=== PATIENT | female | born 1935 | race Caucasian/White ===

== ENCOUNTER 2016-09-17 18:21 | Emergency (ER) | payer BC ==
[~2016-09-17] VITALS: Ht 152.4 cm; Wt 64.2 kg
[~2016-09-17 18:21] MED LIST: ASPI81TA28 PO; MRLP17 PO; ZLF50 PO
[2016-09-17 18:32] VITALS: Ht 152.4 cm; Wt 64.2 kg
[2016-09-17] MEDS ORDERED: SODIUM CHLORIDE 0.9% 1000ML 250 ML IV STA (18:32)
[2016-09-17] MEDS ORDERED: SODIUM CHLORIDE 0.9% 1000ML 1,000 ML IV STA (18:32)
[2016-09-17] MEDS ORDERED: ALBUT/IPRATROP 3MG/0.5MG NEB 3 ML VIAL INH STA (18:32)
--- NOTE | 2016-09-17 18:39 | EMERGENCY ROOM VISIT NOTE ---
History Report prepared by Ulises: Sandrita Gannon Under the Supervision of: Dr. Del Anthony M.D. First contact with patient: 18:26 Chief Complaint: SHORTNESS OF BREATH Stated Complaint: SOB, COUGH History of Present Illness The patient is a 80 year old female who presents to the Emergency Room with complaints of persistent nonproductive, coughing starting this morning. She also reports shortness of breath. She denies any fevers, headache, sore throat, chest pain, pain/swelling in lower extremity, body aches, or any other complaints. The patient lives at [facility] and other residents have had similar symptoms. She has a history of A-Fib, asthma, and dementia. Source of History: patient, family, half-way notes Onset: this morning Position: other (global) Quality: other (nonproductive cough) Timing: other (persistent) Associated Symptoms: + SOB, No chest pain, No fevers, No headache, No sorethroat Review of Systems See HPI for pertinent positives & negatives. A total of 10 systems reviewed and were otherwise negative. Past Medical & Surgical Medical Problems: (1) Acute kidney injury (2) Afib (3) Alzheimer's Disease, Unspecified (4) Asthma, Unspecified (5) Ataxia (6) Benign essential hypertension (7) Contusion of multiple sites (8) Dizziness (9) Fall (10) Forehead laceration (11) Hypokalemia (12) Hypothyroidism Nos (13) Polymyalgia rheumatica (14) SAH (subarachnoid hemorrhage) (15) Syncope (16) Syncope and collapse Old medical records were reviewed. Nurse's notes were reviewed and I agree with. Family History Patient reports no known family medical history. Social History Smoking Status: Never Smoker Marital Status: Housing Status: lives alone Occupation Status: retired Current/Historical Medications Scheduled Aspirin (Aspirin Ec), 81 MG PO DAILY Methylprednisolone (Medrol Dosepak), 0 PO DAILY Oseltamivir (Tamiflu), 75 MG PO BID Polyethylene Glycol 3350 (Miralax), 17 GM PO DAILY Sertraline (Zoloft), 50 MG PO DAILY Allergies Coded Allergies: Adhesives (Verified Allergy, Severe, RED/SWOLLEN, 07/02/16) Codeine (Verified Allergy, Unknown, TOLERATED MORPHINE, 07/02/16) Erythromycin (Verified Allergy, Unknown, `, 07/02/16) Penicillins (Verified Allergy, Unknown, 07/02/16) Sulfamethoxazole (Verified Allergy, Unknown, 07/02/16) Physical Exam Vital Signs Date Time Temp Pulse Resp B/P Pulse Ox O2 Delivery O2 Flow Rate FiO2 09/17/16 21:43 36.5 99 24 155/74 95 09/17/16 21:41 99 24 155/74 95 Room Air 09/17/16 21:09 103 24 95 09/17/16 21:04 111 24 95 09/17/16 20:59 96 27 161/74 82 09/17/16 20:54 99 22 95 09/17/16 20:49 102 30 96 09/17/16 20:44 101 23 97 09/17/16 20:39 97 27 94 09/17/16 20:34 97 27 98 09/17/16 20:29 102 35 179/70 75 09/17/16 20:24 106 28 97 09/17/16 20:19 100 20 98 09/17/16 20:14 101 23 93 09/17/16 20:09 103 26 98 09/17/16 20:04 104 28 97 09/17/16 19:59 180/86 09/17/16 19:57 165/71 09/17/16 19:56 107 24 09/17/16 19:51 116 24 09/17/16 19:46 99 26 92 09/17/16 19:41 98 15 100 09/17/16 19:36 97 20 96 09/17/16 19:31 96 25 98 09/17/16 19:26 94 25 98 09/17/16 19:21 88 24 96 09/17/16 19:16 101 29 98 09/17/16 19:11 93 21 98 09/17/16 19:07 93 09/17/16 19:06 87 24 95 09/17/16 18:48 96 Room Air 09/17/16 18:32 36.5 91 22 177/103 96 Room Air 09/17/16 18:24 177/103 Physical Exam General: Older female who is coughing, in no significant respiratory distress. HEENT: Normal cephalic atraumatic. Pupils are equal round and reactive to light. Sclerae are anicteric. Extraocular movements are intact. Oropharynx is pink with moist mucous membranes. No swelling of the mouth lips or tongue. Neck: Supple with a midline trachea. No meningeal signs or stiffness, no JVD or bruits. No Stridor. Chest: Good lung movement with mild rhonchi. Heart: regular rate and rhythm. Abdomen: Soft nontender, nondistended without rebound guarding or rigidity. Extremities: No cyanosis clubbing or edema. No calf tenderness or assymetry Spine/Back. Non tender to palpation. No CVA tenderness Skin: Good turgor without rashes. Neurologic exam: Cranial nerves two through 12 are intact. Motor and sensation are intact and symmetrical throughout. Medical Decision & Procedures ER Provider Diagnostic Interpretation: X-ray results as stated below per interpretation by me and the radiologist: CHEST ONE VIEW PORTABLE CLINICAL HISTORY: CHEST PAIN dyspnea COMPARISON STUDY: 07/02/2016 FINDINGS: The bones soft tissues and hemidiaphragms are normal. The cardiomediastinal silhouette is normal. The lungs are clear. The pulmonary vasculature is normal. Right suprahilar nodular density is again noted. Are no focal infiltrative changes. Patient status post left shoulder hemiarthroplasty. IMPRESSION: Chronic and postoperative change. No acute process. Electronically signed by: Didier Eldridge M.D. 09/17/2016 7:10 PM Laboratory Results 09/17/16 18:35 Red Blood Count 3.77, Mean Corpuscular Volume 96.0, Mean Corpuscular Hemoglobin 31.8, Mean Corpuscular Hemoglobin Concent 33.1, Mean Platelet Volume 8.9, Neutrophils (%) (Auto) 70.4, Lymphocytes (%) (Auto) 18.5, Monocytes (%) (Auto) 7.3, Eosinophils (%) (Auto) 2.8, Basophils (%) (Auto) 0.6, Neutrophils # (Auto) 4.71, Lymphocytes # (Auto) 1.24, Monocytes # (Auto) 0.49, Eosinophils # (Auto) 0.19, Basophils # (Auto) 0.04 09/17/16 18:35 Test 09/17/16 18:35 09/17/16 18:45 White Blood Count 6.70 K/uL (4.8-10.8) Red Blood Count 3.77 M/uL (4.2-5.4) Hemoglobin 12.0 g/dL (12.0-16.0) Hematocrit 36.2 % (37-47) Mean Corpuscular Volume 96.0 fL (80-100) Mean Corpuscular Hemoglobin 31.8 pg (25-34) Mean Corpuscular Hemoglobin Concent 33.1 g/dl (32-36) Platelet Count 192 K/uL (130-400) Mean Platelet Volume 8.9 fL (7.4-10.4) Neutrophils (%) (Auto) 70.4 % Lymphocytes (%) (Auto) 18.5 % Monocytes (%) (Auto) 7.3 % Eosinophils (%) (Auto) 2.8 % Basophils (%) (Auto) 0.6 % Neutrophils # (Auto) 4.71 K/uL (1.4-6.5) Lymphocytes # (Auto) 1.24 K/uL (1.2-3.4) Monocytes # (Auto) 0.49 K/uL (0.11-0.59) Eosinophils # (Auto) 0.19 K/uL (0-0.5) Basophils # (Auto) 0.04 K/uL (0-0.2) RDW Standard Deviation 44.4 fL (36.4-46.3) RDW Coefficient of Variation 12.6 % (11.5-14.5) Immature Granulocyte % (Auto) 0.4 % Immature Granulocyte # (Auto) 0.03 K/uL (0.00-0.02) Prothrombin Time 10.4 SECONDS (9.0-12.0) Prothromb Time International Ratio 1.0 (0.9-1.1) Activated Partial Thromboplast Time 25.9 SECONDS (21.0-31.0) Partial Thromboplastin Ratio 1.0 Anion Gap 10.0 mmol/L (3-11) Est Creatinine Clear Calc Drug Dose 37.3 ml/min Estimated GFR () 61.9 Estimated GFR (Non- 53.4 BUN/Creatinine Ratio 26.5 (10-20) Calcium Level 8.7 mg/dl (8.5-10.1) Total Bilirubin 0.4 mg/dl (0.2-1) Direct Bilirubin mg/dl (0-0.2) Aspartate Amino Transf (AST/SGOT) 25 U/L (15-37) Alanine Aminotransferase (ALT/SGPT) 22 U/L (12-78) Alkaline Phosphatase 79 U/L (45-117) Total Creatine Kinase 107 U/L (26-192) Creatine Kinase MB 1.6 ng/ml (0.5-3.6) Creatine Kinase MB Ratio 1.5 (0-3.0) Troponin I < 0.015 ng/ml (0-0.045) Pro-B-Type Natriuretic Peptide 1885 pg/ml (0-1800) Total Protein 7.6 gm/dl (6.4-8.2) Albumin 3.6 gm/dl (3.4-5.0) Lipase 247 U/L (73-393) Chemistry Specimen Hemolysis Influenza Type A Antigen Neg for Influ A (NEG) Influenza Type B Antigen Neg for Influ B (NEG) Laboratory studies as stated above per my review. Medications Administered Medications (Trade) Dose Ordered Sig/Ally Route Start Time Stop Time Status Last Admin Dose Admin Sodium Chloride 250 ml @ 999 mls/hr Q16M STAT IV 09/17/16 18:32 09/17/16 18:47 DC 09/17/16 19:59 999 MLS/HR Sodium Chloride (Nss 1000ml) 1,000 ml @ 100 mls/hr Q10H STAT IV 09/17/16 18:32 09/17/16 22:14 DC 09/17/16 19:59 100 MLS/HR Albuterol/ Ipratropium (Duoneb) 3 ml NOW STAT INH 09/17/16 18:32 09/17/16 18:34 DC 09/17/16 19:38 3 ML Oseltamivir Phosphate (Tamiflu Cap) 75 mg ONE STAT PO 09/17/16 20:25 09/17/16 20:27 DC 09/17/16 21:09 75 MG Prednisone (PredniSONE TAB) 40 mg NOW STAT PO 09/17/16 20:25 09/17/16 20:27 DC 09/17/16 21:10 40 MG Albuterol (Ventolin Hfa Inhaler) 2 puffs NOW ONCE INH 09/17/16 20:30 09/17/16 20:31 DC 09/17/16 21:10 2 PUFFS ECG Indication: SOB/dyspnea Rate (beats per minute): 103 Rhythm: atrial fibrillation Findings: no acute ischemic change, no ectopy, other (Nonspecific T wave abnormality) Comparison ECG Date: July 02, 2016 Change: no significant change ED Course 1826: Past medical records reviewed. The patient was evaluated in room B12B, and a complete history and physical examination were performed. 1831: DuoNeb 3 ml INH, Sodium Chloride 1000 ml @ 999 mls/hr IV 2024: Prednisone 40 mg PO, Tamiflu Cap 75 mg PO 2028: Upon reevaluation, the patient is resting comfortably. I discussed the results and treatment plan with her. She verbalized agreement of the treatment plan. The patient was discharged home. 2029: Albuterol 2 puffs INH Medical Decision Differential diagnosis includes but is not limited to reactive airway disease, pneumonia, influenza, CHF, arrhythmia. This patient comes in as described above. She was placed on a registry nurse in room B12 well. She is here after having coughing that started this morning. She is a half-way where several people with influenza. She has a history of asthma. She was given albuterol Atrovent neb and by mouth steroids. She is feeling much better. She looks well she has occasional coughing spells but besides that when is not coughing. She's not hypoxemic and looks well her lungs are now clear. She has no chest pain. EKG does not show any acute nothing to suggest acute coronary syndrome or arrhythmia. She's no has acute electrolyte or metabolic abnormality. Chest x-ray does not show congestive heart failure, pneumonia or pneumothorax. Influenza was negative. I talked to the family at length as well as the patient he strongly desires to go back to the half-way, I think this is reasonable. even though she is negative on her flu ,I will go ahead and treat her with Tamiflu clinically as she probably has influenza and this is causing her have an asthma exacerbation. I'm also going to have her use an albuterol rescue inhaler and a Medrol Dosepak as well. Impression Primary Impression: Asthma exacerbation Additional Impressions: Bronchitis, Influenza-like illness Scribe Attestation The scribe's documentation has been prepared under my direction and personally reviewed by me in its entirety. I confirm that the note above accurately reflects all work, treatment, procedures, and medical decision making performed by me. Departure Information Dispostion Home / Self-Care Prescriptions Methylprednisolone (MEDROL DOSEPAK) 4 Mg Reid 0 PO DAILY, #1 PKT Prov: Del Anthony M.D. 09/17/16 Oseltamivir (Tamiflu) 75 Mg Cap 75 MG PO BID, #10 CAP Prov: Del Anthony M.D. 09/17/16 Referrals [facility] (PCP) Forms HOME CARE DOCUMENTATION FORM, IMPORTANT VISIT INFORMATION Patient Instructions A Signature Page, My [facility] Additional Instructions Rest. Drink plenty of fluids. Use Tamiflu twice a day for 5 days Use Medrol Dosepak as directedsteroid taper Use albuterol inhaler 2 puffs every 4 hours as needed Return if: Worsening of symptoms, chest pain, worsening of breathing, any new problems or concerns. Follow-up with your doctor tomorrow for recheck
[2016-09-17 19:03] LABS: BASO % 0.6 %; BASO ABS # 0.04 K/uL (0-0.2); COMPLETE YES; EOS % 2.8 %; HEMATOCRIT 36.2 % (37-47); IG% 0.4 %; LYMPH % 18.5 %; LYMPH ABS # 1.24 K/uL (1.2-3.4); MEAN CORPUSCULAR HEMOGLOBIN 31.8 pg (25-34); MEAN CORPUSCULAR HGB CONC 33.1 g/dl (32-36); MEAN PLATELET VOLUME 8.9 fL (7.4-10.4); MONO % 7.3 %; NEUT % 70.4 %; PLATELET COUNT 192 K/uL (130-400); RED BLOOD COUNT 3.77 M/uL (4.2-5.4)
--- NOTE | 2016-09-17 19:12 | DIAGNOSTIC IMAGING REPORT ---
CHEST ONE VIEW PORTABLE CLINICAL HISTORY: CHEST PAIN dyspnea COMPARISON STUDY: 07/02/2016 FINDINGS: The bones soft tissues and hemidiaphragms are normal. The cardiomediastinal silhouette is normal. The lungs are clear. The pulmonary vasculature is normal. Right suprahilar nodular density is again noted. Are no focal infiltrative changes. Patient status post left shoulder hemiarthroplasty. IMPRESSION: Chronic and postoperative change. No acute process. Electronically signed by: Didier Eldridge M.D. 09/17/2016 7:10 PM
[2016-09-17 19:20] LABS: PROTHROMBIN TIME (PATIENT) 10.4 SECONDS (9.0-12.0)
[2016-09-17 19:26] LABS: ALT/SGPT 22 U/L (12-78); AST/SGOT 25 U/L (15-37); BLOOD UREA NITROGEN 26 mg/dl (7-18); BUN/CREATININE RATIO 26.5 (10-20); CALCIUM 8.7 mg/dl (8.5-10.1); CARBON DIOXIDE 27 mmol/L (21-32); CHLORIDE 106 mmol/L (98-107); CREATININE 0.99 mg/dl (0.60-1.20); GLUCOSE 104 mg/dl (70-99); POTASSIUM 4.3 mmol/L (3.5-5.1); SODIUM 143 mmol/L (136-145)
[2016-09-17 19:34] LABS: ALKALINE PHOSPHATASE 79 U/L (45-117); CKMB/CK RATIO 1.5 (0-3.0)
[2016-09-17] MEDS ORDERED: OSELTAMIVIR PHOSPHATE 75 MG CAP PO STA (20:25)
[2016-09-17] MEDS ORDERED: OSEL75CA12 PO (20:29)
[2016-09-17] MEDS ORDERED: METH4PAK PO (20:29)
[2016-09-17] MEDS ORDERED: ALBUTEROL HFA 8 GM INHALER INH ONE (20:30)
[2016-09-17 21:43] VITALS: BP 155/74; PULSE 99; TEMP 36.5; O2SAT 95
[2016-09-24] MEDS ORDERED: LEVO1TAB33 PO (07:25)
[2016-09-24] MEDS ORDERED: IPRASOL4 INH (07:28)
[2016-09-24] MEDS ORDERED: DEXT30TA7 PO (07:29)
[2016-10-20] MEDS ORDERED: ASPI-435 PO (07:25)
[2016-10-20] MEDS ORDERED: LOPE2TAB84 PO (07:25)
[2016-10-20] MEDS ORDERED: VNTHFA/IN INH (07:26)
[2016-10-27] MEDS ORDERED: XPNINS INH (10:29)
[2016-10-27] MEDS ORDERED: ATRINS INH (10:29)
[2016-10-27] MEDS ORDERED: SERT50TA PO (10:29)
[2016-10-27] MEDS ORDERED: PRED10TA PO (10:29)
[2016-10-27] MEDS ORDERED: GFNSR600 PO (10:29)
[2016-10-27] MEDS ORDERED: BENZ100C7 PO (10:29)
[2016-11-07] MEDS ORDERED: PRD10 PO (09:19)
[2016-11-07] MEDS ORDERED: POLY335019 PO (09:19)
[2016-11-07] MEDS ORDERED: BENZ100C7 PO (09:19)
[2016-11-07] MEDS ORDERED: BCTRO (09:19)
[2016-11-07] MEDS ORDERED: PLMINS INH (09:19)
[2017-01-01] MEDS ORDERED: CRDCD180 PO (10:05)
[2017-01-01] MEDS ORDERED: ATV5 PO (10:05)
[2017-04-24] MEDS ORDERED: PRED10TA PO (12:12)
[2017-04-24] MEDS ORDERED: NYSS5 PO (12:12)
[2017-04-24] MEDS ORDERED: GFNSR600 PO (12:12)
[2017-04-24] MEDS ORDERED: IPRASOL4 INH (12:12)
[2017-04-24] MEDS ORDERED: PRFINS INH (12:12)
== END 2016-09-17 21:45 | disposition home or self-care (01) ==
LOC: EDBD 18:21 → C.EDB 18:23
DX: J45.901 Unspecified asthma with (acute) exacerbation (principal); J11.1 Influenza due to unidentified influenza virus with other respiratory manifestations; I48.91 Unspecified atrial fibrillation; I10 Essential (primary) hypertension; G30.9 Alzheimer's disease, unspecified; F02.80 Dementia in other diseases classified elsewhere, unspecified severity, without behavioral disturbance, psychotic disturbance, mood disturbance, and anxiety; Z79.899 Other long term (current) drug therapy; Z79.82 Long term (current) use of aspirin

== ENCOUNTER 2016-09-27 05:25 | Inpatient (IN) | payer BC, OTHER ==
[2016-09-27] VITALS (13 sets, daily range): BP systolic 120–151; BP diastolic 59–95; PULSE 86–123; TEMP 36.6–36.9; O2SAT 92–100; Ht 152.4 cm; Wt 58.8 kg
[~2016-09-27] VITALS: Ht 152.4 cm; Wt 58.8 kg
[~2016-09-27 05:25] MED LIST changes: +DEXT30TA7 PO; +IPRASOL4 INH; +LEVO1TAB33 PO; +METH4PAK PO; -MRLP17 PO; +OSEL75CA12 PO; -ZLF50 PO
[2016-09-27 06:09] LABS: BASO % 0.3 %; BASO ABS # 0.02 K/uL (0-0.2); COMPLETE YES; EOS % 4.4 %; HEMATOCRIT 34.4 % (37-47); IG% 0.6 %; LYMPH % 16.7 %; LYMPH ABS # 1.11 K/uL (1.2-3.4); MEAN CELL VOLUME 94.5 fL (80-100); MEAN CORPUSCULAR HEMOGLOBIN 32.4 pg (25-34); MEAN CORPUSCULAR HGB CONC 34.3 g/dl (32-36); MEAN PLATELET VOLUME 9.2 fL (7.4-10.4); MONO % 8.7 %; NEUT % 69.3 %; PLATELET COUNT 188 K/uL (130-400); RED BLOOD COUNT 3.64 M/uL (4.2-5.4); WHITE BLOOD COUNT 6.65 K/uL (4.8-10.8)
[2016-09-27 06:18] LABS: BUN/CREATININE RATIO 20.7 (10-20); CALCIUM 9.1 mg/dl (8.5-10.1); CREATININE 1.2 mg/dl (0.60-1.20); MAGNESIUM 1.8 mg/dl (1.8-2.4); POTASSIUM 4.3 mmol/L (3.5-5.1)
[2016-09-27 06:20] LABS: INR 1.1 (0.9-1.1); PARTIAL THROMBOPLASTIN RATIO 1.1; PROTHROMBIN TIME (PATIENT) 11.4 SECONDS (9.0-12.0)
[2016-09-27 06:27] LABS: ALB/GLOB RATIO 0.9 (0.9-2); C-REACTIVE PROTEIN 1.57 mg/dl (0-0.29); CKMB/CK RATIO 3.4 (0-3.0); THYROID STIMULATING HORMONE 1.91 uIu/ml (0.300-4.500)
[2016-09-27 06:37] LABS: VEN BLD GAS O2 SATURATION 90.1 %; VEN BLOOD GAS BASE EXCESS -2.5 mmol/L
--- NOTE | 2016-09-27 08:01 | EMERGENCY ROOM VISIT NOTE ---
ED Visit Note First contact with patient: 05:39 I saw this patient in conjunction with Dani Pritchett PA-C. I agree with his decision-making and treatment plan. The patient was in moderate respiratory distress here in the emergency department. She seemed to be doing better on BiPAP. [facility]
--- NOTE | 2016-09-27 08:09 | EMERGENCY ROOM VISIT NOTE ---
History First contact with patient: 05:39 Chief Complaint: RESPIRATORY PROBLEMS Stated Complaint: BREATHING DIFFICULTY/NECK PAIN Nursing Triage Summary: patient at [facility] personal care for bronchitis. 7 day Levaquin started 09/24/16. took 2 puffs of ventolin inhaler with no relief. staff stated to EMS that +temp, neck pain, diaphoretic. 2Duoneb, 125 solumedrol, 950NS given prehospital History of Present Illness The patient is a 80 year old female who presents to the Emergency Department via EMS for evaluation of difficulty with breathing. The patient is currently on Levaquin for bronchitis. In addition, she is using Ventolin inhalers. She was recently seen here and placed on Tamiflu as well as prednisone for an asthma exacerbation. She reports that over the past 3 days she has had worsening shortness of breath and cough. She is having shortness of breath to the point she is having trouble eating. She denies any fevers or chills. She reports occasional pain in her neck. She rates her current discomfort as a 4/ 10. The patient describes being very "jittery" after taking medications. The patient had 2 DuoNeb's in route as well as intravenous Solu-Medrol. She reports feeling somewhat better at this time, but reports persistent wheezing and cough. She denies any headaches, dizziness, chest pain, palpitations, hemoptysis, or abdominal pain. Review of Systems A complete 10-point Review of Systems was discussed with the patient, with pertinent positives and negatives listed in the History of Present Illness. All remaining Review of Systems questions can be considered negative unless otherwise specified. Past Medical/Surgical History Medical Problems: (1) Acute kidney injury (2) Afib (3) Alzheimer's Disease, Unspecified (4) Asthma, Unspecified (5) Ataxia (6) Benign essential hypertension (7) Contusion of multiple sites (8) Dizziness (9) Fall (10) Forehead laceration (11) Hypokalemia (12) Hypothyroidism Nos (13) Polymyalgia rheumatica (14) SAH (subarachnoid hemorrhage) (15) Syncope (16) Syncope and collapse Family History Patient reports no known family medical history. Social History Smoking Status: Never Smoker Smokeless Tobacco Use: No Alcohol Use: none Drug Use: none Marital Status: Housing Status: lives alone Occupation Status: retired Current/Historical Medications Scheduled Aspirin (Aspirin 81), 81 MG PO DAILY Dextromethorphan-Guaifenesin (Mucinex Dm), 1 TAB PO Q12 Ipratropium-Albuterol (Duoneb), 1 TREATMENT INH QID Levofloxacin (Levaquin), 500 MG PO DAILY Polyethylene Glycol 3350 (Miralax), 17 GM PO DAILY Sertraline (Zoloft), 75 MG PO DAILY Scheduled PRN Albuterol Hfa (Ventolin Hfa), 2 PUFFS INH every 3-4 hrs PRN for infection Loperamide Hcl (Anti-Diarrheal), 2 MG PO Q4 PRN for Diarrhea Allergies Coded Allergies: Adhesives (Verified Allergy, Severe, RED/SWOLLEN, 09/27/16) Codeine (Verified Allergy, Unknown, TOLERATED MORPHINE, 09/27/16) Erythromycin (Verified Allergy, Unknown, `, 09/27/16) Penicillins (Verified Allergy, Unknown, 09/27/16) Sulfamethoxazole (Verified Allergy, Unknown, 09/27/16) Physical Exam Vital Signs Date Time Temp Pulse Resp B/P Pulse Ox O2 Delivery O2 Flow Rate FiO2 09/27/16 07:42 101 20 134/78 100 BiPAP 09/27/16 06:58 127 20 109/69 98 BiPAP 09/27/16 06:08 123 100 40 09/27/16 06:04 97 Room Air 09/27/16 05:36 126 09/27/16 05:32 37.4 138 16 149/103 98 Room Air 09/27/16 05:32 Room Air Pain Rating (0-10): 4 Physical Exam VITAL SIGNS - Vital signs and nursing notes were reviewed. GENERAL - 80-year-old female appearing her stated age who is in mild distress, tachypneic, and shaky. Unable to complete full sentences secondary to breathing. Anxious appearing. HEAD - NC/AT. EYES - PERRL with EOMI bilaterally. Sclera anicteric. Palpebral conjunctiva pink and moist with no injection noted. EARS - No deformities of external structures noted on gross examination bilaterally. No pain elicited with palpation of the tragus bilaterally. External auditory canals without discharge or otorrhea. Tympanic membranes pearly montes without retraction or bulging. NOSE - Midline and without cyanosis. No epistaxis or purulent drainage noted. Septum midline without deviation or septal hematoma noted. MOUTH/OROPHARYNX - Without perioral cyanosis. Buccal mucosa pink and moist and without leukoplakia. Tongue midline with equal elevation of palate bilaterally. No tonsillar hypertrophy, erythema, or exudates noted. NECK - Neck with FROM. Supple to palpation. LUNGS - Chest wall symmetric with moderate accessory muscle use. Normal vesicular breath sounds CTA B/L. Diffuse inspiratory and expiratory wheezes appreciated throughout all lung hudson. No rales or rhonchi appreciated. CARDIAC - tachycardic with S1/S2. No murmur, rubs, or gallops appreciated. No reproducible tenderness to palpation appreciated over the anterior chest wall. ABDOMEN - Abdominal contour obese without pulsations or visible masses. BS normoactive all four quadrants. No tenderness, palpable masses, hepatosplenomegaly, or ascites noted. EXTREMITIES - No clubbing or peripheral cyanosis. No pretibial edema present. NEUROLOGIC - Cranial nerves II through XII grossly intact. Sensory intact to light touch throughout. PSYCH - pleasantly demented. Emotionally labile and occasionally tearful. Medical Decision & Procedures ER Provider Diagnostic Interpretation: X-ray of the chest was obtained and reviewed by myself. No acute cardiopulmonary processes or areas of consolidation appreciated per my interpretation. Radiologist's impression unavailable at the time of dictation. Laboratory Results 09/27/16 05:10 Red Blood Count 3.64, Mean Corpuscular Volume 94.5, Mean Corpuscular Hemoglobin 32.4, Mean Corpuscular Hemoglobin Concent 34.3, Mean Platelet Volume 9.2, Neutrophils (%) (Auto) 69.3, Lymphocytes (%) (Auto) 16.7, Monocytes (%) (Auto) 8.7, Eosinophils (%) (Auto) 4.4, Basophils (%) (Auto) 0.3, Neutrophils # (Auto) 4.61, Lymphocytes # (Auto) 1.11, Monocytes # (Auto) 0.58, Eosinophils # (Auto) 0.29, Basophils # (Auto) 0.02 09/27/16 05:10 Test 09/27/16 05:10 09/27/16 06:01 09/27/16 06:21 White Blood Count 6.65 K/uL (4.8-10.8) Red Blood Count 3.64 M/uL (4.2-5.4) Hemoglobin 11.8 g/dL (12.0-16.0) Hematocrit 34.4 % (37-47) Mean Corpuscular Volume 94.5 fL (80-100) Mean Corpuscular Hemoglobin 32.4 pg (25-34) Mean Corpuscular Hemoglobin Concent 34.3 g/dl (32-36) Platelet Count 188 K/uL (130-400) Mean Platelet Volume 9.2 fL (7.4-10.4) Neutrophils (%) (Auto) 69.3 % Lymphocytes (%) (Auto) 16.7 % Monocytes (%) (Auto) 8.7 % Eosinophils (%) (Auto) 4.4 % Basophils (%) (Auto) 0.3 % Neutrophils # (Auto) 4.61 K/uL (1.4-6.5) Lymphocytes # (Auto) 1.11 K/uL (1.2-3.4) Monocytes # (Auto) 0.58 K/uL (0.11-0.59) Eosinophils # (Auto) 0.29 K/uL (0-0.5) Basophils # (Auto) 0.02 K/uL (0-0.2) RDW Standard Deviation 44.2 fL (36.4-46.3) RDW Coefficient of Variation 12.9 % (11.5-14.5) Immature Granulocyte % (Auto) 0.6 % Immature Granulocyte # (Auto) 0.04 K/uL (0.00-0.02) Erythrocyte Sedimentation Rate 43 mm/hr (0-21) Prothrombin Time 11.4 SECONDS (9.0-12.0) Prothromb Time International Ratio 1.1 (0.9-1.1) Activated Partial Thromboplast Time 27.9 SECONDS (21.0-31.0) Partial Thromboplastin Ratio 1.1 Anion Gap 12.0 mmol/L (3-11) Est Creatinine Clear Calc Drug Dose 29.9 ml/min Estimated GFR () 49.1 Estimated GFR (Non- 42.4 BUN/Creatinine Ratio 20.7 (10-20) Calcium Level 9.1 mg/dl (8.5-10.1) Magnesium Level 1.8 mg/dl (1.8-2.4) Total Bilirubin 0.6 mg/dl (0.2-1) Aspartate Amino Transf (AST/SGOT) 18 U/L (15-37) Alanine Aminotransferase (ALT/SGPT) 21 U/L (12-78) Alkaline Phosphatase 73 U/L (45-117) Total Creatine Kinase 137 U/L (26-192) Creatine Kinase MB 4.7 ng/ml (0.5-3.6) Creatine Kinase MB Ratio 3.4 (0-3.0) C-Reactive Protein 1.57 mg/dl (0-0.29) Total Protein 7.4 gm/dl (6.4-8.2) Albumin 3.6 gm/dl (3.4-5.0) Globulin 3.8 gm/dl (2.5-4.0) Albumin/Globulin Ratio 0.9 (0.9-2) Lipase 202 U/L (73-393) Thyroid Stimulating Hormone (TSH) 1.910 uIu/ml (0.300-4.500) Influenza Type A Antigen Neg for Influ A (NEG) Influenza Type B Antigen Neg for Influ B (NEG) Venous Blood pH 7.50 (7.36-7.41) Venous Blood Partial Pressure CO2 26 mmHg (38.0-50.0) Venous Blood Partial Pressure O2 58 mmHg Venous Blood HCO3 20 mmol/L Venous Blood Oxygen Saturation 90.1 % Venous Blood Base Excess -2.5 mmol/L Procedure Patient was placed on the supervisor game farm and monitored throughout the entire extent of their stay. In addition, the patient's pulse oximetry was monitored throughout the entire stay. Any abnormalities or aberrancies were addressed appropriately. ECG Indication: SOB/dyspnea Rate (beats per minute): 133 Rhythm: atrial fibrillation Findings: nonspecific-ST abn, no acute ischemic change Change: no significant change (from 09/17/2016.) ED Course Patient was seen and evaluated by myself. Previous emergency department visit notes were reviewed. Patient was placed on BiPAP. Labs were drawn, saline lock in place. Blood cultures were obtained. Influenza swab was obtained. Laboratory results demonstrate no acute leukocytosis, significant anemia, or bandemia. The patient has no significant electrolyte abnormalities. Chest x- ray and EKG as above. Patient was reevaluated on multiple occasions and was resting comfortably and her breathing had improved. Cardiac enzymes are negative. Troponin is negative. BNP is not significantly elevated. Patient will be admitted for acute respiratory distress and asthma exacerbation. Patient admitted in fair condition to the [facility] service. Medical Decision Given the patient's presentation and exam findings, I did elect to perform the above-mentioned workup. The patient presents today in moderate respiratory distress. She is not hypoxic. She has diffuse wheezing throughout. The patient had only received 2 DuoNeb treatments and IV Solu-Medrol prior to arrival in the emergency department. Essentially, she had next on initial therapy at this point. She was placed on BiPAP which did provide a moderate amount of respiratory support. In addition, the patient does have a component of anxiety which I believe is coupled with some baseline dementia. Her chest x- ray demonstrates no acute consolidations or concerning findings at this point. She has no fever or leukocytosis. She is in A. fib. She is apparently untreated at least at this point. The remainder of her labs are otherwise unremarkable. The patient will be admitted to the [facility] service for continued pulmonary toilet and management of her ongoing bronchitis , status asthmaticus, and respiratory distress. Patient admitted in fair condition. In the evaluation and treatment of this patient, the following differential diagnoses were considered: TX, ASC, Dysrhythmia, Angina, Mediastinitis, GERD, Esophagitis, PE, Pneumonia, Bronchitis, Costochondritis, Rib Fracture, Zoster. Impression Primary Impression: Respiratory distress Additional Impressions: Status asthmaticus Bronchitis Critical Care I have personally spent greater than 45 minutes of critical care time in the direct management of this patient. This includes bedside care, interpretation of diagnostic studies, and testing, discussion with consultants, patient, and family members, and other required patient management activities. This 45 minutes is in excess of all separately billable procedures. Departure Information Dispostion Admitted as an inpatient Condition FAIR [facility] ([facility] Patient Instructions My [facility] Problem Qualifiers Additional Impressions: Status asthmaticus Asthma severity: unspecified severity Qualified Codes: J45.902 - Unspecified asthma with status asthmaticus
[2016-09-27] MEDS ORDERED: ONDANSETRON INJ 2 MG/ML 2 ML VIAL IV PRN (08:15)
[2016-09-27] MEDS ORDERED: POLYETHYLENE (MIRALAX) 17 GM PACK PO PRN (08:15)
--- NOTE | 2016-09-27 08:27 | DIAGNOSTIC IMAGING REPORT ---
CHEST ONE VIEW PORTABLE CLINICAL HISTORY: Shortness of breath COMPARISON STUDY: 09/17/2016 FINDINGS: The heart is mildly enlarged. There is no failure. There is no lobar consolidation. There is an old left-sided rib fracture. There is a persistent right upper lobe pulmonary nodule measuring 16 mm.[ IMPRESSION: 1. Stable mild cardiomegaly 2. Persistent 16 mm right suprahilar pulmonary nodule 3. No evidence of lobar consolidation Electronically signed by: Angel Luis Johnson M.D. 09/27/2016 8:25 AM Dictated Date/Time: 09/27/2016 8:24 AM
--- NOTE | 2016-09-27 08:47 | History and Physical ---
History & Physical Date & Time of Service: Sep 27, 2016 at 08:26 Chief Complaint: Breathing Difficulty/Neck Pain Primary Care Physician: Vineet HartPersonal Care,Balwinder History of Present Illness Source: patient, hospital records, other Patient is an 80 y/o female with a h/o A fib, depression, asthma who presents with worsening SOB. Patient was seen in the ED on 09/17 for SOB and cough and was empirically treated with Tamiflu and a Medrol dose pack. Flu testing at that time was negative. Patient again noted worsening SOB and cough over the past 3 days. Reportedly she had a negative CXR done and was started on a course of Levofloxacin on 09/24. This morning, nursing staff found her crying and very upset. She was c/o right sided neck pain. Her vitals were notable for a temp of 99.6 and a HR of 105-140. EMS was called and patient was given 2 duonebs and a dose of methylprednisolone 125mg en route. Patient was started on BiPAP here in the ED. Past Medical/Surgical History Medical Problems: (1) Acute kidney injury Status: Resolved (2) Afib Status: Chronic (3) Alzheimer's Disease, Unspecified Status: Chronic (4) Asthma, Unspecified Status: Chronic (5) Ataxia Status: Chronic (6) Benign essential hypertension Status: Chronic (7) Contusion of multiple sites Status: Resolved (8) Dizziness Status: Chronic (9) Fall Status: Resolved (10) Forehead laceration Status: Resolved (11) Hypokalemia Status: Resolved (12) Hypothyroidism Nos Status: Chronic (13) Polymyalgia rheumatica Status: Chronic (14) SAH (subarachnoid hemorrhage) Status: Resolved (15) Syncope Status: Chronic (16) Syncope and collapse Status: Resolved Family History Patient reports no known family medical history. Social History Smoking Status: Never Smoker Smokeless Tobacco Use: No Drug Use: none Marital Status: Housing status: lives alone Occupational Status: retired Immunizations History of Influenza Vaccine: No History of Tetanus Vaccine?: Yes Tetanus Immunization Date: Dec 13, 1988 History of Pneumococcal: Unknown Pneumococcal Date: Dec 14, 1991 History of Hepatitis B Vaccine: Unknown Multi-Drug Resistant Organisms History of MDRO: No Allergies Coded Allergies: Adhesives (Verified Allergy, Severe, RED/SWOLLEN, 09/27/16) Codeine (Verified Allergy, Unknown, TOLERATED MORPHINE, 09/27/16) Erythromycin (Verified Allergy, Unknown, `, 09/27/16) Penicillins (Verified Allergy, Unknown, 09/27/16) Sulfamethoxazole (Verified Allergy, Unknown, 09/27/16) Home Medications Scheduled Aspirin (Aspirin 81), 81 MG PO DAILY Dextromethorphan-Guaifenesin (Mucinex Dm), 1 TAB PO Q12 Ipratropium-Albuterol (Duoneb), 1 TREATMENT INH QID Levofloxacin (Levaquin), 500 MG PO DAILY Polyethylene Glycol 3350 (Miralax), 17 GM PO DAILY Sertraline (Zoloft), 75 MG PO DAILY Scheduled PRN Albuterol Hfa (Ventolin Hfa), 2 PUFFS INH every 3-4 hrs PRN for infection Loperamide Hcl (Anti-Diarrheal), 2 MG PO Q4 PRN for Diarrhea Review of Systems Constitutional- +fevers and sweats Eyes- denies blurry vision, double vision or loss of vision ENT- denies sore throat, congestion Pulmonary- +SOB and non-productive cough Cardiac- denies chest pain; +intermittent palpitations GI- denies abdominal pain, nausea, vomiting; +loose stools yesterday - denies dysuria or hematuria Musculoskeletal- +right sided neck pain; denies joint swelling Dermatologic- denies rashes or bruises Neuro- denies focal weakness, numbness or tingling Psych- +depression and anxiety . Physical Exam Vital Signs Date Time Temp Pulse Resp B/P Pulse Ox O2 Delivery O2 Flow Rate FiO2 09/27/16 08:24 109 20 141/89 96 Nasal Cannula 2.0 09/27/16 08:17 120 09/27/16 07:42 101 20 134/78 100 BiPAP 09/27/16 06:58 127 20 109/69 98 BiPAP 09/27/16 06:08 123 100 40 09/27/16 06:04 97 Room Air 09/27/16 05:36 126 09/27/16 05:32 37.4 138 16 149/103 98 Room Air 09/27/16 05:32 Room Air General- awake; alert; occasionally tearful at times Eyes- EOMI; no scleral icterus; pupils equally round ENT- unable to examine as patient wearing BiPAP mask Neck- right side of neck tender to touch; no palpable LAD Lungs- coarse breath sounds throughout with scattered rubs Heart- irregularly irregular; tachycardic Abdomen- soft; NTND; nBS Back- no gross abnormalities Extremities- no deformity; no edema Neuro- no gross focal deficits Skin- +varicose veins; no appreciable rash or bruise . Diagnostics Laboratory Results Results Past 24 Hours Test 09/27/16 05:10 09/27/16 06:01 09/27/16 06:21 Range/Units White Blood Count 6.65 4.8-10.8 K/uL Red Blood Count 3.64 4.2-5.4 M/uL Hemoglobin 11.8 12.0-16.0 g/dL Hematocrit 34.4 37-47 % Mean Corpuscular Volume 94.5 80-100 fL Mean Corpuscular Hemoglobin 32.4 25-34 pg Mean Corpuscular Hemoglobin Concent 34.3 32-36 g/dl Platelet Count 188 130-400 K/uL Mean Platelet Volume 9.2 7.4-10.4 fL Neutrophils (%) (Auto) 69.3 % Lymphocytes (%) (Auto) 16.7 % Monocytes (%) (Auto) 8.7 % Eosinophils (%) (Auto) 4.4 % Basophils (%) (Auto) 0.3 % Neutrophils # (Auto) 4.61 1.4-6.5 K/uL Lymphocytes # (Auto) 1.11 1.2-3.4 K/uL Monocytes # (Auto) 0.58 0.11-0.59 K/uL Eosinophils # (Auto) 0.29 0-0.5 K/uL Basophils # (Auto) 0.02 0-0.2 K/uL RDW Standard Deviation 44.2 36.4-46.3 fL RDW Coefficient of Variation 12.9 11.5-14.5 % Immature Granulocyte % (Auto) 0.6 % Immature Granulocyte # (Auto) 0.04 0.00-0.02 K/uL Erythrocyte Sedimentation Rate 43 0-21 mm/hr Prothrombin Time 11.4 9.0-12.0 SECONDS Prothromb Time International Ratio 1.1 0.9-1.1 Activated Partial Thromboplast Time 27.9 21.0-31.0 SECONDS Partial Thromboplastin Ratio 1.1 Sodium Level 142 136-145 mmol/L Potassium Level 4.3 3.5-5.1 mmol/L Chloride Level 107 98-107 mmol/L Carbon Dioxide Level 23 21-32 mmol/L Anion Gap 12.0 3-11 mmol/L Blood Urea Nitrogen 25 7-18 mg/dl Creatinine 1.20 0.60-1.20 mg/dl Est Creatinine Clear Calc Drug Dose 29.9 ml/min Estimated GFR () 49.1 Estimated GFR (Non- 42.4 BUN/Creatinine Ratio 20.7 10-20 Random Glucose 121 70-99 mg/dl Calcium Level 9.1 8.5-10.1 mg/dl Magnesium Level 1.8 1.8-2.4 mg/dl Total Bilirubin 0.6 0.2-1 mg/dl Aspartate Amino Transf (AST/SGOT) 18 15-37 U/L Alanine Aminotransferase (ALT/SGPT) 21 12-78 U/L Alkaline Phosphatase 73 45-117 U/L Total Creatine Kinase 137 26-192 U/L Creatine Kinase MB 4.7 0.5-3.6 ng/ml Creatine Kinase MB Ratio 3.4 0-3.0 C-Reactive Protein 1.57 0-0.29 mg/dl Total Protein 7.4 6.4-8.2 gm/dl Albumin 3.6 3.4-5.0 gm/dl Globulin 3.8 2.5-4.0 gm/dl Albumin/Globulin Ratio 0.9 0.9-2 Lipase 202 73-393 U/L Thyroid Stimulating Hormone (TSH) 1.910 0.300-4.500 uIu/ml Influenza Type A Antigen Neg for Influ A NEG Influenza Type B Antigen Neg for Influ B NEG Venous Blood pH 7.50 7.36-7.41 Venous Blood Partial Pressure CO2 26 38.0-50.0 mmHg Venous Blood Partial Pressure O2 58 mmHg Venous Blood HCO3 20 mmol/L Venous Blood Oxygen Saturation 90.1 % Venous Blood Base Excess -2.5 mmol/L Microbiology Results 09/27/16 Blood Culture, Received Pending 09/27/16 Blood Culture, Received Pending Diagnostic Radiology CXR 1. Stable mild cardiomegaly 2. Persistent 16 mm right suprahilar pulmonary nodule 3. No evidence of lobar consolidation EKG A fib with RVR Impression Assessment and Plan Patient is an 80 y/o female who presents with worsening SOB and cough, possible asthma exacerbation. Asthma exacerbation - patient received duo-neb, methylprednisolone and was placed on BiPAP with improvement in symptoms - CXR negative - continue levofloxacin (started on 09/24) - start duo-nebs - continue methylprednisolone - influenza negative - wean BiPAP as able A fib - patient is not on any rate controlling agents or anticoagulation - HR improved with improvement in respiratory status - continue aspirin Depression/Anxiety - continue sertraline DVT prophylaxis - Lovenox sq Anticipate discharge to [facility] when medically stable. Level of Care Telemetry Resuscitation Status DO NOT RESUSCITATE VTE Prophylaxis VTE Risk Assessment Done? Y/N: Yes Risk Level: Moderate Given or contraindicated: Enoxaparin (Lovenox)SQ Social Service Consult Lives in Personal Care
[2016-09-27] MEDS ORDERED: ASPIRIN 81 MG ECTAB PO SCH (09:00)
[2016-09-27] MEDS: LIDODERM (LIDOCAINE) PATCH 5% TD SCH (09:00)
[2016-09-27] MEDS ORDERED: LEVALBUTEROL/IPRATROPIUM NEB INH SCH (09:00)
[2016-09-27] MEDS ORDERED: LEVOFLOXACIN CONSULT ACTIVE SCH (10:53)
[2016-09-27] MEDS: LEVOFLOXACIN 250 MG TAB PO SCH (11:21)
[2016-09-27] MEDS: SERTRALINE HCL 50 MG TAB PO SCH (11:22)
[2016-09-27] MEDS: ASPIRIN 81 MG ECTAB PO SCH (11:22)
[2016-09-27 12:20] LABS: MANUAL MICROSCOPIC REQUIRED? NO; REVIEW REQ? NO; URINE APPEARANCE CLEAR (CLEAR); URINE BILIRUBIN NEG (NEG); URINE COLOR YELLOW; URINE NITRITE NEG (NEG); URINE SPECIFIC GRAVITY 1.017 (1.000-1.030); UROBILINOGEN NEG (NEG); ZZURINE CULT IF INDIC CATH NO
[2016-09-27] MEDS: LEVALBUTEROL 1.25MG/0.5ML NEB INH SCH ×3 (14:22→20:15)
[2016-09-27] MEDS: IPRATROPIUM BROMIDE NEB SOLN 0.02% 2.5 ML VIAL INH SCH ×3 (14:22→20:15)
[2016-09-27] MEDS ORDERED: METOPROLOL TARTRATE 1 MG/ML VIAL IV STA (14:42)
[2016-09-27] MEDS: ENOXAPARIN 30 MG/0.3 ML SYR SC SCH (14:53)
[2016-09-27] MEDS: METHYLPREDNISOLONE IV 60 MG in SYRINGE 0 ML IV SCH ×2 (17:14→23:24)
[2016-09-28] VITALS (10 sets, daily range): BP systolic 112–176; BP diastolic 64–86; PULSE 83–112; TEMP 36.4–37.1; O2SAT 95–100
[2016-09-28] MEDS: IPRATROPIUM BROMIDE NEB SOLN 0.02% 2.5 ML VIAL INH SCH ×3 (02:25→19:23)
[2016-09-28] MEDS: LEVALBUTEROL 1.25MG/0.5ML NEB INH SCH ×3 (02:25→19:23)
[2016-09-28 07:46] LABS: HEMATOCRIT 33.3 % (37-47); MEAN CORPUSCULAR HEMOGLOBIN 32.9 pg (25-34); MEAN CORPUSCULAR HGB CONC 34.2 g/dl (32-36); MEAN PLATELET VOLUME 9.3 fL (7.4-10.4); PLATELET COUNT 171 K/uL (130-400); RED BLOOD COUNT 3.47 M/uL (4.2-5.4); WHITE BLOOD COUNT 9.66 K/uL (4.8-10.8)
[2016-09-28] MEDS: METHYLPREDNISOLONE IV 60 MG in SYRINGE 0 ML IV SCH ×3 (08:25→23:37)
[2016-09-28] MEDS: ASPIRIN 81 MG ECTAB PO SCH (08:26)
[2016-09-28] MEDS: SERTRALINE HCL 50 MG TAB PO SCH (08:26)
[2016-09-28 08:27] LABS: BUN/CREATININE RATIO 23.8 (10-20); CALCIUM 8.6 mg/dl (8.5-10.1); POTASSIUM 4.1 mmol/L (3.5-5.1)
[2016-09-28] MEDS: LIDODERM (LIDOCAINE) PATCH 5% TD SCH (09:00)
[2016-09-28] MEDS: LEVOFLOXACIN 250 MG TAB PO SCH (11:33)
[2016-09-28] MEDS ORDERED: LEVALBUTEROL 1.25MG/3ML NEB INH PRN (12:00)
[2016-09-28] MEDS: ENOXAPARIN 30 MG/0.3 ML SYR SC SCH (14:57)
[2016-09-28] MEDS: BENZONATATE 100MG CAP PO SCH ×2 (14:58→19:05)
--- NOTE | 2016-09-28 16:10 | Progress Note ---
Medicine Progress Note Date & Time of Visit: Sep 28, 2016 at 16:06. Subjective Patient seen and examined. Feels that her breathing is somewhat better today. Neck pain has completely resolved. Objective Last 8 Hrs Date Time Temp Pulse Resp B/P Pulse Ox O2 Delivery O2 Flow Rate FiO2 09/28/16 15:32 36.5 112 18 112/64 97 Room Air 09/28/16 12:00 Nasal Cannula 4.0 09/28/16 11:45 36.7 95 20 150/77 98 Nasal Cannula 4.0 09/28/16 08:30 88 98 Nasal Cannula 4.0 Physical Exam: General-awake; alert; NAD Eyes-EOMI; no scleral icterus Neck-full ROM; no stridor; trachea midline Lungs-diffuse expiratory wheezes Heart-irregularly irregular Abdomen-soft; NTND; nBS Extremities-no c/c/e; no deformity Neuro-no gross focal deficits Laboratory Results: Last 24 Hours Test 09/28/16 07:15 White Blood Count 9.66 K/uL Red Blood Count 3.47 M/uL Hemoglobin 11.4 g/dL Hematocrit 33.3 % Mean Corpuscular Volume 96.0 fL Mean Corpuscular Hemoglobin 32.9 pg Mean Corpuscular Hemoglobin Concent 34.2 g/dl RDW Standard Deviation 45.4 fL RDW Coefficient of Variation 13.1 % Platelet Count 171 K/uL Mean Platelet Volume 9.3 fL Sodium Level 144 mmol/L Potassium Level 4.1 mmol/L Chloride Level 111 mmol/L Carbon Dioxide Level 24 mmol/L Anion Gap 9.0 mmol/L Blood Urea Nitrogen 24 mg/dl Creatinine 1.00 mg/dl Est Creatinine Clear Calc Drug Dose 35.8 ml/min Estimated GFR () 61.2 Estimated GFR (Non- 52.8 BUN/Creatinine Ratio 23.8 Random Glucose 155 mg/dl Calcium Level 8.6 mg/dl Chemistry Specimen Hemolysis Assessment & Plan Patient is an 80 y/o female who presents with worsening SOB and cough, possible asthma exacerbation. Asthma exacerbation - patient received duo-neb, methylprednisolone and was placed on BiPAP in ED with improvement in symptoms - CXR negative - continue levofloxacin (started on 09/24) - continue duo-nebs - continue methylprednisolone - influenza negative - wean BiPAP to supplemental oxygen - cough suppressants as needed A fib - patient is not on any rate controlling agents or anticoagulation - HR improved with improvement in respiratory status - continue aspirin Depression/Anxiety - continue sertraline DVT prophylaxis - Lovenox sq Anticipate discharge to [facility] when medically stable. Current Inpatient Medications: Current Inpatient Medications Medications (Trade) Dose Ordered Sig/Ally Route Start Time Stop Time Status Last Admin Dose Admin Enoxaparin Sodium (Lovenox Inj) 30 mg Q24H SC 09/27/16 14:00 10/27/16 13:59 09/28/16 14:57 30 MG Acetaminophen (Tylenol Tab) 650 mg Q4H PRN PO 09/27/16 08:15 10/27/16 08:14 Ondansetron HCl (Zofran Inj) 4 mg Q6H PRN IV 09/27/16 08:15 10/27/16 08:14 Polyethylene (Miralax Powder Packet) 17 gm DAILY PRN PO 09/27/16 08:15 10/27/16 08:14 Levofloxacin (Consult) 1 ea UD N/A 09/27/16 10:53 10/27/16 10:52 Aspirin (Ecotrin Tab) 81 mg DAILY PO 09/27/16 09:00 10/27/16 08:59 09/28/16 08:26 81 MG Sertraline HCl (Zoloft Tab) 75 mg DAILY PO 09/27/16 09:00 10/27/16 08:59 09/28/16 08:26 75 MG Lidocaine (Lidoderm Patch 5%) 1 patch QAM TD 09/27/16 09:00 10/27/16 08:59 Miscellaneous (Remove Lidoderm Patch) 1 ea DAILY@21 N/A 09/27/16 21:00 10/27/16 20:59 Ipratropium [place] (Atrovent 0.02% 0.5MG/2.5ML Neb) 0.5 mg Q6R INH 09/27/16 15:00 10/27/16 14:59 09/28/16 07:16 0.5 MG Levalbuterol (Xopenex 1.25MG/ 0.5ML Neb) 1.25 mg Q6R INH 09/27/16 15:00 10/27/16 14:59 09/28/16 07:16 1.25 MG Levofloxacin 250 mg 250 mg DAILY@11 PO 09/27/16 11:00 09/30/16 11:01 09/28/16 11:33 250 MG Methylprednisolone Sodium Succinate/ Syringe (Solu-Medrol IV/ Syringe) 0.96 ml @ 1.5 mls/min Q8H IV 09/27/16 16:00 10/27/16 15:59 09/28/16 08:25 1.5 MLS/MIN Benzonatate (Tessalon Perles Cap) 100 mg TID PO 09/28/16 14:00 10/28/16 13:59 09/28/16 14:58 100 MG Guaifenesin (Mucinex Contr Rel Tab) 600 mg Q12 PO 09/28/16 21:00 10/28/16 20:59 Dextromethorphan Polymer Complex (Delsym Susp) 30 mg Q8H PRN PO 09/28/16 12:00 10/28/16 11:59 Levalbuterol (Xopenex 1.25MG/ 3ML Neb) 1.25 mg Q3HWA PRN INH 09/28/16 12:00 10/28/16 11:59
[2016-09-28] MEDS: GUAIFENESIN 600 MG TABCR PO SCH (19:05)
[2016-09-28] MEDS: DEXTROMETHORPHAN POLYMR COMPLX 30 MG/5 ML UDP PO PRN (19:05)
[2016-09-29] VITALS (13 sets, daily range): BP systolic 145–168; BP diastolic 61–90; PULSE 91–117; TEMP 36.5–37; O2SAT 95–100
[2016-09-29] MEDS: LEVALBUTEROL 1.25MG/0.5ML NEB INH SCH ×4 (02:30→19:13)
[2016-09-29] MEDS: IPRATROPIUM BROMIDE NEB SOLN 0.02% 2.5 ML VIAL INH SCH ×4 (02:30→19:13)
[2016-09-29] MEDS: ASPIRIN 81 MG ECTAB PO SCH (08:38)
[2016-09-29] MEDS: METHYLPREDNISOLONE IV 60 MG in SYRINGE 0 ML IV SCH ×3 (08:38→23:57)
[2016-09-29] MEDS: GUAIFENESIN 600 MG TABCR PO SCH ×2 (08:38→19:43)
[2016-09-29] MEDS: BENZONATATE 100MG CAP PO SCH ×3 (08:38→19:44)
[2016-09-29] MEDS: SERTRALINE HCL 50 MG TAB PO SCH (08:39)
[2016-09-29] MEDS: DEXTROMETHORPHAN POLYMR COMPLX 30 MG/5 ML UDP PO PRN ×2 (08:40→16:27)
[2016-09-29] MEDS: DILTIAZEM HCL 120 MG ER CAP PO SCH (09:37)
--- NOTE | 2016-09-29 13:49 | Progress Note ---
Medicine Progress Note Date & Time of Visit: Sep 29, 2016 at 13:45. Subjective Patient seen and examined. Soundly sleeping. Nursing staff notes that she is able to ambulate to the bathroom without assistance. Still with cough. Objective Last 8 Hrs Date Time Temp Pulse Resp B/P Pulse Ox O2 Delivery O2 Flow Rate FiO2 09/29/16 12:00 100 Nasal Cannula 2.0 09/29/16 11:35 36.6 91 32 145/75 100 09/29/16 08:00 95 Nasal Cannula 2.0 09/29/16 07:39 92 20 95 Nasal Cannula 2.0 09/29/16 07:38 36.6 117 20 168/90 97 Physical Exam: General-sleeping but arousable Eyes-EOMI; no scleral icterus Neck-no stridor; trachea midline Lungs-diffuse expiratory wheezes Heart-irregularly irregular Abdomen-soft; NTND; nBS Extremities-no c/c/e; no deformity Neuro-no gross focal deficits Assessment & Plan Patient is an 80 y/o female who presented with worsening SOB and cough, possible asthma exacerbation. Asthma exacerbation - patient received duo-neb, methylprednisolone and was placed on BiPAP in ED with improvement in symptoms - CXR negative - continue levofloxacin (started on 09/24) - continue duo-nebs - continue methylprednisolone (started on 09/24) and transition to prednisone when respiratory status improves - influenza negative - wean BiPAP to supplemental oxygen - cough suppressants and expectorants as needed A fib - patient was not on any rate controlling agents or anticoagulation - start diltiazem - continue aspirin Depression/Anxiety - continue sertraline DVT prophylaxis - Lovenox sq Anticipate discharge to [facility] when medically stable. Current Inpatient Medications: Current Inpatient Medications Medications (Trade) Dose Ordered Sig/Ally Route Start Time Stop Time Status Last Admin Dose Admin Enoxaparin Sodium (Lovenox Inj) 30 mg Q24H SC 09/27/16 14:00 10/27/16 13:59 09/28/16 14:57 30 MG Acetaminophen (Tylenol Tab) 650 mg Q4H PRN PO 09/27/16 08:15 10/27/16 08:14 Ondansetron HCl (Zofran Inj) 4 mg Q6H PRN IV 09/27/16 08:15 10/27/16 08:14 Polyethylene (Miralax Powder Packet) 17 gm DAILY PRN PO 09/27/16 08:15 10/27/16 08:14 Levofloxacin (Consult) 1 ea UD N/A 09/27/16 10:53 10/27/16 10:52 Aspirin (Ecotrin Tab) 81 mg DAILY PO 09/27/16 09:00 10/27/16 08:59 09/29/16 08:38 81 MG Sertraline HCl (Zoloft Tab) 75 mg DAILY PO 09/27/16 09:00 10/27/16 08:59 09/29/16 08:39 75 MG Ipratropium [place] (Atrovent 0.02% 0.5MG/2.5ML Neb) 0.5 mg Q6R INH 09/27/16 15:00 10/27/16 14:59 09/29/16 07:36 0.5 MG Levalbuterol (Xopenex 1.25MG/ 0.5ML Neb) 1.25 mg Q6R INH 09/27/16 15:00 10/27/16 14:59 09/29/16 07:37 1.25 MG Levofloxacin 250 mg 250 mg DAILY@11 PO 09/27/16 11:00 09/30/16 11:01 09/28/16 11:33 250 MG Methylprednisolone Sodium Succinate/ Syringe (Solu-Medrol IV/ Syringe) 0.96 ml @ 1.5 mls/min Q8H IV 09/27/16 16:00 10/27/16 15:59 09/29/16 08:38 1.5 MLS/MIN Benzonatate (Tessalon Perles Cap) 100 mg TID PO 09/28/16 14:00 10/28/16 13:59 09/29/16 08:38 100 MG Guaifenesin (Mucinex Contr Rel Tab) 600 mg Q12 PO 09/28/16 21:00 10/28/16 20:59 09/29/16 08:38 600 MG Dextromethorphan Polymer Complex (Delsym Susp) 30 mg Q8H PRN PO 09/28/16 12:00 10/28/16 11:59 09/29/16 08:40 30 MG Levalbuterol (Xopenex 1.25MG/ 3ML Neb) 1.25 mg Q3HWA PRN INH 09/28/16 12:00 10/28/16 11:59 Diltiazem HCl (Dilacor Xr Cap) 120 mg QAM PO 09/29/16 09:00 10/29/16 08:59 09/29/16 09:37 120 MG
[2016-09-29] MEDS: ENOXAPARIN 30 MG/0.3 ML SYR SC SCH (14:26)
[2016-09-29] MEDS: LEVOFLOXACIN 250 MG TAB PO SCH (14:26)
[2016-09-30] VITALS (16 sets, daily range): BP systolic 135–175; BP diastolic 69–81; PULSE 90–116; TEMP 36.3–36.8; O2SAT 91–99
[2016-09-30] MEDS: LEVALBUTEROL 1.25MG/0.5ML NEB INH SCH ×4 (02:01→19:54)
[2016-09-30] MEDS: IPRATROPIUM BROMIDE NEB SOLN 0.02% 2.5 ML VIAL INH SCH ×4 (02:01→19:54)
[2016-09-30 06:32] LABS: HEMATOCRIT 32.4 % (37-47); MEAN CELL VOLUME 94.5 fL (80-100); MEAN CORPUSCULAR HEMOGLOBIN 31.5 pg (25-34); MEAN CORPUSCULAR HGB CONC 33.3 g/dl (32-36); MEAN PLATELET VOLUME 9.4 fL (7.4-10.4); PLATELET COUNT 158 K/uL (130-400); RED BLOOD COUNT 3.43 M/uL (4.2-5.4)
[2016-09-30 07:10] LABS: BUN/CREATININE RATIO 35.8 (10-20); POTASSIUM 4.3 mmol/L (3.5-5.1)
[2016-09-30] MEDS: SERTRALINE HCL 50 MG TAB PO SCH (07:15)
[2016-09-30] MEDS: DILTIAZEM HCL 120 MG ER CAP PO SCH (07:15)
[2016-09-30] MEDS: BENZONATATE 100MG CAP PO SCH ×3 (07:15→20:38)
[2016-09-30] MEDS: ASPIRIN 81 MG ECTAB PO SCH (07:15)
[2016-09-30] MEDS: GUAIFENESIN 600 MG TABCR PO SCH ×2 (07:15→20:38)
[2016-09-30] MEDS: METHYLPREDNISOLONE IV 60 MG in SYRINGE 0 ML IV SCH ×3 (07:15→23:47)
--- NOTE | 2016-09-30 10:34 | Clinical Documentation Query ---
CLINICAL DOCUMENTATION QUERY Dr. MARTINES, In your clinical opinion is this patient being managed for: (x ) Acute respiratory failure with hypoxia at time of ER presentation, treated with BIPAP and improving ( ) Other explanation of clinical findings (Please Explain) ( ) Unable to determine (Please Define) ( ) Need to Discuss ( ) Not Agree The medical record reflects the following clinical findings, treatment, and risk factors. Clinical Indicators: 80 yo female presenting with difficulty breathing. ER provider describes pt as being tachypenic and unable to complete full sentences due to breathing, anxious appearing with moderate accessory muscle use. Treatment: O2 support increased to BIPAP, duonebs and IV solumedrol prior to ER arrival, levaquin, IV solumedrol, xopenex and atrovent nebs Risk Factors: age, asthma exacerbation Please clarify and document your clinical opinion in the progress notes and discharge summary. Terms such as "probable", "suspected", "likely", "questionable", "possible", or "still to be ruled out" are acceptable. IF IN AGREEMENT, YOU MUST DOCUMENT ABOVE DIAGNOSTIC STATEMENT IN DAILY PROGRESS NOTES AND DISCHARGE SUMMARY. This document is not part of the patient's record. Thank You, Nati Hopper, RN [phone]
[2016-09-30] MEDS: LEVOFLOXACIN 250 MG TAB PO SCH (10:43)
[2016-09-30] MEDS: ENOXAPARIN 30 MG/0.3 ML SYR SC SCH (14:01)
--- NOTE | 2016-09-30 16:56 | Progress Note ---
Medicine Progress Note Date & Time of Visit: Sep 30, 2016 at 16:49. Subjective Pt was seen and examined sitting in chair with no acute distress Pt continue to cough a lot Pt said that she is still having SOB on exertion She denies any fever, palpitation, chest pain and dizziness Objective Last 8 Hrs Date Time Temp Pulse Resp B/P Pulse Ox O2 Delivery O2 Flow Rate FiO2 09/30/16 15:39 36.7 18 135/81 91 2.0 09/30/16 14:49 98 20 94 Room Air 09/30/16 12:15 99 Nasal Cannula 2.0 09/30/16 11:44 36.7 103 18 163/80 98 Nasal Cannula 2.0 09/30/16 10:38 98 Physical Exam: General- very pleasant, no acute distress Head- atraumatic Eyes- PERRL, EOMI ENT- oropharynx clear Neck- supple, no JVD Lungs-Wheezing Heart- regular rhythm Abdomen- normal bowel sounds, soft Extremities- no calf tenderness Neuro- alert, oriented, PERRL, EOMI; no facial palsy Skin- warm & dry Laboratory Results: Last 24 Hours Test 09/30/16 06:15 09/30/16 06:16 Sodium Level 141 mmol/L Potassium Level 4.3 mmol/L Chloride Level 106 mmol/L Carbon Dioxide Level 26 mmol/L Anion Gap 9.0 mmol/L Blood Urea Nitrogen 36 mg/dl Creatinine 1.00 mg/dl Est Creatinine Clear Calc Drug Dose 35.2 ml/min Estimated GFR () 61.2 Estimated GFR (Non- 52.8 BUN/Creatinine Ratio 35.8 Random Glucose 153 mg/dl Calcium Level 9.0 mg/dl White Blood Count 9.20 K/uL Red Blood Count 3.43 M/uL Hemoglobin 10.8 g/dL Hematocrit 32.4 % Mean Corpuscular Volume 94.5 fL Mean Corpuscular Hemoglobin 31.5 pg Mean Corpuscular Hemoglobin Concent 33.3 g/dl RDW Standard Deviation 44.9 fL RDW Coefficient of Variation 13.1 % Platelet Count 158 K/uL Mean Platelet Volume 9.4 fL Assessment & Plan Asthma exacerbation - ON IV steroid 60mg TID, still has severe wheezing - CXR negative - continue levofloxacin (started on 09/24) -Continue respiratory breathing - influenza negative - wean BiPAP to supplemental oxygen - cough suppressants and expectorants as needed - If Symptoms do not improve, will consult pulmonology A fib - Not on anticoagulant - Continue diltiazem and aspirin Depression/Anxiety - continue sertraline DVT prophylaxis - Lovenox sq Anticipate discharge to [facility] when medically stable. Current Inpatient Medications: Current Inpatient Medications Medications (Trade) Dose Ordered Sig/Ally Route Start Time Stop Time Status Last Admin Dose Admin Enoxaparin Sodium (Lovenox Inj) 30 mg Q24H SC 09/27/16 14:00 10/27/16 13:59 09/30/16 14:01 30 MG Acetaminophen (Tylenol Tab) 650 mg Q4H PRN PO 09/27/16 08:15 10/27/16 08:14 Ondansetron HCl (Zofran Inj) 4 mg Q6H PRN IV 09/27/16 08:15 10/27/16 08:14 Polyethylene (Miralax Powder Packet) 17 gm DAILY PRN PO 09/27/16 08:15 10/27/16 08:14 Levofloxacin (Consult) 1 ea UD N/A 09/27/16 10:53 10/27/16 10:52 Aspirin (Ecotrin Tab) 81 mg DAILY PO 09/27/16 09:00 10/27/16 08:59 09/30/16 07:15 81 MG Sertraline HCl (Zoloft Tab) 75 mg DAILY PO 09/27/16 09:00 10/27/16 08:59 09/30/16 07:15 75 MG Ipratropium [place] (Atrovent 0.02% 0.5MG/2.5ML Neb) 0.5 mg Q6R INH 09/27/16 15:00 10/27/16 14:59 09/30/16 14:45 0.5 MG Levalbuterol 1.25 mg 1.25 mg Q6R INH 09/27/16 15:00 10/27/16 14:59 09/30/16 14:45 1.25 MG Methylprednisolone Sodium Succinate/ Syringe (Solu-Medrol IV/ Syringe) 0.96 ml @ 1.5 mls/min Q8H IV 09/27/16 16:00 10/27/16 15:59 09/30/16 07:15 1.5 MLS/MIN Benzonatate (Tessalon Perles Cap) 100 mg TID PO 09/28/16 14:00 10/28/16 13:59 09/30/16 14:01 100 MG Guaifenesin (Mucinex Contr Rel Tab) 600 mg Q12 PO 09/28/16 21:00 10/28/16 20:59 09/30/16 07:15 600 MG Dextromethorphan Polymer Complex (Delsym Susp) 30 mg Q8H PRN PO 09/28/16 12:00 10/28/16 11:59 09/29/16 16:27 30 MG Levalbuterol (Xopenex 1.25MG/ 3ML Neb) 1.25 mg Q3HWA PRN INH 09/28/16 12:00 10/28/16 11:59 Diltiazem HCl (Dilacor Xr Cap) 120 mg QAM PO 09/29/16 09:00 10/29/16 08:59 09/30/16 07:15 120 MG
[2016-09-30] MEDS: DEXTROMETHORPHAN POLYMR COMPLX 30 MG/5 ML UDP PO PRN (19:43)
[2016-10-01] VITALS (15 sets, daily range): BP systolic 120–168; BP diastolic 60–86; PULSE 80–131; TEMP 36.6–37.1; O2SAT 96–100
[2016-10-01] MEDS: LEVALBUTEROL 1.25MG/0.5ML NEB INH SCH ×4 (02:54→19:16)
[2016-10-01] MEDS: IPRATROPIUM BROMIDE NEB SOLN 0.02% 2.5 ML VIAL INH SCH ×4 (02:54→19:16)
[2016-10-01] MEDS: DEXTROMETHORPHAN POLYMR COMPLX 30 MG/5 ML UDP PO PRN ×3 (03:15→23:32)
[2016-10-01] MEDS: ACETAMINOPHEN 325 MG TAB PO PRN (03:15)
[2016-10-01] MEDS: METHYLPREDNISOLONE IV 60 MG in SYRINGE 0 ML IV SCH ×3 (07:52→23:31)
[2016-10-01] MEDS: GUAIFENESIN 600 MG TABCR PO SCH ×2 (08:06→19:52)
[2016-10-01] MEDS: ASPIRIN 81 MG ECTAB PO SCH (08:06)
[2016-10-01] MEDS: BENZONATATE 100MG CAP PO SCH ×3 (08:07→19:52)
[2016-10-01] MEDS: SERTRALINE HCL 50 MG TAB PO SCH (08:07)
[2016-10-01] MEDS: DILTIAZEM HCL 120 MG ER CAP PO SCH (08:07)
[2016-10-01] MEDS: ENOXAPARIN 30 MG/0.3 ML SYR SC SCH (14:36)
--- NOTE | 2016-10-01 15:09 | Progress Note ---
Medicine Progress Note Date & Time of Visit: Oct 01, 2016 at 15:03. Subjective Pt was seen and examined Sitting in chair with mild respiratory distress Pt continue to cough and she is wheezing a lot She said that her breathing is not getting better she denies any chest pain, palpitation, fever Objective Last 8 Hrs Date Time Temp Pulse Resp B/P Pulse Ox O2 Delivery O2 Flow Rate FiO2 10/01/16 14:13 88 22 98 Nasal Cannula 2.0 10/01/16 12:05 37.1 97 22 146/86 99 Nasal Cannula 2.0 10/01/16 12:00 Nasal Cannula 2.0 10/01/16 08:10 105 120/60 10/01/16 08:00 Nasal Cannula 2.0 10/01/16 07:37 36.6 98 22 152/85 99 Nasal Cannula 2.0 10/01/16 07:32 88 22 98 Nasal Cannula 2.0 Physical Exam: General- very pleasant, no acute distress Head- atraumatic Eyes- PERRL, EOMI ENT- oropharynx clear Neck- supple, no JVD Lungs-+Wheezing Heart- Tachycardia Abdomen- normal bowel sounds, soft Extremities- no calf tenderness Neuro- alert, oriented, PERRL, EOMI; no facial palsy Skin- warm & dry Laboratory Results: Date/Time Source Procedure Growth Status 10/01/16 08:15 Sputum Expectorated Sputum Gram Stain - Final Resulted 10/01/16 08:15 Sputum Expectorated Sputum Sputum Culture Pending Resulted Assessment & Plan Asthma exacerbation Present with acute respiratory failure on admission, was placed on bipap - ON IV steroid 60mg TID, still has severe wheezing - CXR negative - continue levofloxacin (started on 09/24) -Continue respiratory breathing - influenza negative - wean BiPAP to supplemental oxygen - cough suppressants and expectorants as needed - Pulmonology consulted A fib - Not on anticoagulant - Continue diltiazem and aspirin Depression/Anxiety - continue sertraline DVT prophylaxis - Lovenox sq Anticipate discharge to [facility] when medically stable. Consultants: pulmonary Current Inpatient Medications: Current Inpatient Medications Medications (Trade) Dose Ordered Sig/Ally Route Start Time Stop Time Status Last Admin Dose Admin Enoxaparin Sodium (Lovenox Inj) 30 mg Q24H SC 09/27/16 14:00 10/27/16 13:59 10/01/16 14:36 30 MG Acetaminophen (Tylenol Tab) 650 mg Q4H PRN PO 09/27/16 08:15 10/27/16 08:14 10/01/16 03:15 650 MG Ondansetron HCl (Zofran Inj) 4 mg Q6H PRN IV 09/27/16 08:15 10/27/16 08:14 Polyethylene (Miralax Powder Packet) 17 gm DAILY PRN PO 09/27/16 08:15 10/27/16 08:14 Levofloxacin (Consult) 1 ea UD N/A 09/27/16 10:53 10/27/16 10:52 Aspirin (Ecotrin Tab) 81 mg DAILY PO 09/27/16 09:00 10/27/16 08:59 10/01/16 08:06 81 MG Sertraline HCl (Zoloft Tab) 75 mg DAILY PO 09/27/16 09:00 10/27/16 08:59 10/01/16 08:07 75 MG Ipratropium [place] (Atrovent 0.02% 0.5MG/2.5ML Neb) 0.5 mg Q6R INH 09/27/16 15:00 10/27/16 14:59 10/01/16 14:13 0.5 MG Levalbuterol 1.25 mg 1.25 mg Q6R INH 09/27/16 15:00 10/27/16 14:59 10/01/16 14:13 1.25 MG Methylprednisolone Sodium Succinate/ Syringe (Solu-Medrol IV/ Syringe) 0.96 ml @ 1.5 mls/min Q8H IV 09/27/16 16:00 10/27/16 15:59 10/01/16 07:52 1.5 MLS/MIN Benzonatate (Tessalon Perles Cap) 100 mg TID PO 09/28/16 14:00 10/28/16 13:59 10/01/16 14:36 100 MG Guaifenesin (Mucinex Contr Rel Tab) 600 mg Q12 PO 09/28/16 21:00 10/28/16 20:59 10/01/16 08:06 600 MG Dextromethorphan Polymer Complex (Delsym Susp) 30 mg Q8H PRN PO 09/28/16 12:00 10/28/16 11:59 10/01/16 12:19 30 MG Levalbuterol (Xopenex 1.25MG/ 3ML Neb) 1.25 mg Q3HWA PRN INH 09/28/16 12:00 10/28/16 11:59 Diltiazem HCl (Dilacor Xr Cap) 120 mg QAM PO 09/29/16 09:00 10/29/16 08:59 10/01/16 08:07 120 MG
[2016-10-01] MEDS ORDERED: NURSING VERBAL MED ORDER ONE (19:00)
[2016-10-01] MEDS ORDERED: COUGH DROP (SUGAR FREE) LOZ 24 LOZ/1 BOX PO PRN (19:00)
[2016-10-01] MEDS: BUDESONIDE/FORMOTEROL FUMARATE 160/4.5 60 PUFFS/INHALER INH SCH (19:52)
[2016-10-01] MEDS: MONTELUKAST SOD 10 MG TAB PO SCH (19:52)
[2016-10-02] VITALS (12 sets, daily range): BP systolic 116–142; BP diastolic 67–90; PULSE 75–120; TEMP 36.4–36.8; O2SAT 97–100
[2016-10-02] MEDS: IPRATROPIUM BROMIDE NEB SOLN 0.02% 2.5 ML VIAL INH SCH ×4 (01:34→19:50)
[2016-10-02] MEDS: LEVALBUTEROL 1.25MG/0.5ML NEB INH SCH ×4 (01:34→19:50)
[2016-10-02] MEDS: ACETAMINOPHEN 325 MG TAB PO PRN (04:01)
[2016-10-02 07:04] LABS: MEAN CELL VOLUME 94.1 fL (80-100); MEAN CORPUSCULAR HEMOGLOBIN 32.1 pg (25-34); MEAN CORPUSCULAR HGB CONC 34.1 g/dl (32-36); MEAN PLATELET VOLUME 9.3 fL (7.4-10.4); PLATELET COUNT 159 K/uL (130-400); WHITE BLOOD COUNT 6.94 K/uL (4.8-10.8)
[2016-10-02 07:19] LABS: BUN/CREATININE RATIO 35.1 (10-20); CALCIUM 8.8 mg/dl (8.5-10.1); CREATININE 0.92 mg/dl (0.60-1.20); POTASSIUM 3.8 mmol/L (3.5-5.1)
--- NOTE | 2016-10-02 07:32 | PULMONARY CONSULTATION ---
DATE OF CONSULTATION: 10/02/2016 HISTORY OF PRESENT ILLNESS: The patient is an 80-year-old female who has a history of bronchial asthma she states since childhood. She was admitted to the hospital on the through the Emergency Room by Dr. Licnoa with exacerbation of bronchial asthma with respiratory insufficiency. She was placed on BiPAP. Dr. Cantu has asked me to evaluate the patient from a pulmonary standpoint. She is lying at about 20 degrees this morning, continues to have some cough and wheezing. She has dementia, so it is difficult to get a history from her. I do not see any records from [facility] of how she was cared for there. Apparently, she had a cough, was placed on Tamiflu and Medrol Dosepak after being evaluated in the Emergency Room on September 17. According to that record, she was seen by Dr. Anthony, had a persistent cough that started in the morning several residents at [facility] had the same symptoms. She had been on a Medrol Dosepak, aspirin, Tamiflu, MiraLax, and Zoloft at that time. Her blood pressure good 155/74, oxygen saturation 95% on room air. According to that note, she had some mild rhonchi bilaterally and chest film looked fairly good with the nodular density in the right upper lobe. Laboratory work looked good a white count of 6.7, platelet count 192,000. CO2 was 26 with 0.19% eosinophils. She was placed on prednisone 40 mg daily, Tamiflu, given a DuoNeb treatment and was discharged with a diagnoses of asthma with exacerbation and bronchitis with likely flu-like illness. According to the records, she worsened and was admitted to the hospital through the Emergency Room once again with worsening shortness of breath. She was complaining of some right-sided neck pain as well. For some reason, she was placed on a course Levaquin on the 24 of September. At the time of admission, her temperature was 99.6 with a heart rate of 105-140. EMS was called. She was given several DuoNeb treatments. According to that record, she was complaining of neck pain and difficulty breathing. Her temp was 37.1. She had audible rhonchi. Blood pressure is 122/71, oxygen saturation 99% at that time. She denies any aspiration, but again with the dementia it is difficult to get a history that is adequate. PAST MEDICAL HISTORY: Positive for acute kidney injury, chronic atrial fibrillation, dementia, ataxia, hypotension, cerebellar infarction, hypokalemia, hypothyroidism, PMR, subarachnoid hemorrhage, syncope which she had been evaluated by Dr. Hopper in the past as well. SOCIAL HISTORY: Unremarkable. She has not had any industrial exposures. She is a . She appears to be up to date with tetanus. Pneumococcal vaccine status is unknown. ALLERGIES: TO CODEINE, ERYTHROMYCIN, PENICILLIN AND SULFA. THE REACTIONS ARE UNKNOWN. SHE DEVELOPED SOME ERYTHEMA FROM ADHESIVE TAPE. MEDICATIONS: Included aspirin, Mucinex, DuoNeb, Levaquin, MiraLax, and Zoloft. I do not see that she had been on a long acting bronchodilator or an inhaled steroids for the asthma prior to this admission. FAMILY HISTORY: Unknown. PHYSICAL EXAMINATION: GENERAL: She is pleasant and cooperative, coughing and wheezing. VITAL SIGNS: Stable. Blood pressure 142/82, oxygen saturation 98% on 2 liters and she is afebrile. Weight 60.4 kilograms. A built-in scale [employer] 126 kilograms today and that is obviously an error. When she was here in May 2016, she was 53.6 kilograms so she has gained about 6 kilograms over the last year. According to the nurses' note, she continues to have wheezing and productive cough, although I do not see any sputum obtained. According to the report, she may have some thick white sputum and has been in atrial fibrillation with audible expiratory wheezing. HEENT: TMs are unremarkable. Nose exam is unremarkable with no rhinorrhea noted. No tenderness over the sinuses. Posterior pharynx shows no thrush or lesions. Trachea is midline with no evidence of upper airway obstruction. No adenopathy is noted. Expansion of the thorax actually is fairly good with deep inspiration. It was difficult to get her to coordinate expiratory maneuvers to examine her. HEART: Has an irregular rhythm. I do not detect any murmurs. There is so much wheezing the heart sounds are very difficult to hear. I could not palpate the PMI. SKIN: Unremarkable with a few ecchymotic areas over the forearms distally. EXTREMITIES: Her lungs reveal inspiratory and expiratory wheezing, no fremitus is noted. There is no dullness to percussion. ABDOMEN: Soft, nontender. No organomegaly noted. She has no cyanosis, clubbing or edema. LABORATORY AND IMAGING DATA: Chest x-ray revealed some mild cardiomegaly with pulmonary nodule which is now 16 mm. It has been anywhere from 15-24 mm depending on the x-rays and the scans in that position. She has an old rib fracture on the left side which is healed as well. White count is a bit normal it is 9.2, hemoglobin 10.8, platelet count 158,000. Venous blood gas done on the revealed pH 7.5, pCO2 of 26, pO2 of 58, again it was a venous blood gas. PRP is unremarkable with BUN of 36, calcium is normal. BNP was normal. TSH is 1.9. Liver function studies were normal. C-reactive protein was slightly elevated at 1.57. Sugars 121. Urinalysis was unremarkable with specific gravity 1.017 and influenza A and B antigens were negative. Coagulation profile was normal. Blood cultures done on the have been negative. Sputum Gram stain on the revealed some epithelial cells, moderate number of inflammatory cells of mixed organisms. It was a contaminated specimen because of the epithelial cells. IMPRESSION: 1. Bronchial asthma with exacerbation. I do not find any evidence of aspiration on the patient. It is probably related to an infectious process perhaps influenza or viral infection from the nursing facility since several of the members that were ill according to the records. 2. Chronic atrial fibrillation. 3. Dementia. RECOMMENDATIONS: 1. At this point, I started the patient last night on Symbicort 160/4.5 and Singulair 10 mg daily. She should be continued on these lifelong. 2. At this point, I think I would discontinue the Delsym and the Tessalon Perles. I do not see much of a help with those. 3. Continue on the methylprednisolone 60 mg IV q. 8 hours. If she would continue to have coughing, this should be increased to 60 mg IV q. 6 hours. 4. Continue on the Xopenex with Atrovent every 4 hours while awake and then q. 4 hours p.r.n. Thanks for asking me to evaluate Ms. Strong. I will be glad to follow along with you during her hospital stay. MTDD
[2016-10-02] MEDS: DEXTROMETHORPHAN POLYMR COMPLX 30 MG/5 ML UDP PO PRN (08:21)
[2016-10-02] MEDS: BENZONATATE 100MG CAP PO SCH (08:22)
[2016-10-02] MEDS: GUAIFENESIN 600 MG TABCR PO SCH ×2 (08:22→19:51)
[2016-10-02] MEDS: METHYLPREDNISOLONE IV 60 MG in SYRINGE 0 ML IV SCH ×3 (08:22→23:43)
[2016-10-02] MEDS: DILTIAZEM HCL 120 MG ER CAP PO SCH (08:23)
[2016-10-02] MEDS: ASPIRIN 81 MG ECTAB PO SCH (08:23)
[2016-10-02] MEDS: SERTRALINE HCL 50 MG TAB PO SCH (08:23)
[2016-10-02] MEDS: BUDESONIDE/FORMOTEROL FUMARATE 160/4.5 60 PUFFS/INHALER INH SCH ×2 (08:24→19:51)
[2016-10-02] MEDS: ENOXAPARIN 30 MG/0.3 ML SYR SC SCH (14:42)
--- NOTE | 2016-10-02 16:38 | Progress Note ---
Medicine Progress Note Date & Time of Visit: Oct 02, 2016 at 16:28. Subjective Pt was seen and examined Pt sitting in bed with mild to moderate respiratory distress Pt continue to cough She said that the cough is started to get loose She said that she is still having a hard time to breath denies any chest pain, palpitation, fever and dizziness Objective Last 8 Hrs Date Time Temp Pulse Resp B/P Pulse Ox O2 Delivery O2 Flow Rate FiO2 10/02/16 16:02 36.8 114 18 130/68 100 Nasal Cannula 2.0 10/02/16 14:43 111 24 98 Nasal Cannula 2.0 10/02/16 12:00 Nasal Cannula 2.0 10/02/16 11:47 36.8 94 20 127/76 100 2.0 Physical Exam: General- very pleasant, no acute distress Head- atraumatic Eyes- PERRL, EOMI ENT- oropharynx clear Neck- supple, no JVD Lungs-+Wheezing Heart- Tachycardia Abdomen- normal bowel sounds, soft Extremities- no calf tenderness Neuro- alert, oriented, PERRL, EOMI; no facial palsy Skin- warm & dry Laboratory Results: Last 24 Hours Test 10/02/16 06:10 White Blood Count 6.94 K/uL Red Blood Count 3.40 M/uL Hemoglobin 10.9 g/dL Hematocrit 32.0 % Mean Corpuscular Volume 94.1 fL Mean Corpuscular Hemoglobin 32.1 pg Mean Corpuscular Hemoglobin Concent 34.1 g/dl RDW Standard Deviation 44.6 fL RDW Coefficient of Variation 13.0 % Platelet Count 159 K/uL Mean Platelet Volume 9.3 fL Sodium Level 141 mmol/L Potassium Level 3.8 mmol/L Chloride Level 105 mmol/L Carbon Dioxide Level 27 mmol/L Anion Gap 9.0 mmol/L Blood Urea Nitrogen 32 mg/dl Creatinine 0.92 mg/dl Est Creatinine Clear Calc Drug Dose 58.9 ml/min Estimated GFR () 67.7 Estimated GFR (Non- 58.4 BUN/Creatinine Ratio 35.1 Random Glucose 180 mg/dl Calcium Level 8.8 mg/dl Assessment & Plan Asthma exacerbation Present with acute respiratory failure on admission, was placed on bipap - ON IV steroid 60mg TID, still has severe wheezing - CXR negative - continue levofloxacin (started on 09/24) -Continue respiratory breathing - influenza negative - wean BiPAP to supplemental oxygen - Pulmonology consulted -Started on singular and Symbicort -If she does not improve, consider to increase IV steroid to q6hr -Continue monitor closely A fib - Not on anticoagulant - Continue diltiazem and aspirin Depression/Anxiety - continue sertraline DVT prophylaxis - Lovenox sq Anticipate discharge to [facility] when medically stable. Consultants: pulmonary Current Inpatient Medications: Current Inpatient Medications Medications (Trade) Dose Ordered Sig/Ally Route Start Time Stop Time Status Last Admin Dose Admin Enoxaparin Sodium (Lovenox Inj) 30 mg Q24H SC 09/27/16 14:00 10/27/16 13:59 10/02/16 14:42 30 MG Acetaminophen (Tylenol Tab) 650 mg Q4H PRN PO 09/27/16 08:15 10/27/16 08:14 10/02/16 04:01 650 MG Ondansetron HCl (Zofran Inj) 4 mg Q6H PRN IV 09/27/16 08:15 10/27/16 08:14 Polyethylene (Miralax Powder Packet) 17 gm DAILY PRN PO 09/27/16 08:15 10/27/16 08:14 Levofloxacin (Consult) 1 ea UD N/A 09/27/16 10:53 10/27/16 10:52 Aspirin (Ecotrin Tab) 81 mg DAILY PO 09/27/16 09:00 10/27/16 08:59 10/02/16 08:23 81 MG Sertraline HCl (Zoloft Tab) 75 mg DAILY PO 09/27/16 09:00 10/27/16 08:59 10/02/16 08:23 75 MG Ipratropium [place] (Atrovent 0.02% 0.5MG/2.5ML Neb) 0.5 mg Q6R INH 09/27/16 15:00 10/27/16 14:59 10/02/16 14:43 0.5 MG Levalbuterol 1.25 mg 1.25 mg Q6R INH 09/27/16 15:00 10/27/16 14:59 10/02/16 14:43 1.25 MG Methylprednisolone Sodium Succinate/ Syringe (Solu-Medrol IV/ Syringe) 0.96 ml @ 1.5 mls/min Q8H IV 09/27/16 16:00 10/27/16 15:59 10/02/16 16:04 1.5 MLS/MIN Guaifenesin (Mucinex Contr Rel Tab) 600 mg Q12 PO 09/28/16 21:00 10/28/16 20:59 10/02/16 08:22 600 MG Levalbuterol (Xopenex 1.25MG/ 3ML Neb) 1.25 mg Q3HWA PRN INH 09/28/16 12:00 10/28/16 11:59 Diltiazem HCl (Dilacor Xr Cap) 120 mg QAM PO 09/29/16 09:00 10/29/16 08:59 10/02/16 08:23 120 MG Budesonide/ Formoterol Fumarate (Symbicort 160/ 4.5 Inh) 2 puffs BID INH 10/01/16 21:00 10/31/16 20:59 10/02/16 08:24 2 PUFFS Montelukast Sodium (Singulair Tab) 10 mg HS PO 10/01/16 21:00 10/31/16 20:59 10/01/16 19:52 10 MG Menthol (Nice Sahil) 1 sahil PRN PRN PO 10/01/16 19:00 10/31/16 18:59
[2016-10-02] MEDS: MONTELUKAST SOD 10 MG TAB PO SCH (19:51)
[2016-10-03] VITALS (11 sets, daily range): BP systolic 103–156; BP diastolic 55–89; PULSE 94–124; TEMP 36.6–36.8; O2SAT 97–99
[2016-10-03] MEDS: IPRATROPIUM BROMIDE NEB SOLN 0.02% 2.5 ML VIAL INH SCH ×4 (01:55→19:56)
[2016-10-03] MEDS: LEVALBUTEROL 1.25MG/0.5ML NEB INH SCH ×4 (01:55→19:56)
[2016-10-03] MEDS: ACETAMINOPHEN 325 MG TAB PO PRN ×2 (04:22→08:31)
[2016-10-03] MEDS: METHYLPREDNISOLONE IV 60 MG in SYRINGE 0 ML IV SCH ×2 (07:43→15:25)
--- NOTE | 2016-10-03 07:43 | PULMONARY PROGRESS NOTE ---
DATE: 10/03/2016 The patient is comfortable this morning. I watched her sleeping for about 3 minutes and she did not have any wheezing with a respiratory rate of 16. Upon awakening, she seemed to have some forced wheezing mostly in the upper airway. She had no coughing. States she feels much better than she did at the time of admission. She is not sure whether she was out of bed. According to the nurses' notes she had a fairly good night last night. Did have some abdominal discomfort which resolved with Tylenol. She remains in atrial fibrillation. At 1600 yesterday, she had some audible wheezing and coughing. PHYSICAL EXAMINATION: VITAL SIGNS: Stable and she is afebrile. Blood pressure 122/66, respiratory rate 20, oxygen saturation 98% on 2 L and she is afebrile. I \T\ O 550 in and 50 out. Weight 57.5 kg, it is about stable. MEDICATIONS: Reviewed. HEENT: Reveals no thrush. No tenderness noted in the sinuses. No adenopathy is noted. Expansion of the thorax is normal with deep inspiration. HEART: Irregular rhythm. No gallops or murmurs are auscultated. LUNGS: Reveal mild wheezing with forced expiration, otherwise they are better. She has some forced wheezing, seems to be in the upper airway. ABDOMEN: Soft, nontender. EXTREMITIES: She has no cyanosis, clubbing or edema. There is no clinical evidence of DVT. Hemoglobin was 10.9 yesterday. PRP yesterday looked good with a BUN elevated at 32, CO2 was 27, potassium of 3.8. Sugars have been in the 153-180 range. BNP was unremarkable. Blood cultures are negative. Sputum revealed moderate number of inflammatory cells with some epithelial cells and has grown out normal chun. IMPRESSION: 1. Bronchial asthma exacerbation. 2. Dementia. 3. Chronic atrial fibrillation. RECOMMENDATIONS: 1. Continue with her present medications. 2. Change the methylprednisolone to prednisone 30 mg daily, with taper over about 1 week. 3. Continue on her Symbicort and Singulair and use the nebulizer with Atrovent and Xopenex q. 4 hours while awake and q. 4 hours p.r.n. I would continue on the Lovenox for now as well. I do not find any evidence of actual infection so I do not think she needs any antimicrobial agents at this point. Overall, she is slowly improving.
[2016-10-03] MEDS: BUDESONIDE/FORMOTEROL FUMARATE 160/4.5 60 PUFFS/INHALER INH SCH ×2 (08:17→20:32)
[2016-10-03] MEDS: GUAIFENESIN 600 MG TABCR PO SCH ×2 (08:17→20:32)
[2016-10-03] MEDS: SERTRALINE HCL 50 MG TAB PO SCH (08:18)
[2016-10-03] MEDS: ASPIRIN 81 MG ECTAB PO SCH (08:19)
[2016-10-03] MEDS: DILTIAZEM HCL 120 MG ER CAP PO SCH (08:19)
[2016-10-03] MEDS: ENOXAPARIN 30 MG/0.3 ML SYR SC SCH (15:25)
[2016-10-03] MEDS: MONTELUKAST SOD 10 MG TAB PO SCH (20:33)
--- NOTE | 2016-10-03 21:10 | Progress Note ---
Medicine Progress Note Date & Time of Visit: Oct 03, 2016 at 21:03. Subjective Pt was seen and examined Sitting in chair with no distress Pt said that her breathing is slightly improved She said that she is still coughing and it is clear she still having sob but feels a little bit better denies any chest pain, palpitation, dizziness Objective Last 8 Hrs Date Time Temp Pulse Resp B/P Pulse Ox O2 Delivery O2 Flow Rate FiO2 10/03/16 19:56 100 24 98 Nasal Cannula 2.0 10/03/16 19:43 36.6 113 18 136/73 98 Nasal Cannula 2.0 10/03/16 19:15 Nasal Cannula 2.0 10/03/16 16:00 Nasal Cannula 2.0 10/03/16 15:36 36.7 121 18 136/74 99 Room Air 10/03/16 14:33 103 18 99 Nasal Cannula 2.0 Physical Exam: General- very pleasant, no acute distress Head- atraumatic Eyes- PERRL, EOMI ENT- oropharynx clear Neck- supple, no JVD Lungs-+Wheezing Heart- Tachycardia Abdomen- normal bowel sounds, soft Extremities- no calf tenderness Neuro- alert, oriented, PERRL, EOMI; no facial palsy Skin- warm & dry Assessment & Plan Asthma exacerbation Present with acute respiratory failure on admission, was placed on bipap - ON IV steroid 60mg TID, still has severe wheezing - CXR negative - levofloxacin d/c -Continue respiratory breathing - influenza negative - wean BiPAP to supplemental oxygen - Pulmonology consulted -Started on singular and Symbicort -Will change IV solumedrol to po taper prednisone A fib - Not on anticoagulant - Continue diltiazem and aspirin Depression/Anxiety - continue sertraline DVT prophylaxis - Lovenox sq Anticipate discharge to [facility] when medically stable. Consultants: pulmonary Current Inpatient Medications: Current Inpatient Medications Medications (Trade) Dose Ordered Sig/Ally Route Start Time Stop Time Status Last Admin Dose Admin Enoxaparin Sodium (Lovenox Inj) 30 mg Q24H SC 09/27/16 14:00 10/27/16 13:59 10/03/16 15:25 30 MG Acetaminophen (Tylenol Tab) 650 mg Q4H PRN PO 09/27/16 08:15 10/27/16 08:14 10/03/16 08:31 650 MG Ondansetron HCl (Zofran Inj) 4 mg Q6H PRN IV 09/27/16 08:15 10/27/16 08:14 Polyethylene (Miralax Powder Packet) 17 gm DAILY PRN PO 09/27/16 08:15 10/27/16 08:14 10/03/16 08:30 17 GM Levofloxacin (Consult) 1 ea UD N/A 09/27/16 10:53 10/27/16 10:52 Aspirin (Ecotrin Tab) 81 mg DAILY PO 09/27/16 09:00 10/27/16 08:59 10/03/16 08:19 81 MG Sertraline HCl (Zoloft Tab) 75 mg DAILY PO 09/27/16 09:00 10/27/16 08:59 10/03/16 08:18 75 MG Ipratropium [place] (Atrovent 0.02% 0.5MG/2.5ML Neb) 0.5 mg Q6R INH 09/27/16 15:00 10/27/16 14:59 10/03/16 19:56 0.5 MG Levalbuterol 1.25 mg 1.25 mg Q6R INH 09/27/16 15:00 10/27/16 14:59 10/03/16 19:56 1.25 MG Methylprednisolone Sodium Succinate/ Syringe (Solu-Medrol IV/ Syringe) 0.96 ml @ 1.5 mls/min Q8H IV 09/27/16 16:00 10/27/16 15:59 10/03/16 15:25 1.5 MLS/MIN Guaifenesin (Mucinex Contr Rel Tab) 600 mg Q12 PO 09/28/16 21:00 10/28/16 20:59 10/03/16 20:32 600 MG Levalbuterol (Xopenex 1.25MG/ 3ML Neb) 1.25 mg Q3HWA PRN INH 09/28/16 12:00 10/28/16 11:59 Diltiazem HCl (Dilacor Xr Cap) 120 mg QAM PO 09/29/16 09:00 10/29/16 08:59 10/03/16 08:19 120 MG Budesonide/ Formoterol Fumarate (Symbicort 160/ 4.5 Inh) 2 puffs BID INH 10/01/16 21:00 10/31/16 20:59 10/03/16 20:32 2 PUFFS Montelukast Sodium (Singulair Tab) 10 mg HS PO 10/01/16 21:00 10/31/16 20:59 10/03/16 20:33 10 MG Menthol (Nice Sahil) 1 sahil PRN PRN PO 10/01/16 19:00 10/31/16 18:59
--- NOTE | 2016-10-03 21:12 | Progress Note ---
Medicine Progress Note Date & Time of Visit: Oct 03, 2016 at 21:02. Objective Last 8 Hrs Date Time Temp Pulse Resp B/P Pulse Ox O2 Delivery O2 Flow Rate FiO2 10/03/16 19:56 100 24 98 Nasal Cannula 2.0 10/03/16 19:43 36.6 113 18 136/73 98 Nasal Cannula 2.0 10/03/16 19:15 Nasal Cannula 2.0 10/03/16 16:00 Nasal Cannula 2.0 10/03/16 15:36 36.7 121 18 136/74 99 Room Air 10/03/16 14:33 103 18 99 Nasal Cannula 2.0 Physical Exam: General- very pleasant, no acute distress Head- atraumatic Eyes- PERRL, EOMI ENT- oropharynx clear Neck- supple, no JVD Lungs-+Wheezing Heart- Tachycardia Abdomen- normal bowel sounds, soft Extremities- no calf tenderness Neuro- alert, oriented, PERRL, EOMI; no facial palsy Skin- warm & dry Assessment & Plan Asthma exacerbation Present with acute respiratory failure on admission, was placed on bipap - ON IV steroid 60mg TID, still has severe wheezing - CXR negative - continue levofloxacin (started on 09/24) -Continue respiratory breathing - influenza negative - wean BiPAP to supplemental oxygen - Pulmonology consulted -Started on singular and Symbicort -If she does not improve, consider to increase IV steroid to q6hr -Continue monitor closely A fib - Not on anticoagulant - Continue diltiazem and aspirin Depression/Anxiety - continue sertraline DVT prophylaxis - Lovenox sq Anticipate discharge to [facility] when medically stable. Consultants: pulmonary Current Inpatient Medications: Current Inpatient Medications Medications (Trade) Dose Ordered Sig/Ally Route Start Time Stop Time Status Last Admin Dose Admin Enoxaparin Sodium (Lovenox Inj) 30 mg Q24H SC 09/27/16 14:00 10/27/16 13:59 10/03/16 15:25 30 MG Acetaminophen (Tylenol Tab) 650 mg Q4H PRN PO 09/27/16 08:15 10/27/16 08:14 10/03/16 08:31 650 MG Ondansetron HCl (Zofran Inj) 4 mg Q6H PRN IV 09/27/16 08:15 10/27/16 08:14 Polyethylene (Miralax Powder Packet) 17 gm DAILY PRN PO 09/27/16 08:15 10/27/16 08:14 10/03/16 08:30 17 GM Levofloxacin (Consult) 1 ea UD N/A 09/27/16 10:53 10/27/16 10:52 Aspirin (Ecotrin Tab) 81 mg DAILY PO 09/27/16 09:00 10/27/16 08:59 10/03/16 08:19 81 MG Sertraline HCl (Zoloft Tab) 75 mg DAILY PO 09/27/16 09:00 10/27/16 08:59 10/03/16 08:18 75 MG Ipratropium [place] (Atrovent 0.02% 0.5MG/2.5ML Neb) 0.5 mg Q6R INH 09/27/16 15:00 10/27/16 14:59 10/03/16 19:56 0.5 MG Levalbuterol 1.25 mg 1.25 mg Q6R INH 09/27/16 15:00 10/27/16 14:59 10/03/16 19:56 1.25 MG Methylprednisolone Sodium Succinate/ Syringe (Solu-Medrol IV/ Syringe) 0.96 ml @ 1.5 mls/min Q8H IV 09/27/16 16:00 10/27/16 15:59 10/03/16 15:25 1.5 MLS/MIN Guaifenesin (Mucinex Contr Rel Tab) 600 mg Q12 PO 09/28/16 21:00 10/28/16 20:59 10/03/16 20:32 600 MG Levalbuterol (Xopenex 1.25MG/ 3ML Neb) 1.25 mg Q3HWA PRN INH 09/28/16 12:00 10/28/16 11:59 Diltiazem HCl (Dilacor Xr Cap) 120 mg QAM PO 09/29/16 09:00 10/29/16 08:59 10/03/16 08:19 120 MG Budesonide/ Formoterol Fumarate (Symbicort 160/ 4.5 Inh) 2 puffs BID INH 10/01/16 21:00 10/31/16 20:59 10/03/16 20:32 2 PUFFS Montelukast Sodium (Singulair Tab) 10 mg HS PO 10/01/16 21:00 10/31/16 20:59 10/03/16 20:33 10 MG Menthol (Nice Sahil) 1 sahil PRN PRN PO 10/01/16 19:00 10/31/16 18:59
[2016-10-04] VITALS (12 sets, daily range): BP systolic 114–171; BP diastolic 53–81; PULSE 94–114; TEMP 36.4–36.9; O2SAT 95–99
[2016-10-04] MEDS: LEVALBUTEROL 1.25MG/0.5ML NEB INH SCH ×4 (03:07→19:29)
[2016-10-04] MEDS: IPRATROPIUM BROMIDE NEB SOLN 0.02% 2.5 ML VIAL INH SCH ×4 (03:07→19:29)
[2016-10-04] MEDS: DILTIAZEM HCL 120 MG ER CAP PO SCH (07:40)
[2016-10-04] MEDS: SERTRALINE HCL 50 MG TAB PO SCH (08:44)
[2016-10-04] MEDS: ASPIRIN 81 MG ECTAB PO SCH (08:45)
[2016-10-04] MEDS: GUAIFENESIN 600 MG TABCR PO SCH ×2 (08:45→20:35)
[2016-10-04] MEDS: BUDESONIDE/FORMOTEROL FUMARATE 160/4.5 60 PUFFS/INHALER INH SCH ×2 (08:46→20:35)
[2016-10-04] MEDS: PANTOprazole SOD 40 MG TAB PO SCH (09:03)
--- NOTE | 2016-10-04 09:40 | PROGRESS NOTE ---
DATE: 10/04/2016 DATE: 10/04/2016. SUBJECTIVE: Sitting in a chair this morning and continues to have coughing and wheezing. The cough is nonproductive. She had an elevated blood pressure of 170 systolic morning. She states she is about the same she has been since admission. She denies aspiration, postnasal drip, fullness in the sinuses. She actually denies any shortness of breath. According to nurses' note she has had wheezing throughout the night as well. She is tolerant of her medications, she just got a breathing treatment this morning about 7:00. PHYSICAL EXAMINATION: VITAL SIGNS: Stable. Blood pressure 138/75 last night, 170 systolic this morning. Pulse is 100 and regular, respiratory rate 20, oxygen saturation 98% on 2 liters. I\T\O 1050 in, unknown amount out. Weight 58.7 kilograms. Stable since the . MEDICATIONS: Reviewed. HEAD, EYES, EARS, NOSE, AND THROAT: Unremarkable. No thrush noted. NECK: There is no neck vein distention or HJR. HEART: Regular rate and rhythm. Heart sounds are distant. LUNGS: Continue to reveal inspiratory and expiratory wheezing bilaterally. ABDOMEN: Soft and nontender. EXTREMITIES: She has no cyanosis, clubbing or edema. Venous blood gas is noted. Chemistry profile from the looked good. Influenza swabs negative. Blood cultures are negative. Chest x-ray on the revealed cardiomegaly with chronic pulmonary nodule in the right upper lobe. IMPRESSION: 1. Bronchial asthma with exacerbation. This is persistent. 2. Chronic atrial fibrillation. 3. Dementia. RECOMMENDATIONS: 1. At this point, I would increase the prednisone to 40 mg b.i.d. 2. Continue on Symbicort 160/4.5 two puffs b.i.d., Singulair 10 mg at night, use the Xopenex with Atrovent 4 times a day in the morning, noon, 4:00 p.m., 8:00 p.m. and then q. 4 hours p.r.n. At this point I would consider stopping the aspirin to ensure that is not aggravating the bronchial asthma. 3. Recheck a chest x-ray. 4. Good DVT prophylaxis and add on Protonix 40 mg daily.
--- NOTE | 2016-10-04 10:39 | DIAGNOSTIC IMAGING REPORT ---
SINGLE VIEW CHEST CLINICAL HISTORY: Asthma. Dyspnea. FINDINGS: An AP, portable, upright chest radiograph is compared to study dated 09/27/2016. Correlation is made with chest CT dated 07/06/2015. The examination is degraded by portable technique and apical lordotic positioning. The heart is enlarged and there is atherosclerotic calcification of the thoracic aorta. The pulmonary vasculature is noncongested. Chronic interstitial thickening is unchanged. There is no airspace consolidation typical for pneumonia or pleural effusion. A right upper lobe ulnar nodule is again noted. No pneumothorax is seen. The skeletal structures are osteopenic. The bony thorax is grossly intact. A left shoulder arthroplasty is again noted. IMPRESSION: 1. Cardiomegaly with no acute cardiopulmonary abnormality. 2. A right upper lobe nodular opacity is similar in appearance and 2015 CT scan and remains highly concerning for neoplasm. Electronically signed by: Noe Marshall M.D. 10/04/2016 10:36 AM Dictated Date/Time: 10/04/2016 10:34 AM
[2016-10-04] MEDS: ENOXAPARIN 30 MG/0.3 ML SYR SC SCH (14:37)
--- NOTE | 2016-10-04 18:30 | Progress Note ---
Medicine Progress Note Date & Time of Visit: Oct 04, 2016 at 18:18. Subjective Pt was seen and examined Sitting in chair with no acute distress watching TV Pt said that her breathing is slightly improved she still wheezing a lot She denies any chest pain, palpitation, dizziness Objective Last 8 Hrs Date Time Temp Pulse Resp B/P Pulse Ox O2 Delivery O2 Flow Rate FiO2 10/04/16 15:14 36.7 105 16 118/53 95 Nasal Cannula 2.0 10/04/16 14:15 94 20 98 Nasal Cannula 2.0 10/04/16 12:00 Nasal Cannula 2.0 10/04/16 11:50 36.5 99 20 139/71 99 Physical Exam: General- very pleasant, no acute distress Head- atraumatic Eyes- PERRL, EOMI ENT- oropharynx clear Neck- supple, no JVD Lungs-+Wheezing Heart- Tachycardia Abdomen- normal bowel sounds, soft Extremities- no calf tenderness Neuro- alert, oriented, PERRL, EOMI; no facial palsy Skin- warm & dry Assessment & Plan Asthma exacerbation Present with acute respiratory failure on admission, was placed on bipap - CXR negative - levofloxacin d/c -Continue respiratory breathing - influenza negative - wean BiPAP to supplemental oxygen - Pulmonology consulted -Started on singular and Symbicort -On prednisone 40mg BID -CXR repeat today showed no pneumonia, but A right upper lobe nodular opacity is similar in appearance and 2015 CT scan and remains highly concerning for neoplasm. Pulmonary recommends to hold the asa for now to check if that will help her wheezing since asa can aggravate the bronchial asthma. A fib - Not on anticoagulant - Continue diltiazem and aspirin Depression/Anxiety - continue sertraline DVT prophylaxis - Lovenox sq Anticipate discharge to [facility] when medically stable. Consultants: pulmonary Current Inpatient Medications: Current Inpatient Medications Medications (Trade) Dose Ordered Sig/Ally Route Start Time Stop Time Status Last Admin Dose Admin Enoxaparin Sodium (Lovenox Inj) 30 mg Q24H SC 09/27/16 14:00 10/27/16 13:59 10/04/16 14:37 30 MG Acetaminophen (Tylenol Tab) 650 mg Q4H PRN PO 09/27/16 08:15 10/27/16 08:14 10/03/16 08:31 650 MG Ondansetron HCl (Zofran Inj) 4 mg Q6H PRN IV 09/27/16 08:15 10/27/16 08:14 Polyethylene (Miralax Powder Packet) 17 gm DAILY PRN PO 09/27/16 08:15 10/27/16 08:14 10/03/16 08:30 17 GM Aspirin (Ecotrin Tab) 81 mg DAILY PO 09/27/16 09:00 10/27/16 08:59 10/04/16 08:45 81 MG Sertraline HCl (Zoloft Tab) 75 mg DAILY PO 09/27/16 09:00 10/27/16 08:59 10/04/16 08:44 75 MG Ipratropium [place] (Atrovent 0.02% 0.5MG/2.5ML Neb) 0.5 mg Q6R INH 09/27/16 15:00 10/27/16 14:59 10/04/16 14:37 0.5 MG Levalbuterol (Xopenex 1.25MG/ 0.5ML Neb) 1.25 mg Q6R INH 09/27/16 15:00 10/27/16 14:59 10/04/16 14:37 1.25 MG Guaifenesin (Mucinex Contr Rel Tab) 600 mg Q12 PO 09/28/16 21:00 10/28/16 20:59 10/04/16 08:45 600 MG Levalbuterol (Xopenex 1.25MG/ 3ML Neb) 1.25 mg Q3HWA PRN INH 09/28/16 12:00 10/28/16 11:59 Diltiazem HCl (Dilacor Xr Cap) 120 mg QAM PO 09/29/16 09:00 10/29/16 08:59 10/04/16 07:40 120 MG Budesonide/ Formoterol Fumarate (Symbicort 160/ 4.5 Inh) 2 puffs BID INH 10/01/16 21:00 10/31/16 20:59 10/04/16 08:46 2 PUFFS Montelukast Sodium (Singulair Tab) 10 mg HS PO 10/01/16 21:00 10/31/16 20:59 10/03/16 20:33 10 MG Menthol (Nice Julio) 1 julio PRN PRN PO 10/01/16 19:00 10/31/16 18:59 10/04/16 08:46 1 JULIO Pantoprazole Sodium (Protonix Tab) 40 mg QAM PO 10/04/16 09:00 11/03/16 08:59 10/04/16 09:03 40 MG Prednisone (PredniSONE TAB) 20 mg Q6 PO 10/04/16 12:00 11/03/16 11:59 10/04/16 14:36 20 MG
[2016-10-04] MEDS: MONTELUKAST SOD 10 MG TAB PO SCH (20:35)
[2016-10-05] VITALS (10 sets, daily range): BP systolic 113–162; BP diastolic 61–85; PULSE 86–129; TEMP 36.5–36.8; O2SAT 91–100
[2016-10-05] MEDS: LEVALBUTEROL 1.25MG/0.5ML NEB INH SCH ×4 (02:19→19:16)
[2016-10-05] MEDS: IPRATROPIUM BROMIDE NEB SOLN 0.02% 2.5 ML VIAL INH SCH ×4 (02:19→19:16)
--- NOTE | 2016-10-05 07:33 | PULMONARY PROGRESS NOTE ---
DATE: 10/05/2016 The patient is improved today. I watched her sleeping for about 4 minutes and she had no wheezing or cough. Upon awakening her wheezing is considerably improved. She states she is fatigued. She denies sputum production, hemoptysis and states she is improved. She denies any aspiration. PHYSICAL EXAMINATION: VITAL SIGNS: Stable. Blood pressure 162/77, oxygen saturation 98% on 2 liters and she is afebrile. I \T\O is unknown. Weight 58.7 kilograms yesterday, that is stable. According to nurses' note she had a fairly good night last night with some confusion, which is baseline. She was out of bed in the bedside chair last night without difficulty. HEENT: Unremarkable. No neck vein distention or HJR. NECK: Carotid upstroke decreased. Thyroid nonpalpable. No nodes are palpable. CHEST: Expansion of the thorax is actually fairly good with deep inspiration. HEART: Regular rate and rhythm. No murmurs are heard. LUNGS: Reveal improved wheezing. She still has wheezing right at the end of inspiration and during expiration, but it markedly improved with the increase in prednisone dose. ABDOMEN: Soft, nontender. She has no cyanosis, clubbing or edema. The chest x-ray shows cardiomegaly with increase in interstitial thickening at the lung bases in particular with a nodular density in the right upper lobe that has not changed for several years. She has not had a blood count or chemistry profile recently. Her sugars were elevated in the 153-180 range. Her blood cultures are negative. Sputum grew out heavy chun. IMPRESSION: 1. Bronchial asthma with exacerbation. 2. Chronic atrial fibrillation. 3. Dementia. RECOMMENDATIONS: 1. Continue on prednisone 80 mg daily for an additional day and then cut it down to 40 mg daily starting tomorrow. 2. Continue on her bronchodilators of Singulair and Xopenex with Atrovent. 3. Good DVT prophylaxis with Lovenox and SCDs. 4. Follow the sugars 4 times a day and adjust the insulin accordingly on high doses of prednisone. Recheck a PRP. The patient will be followed by Dr. Gill starting tomorrow.
[2016-10-05] MEDS: BUDESONIDE/FORMOTEROL FUMARATE 160/4.5 60 PUFFS/INHALER INH SCH ×2 (08:12→21:28)
[2016-10-05] MEDS: ASPIRIN 81 MG ECTAB PO SCH (08:12)
[2016-10-05] MEDS: GUAIFENESIN 600 MG TABCR PO SCH ×2 (08:13→21:29)
[2016-10-05] MEDS: DILTIAZEM HCL 120 MG ER CAP PO SCH (08:13)
[2016-10-05] MEDS: SERTRALINE HCL 50 MG TAB PO SCH (08:13)
[2016-10-05] MEDS: PANTOprazole SOD 40 MG TAB PO SCH (08:14)
[2016-10-05] MEDS: ENOXAPARIN 30 MG/0.3 ML SYR SC SCH (08:14)
[2016-10-05] MEDS: LORAZEPAM 0.5 MG TAB PO PRN (12:12)
--- NOTE | 2016-10-05 16:37 | Progress Note ---
Medicine Progress Note Date & Time of Visit: Oct 05, 2016 at 16:30. Subjective Pt was seen and examined sitting comfortable in bed with no distress Pt feels much better today she said the breathing is much better and the wheezing is less denies any chest pain, palpitation, dizziness Objective Last 8 Hrs Date Time Temp Pulse Resp B/P Pulse Ox O2 Delivery O2 Flow Rate FiO2 10/05/16 15:09 36.8 110 20 113/61 93 10/05/16 13:57 95 20 98 Nasal Cannula 2.0 10/05/16 12:00 Nasal Cannula 10/05/16 11:36 36.7 108 20 133/70 96 Physical Exam: General- very pleasant, no acute distress Head- atraumatic Eyes- PERRL, EOMI ENT- oropharynx clear Neck- supple, no JVD Lungs-+mild Wheezing Heart- Tachycardia, irregular Abdomen- normal bowel sounds, soft Extremities- no calf tenderness Neuro- alert, oriented, PERRL, EOMI; no facial palsy Skin- warm & dry Assessment & Plan Asthma exacerbation Present with acute respiratory failure on admission, was placed on bipap - CXR negative - levofloxacin d/c -Continue respiratory breathing - influenza negative - wean BiPAP to supplemental oxygen - Pulmonology consulted -Started on singular and Symbicort -On prednisone 40mg BID -CXR repeat today showed no pneumonia, but A right upper lobe nodular opacity is similar in appearance and 2015 CT scan and remains highly concerning for neoplasm. 10/05 Wheezing improved will taper prednisone to 40mg daily Continue breathing treatment continue monitor A fib - Not on anticoagulant - Continue diltiazem and aspirin Depression/Anxiety - continue sertraline - Low dose Ativan prn while inpatient DVT prophylaxis - Lovenox sq Anticipate discharge to [facility] when medically stable. Consultants: pulmonary Current Inpatient Medications: Current Inpatient Medications Medications (Trade) Dose Ordered Sig/Ally Route Start Time Stop Time Status Last Admin Dose Admin Enoxaparin Sodium (Lovenox Inj) 30 mg Q24H SC 09/27/16 14:00 10/27/16 13:59 10/05/16 08:14 30 MG Acetaminophen (Tylenol Tab) 650 mg Q4H PRN PO 09/27/16 08:15 10/27/16 08:14 10/03/16 08:31 650 MG Ondansetron HCl (Zofran Inj) 4 mg Q6H PRN IV 09/27/16 08:15 10/27/16 08:14 Polyethylene (Miralax Powder Packet) 17 gm DAILY PRN PO 09/27/16 08:15 10/27/16 08:14 10/03/16 08:30 17 GM Aspirin (Ecotrin Tab) 81 mg DAILY PO 09/27/16 09:00 10/27/16 08:59 10/05/16 08:12 81 MG Sertraline HCl (Zoloft Tab) 75 mg DAILY PO 09/27/16 09:00 10/27/16 08:59 10/05/16 08:13 75 MG Ipratropium [place] (Atrovent 0.02% 0.5MG/2.5ML Neb) 0.5 mg Q6R INH 09/27/16 15:00 10/27/16 14:59 10/05/16 14:03 0.5 MG Levalbuterol (Xopenex 1.25MG/ 0.5ML Neb) 1.25 mg Q6R INH 09/27/16 15:00 10/27/16 14:59 10/05/16 14:03 1.25 MG Guaifenesin (Mucinex Contr Rel Tab) 600 mg Q12 PO 09/28/16 21:00 10/28/16 20:59 10/05/16 08:13 600 MG Levalbuterol (Xopenex 1.25MG/ 3ML Neb) 1.25 mg Q3HWA PRN INH 09/28/16 12:00 10/28/16 11:59 Diltiazem HCl (Dilacor Xr Cap) 120 mg QAM PO 09/29/16 09:00 10/29/16 08:59 10/05/16 08:13 120 MG Budesonide/ Formoterol Fumarate (Symbicort 160/ 4.5 Inh) 2 puffs BID INH 10/01/16 21:00 10/31/16 20:59 10/05/16 08:12 2 PUFFS Montelukast Sodium (Singulair Tab) 10 mg HS PO 10/01/16 21:00 10/31/16 20:59 10/04/16 20:35 10 MG Menthol (Nice Julio) 1 julio PRN PRN PO 10/01/16 19:00 10/31/16 18:59 10/04/16 08:46 1 JULIO Pantoprazole Sodium (Protonix Tab) 40 mg QAM PO 10/04/16 09:00 11/03/16 08:59 10/05/16 08:14 40 MG Prednisone (PredniSONE TAB) 40 mg BID PO 10/04/16 21:00 11/03/16 20:59 10/05/16 08:13 40 MG Lorazepam (Ativan Tab) 0.5 mg BID PRN PO 10/05/16 12:00 11/04/16 11:59 10/05/16 12:12 0.5 MG
[2016-10-05] MEDS: MONTELUKAST SOD 10 MG TAB PO SCH (21:29)
[2016-10-06] VITALS (12 sets, daily range): BP systolic 110–168; BP diastolic 56–80; PULSE 80–116; TEMP 36.6–36.9; O2SAT 94–98
[2016-10-06] MEDS: IPRATROPIUM BROMIDE NEB SOLN 0.02% 2.5 ML VIAL INH SCH ×4 (02:41→20:18)
[2016-10-06] MEDS: LEVALBUTEROL 1.25MG/0.5ML NEB INH SCH ×4 (02:42→20:18)
[2016-10-06 05:56] LABS: HEMATOCRIT 31.7 % (37-47); MEAN CELL VOLUME 94.1 fL (80-100); MEAN CORPUSCULAR HEMOGLOBIN 31.8 pg (25-34); MEAN CORPUSCULAR HGB CONC 33.8 g/dl (32-36); MEAN PLATELET VOLUME 9.3 fL (7.4-10.4); PLATELET COUNT 188 K/uL (130-400); RED BLOOD COUNT 3.37 M/uL (4.2-5.4); WHITE BLOOD COUNT 9.87 K/uL (4.8-10.8)
[2016-10-06 06:36] LABS: BUN/CREATININE RATIO 28.1 (10-20); CALCIUM 8.2 mg/dl (8.5-10.1); CREATININE 0.99 mg/dl (0.60-1.20); POTASSIUM 4.7 mmol/L (3.5-5.1)
[2016-10-06] MEDS: PANTOprazole SOD 40 MG TAB PO SCH (07:51)
[2016-10-06] MEDS: LORAZEPAM 0.5 MG TAB PO PRN (07:51)
[2016-10-06] MEDS: ASPIRIN 81 MG ECTAB PO SCH (07:52)
[2016-10-06] MEDS: GUAIFENESIN 600 MG TABCR PO SCH ×2 (07:52→20:24)
[2016-10-06] MEDS: SERTRALINE HCL 50 MG TAB PO SCH (07:52)
[2016-10-06] MEDS: DILTIAZEM HCL 120 MG ER CAP PO SCH (07:52)
[2016-10-06] MEDS: BUDESONIDE/FORMOTEROL FUMARATE 160/4.5 60 PUFFS/INHALER INH SCH ×2 (07:53→20:24)
[2016-10-06] MEDS ORDERED: NURSING DECISION MEDICATION ORDER SCH (08:45)
[2016-10-06] MEDS ORDERED: SODIUM CHLORIDE 0.65% NA SOLN 45 ML (OCEAN) ONE (09:02)
[2016-10-06] MEDS ORDERED: SODIUM CHLORIDE 0.65% NA SOLN 45 ML (OCEAN) PRN (09:15)
--- NOTE | 2016-10-06 12:17 | Pulmonology Progress Note ---
Pulmonary Progress Note Date of Service Oct 06, 2016. Attending Dr. Gill Subjective Reports feeling improved overall. Ambulating to the restroom with assistance and some dyspnea, recovers with rest. Woke overnight with non-productive dyspnea and cough. Objective 80-yo female hospital day #10 with exacerbation of Asthma. Prior records were reviewed. PMHx includes asthma dx in childhood, atrial fibrillation, hypertension, BCC - skin, hyperlipidemia, esophageal reflux, hyperlipidemia, hypothyroid, osteoarthritis, subarachnoid hemorrhage, h/o syncope, right pulmonary nodule - stable, dementia. She is a resident of [facility]. Patient admitted through [facility] 09/27/16 with symptoms of dyspnea, cough, wheeze despite outpatient course of Levaquin, Tamiflu and steroid. HR: atrial fibrillation with rate 120-130s initially. She was treated initially with BiPAP , IV steroid, and Levaquin continued from outpatient dosing. Influenza: negative. Sputum: normal chun. VB.5/CO: 26. CXR: unremarkable with the exception of stable 16mm right sided nodule. Today: - 40mg Prednisone - WBC: 9.87, Hgb/Hct: 10.7/31.7, Plts: 188 - BCs: No growth - 97-98%: RA Physical Exam: Constitutional: Well developed elderly female sitting in chair at bedside. No acute distress Head: + symmetry Eyes: EOMi, PERRAL, no injection, + corrective lenses Mouth: moist mucous membranes. White patches on tonsils and posterior pharynx. No erythema or purulence. Respiratory: BS equal and full bilaterally. Harsh Right apical air movement without wheeze, rales or rhonchi CV: Regular rate. No murmur appreciated. Warm and perfused peripherally MSK/Extremities: Moving symmetrically. No peripheral edema or calf tenderness. Neurologic: A&O. Answering questions and following commands appropriately. Assessment & Plan 80-yo female admitted with exacerbation of asthma. Clinically improved - completed course of levofloxacin and currently weaned to PO steroid: 1. Wean prednisone on discharge decrease by 5mg Q 3 days until off 2. Nocturnal pulse oximetry study tonight 3. 2-step prior to discharge 4. Will need f/u with pulmonary and potentially updated PFTs and discussion with family and patient regarding lung nodule Data Medications: Current Inpatient Medications Medications (Trade) Dose Ordered Sig/Ally Route Start Time Stop Time Status Last Admin Dose Admin Enoxaparin Sodium (Lovenox Inj) 30 mg Q24H SC 09/27/16 14:00 10/27/16 13:59 10/05/16 08:14 30 MG Acetaminophen (Tylenol Tab) 650 mg Q4H PRN PO 09/27/16 08:15 10/27/16 08:14 10/03/16 08:31 650 MG Ondansetron HCl (Zofran Inj) 4 mg Q6H PRN IV 09/27/16 08:15 10/27/16 08:14 Polyethylene (Miralax Powder Packet) 17 gm DAILY PRN PO 09/27/16 08:15 10/27/16 08:14 10/03/16 08:30 17 GM Aspirin (Ecotrin Tab) 81 mg DAILY PO 09/27/16 09:00 10/27/16 08:59 10/06/16 07:52 81 MG Sertraline HCl (Zoloft Tab) 75 mg DAILY PO 09/27/16 09:00 10/27/16 08:59 10/06/16 07:52 75 MG Ipratropium [place] (Atrovent 0.02% 0.5MG/2.5ML Neb) 0.5 mg Q6R INH 09/27/16 15:00 10/27/16 14:59 10/06/16 07:40 0.5 MG Levalbuterol (Xopenex 1.25MG/ 0.5ML Neb) 1.25 mg Q6R INH 09/27/16 15:00 10/27/16 14:59 10/06/16 07:40 1.25 MG Guaifenesin (Mucinex Contr Rel Tab) 600 mg Q12 PO 09/28/16 21:00 10/28/16 20:59 10/06/16 07:52 600 MG Levalbuterol (Xopenex 1.25MG/ 3ML Neb) 1.25 mg Q3HWA PRN INH 09/28/16 12:00 10/28/16 11:59 Diltiazem HCl (Dilacor Xr Cap) 120 mg QAM PO 09/29/16 09:00 10/29/16 08:59 10/06/16 07:52 120 MG Budesonide/ Formoterol Fumarate (Symbicort 160/ 4.5 Inh) 2 puffs BID INH 10/01/16 21:00 10/31/16 20:59 10/06/16 07:53 2 PUFFS Montelukast Sodium (Singulair Tab) 10 mg HS PO 10/01/16 21:00 10/31/16 20:59 10/05/16 21:29 10 MG Menthol (Nice Sahil) 1 sahil PRN PRN PO 10/01/16 19:00 10/31/16 18:59 10/04/16 08:46 1 SAHIL Pantoprazole Sodium (Protonix Tab) 40 mg QAM PO 10/04/16 09:00 11/03/16 08:59 10/06/16 07:51 40 MG Lorazepam (Ativan Tab) 0.5 mg BID PRN PO 10/05/16 12:00 11/04/16 11:59 10/06/16 07:51 0.5 MG Prednisone (PredniSONE TAB) 40 mg DAILY PO 10/06/16 09:00 11/05/16 08:59 10/06/16 07:52 40 MG Sodium Chloride ([place] Nasal [place]) 1 sprays PRN PRN NA 10/06/16 09:15 11/05/16 09:14 I & O: 24-Hour Column 10/06/16 08:00 Intake Total 990 ml Balance 990 ml Vital Signs: Date Time Temp Pulse Resp B/P Pulse Ox O2 Delivery O2 Flow Rate FiO2 10/06/16 11:58 36.9 89 16 132/63 96 Room Air 10/06/16 08:00 Room Air 10/06/16 07:57 36.8 101 18 160/80 97 Room Air 10/06/16 07:40 116 20 98 Room Air 10/06/16 04:00 Nasal Cannula 2.0 10/06/16 03:04 36.7 99 20 151/73 98 Room Air 10/06/16 02:42 100 20 94 Room Air 10/06/16 00:09 36.6 105 18 115/64 96 Room Air 10/06/16 00:00 Nasal Cannula 2.0 10/05/16 20:00 Room Air 10/05/16 20:00 36.7 92 18 133/71 91 Room Air 10/05/16 19:16 102 20 97 Room Air 10/05/16 16:00 97 Room Air 10/05/16 15:09 36.8 110 20 113/61 93 10/05/16 13:57 95 20 98 Nasal Cannula 2.0 Laboratory Results: Last 24 Hours Test 10/06/16 05:19 White Blood Count 9.87 K/uL Red Blood Count 3.37 M/uL Hemoglobin 10.7 g/dL Hematocrit 31.7 % Mean Corpuscular Volume 94.1 fL Mean Corpuscular Hemoglobin 31.8 pg Mean Corpuscular Hemoglobin Concent 33.8 g/dl RDW Standard Deviation 44.7 fL RDW Coefficient of Variation 13.1 % Platelet Count 188 K/uL Mean Platelet Volume 9.3 fL Sodium Level 140 mmol/L Potassium Level 4.7 mmol/L Chloride Level 102 mmol/L Carbon Dioxide Level 31 mmol/L Anion Gap 7.0 mmol/L Blood Urea Nitrogen 28 mg/dl Creatinine 0.99 mg/dl Est Creatinine Clear Calc Drug Dose 35.8 ml/min Estimated GFR () 61.9 Estimated GFR (Non- 53.4 BUN/Creatinine Ratio 28.1 Random Glucose 175 mg/dl Calcium Level 8.2 mg/dl
[2016-10-06] MEDS: ENOXAPARIN 30 MG/0.3 ML SYR SC SCH ×2 (14:00→14:37)
[2016-10-06] MEDS: NYSTATIN SUSP 500,000 U/5 ML UDC PO SCH ×3 (14:11→20:25)
--- NOTE | 2016-10-06 14:47 | Progress Note ---
Medicine Progress Note Date & Time of Visit: Oct 06, 2016 at 14:38. Subjective Pt was seen and examined Sitting in bed comfortable with no distress Pt said that she feels better today she said her breathing improves she denies any chest pain, dizziness and palpitation Objective Last 8 Hrs Date Time Temp Pulse Resp B/P Pulse Ox O2 Delivery O2 Flow Rate FiO2 10/06/16 14:15 36.9 89 16 96 Room Air 10/06/16 14:10 105 18 96 Room Air 10/06/16 12:36 Room Air 10/06/16 11:58 36.9 89 16 132/63 96 Room Air 10/06/16 08:00 Room Air 10/06/16 07:57 36.8 101 18 160/80 97 Room Air 10/06/16 07:40 116 20 98 Room Air Physical Exam: General- very pleasant, no acute distress Head- atraumatic Eyes- PERRL, EOMI ENT- oropharynx clear Neck- supple, no JVD Lungs- No Wheezing, no crackles Heart- Tachycardia, irregular Abdomen- normal bowel sounds, soft Extremities- no calf tenderness Neuro- alert, oriented, PERRL, EOMI; no facial palsy Skin- warm & dry Laboratory Results: Last 24 Hours Test 10/06/16 05:19 White Blood Count 9.87 K/uL Red Blood Count 3.37 M/uL Hemoglobin 10.7 g/dL Hematocrit 31.7 % Mean Corpuscular Volume 94.1 fL Mean Corpuscular Hemoglobin 31.8 pg Mean Corpuscular Hemoglobin Concent 33.8 g/dl RDW Standard Deviation 44.7 fL RDW Coefficient of Variation 13.1 % Platelet Count 188 K/uL Mean Platelet Volume 9.3 fL Sodium Level 140 mmol/L Potassium Level 4.7 mmol/L Chloride Level 102 mmol/L Carbon Dioxide Level 31 mmol/L Anion Gap 7.0 mmol/L Blood Urea Nitrogen 28 mg/dl Creatinine 0.99 mg/dl Est Creatinine Clear Calc Drug Dose 35.8 ml/min Estimated GFR () 61.9 Estimated GFR (Non- 53.4 BUN/Creatinine Ratio 28.1 Random Glucose 175 mg/dl Calcium Level 8.2 mg/dl Assessment & Plan Asthma exacerbation Present with acute respiratory failure on admission, was placed on bipap - CXR negative - levofloxacin d/c -Continue respiratory breathing - influenza negative - wean BiPAP to supplemental oxygen - Pulmonology consulted -Started on singular and Symbicort -On prednisone 40mg daily -CXR repeat today showed no pneumonia, but A right upper lobe nodular opacity is similar in appearance and 2015 CT scan and remains highly concerning for neoplasm. 10/06 No Wheezing on physical Continue taper prednisone Continue breathing treatment Schedule for overnight pulse oximetry 2 step exercise continue monitor A fib - Not on anticoagulant - Continue diltiazem and aspirin Depression/Anxiety - continue sertraline - Low dose Ativan prn while inpatient DVT prophylaxis - Lovenox sq Anticipate discharge to [facility] possible tomorrow. Consultants: pulmonary Current Inpatient Medications: Current Inpatient Medications Medications (Trade) Dose Ordered Sig/Ally Route Start Time Stop Time Status Last Admin Dose Admin Enoxaparin Sodium (Lovenox Inj) 30 mg Q24H SC 09/27/16 14:00 10/27/16 13:59 10/06/16 14:37 30 MG Acetaminophen (Tylenol Tab) 650 mg Q4H PRN PO 09/27/16 08:15 10/27/16 08:14 10/03/16 08:31 650 MG Ondansetron HCl (Zofran Inj) 4 mg Q6H PRN IV 09/27/16 08:15 10/27/16 08:14 Polyethylene (Miralax Powder Packet) 17 gm DAILY PRN PO 09/27/16 08:15 10/27/16 08:14 10/03/16 08:30 17 GM Aspirin (Ecotrin Tab) 81 mg DAILY PO 09/27/16 09:00 10/27/16 08:59 10/06/16 07:52 81 MG Sertraline HCl (Zoloft Tab) 75 mg DAILY PO 09/27/16 09:00 10/27/16 08:59 10/06/16 07:52 75 MG Ipratropium [place] (Atrovent 0.02% 0.5MG/2.5ML Neb) 0.5 mg Q6R INH 09/27/16 15:00 10/27/16 14:59 10/06/16 14:10 0.5 MG Levalbuterol (Xopenex 1.25MG/ 0.5ML Neb) 1.25 mg Q6R INH 09/27/16 15:00 10/27/16 14:59 10/06/16 14:10 1.25 MG Guaifenesin (Mucinex Contr Rel Tab) 600 mg Q12 PO 09/28/16 21:00 10/28/16 20:59 10/06/16 07:52 600 MG Levalbuterol (Xopenex 1.25MG/ 3ML Neb) 1.25 mg Q3HWA PRN INH 09/28/16 12:00 10/28/16 11:59 Diltiazem HCl (Dilacor Xr Cap) 120 mg QAM PO 09/29/16 09:00 10/29/16 08:59 10/06/16 07:52 120 MG Budesonide/ Formoterol Fumarate (Symbicort 160/ 4.5 Inh) 2 puffs BID INH 10/01/16 21:00 10/31/16 20:59 10/06/16 07:53 2 PUFFS Montelukast Sodium (Singulair Tab) 10 mg HS PO 10/01/16 21:00 10/31/16 20:59 10/05/16 21:29 10 MG Menthol (Nice Julio) 1 julio PRN PRN PO 10/01/16 19:00 10/31/16 18:59 10/04/16 08:46 1 JULIO Pantoprazole Sodium (Protonix Tab) 40 mg QAM PO 10/04/16 09:00 11/03/16 08:59 10/06/16 07:51 40 MG Lorazepam (Ativan Tab) 0.5 mg BID PRN PO 10/05/16 12:00 11/04/16 11:59 10/06/16 07:51 0.5 MG Prednisone (PredniSONE TAB) 40 mg DAILY PO 10/06/16 09:00 11/05/16 08:59 10/06/16 07:52 40 MG Sodium Chloride ([place] Nasal [place]) 1 sprays PRN PRN NA 10/06/16 09:15 11/05/16 09:14 Nystatin (Mycostatin Susp) 5 ml QID PO 10/06/16 13:00 10/16/16 12:59 10/06/16 14:11 5 ML
[2016-10-06] MEDS: MONTELUKAST SOD 10 MG TAB PO SCH (20:25)
[2016-10-07] MEDS: IPRATROPIUM BROMIDE NEB SOLN 0.02% 2.5 ML VIAL INH SCH ×2 (01:40→07:27)
[2016-10-07] MEDS: LEVALBUTEROL 1.25MG/0.5ML NEB INH SCH ×2 (01:40→07:27)
[2016-10-07 04:28] VITALS: BP 161/75; PULSE 99; TEMP 36.9; O2SAT 97
[2016-10-07 07:27] VITALS: PULSE 81; O2SAT 98
[2016-10-07 07:41] VITALS: BP 167/83; PULSE 98; TEMP 36.7; O2SAT 97
[2016-10-07] MEDS: GUAIFENESIN 600 MG TABCR PO SCH (08:11)
[2016-10-07] MEDS: LORAZEPAM 0.5 MG TAB PO PRN (08:11)
[2016-10-07] MEDS: PANTOprazole SOD 40 MG TAB PO SCH (08:11)
[2016-10-07] MEDS: SERTRALINE HCL 50 MG TAB PO SCH (08:12)
[2016-10-07] MEDS: DILTIAZEM HCL 120 MG ER CAP PO SCH (08:12)
[2016-10-07] MEDS: NYSTATIN SUSP 500,000 U/5 ML UDC PO SCH (08:12)
[2016-10-07] MEDS: ASPIRIN 81 MG ECTAB PO SCH (08:12)
[2016-10-07] MEDS: BUDESONIDE/FORMOTEROL FUMARATE 160/4.5 60 PUFFS/INHALER INH SCH (08:13)
--- NOTE | 2016-10-07 11:16 | Progress Note ---
Medicine Progress Note Date & Time of Visit: Oct 07, 2016 at 11:00. Subjective Pt was seen and examined sitting in chair very comfortable with no distress Pt said that her breathing feels much better today she did not have any oxygen on today she said that last night she slept very well she had the 2 step exercise and her oxygen saturation was in the 96% Denies any chest pain, palpitation, dizziness and sob Objective Last 8 Hrs Date Time Temp Pulse Resp B/P Pulse Ox O2 Delivery O2 Flow Rate FiO2 10/07/16 08:15 Room Air 10/07/16 07:41 36.7 98 16 167/83 97 Room Air 10/07/16 07:27 81 18 98 Room Air 10/07/16 04:28 36.9 99 20 161/75 97 Room Air 10/07/16 04:05 Room Air Physical Exam: General- very pleasant, no acute distress Head- atraumatic Eyes- PERRL, EOMI ENT- oropharynx clear Neck- supple, no JVD Lungs- No Wheezing, no crackles Heart- Tachycardia, irregular Abdomen- normal bowel sounds, soft Extremities- no calf tenderness Neuro- alert, oriented, PERRL, EOMI; no facial palsy Skin- warm & dry Assessment & Plan Asthma exacerbation Present with acute respiratory failure on admission, was placed on bipap - CXR negative - levofloxacin d/c -Continue respiratory breathing - influenza negative - wean BiPAP to supplemental oxygen - Pulmonology consulted -Started on singular and Symbicort -On prednisone 40mg daily -CXR repeat today showed no pneumonia, but A right upper lobe nodular opacity is similar in appearance and 2014 CT scan and remains highly concerning for neoplasm. 10/06 No Wheezing on physical Continue taper prednisone Continue breathing treatment Schedule for overnight pulse oximetry 2 step exercise continue monitor 10/07 No wheezing Breathing good today Saturated at 97% on RA Continue oxygen supplement at bedtime 2 step exercise did not show any oxygen desaturation During the 2 step her oxygen level was 96% Will discharge on taper prednisone decrease by 5mg every 3 days until off Will need to follow with Pulmonary and need updated PFT once fully stable. A fib - Not on anticoagulant - Continue diltiazem and aspirin Lung Nodule CXR showed no pneumonia, but A right upper lobe nodular opacity is similar in appearance and 2014 CT scan and remains highly concerning for neoplasm. Need outpatient follow up. Depression/Anxiety - continue sertraline - Low dose Ativan prn while inpatient DVT prophylaxis - Lovenox sq Anticipate discharge to [facility] possible today. Consultants: pulmonary Current Inpatient Medications: Current Inpatient Medications Medications (Trade) Dose Ordered Sig/Ally Route Start Time Stop Time Status Last Admin Dose Admin Enoxaparin Sodium (Lovenox Inj) 30 mg Q24H SC 09/27/16 14:00 10/27/16 13:59 10/06/16 14:37 30 MG Acetaminophen (Tylenol Tab) 650 mg Q4H PRN PO 09/27/16 08:15 10/27/16 08:14 10/03/16 08:31 650 MG Ondansetron HCl (Zofran Inj) 4 mg Q6H PRN IV 09/27/16 08:15 10/27/16 08:14 Polyethylene (Miralax Powder Packet) 17 gm DAILY PRN PO 09/27/16 08:15 10/27/16 08:14 10/03/16 08:30 17 GM Aspirin (Ecotrin Tab) 81 mg DAILY PO 09/27/16 09:00 10/27/16 08:59 10/07/16 08:12 81 MG Sertraline HCl (Zoloft Tab) 75 mg DAILY PO 09/27/16 09:00 10/27/16 08:59 10/07/16 08:12 75 MG Ipratropium Foster (Atrovent 0.02% 0.5MG/2.5ML Neb) 0.5 mg Q6R INH 09/27/16 15:00 10/27/16 14:59 10/07/16 07:27 0.5 MG Levalbuterol (Xopenex 1.25MG/ 0.5ML Neb) 1.25 mg Q6R INH 09/27/16 15:00 10/27/16 14:59 10/07/16 07:27 1.25 MG Guaifenesin (Mucinex Contr Rel Tab) 600 mg Q12 PO 09/28/16 21:00 10/28/16 20:59 10/07/16 08:11 600 MG Levalbuterol (Xopenex 1.25MG/ 3ML Neb) 1.25 mg Q3HWA PRN INH 09/28/16 12:00 10/28/16 11:59 Diltiazem HCl (Dilacor Xr Cap) 120 mg QAM PO 09/29/16 09:00 10/29/16 08:59 10/07/16 08:12 120 MG Budesonide/ Formoterol Fumarate (Symbicort 160/ 4.5 Inh) 2 puffs BID INH 10/01/16 21:00 10/31/16 20:59 10/07/16 08:13 2 PUFFS Montelukast Sodium (Singulair Tab) 10 mg HS PO 10/01/16 21:00 10/31/16 20:59 10/06/16 20:25 10 MG Menthol (Nice Julio) 1 julio PRN PRN PO 10/01/16 19:00 10/31/16 18:59 10/04/16 08:46 1 JULIO Pantoprazole Sodium (Protonix Tab) 40 mg QAM PO 10/04/16 09:00 11/03/16 08:59 10/07/16 08:11 40 MG Lorazepam (Ativan Tab) 0.5 mg BID PRN PO 10/05/16 12:00 11/04/16 11:59 10/07/16 08:11 0.5 MG Prednisone (PredniSONE TAB) 40 mg DAILY PO 10/06/16 09:00 11/05/16 08:59 10/07/16 08:12 40 MG Sodium Chloride ([place] Nasal Curtis) 1 sprays PRN PRN NA 10/06/16 09:15 11/05/16 09:14 Nystatin (Mycostatin Susp) 5 ml QID PO 10/06/16 13:00 10/16/16 12:59 10/07/16 08:12 5 ML
[2016-10-07 11:23] VITALS: BP 167/83; PULSE 98; TEMP 36.7; O2SAT 97
[2016-10-07] MEDS ORDERED: SNG10 PO (11:30)
[2016-10-07] MEDS ORDERED: NYSS5 PO (11:30)
[2016-10-07] MEDS ORDERED: SYMIN INH (11:30)
[2016-10-07] MEDS ORDERED: PRED10TA PO (11:30)
[2016-10-07] MEDS ORDERED: DLCSR120 PO (11:30)
--- NOTE | 2016-10-07 11:39 | Discharge Instructions ---
Discharge Instructions Admission Reason for Admission: Respiratory Distress Discharge Discharge Diagnosis / Problem: Asthma exacerbation, Lung nodule, anxiety, Afib Discharge Goals Goal(s): Decrease discomfort, Improve function, Improve disease control Activity Recommendations Activity Limitations: resume your previous activity (as tolerated) Instructions / Follow-Up Instructions / Follow-Up Please schedule a follow up appointment with pulmonary Please make an appointment with your primary care provider for follow up. Need follow up on the lung nodule Continue prednisone taper as directed Rinse your mouth after each used of the Advair to prevent thrush Continue overnight oxygen supplement Please monitor her blood sugar while on steroid Current Hospital Diet Patient's current hospital diet: Regular Diet Discharge Diet Recommended Diet: Regular Diet Pending Studies Studies pending at discharge: no Medical Emergencies . Who to Call and When: Medical Emergencies: If at any time you feel your situation is an emergency, please call 911 immediately. . Non-Emergent Contact Non-Emergency issues call your: Primary Care Provider Call Non-Emergent contact if: you have any medication questions . . "Provider Documentation" section prepared by Kingston Cantu. VTE Core Measure Inpt VTE Proph given/why not?: Enoxaparin (Lovenox)SQ
--- NOTE | 2016-10-10 13:25 | Discharge Summary ---
Discharge Summary Admission Date: Sep 27, 2016 at 08:15 Discharge Date: Oct 07, 2016 Discharge Disposition: Personal care Principal Diagnosis: Respiratory distress Secondary Diagnoses/Problems: Asthma exacerbation, Lung nodule, anxiety, Afib Procedures: CHEST ONE VIEW PORTABLE CLINICAL HISTORY: Shortness of breath COMPARISON STUDY: 09/17/2016 FINDINGS: The heart is mildly enlarged. There is no failure. There is no lobar consolidation. There is an old left-sided rib fracture. There is a persistent right upper lobe pulmonary nodule measuring 16 mm.[ IMPRESSION: 1. Stable mild cardiomegaly 2. Persistent 16 mm right suprahilar pulmonary nodule 3. No evidence of lobar consolidation Electronically signed by: Angel Luis Johnson M.D. Consultations: pulmonary Medication Reconciliation New Medications: Budesonide/Formoterol Fumarate (Symbicort 160-4.5 Mcg/Act) 60 Puffs/Inhaler Aero 2 PUFFS INH BID for 30 Days Diltiazem HCl (Diltiazem HCl ER) 120 Mg Caper 120 MG PO QAM for 30 Days Montelukast Sod (Montelukast Sodium) 10 Mg Tab 10 MG PO HS for 30 Days, TAB Nystatin (Nystatin) 5 Ml Susp 5 ML PO QID for 7 Days Prednisone Tab (Prednisone) 10 Mg Tab 10 MG PO UD for 30 Days, TAB Take 40mg for 1 day, then 35mg for 3days, then 30mg for 3days, then 25mg for 3 days, then 20mg for 3 days, then 15mg for 3 days, 10mg for 3 days, 5 mg for 3days, then stop. Continued Medications: Albuterol Hfa (Ventolin Hfa) 200 Puffs/60205 Mcg Aers 2 PUFFS INH every 3-4 hrs PRN for infection Aspirin (Aspirin 81) 81 Mg Tab 81 MG PO DAILY Ipratropium-Albuterol (Duoneb) 3 Ml Nebu 1 TREATMENT INH QID for 6 Days Loperamide Hcl (Anti-Diarrheal) 2 Mg Tab 2 MG PO Q4 PRN for Diarrhea Polyethylene Glycol 3350 (Miralax) 1 Pow Pow 17 GM PO DAILY Sertraline (Zoloft) 50 Mg Tab 75 MG PO DAILY Discontinued Medications: Dextromethorphan-Guaifenesin (Mucinex Dm) 1 Tab Tab 1 TAB PO Q12 for 5 Days Levofloxacin (Levaquin) 500 Mg Tab 500 MG PO DAILY for 7 Days, TAB Admission Information HPI (per Admitting provider): Patient is an 80 y/o female with a h/o A fib, depression, asthma who presents with worsening SOB. Patient was seen in the ED on 09/17 for SOB and cough and was empirically treated with Tamiflu and a Medrol dose pack. Flu testing at that time was negative. Patient again noted worsening SOB and cough over the past 3 days. Reportedly she had a negative CXR done and was started on a course of Levofloxacin on 09/24. This morning, nursing staff found her crying and very upset. She was c/o right sided neck pain. Her vitals were notable for a temp of 99.6 and a HR of 105-140. EMS was called and patient was given 2 duonebs and a dose of methylprednisolone 125mg en route. Patient was started on BiPAP here in the ED. Physical Exam (per Admitting): General- awake; alert; occasionally tearful at times Eyes- EOMI; no scleral icterus; pupils equally round ENT- unable to examine as patient wearing BiPAP mask Neck- right side of neck tender to touch; no palpable LAD Lungs- coarse breath sounds throughout with scattered rubs Heart- irregularly irregular; tachycardic Abdomen- soft; NTND; nBS Back- no gross abnormalities Extremities- no deformity; no edema Neuro- no gross focal deficits Skin- +varicose veins; no appreciable rash or bruise . Hospital Course Asthma exacerbation Present with acute respiratory failure on admission, was placed on bipap - CXR negative - levofloxacin d/c -Continue respiratory breathing - influenza negative - wean BiPAP to supplemental oxygen - Pulmonology consulted -Started on singular and Symbicort -On prednisone 40mg daily -CXR repeat today showed no pneumonia, but A right upper lobe nodular opacity is similar in appearance and 2015 CT scan and remains highly concerning for neoplasm. 10/06 No Wheezing on physical Continue taper prednisone Continue breathing treatment Schedule for overnight pulse oximetry 2 step exercise continue monitor 10/07 No wheezing Breathing good today Saturated at 97% on RA Continue oxygen supplement at bedtime 2 step exercise did not show any oxygen desaturation During the 2 step her oxygen level was 96% Will discharge on taper prednisone decrease by 5mg every 3 days until off Will need to follow with Pulmonary and need updated PFT once fully stable. A fib - Not on anticoagulant - Continue diltiazem and aspirin Lung Nodule CXR showed no pneumonia, but A right upper lobe nodular opacity is similar in appearance and 2015 CT scan and remains highly concerning for neoplasm. Need outpatient follow up. Depression/Anxiety - continue sertraline - Low dose Ativan prn while inpatient DVT prophylaxis - Lovenox sq Anticipate discharge to [facility] today. Total time spent on discharge = 35 minutes This includes examination of the patient, discharge planning, medication reconciliation, and communication with other providers. Discharge Instructions Discharge Instructions Admission Reason for Admission: Respiratory Distress Discharge Discharge Diagnosis / Problem: Asthma exacerbation, Lung nodule, anxiety, Afib Discharge Goals Goal(s): Decrease discomfort, Improve function, Improve disease control Activity Recommendations Activity Limitations: resume your previous activity (as tolerated) Instructions / Follow-Up Instructions / Follow-Up Please schedule a follow up appointment with pulmonary Please make an appointment with your primary care provider for follow up. Need follow up on the lung nodule Continue prednisone taper as directed Rinse your mouth after each used of the Advair to prevent thrush Continue overnight oxygen supplement Please monitor her blood sugar while on steroid Current Hospital Diet Patient's current hospital diet: Regular Diet Discharge Diet Recommended Diet: Regular Diet Pending Studies Studies pending at discharge: no Medical Emergencies . Who to Call and When: Medical Emergencies: If at any time you feel your situation is an emergency, please call 911 immediately. . Non-Emergent Contact Non-Emergency issues call your: Primary Care Provider Call Non-Emergent contact if: you have any medication questions . . "Provider Documentation" section prepared by Kingston Cantu. VTE Core Measure Inpt VTE Proph given/why not?: Enoxaparin (Lovenox)SQ Additional Copies To Adeel Little
[2016-10-20] MEDS ORDERED: ASPI-435 PO (07:25)
[2016-10-20] MEDS ORDERED: LOPE2TAB84 PO (07:25)
[2016-10-20] MEDS ORDERED: VNTHFA/IN INH (07:26)
[2017-04-24] MEDS ORDERED: GFNSR600 PO (12:12)
[2017-04-24] MEDS ORDERED: IPRASOL4 INH (12:12)
[2017-04-24] MEDS ORDERED: PRFINS INH (12:12)
[2017-04-24] MEDS ORDERED: PRED10TA PO (12:12)
[2017-04-24] MEDS ORDERED: NYSS5 PO (12:12)
== END 2016-10-07 12:00 | disposition home or self-care (01) | DRG 189 ==
LOC: ENRESERVDT → ENRESERVTM → EDBD 05:25 → C.EDA 05:27 → C.MED 08:15
PROVIDERS: ADMIT Internal Medicine; ATTEND Internal Medicine
DX: J96.01 Acute respiratory failure with hypoxia (principal); J45.901 Unspecified asthma with (acute) exacerbation; I48.2 Chronic atrial fibrillation; G30.9 Alzheimer's disease, unspecified; I10 Essential (primary) hypertension; E03.9 Hypothyroidism, unspecified; Z79.82 Long term (current) use of aspirin; Z79.899 Other long term (current) drug therapy; F32.9 Major depressive disorder, single episode, unspecified; F41.9 Anxiety disorder, unspecified; Z66 Do not resuscitate; R91.1 Solitary pulmonary nodule; Z86.73 Personal history of transient ischemic attack (TIA), and cerebral infarction without residual deficits; K21.9 Gastro-esophageal reflux disease without esophagitis; E78.5 Hyperlipidemia, unspecified; F02.80 Dementia in other diseases classified elsewhere, unspecified severity, without behavioral disturbance, psychotic disturbance, mood disturbance, and anxiety; M35.3 Polymyalgia rheumatica; I83.90 Asymptomatic varicose veins of unspecified lower extremity; Z91.048 Other nonmedicinal substance allergy status; Z88.5 Allergy status to narcotic agent; Z88.3 Allergy status to other anti-infective agents; Z88.0 Allergy status to penicillin; Z88.2 Allergy status to sulfonamides

== ENCOUNTER 2016-10-20 09:08 | Inpatient (IN) | payer BC, OTHER ==
[~2016-10-20] VITALS: Ht 152.4 cm; Wt 59.0 kg
[~2016-10-20 09:08] MED LIST changes: +ASPI-435 PO; -ASPI81TA28 PO; -DEXT30TA7 PO; +DLCSR120 PO; -LEVO1TAB33 PO; +LOPE2TAB84 PO; -METH4PAK PO; +NYSS5 PO; -OSEL75CA12 PO; +PRED10TA PO; +SNG10 PO; +SYMIN INH; +VNTHFA/IN INH
[2016-10-20] MEDS ORDERED: ALBUT/IPRATROP 3MG/0.5MG NEB 3 ML VIAL INH ONE (09:45)
--- NOTE | 2016-10-20 09:48 | EMERGENCY ROOM VISIT NOTE ---
History Report prepared by Ulises: Vandana Barahona Under the Supervision of: Dr. Javier Moffett D.O. First contact with patient: 09:26 Chief Complaint: RESPIRATORY PROBLEMS Stated Complaint: SHORTNESS OF BREATH Nursing Triage Summary: pt presents from [facility] for increased sob and cough started yesterday. is currently taking prednisone. pt was given duoneb and 125 mg solumedrol pre hospital History of Present Illness The patient is an 80 year old female who presents to the Emergency Room with complaints of persistent respiratory problems that began four days ago. The patient states that she started with a nonproductive cough on . She additionally notes that she has been short of breath and swelling to her bilateral legs. The patient denies any fever, nausea, or vomiting. The patient notes that she has a history of asthma and has had these issues in the past. Per nursing staff, EMS gave the patient a DuoNeb treatment and 125 mg of Solu-Medrol prior to arrival. The patient states that her symptoms have been alleviated with the breathing treatments. Nursing staff additionally notes that the patient was recently on a prednisone taper, noting that her last dose was yesterday. They additionally note that the patient is from [facility] and notes that the flu is going around the facility. Nursing staff notes that the patient's oxygen saturation was 94% on room air. Source of History: patient, nursing staff Onset: four days ago Position: other (global) Quality: other (respiratory problems) Timing: other (persistent) Modifying Factors (Relieving): other (breathing treatment) Associated Symptoms: + SOB, + cough, No fevers, No nausea, No vomiting Review of Systems See HPI for pertinent positives & negatives. A total of 10 systems reviewed and were otherwise negative. Past Medical & Surgical Medical Problems: (1) Afib (2) Alzheimer's disease, unspecified (3) Asthma exacerbation (4) Ataxia (5) Benign essential hypertension (6) Dizziness (7) History of subarachnoid hemorrhage (8) Hypothyroidism, unspecified (9) Polymyalgia rheumatica (10) SAH (subarachnoid hemorrhage) (11) Syncope (12) Unspecified asthma Surgical Problems: (1) H/O tubal ligation (2) S/P appendectomy (3) S/P hysterectomy Family History Patient reports no known family medical history. Social History Smoking Status: Never Smoker Alcohol Use: none Drug Use: none Marital Status: Housing Status: lives alone Occupation Status: retired Current/Historical Medications Scheduled Aspirin (Aspirin 81), 81 MG PO DAILY Budesonide/Formoterol Fumarate (Symbicort 160-4.5 Mcg/Act), 2 PUFFS INH BID Diltiazem HCl (Diltiazem HCl ER), 120 MG PO QAM Montelukast Sod (Montelukast Sodium), 10 MG PO HS Polyethylene Glycol 3350 (Miralax), 17 GM PO DAILY Prednisone (Prednisone), 20 MG PO DAILY Sertraline (Zoloft), 75 MG PO DAILY Witch Dariana (Hamamelis Virgini (Tucks Medicated Cooling), 1 APPLN EXT UD Scheduled PRN Acetaminophen (Tylenol), 650 MG PO Q8 PRN for Pain or Fever Albuterol Hfa (Ventolin Hfa), 2 PUFFS INH every 3-4 hrs PRN for SOB/Wheezing Loperamide Hcl (Anti-Diarrheal), 2 MG PO Q4 PRN for Diarrhea Lorazepam (Ativan), 0.5 MG PO Q8 PRN for Anxiety/Agitation Allergies Coded Allergies: Adhesives (Verified Allergy, Severe, RED/SWOLLEN, 09/27/16) Codeine (Verified Allergy, Unknown, TOLERATED MORPHINE, 09/27/16) Erythromycin (Verified Allergy, Unknown, `, 09/27/16) Penicillins (Verified Allergy, Unknown, 09/27/16) Sulfamethoxazole (Verified Allergy, Unknown, 09/27/16) Physical Exam Vital Signs Date Time Temp Pulse Resp B/P Pulse Ox O2 Delivery O2 Flow Rate FiO2 10/20/16 10:40 102 20 145/54 100 Room Air 10/20/16 10:02 86 18 98 Nasal Cannula 2.0 10/20/16 09:20 95 10/20/16 09:15 96 Room Air 10/20/16 09:15 36.7 96 22 140/72 96 Room Air 10/20/16 09:15 96 Room Air Physical Exam GENERAL: Patient is awake, alert, mildly anxious appearing, but comfortable. Does not appear to be in pain. EYES: The conjunctivae are clear. The pupils are round and reactive. EARS, NOSE, MOUTH AND THROAT: The nose is without any evidence of any deformity. Mucous membranes are moist tongue is midline NECK: The neck is nontender and supple. RESPIRATORY: Diminished breath sounds noted throughout. Significant tachypnea noted. Mild conversational dyspnea noted. Expiratory wheezes in all [place]. CARDIOVASCULAR: Tachycardic and irregular. No definite murmur noted to auscultation. GASTROINTESTINAL: The abdomen is soft. Bowel sounds are present in all quadrants. Abdomen is nontender MUSCULOSKELETAL/EXTREMITIES: There is no evidence of gross deformity full range of motion is noted in the hips and shoulders SKIN: Pedal edema noted bilaterally. There is no obvious evidence of any rash. There are no petechiae, pallor or cyanosis noted. NEUROLOGIC: Patient is awake alert and oriented x3 . Medical Decision & Procedures ER Provider Diagnostic Interpretation: X-ray results as stated below per interpretation by me and the radiologist. CHEST ONE VIEW PORTABLE CLINICAL HISTORY: Sepsis dyspnea COMPARISON STUDY: 10/04/2016 FINDINGS: Prior left shoulder arthroplasty. Lungs are clear. Diaphragms smooth. IMPRESSION: No acute process. Electronically signed by: Didier Eldridge M.D. 10/20/2016 9:49 AM Dictated Date/Time: 10/20/2016 9:47 AM Laboratory Results 10/20/16 09:30 Red Blood Count 3.49, Mean Corpuscular Volume 98.0, Mean Corpuscular Hemoglobin 32.7, Mean Corpuscular Hemoglobin Concent 33.3, Mean Platelet Volume 9.0, Neutrophils (%) (Auto) 83.1, Lymphocytes (%) (Auto) 9.4, Monocytes (%) (Auto) 5.7, Eosinophils (%) (Auto) 0.7, Basophils (%) (Auto) 0.2, Neutrophils # (Auto) 4.80, Lymphocytes # (Auto) 0.54, Monocytes # (Auto) 0.33, Eosinophils # (Auto) 0.04, Basophils # (Auto) 0.01 10/20/16 09:30 Test 10/20/16 09:30 10/20/16 09:38 10/20/16 09:55 10/20/16 09:58 White Blood Count 5.77 K/uL (4.8-10.8) Red Blood Count 3.49 M/uL (4.2-5.4) Hemoglobin 11.4 g/dL (12.0-16.0) Hematocrit 34.2 % (37-47) Mean Corpuscular Volume 98.0 fL (80-100) Mean Corpuscular Hemoglobin 32.7 pg (25-34) Mean Corpuscular Hemoglobin Concent 33.3 g/dl (32-36) Platelet Count 151 K/uL (130-400) Mean Platelet Volume 9.0 fL (7.4-10.4) Neutrophils (%) (Auto) 83.1 % Lymphocytes (%) (Auto) 9.4 % Monocytes (%) (Auto) 5.7 % Eosinophils (%) (Auto) 0.7 % Basophils (%) (Auto) 0.2 % Neutrophils # (Auto) 4.80 K/uL (1.4-6.5) Lymphocytes # (Auto) 0.54 K/uL (1.2-3.4) Monocytes # (Auto) 0.33 K/uL (0.11-0.59) Eosinophils # (Auto) 0.04 K/uL (0-0.5) Basophils # (Auto) 0.01 K/uL (0-0.2) RDW Standard Deviation 52.1 fL (36.4-46.3) RDW Coefficient of Variation 14.7 % (11.5-14.5) Immature Granulocyte % (Auto) 0.9 % Immature Granulocyte # (Auto) 0.05 K/uL (0.00-0.02) Anion Gap 9.0 mmol/L (3-11) Est Creatinine Clear Calc Drug Dose 34.8 ml/min Estimated GFR () 61.2 Estimated GFR (Non- 52.8 BUN/Creatinine Ratio 27.5 (10-20) Calcium Level 8.5 mg/dl (8.5-10.1) Phosphorus Level 3.1 mg/dl (2.5-4.9) Magnesium Level 1.9 mg/dl (1.8-2.4) Total Bilirubin 0.5 mg/dl (0.2-1) Aspartate Amino Transf (AST/SGOT) 17 U/L (15-37) Alanine Aminotransferase (ALT/SGPT) 24 U/L (12-78) Alkaline Phosphatase 53 U/L (45-117) Total Creatine Kinase 34 U/L (26-192) Creatine Kinase MB 2.6 ng/ml (0.5-3.6) Creatine Kinase MB Ratio 7.6 (0-3.0) Troponin I 0.017 ng/ml (0-0.045) C-Reactive Protein < 0.29 mg/dl (0-0.29) Pro-B-Type Natriuretic Peptide 1252 pg/ml (0-1800) Total Protein 6.0 gm/dl (6.4-8.2) Albumin 3.0 gm/dl (3.4-5.0) Globulin 3.0 gm/dl (2.5-4.0) Albumin/Globulin Ratio 1.0 (0.9-2) Lipase 287 U/L (73-393) Influenza Type A (RT-PCR) Neg for Influ A (NEG) Influenza Type A Antigen Neg for Influ A (NEG) Influenza Type B Antigen Neg for Influ B (NEG) Influenza Type B (RT-PCR) Neg for Influ B (NEG) Bedside Lactic Acid Venous 2.43 mmol/L (0.90-1.70) Venous Blood pH 7.40 (7.36-7.41) Venous Blood Partial Pressure CO2 50 mmHg (38.0-50.0) Venous Blood Partial Pressure O2 35 mmHg Venous Blood HCO3 30 mmol/L Venous Blood Oxygen Saturation 63.9 % Venous Blood Base Excess 4.8 mmol/L Prothrombin Time 10.7 SECONDS (9.0-12.0) Prothromb Time International Ratio 1.0 (0.9-1.1) Activated Partial Thromboplast Time 22.4 SECONDS (21.0-31.0) Partial Thromboplastin Ratio 0.9 Laboratory results per my review. Medications Administered Medications (Trade) Dose Ordered Sig/Ally Route Start Time Stop Time Status Last Admin Dose Admin Albuterol/ Ipratropium 12 ml 12 ml ONE ONCE INH 10/20/16 09:45 10/20/16 09:46 DC 10/20/16 10:01 12 ML Sodium Chloride (Nss 1000ml) 1,000 ml @ 999 mls/hr Q1H1M STAT IV 10/20/16 10:55 10/20/16 11:55 DC 10/20/16 11:16 999 MLS/HR ECG Indication: SOB/dyspnea Rate (beats per minute): 99 Rhythm: atrial fibrillation Findings: other (No PVCs, no acute ST segment abnormalities) Comparison ECG Date: 09/27/16 Change: no significant change ED Course 0931: The patient was evaluated in room A12B. A complete history and physical examination were performed. 0945: Ordered DuoNeb 12 ml INH. 1045: I reevaluated the patient and she is resting comfortably. I discussed the exam findings with her and I discussed the treatment plan. She verbalized complete understanding and agreement. She will be evaluated for further treatment. 1054: I discussed the patients case with Guerita Wilks. He is going to evaluate the patient for further treatment. 1055: Ordered Sodium Chloride 1000 ml @ 999 mls/hr IV. Medical Decision Differential diagnosis: Etiologies such as infections, reactive airway disease, pneumonia, pneumothorax , COPD, CHF, cardiac ischemia, pulmonary embolism, musculoskeletal, gastrointestinal, as well as others were entertained. Nursing notes reviewed. Additional history is obtained from the prehospital personnel. The patient is an 80-year-old female who presented to emergency department for an evaluation of shortness of breath. The patient's had worsening shortness of breath over the last few days. She was started on a steroid but this is been tapering over the last few days. She had worsening symptoms today and was sent to the emergency department via ambulance. The patient was given IV steroids as well as bronchodilator therapy. She was somewhat improved. She was further treated with bronchodilator therapy in emergency department. She continue to have significant dyspnea on exertion and became very tachypnea was just walking the bathroom. I discussed the patient's laboratory and radiographic studies with her. Because of her ongoing symptoms I also discussed his case with the on- call [facility] hospitalist group. They have agreed to evaluate the patient in the emergency apartment for further management and disposition. Consults Time Called: 1045 Consulting Physician: Guerita Wilks Returned Call: [phone] I discussed the patients case with Guerita Wilks. He is going to evaluate the patient for further treatment. Impression Primary Impression: Asthma exacerbation Additional Impressions: Dyspnea Bronchospasm Respiratory distress Scribe Attestation The scribe's documentation has been prepared under my direction and personally reviewed by me in its entirety. I confirm that the note above accurately reflects all work, treatment, procedures, and medical decision making performed by me. Departure Information Dispostion Being Evaluated By Hospitalist Referrals [facility] (PCP) Problem Qualifiers
[2016-10-20] MEDS ORDERED: PRED-301 PO (09:52)
[2016-10-20] MEDS ORDERED: WITCPAD EXT (09:52)
[2016-10-20] MEDS ORDERED: ACET-1311 PO (09:52)
[2016-10-20] MEDS ORDERED: LORA-741 PO (09:52)
[2016-10-20 09:53] LABS: BASO % 0.2 %; BASO ABS # 0.01 K/uL (0-0.2); COMPLETE YES; EOS % 0.7 %; HEMATOCRIT 34.2 % (37-47); IG% 0.9 %; LYMPH % 9.4 %; LYMPH ABS # 0.54 K/uL (1.2-3.4); MEAN CORPUSCULAR HEMOGLOBIN 32.7 pg (25-34); MEAN CORPUSCULAR HGB CONC 33.3 g/dl (32-36); MONO % 5.7 %; NEUT % 83.1 %; PLATELET COUNT 151 K/uL (130-400); RED BLOOD COUNT 3.49 M/uL (4.2-5.4); WHITE BLOOD COUNT 5.77 K/uL (4.8-10.8)
[2016-10-20 10:02] VITALS: PULSE 86; O2SAT 98
[2016-10-20 10:06] LABS: VEN BLD GAS O2 SATURATION 63.9 %; VEN BLOOD GAS BASE EXCESS 4.8 mmol/L
[2016-10-20 10:11] LABS: ALT/SGPT 24 U/L (12-78); BLOOD UREA NITROGEN 28 mg/dl (7-18); BUN/CREATININE RATIO 27.5 (10-20); C-REACTIVE PROTEIN < 0.29 mg/dl (0-0.29); CALCIUM 8.5 mg/dl (8.5-10.1); CARBON DIOXIDE 25 mmol/L (21-32); CHLORIDE 104 mmol/L (98-107); GLUCOSE 145 mg/dl (70-99); MAGNESIUM 1.9 mg/dl (1.8-2.4); POTASSIUM 4.5 mmol/L (3.5-5.1); SODIUM 138 mmol/L (136-145)
[2016-10-20 10:14] LABS: ALKALINE PHOSPHATASE 53 U/L (45-117); AST/SGOT 17 U/L (15-37); CKMB/CK RATIO 7.6 (0-3.0); PHOSPHORUS 3.1 mg/dl (2.5-4.9)
[2016-10-20 10:25] LABS: PARTIAL THROMBOPLASTIN RATIO 0.9; PROTHROMBIN TIME (PATIENT) 10.7 SECONDS (9.0-12.0)
[2016-10-20] MEDS ORDERED: SODIUM CHLORIDE 0.9% 1000ML 1,000 ML IV STA (10:55)
[2016-10-20] MEDS ORDERED: ONDANSETRON INJ 2 MG/ML 2 ML VIAL IV PRN (12:00)
[2016-10-20] MEDS ORDERED: ACETAMINOPHEN 325 MG TAB PO PRN (12:00)
[2016-10-20] MEDS ORDERED: LEVALBUTEROL/IPRATROPIUM NEB INH PRN (12:00)
[2016-10-20] MEDS ORDERED: WITCH HAZEL/GLYCERIN 40 PADS/JAR (TUCKS) EXT PRN (12:15)
[2016-10-20 12:23] LABS: INFLUENZA A PCR Neg for Influ A (NEG); INFLUENZA B PCR Neg for Influ B (NEG)
--- NOTE | 2016-10-20 13:04 | History and Physical ---
History & Physical Date & Time of Service: Oct 20, 2016 at 12:13 Chief Complaint: Shortness Of Breath Primary Care Physician: Kee Riley D.O. History of Present Illness Source: patient, hospital records, other ([facility]) This is an 80 year old female with PMH of atrial fibrillation, asthma, lung nodule, hypertension, depression, mild dementia, hypothyroidism, who was sent to the ED from [facility] for SOB. She is followed by Dr. Riley for primary care. History from patient is mildly limited by dementia. Patient was recently admitted at [facility] from Sep 27- for respiratory distress due to asthma exacerbation. CXR was negative for infiltrate. She initially required BiPAP. She was continued on Levaquin which was started as an outpatient. She was seen by pulmonology started on Symbicort and Singulair. She was discharged on prednisone taper which is now at 20 mg/daily. Patient states after discharge she was feeling back to baseline. Then 4 days ago she developed nonproductive cough and subjective warmth/ chills. Then overnight she developed SOB and wheezing. En route patient was treated with IV Solu-Medrol 125 mg and Duoneb. She is now receiving another Duoneb treatment. Pt states SOB is improved. She notes associated fatigue and dizziness upon standing. She had notes diarrhea x 1 week which stopped yesterday and now having formed stool. She noted having dysuria last week which resolved. She notes RLE >LLE edema with unclear onset. She states it is an intermittent problem for her. She denies myalgias, rhinorrhea, ear ache, JAMES, sore throat, chest pain, N/V, abdominal pain, appetite loss, rash, calf pain, falls. Pt unsure about details of atrial fibrillation. As per prior cardiology note (Dr. Rogers) it is likely chronic. Pt denies hx of CAD or CHF. Per [facility] staff, patient has been afebrile with unremarkable VS. [facility] staff states at baseline she is oriented x 3. She is not on oxygen at [facility]. Past Medical/Surgical History Medical Problems: (1) Afib Status: Chronic (2) Alzheimer's disease, unspecified Status: Chronic (3) Ataxia Status: Chronic (4) Benign essential hypertension Status: Chronic (5) Dizziness Status: Chronic (6) History of subarachnoid hemorrhage Permanent Comment: August 2014 per records Status: Chronic (7) Hypothyroidism, unspecified Status: Chronic (8) Polymyalgia rheumatica Status: Chronic (9) SAH (subarachnoid hemorrhage) Status: Resolved (10) Syncope Status: Chronic (11) Unspecified asthma Status: Chronic Surgical Problems: (1) H/O tubal ligation Status: Chronic (2) S/P appendectomy Status: Chronic (3) S/P hysterectomy Status: Chronic Family History Possible lung disease in patient's mother. Social History Smoking Status: Former Smoker (quit "a long time ago" unclear how heavy her smoking was) Marital Status: Housing status: other ([facility]) Occupational Status: retired Immunizations History of Influenza Vaccine: No History of Tetanus Vaccine?: Yes Tetanus Immunization Date: Dec 13, 1988 History of Pneumococcal: Unknown Pneumococcal Date: Dec 14, 1991 History of Hepatitis B Vaccine: Unknown Multi-Drug Resistant Organisms History of MDRO: No Allergies Coded Allergies: Adhesives (Verified Allergy, Severe, RED/SWOLLEN, 09/27/16) Codeine (Verified Allergy, Unknown, TOLERATED MORPHINE, 09/27/16) Erythromycin (Verified Allergy, Unknown, `, 09/27/16) Penicillins (Verified Allergy, Unknown, 09/27/16) Sulfamethoxazole (Verified Allergy, Unknown, 09/27/16) Home Medications Scheduled Aspirin (Aspirin 81), 81 MG PO DAILY Budesonide/Formoterol Fumarate (Symbicort 160-4.5 Mcg/Act), 2 PUFFS INH BID Diltiazem HCl (Diltiazem HCl ER), 120 MG PO QAM Montelukast Sod (Montelukast Sodium), 10 MG PO HS Polyethylene Glycol 3350 (Miralax), 17 GM PO DAILY Prednisone (Prednisone), 20 MG PO DAILY Sertraline (Zoloft), 75 MG PO DAILY Witch Dariana (Hamamelis Virgini (Tucks Medicated Cooling), 1 APPLN EXT UD Scheduled PRN Acetaminophen (Tylenol), 650 MG PO Q8 PRN for Pain or Fever Albuterol Hfa (Ventolin Hfa), 2 PUFFS INH every 3-4 hrs PRN for SOB/Wheezing Loperamide Hcl (Anti-Diarrheal), 2 MG PO Q4 PRN for Diarrhea Lorazepam (Ativan), 0.5 MG PO Q8 PRN for Anxiety/Agitation Review of Systems Constitutional: + chills, + fatigue, + fever (subjective) Eyes: No worsening of vision ENT: No nasal symptoms, No problem reported, No sore throat Respiratory: + cough, + shortness of breath, + wheezing, No sputum Cardiovascular: + edema, No chest pain Abdomen: + diarrhea (x 1 week, resolved yesterday), No GI bleeding, No nausea, No pain, No vomiting Musculoskeletal: No calf pain, No muscle pain Genitourinary - Female: + dysuria (last week- resolved) Neurologic: + problem reported (+ dizziness with standing. no JAMES. ) Integumentary: No rash Physical Exam Vital Signs Date Time Temp Pulse Resp B/P Pulse Ox O2 Delivery O2 Flow Rate FiO2 10/20/16 11:16 124 20 138/71 100 Nebulizer 7.0 10/20/16 10:40 102 20 145/54 100 Room Air 10/20/16 10:02 86 18 98 Nasal Cannula 2.0 10/20/16 09:20 95 10/20/16 09:15 96 Room Air 10/20/16 09:15 36.7 96 22 140/72 96 Room Air 10/20/16 09:15 96 Room Air General Appearance: + pertinent finding (alert acutely ill elderly female, pleasant, cooperativ) Head: normocephalic, atraumatic Eyes: normal inspection, PERRL, EOMI ENT: hearing grossly normal, TMs normal, + pertinent finding (on neb treatment) Neck: supple, no JVD, trachea midline Respiratory/Chest: no respiratory distress, no accessory muscle use, + wheezing , + pertinent finding (breath sounds equal bilaterally ) Cardiovascular: no murmur, normal peripheral pulses, + tachycardia, + irregularly irregular Abdomen/GI: normal bowel sounds, non tender, soft Extremities/Musculoskelatal: no calf tenderness, normal capillary refill, + pertinent finding (trace ankle edema R >L) Neurologic/Psych: alert, normal mood/affect, + pertinent finding (oriented to person, disoriented to location and date (thinks Thursday in July 2017). grossly nonfocal exam. ) Skin: normal color, warm/dry Diagnostics Laboratory Results Results Past 24 Hours Test 10/20/16 09:30 10/20/16 09:38 10/20/16 09:55 10/20/16 09:58 Range/Units White Blood Count 5.77 4.8-10.8 K/uL Red Blood Count 3.49 4.2-5.4 M/uL Hemoglobin 11.4 12.0-16.0 g/dL Hematocrit 34.2 37-47 % Mean Corpuscular Volume 98.0 80-100 fL Mean Corpuscular Hemoglobin 32.7 25-34 pg Mean Corpuscular Hemoglobin Concent 33.3 32-36 g/dl Platelet Count 151 130-400 K/uL Mean Platelet Volume 9.0 7.4-10.4 fL Neutrophils (%) (Auto) 83.1 % Lymphocytes (%) (Auto) 9.4 % Monocytes (%) (Auto) 5.7 % Eosinophils (%) (Auto) 0.7 % Basophils (%) (Auto) 0.2 % Neutrophils # (Auto) 4.80 1.4-6.5 K/uL Lymphocytes # (Auto) 0.54 1.2-3.4 K/uL Monocytes # (Auto) 0.33 0.11-0.59 K/uL Eosinophils # (Auto) 0.04 0-0.5 K/uL Basophils # (Auto) 0.01 0-0.2 K/uL RDW Standard Deviation 52.1 36.4-46.3 fL RDW Coefficient of Variation 14.7 11.5-14.5 % Immature Granulocyte % (Auto) 0.9 % Immature Granulocyte # (Auto) 0.05 0.00-0.02 K/uL Sodium Level 138 136-145 mmol/L Potassium Level 4.5 3.5-5.1 mmol/L Chloride Level 104 98-107 mmol/L Carbon Dioxide Level 25 21-32 mmol/L Anion Gap 9.0 3-11 mmol/L Blood Urea Nitrogen 28 7-18 mg/dl Creatinine 1.00 0.60-1.20 mg/dl Est Creatinine Clear Calc Drug Dose 34.8 ml/min Estimated GFR () 61.2 Estimated GFR (Non- 52.8 BUN/Creatinine Ratio 27.5 10-20 Random Glucose 145 70-99 mg/dl Calcium Level 8.5 8.5-10.1 mg/dl Phosphorus Level 3.1 2.5-4.9 mg/dl Magnesium Level 1.9 1.8-2.4 mg/dl Total Bilirubin 0.5 0.2-1 mg/dl Aspartate Amino Transf (AST/SGOT) 17 15-37 U/L Alanine Aminotransferase (ALT/SGPT) 24 12-78 U/L Alkaline Phosphatase 53 45-117 U/L Total Creatine Kinase 34 26-192 U/L Creatine Kinase MB 2.6 0.5-3.6 ng/ml Creatine Kinase MB Ratio 7.6 0-3.0 Troponin I 0.017 0-0.045 ng/ml C-Reactive Protein < 0.29 0-0.29 mg/dl Pro-B-Type Natriuretic Peptide 1252 0-1800 pg/ml Total Protein 6.0 6.4-8.2 gm/dl Albumin 3.0 3.4-5.0 gm/dl Globulin 3.0 2.5-4.0 gm/dl Albumin/Globulin Ratio 1.0 0.9-2 Lipase 287 73-393 U/L Influenza Type A Antigen Neg for Influ A NEG Influenza Type B Antigen Neg for Influ B NEG Bedside Lactic Acid Venous 2.43 0.90-1.70 mmol/L Venous Blood pH 7.40 7.36-7.41 Venous Blood Partial Pressure CO2 50 38.0-50.0 mmHg Venous Blood Partial Pressure O2 35 mmHg Venous Blood HCO3 30 mmol/L Venous Blood Oxygen Saturation 63.9 % Venous Blood Base Excess 4.8 mmol/L Prothrombin Time 10.7 9.0-12.0 SECONDS Prothromb Time International Ratio 1.0 0.9-1.1 Activated Partial Thromboplast Time 22.4 21.0-31.0 SECONDS Partial Thromboplastin Ratio 0.9 Microbiology Results 10/20/16 Blood Culture, Received Pending 10/20/16 Blood Culture, Received Pending Diagnostic Radiology CHEST ONE VIEW PORTABLE CLINICAL HISTORY: Sepsis dyspnea COMPARISON STUDY: 10/04/2016 FINDINGS: Prior left shoulder arthroplasty. Lungs are clear. Diaphragms smooth. IMPRESSION: No acute process. Electronically signed by: Didier Eldridge M.D. EKG difficult to interpret due to artifact, likely atrial fibrillation, rate 99 bpm , qtc = 428 Impression Assessment and Plan ASTHMA EXACERBATION Admit to telemetry Afebrile, + tachycardia, no leukocytosis, no hypotension; lactic acid 2.4 CXR- no infiltrate; influenza Ag- neg; influenza PCR- neg Treated with IV Solu-medrol 125 mg and Duoneb en route; additional Duoneb in ER No indication for antibiotics at this time IV Solu-medrol at 20 mg q8h Xopenex/ Atrovent nebs QIDR and q2h PRN Continue Symbicort, Singulair Supplemental O2 per protocol Monitor peak flow rate ATRIAL FIBRILLATION Likely chronic as per previous cardiology note; was also in AF on September 27 2016 EKG HR was stable [employer] according to [facility] staff; Rate increasing in the ER from 90s up to 120s-140s; Duoneb treatments may be contributing Continue diltiazem Not on anticoagulation due to falls/ history SAH per cardiology note Monitor in telemetry DIZZINESS UPON STANDING May be due to AF with uncontrolled rate vs. possible orthostasis secondary to volume depletion from recent diarrhea 1 liter NSS initiated in ER Check orthostatic VS Monitor in telemetry RECENT DIARRHEA Resolved and now having formed BM If develops recurrent diarrhea would test for C. diff H/O HYPERTENSION BP is stable Continue diltiazem H/O HYPOTHYROIDISM Not on medication TSH WNL in Sep 2016 DEPRESSION / ANXIETY Continue sertraline and PRN lorazepam DEMENTIA Monitor for signs of delirium LUNG NODULE F/u as outpatient DVT PROPHYLAXIS Lovenox SQ CODE STATUS DNR per my discussion with the patient DISPOSITION Resides at [facility] personal long-term Followed by Dr. Riley for primary care Social service, PT, OT shayy requested Patient seen in collaboration with Dr. Bass. Please see his addnedum. VTE Prophylaxis VTE Risk Assessment Done? Y/N: Yes Risk Level: Moderate Note ATTENDING ADDENDUM Record reviewed. Patient interviewed and examined. Care coordinated with Vani Lara PA-C. Please refer to her documentation for patient's history. Briefly, 80 YO female with history of asthma. Presented to ED with worsening cough and wheezing. Cough nonproductive; no fever or chest pain. EXAM: General- no acute distress VS- as noted Neck- no JVD Lungs- diffuse wheezing Heart- irregular, tachy Abdomen- + BS, soft, nontender Extremities- no pretibial edema or calf tenderness Neuro- alert, mild confusion DATA: WBC 5770. Other lab studies as noted. CXR- no infiltrates, effusions, CHF. EKG- baseline artifact, AF vs NSR with PAC's. ASSESSMENT AND PLAN: Exacerbation of asthma. GENERATOR MAN swab for influenza A/B negative by both antigen and PCR assays. No infiltrates on chest x-ray. No apparent indication for antibiotic therapy. Management will consist of IV methylprednisolone and nebs. History of AF; ventricular rate high in ED. Monitor on Telemetry Unit. Serum lactate 2.43. Does not appear to be septic. Hemodynamically stable. No GI symptoms to suggest ischemic bowel. Please refer to VAIBHAV Lara's documentation for discussion of other issues. Stephen Bass MD .
[2016-10-20 13:50] VITALS: BP 116/51; PULSE 125; TEMP 36.8; O2SAT 98; Ht 152.4 cm; Wt 59.0 kg
[2016-10-20] MEDS ORDERED: LEVALBUTEROL/IPRATROPIUM NEB INH SCH (15:00)
[2016-10-20] MEDS: IPRATROPIUM BROMIDE NEB SOLN 0.02% 2.5 ML VIAL INH SCH ×2 (16:00→19:26)
[2016-10-20] MEDS: LEVALBUTEROL 1.25MG/0.5ML NEB INH SCH ×2 (16:00→19:26)
[2016-10-20 16:04] VITALS: PULSE 102; O2SAT 98
[2016-10-20] MEDS: METHYLPREDNISOLONE IV 20 MG in SYRINGE 0 ML IV SCH ×2 (16:37→21:13)
[2016-10-20 19:26] VITALS: PULSE 88; O2SAT 98
[2016-10-20 19:27] VITALS: BP 102/61; PULSE 98; TEMP 36.7; O2SAT 99
[2016-10-20 20:20] LABS: URINE APPEARANCE CLEAR (CLEAR); URINE BILIRUBIN NEG (NEG); URINE COLOR YELLOW; URINE NITRITE NEG (NEG); URINE SPECIFIC GRAVITY 1.015 (1.000-1.030); UROBILINOGEN NEG (NEG); ZZUR CULT IF INDIC CLEAN CATCH NO
[2016-10-20 20:22] LABS: MANUAL MICROSCOPIC REQUIRED? NO; REVIEW REQ? NO
[2016-10-20] MEDS ORDERED: SERT50TA PO (20:23)
[2016-10-20] MEDS ORDERED: POLY335019 PO (20:23)
[2016-10-20] MEDS ORDERED: ENOXAPARIN 40 MG/0.4 ML SYR SC SCH (21:00)
[2016-10-20] MEDS: MONTELUKAST SOD 10 MG TAB PO SCH (21:11)
[2016-10-20] MEDS: BUDESONIDE/FORMOTEROL FUMARATE 160/4.5 60 PUFFS/INHALER INH SCH (21:11)
[2016-10-21] VITALS (16 sets, daily range): BP systolic 114–161; BP diastolic 60–85; PULSE 83–135; TEMP 36.5–36.8; O2SAT 95–99
[2016-10-21] MEDS: LEVALBUTEROL 1.25MG/0.5ML NEB INH SCH ×4 (01:41→19:20)
[2016-10-21] MEDS: IPRATROPIUM BROMIDE NEB SOLN 0.02% 2.5 ML VIAL INH SCH ×4 (01:41→19:20)
[2016-10-21] MEDS: METHYLPREDNISOLONE IV 20 MG in SYRINGE 0 ML IV SCH ×3 (06:39→23:22)
[2016-10-21 07:10] LABS: HEMATOCRIT 31.6 % (37-47); MEAN CELL VOLUME 97.5 fL (80-100); MEAN CORPUSCULAR HEMOGLOBIN 32.4 pg (25-34); MEAN CORPUSCULAR HGB CONC 33.2 g/dl (32-36); MEAN PLATELET VOLUME 8.6 fL (7.4-10.4); PLATELET COUNT 134 K/uL (130-400); RED BLOOD COUNT 3.24 M/uL (4.2-5.4)
[2016-10-21] MEDS: BUDESONIDE/FORMOTEROL FUMARATE 160/4.5 60 PUFFS/INHALER INH SCH ×2 (07:22→20:29)
[2016-10-21] MEDS: ASPIRIN 81 MG ECTAB PO SCH (07:22)
[2016-10-21] MEDS: SERTRALINE HCL 50 MG TAB PO SCH (07:22)
[2016-10-21] MEDS: DILTIAZEM HCL 120 MG ER CAP PO SCH (07:22)
[2016-10-21 07:45] LABS: BUN/CREATININE RATIO 27.9 (10-20); CALCIUM 8.5 mg/dl (8.5-10.1); CREATININE 0.99 mg/dl (0.60-1.20); POTASSIUM 4.6 mmol/L (3.5-5.1)
--- NOTE | 2016-10-21 18:42 | Progress Note ---
Medicine Progress Note Date & Time of Visit: Oct 21, 2016 at 18:38. Subjective Patient seen and examined. Would like to take a shower. Objective Last 8 Hrs Date Time Temp Pulse Resp B/P Pulse Ox O2 Delivery O2 Flow Rate FiO2 10/21/16 16:00 98 Nasal Cannula 2.0 10/21/16 15:20 36.8 91 22 114/62 98 Nasal Cannula 2.0 10/21/16 14:38 83 20 98 Nasal Cannula 2.0 10/21/16 12:00 98 Nasal Cannula 2.0 10/21/16 11:13 36.8 84 20 118/72 99 Nasal Cannula 2.0 Physical Exam: General-awake; alert; NAD Eyes-EOMI; no scleral icterus Neck-no stridor; trachea midline Lungs-lungs sound relatively clear; upper airway expiratory wheezes that seem to improve when patient relaxes Heart-tachycardic; irregularly irregular Abdomen-soft; NTND; nBS Extremities-no c/c/e; no deformity Neuro-no gross focal deficits Laboratory Results: Last 24 Hours Test 10/20/16 20:00 10/21/16 06:47 Urine Color YELLOW Urine Appearance CLEAR Urine pH 5.0 Urine Specific [place] 1.015 Urine Protein NEG Urine Glucose (UA) 2+ Urine Ketones NEG Urine Occult Blood NEG Urine Nitrite NEG Urine Bilirubin NEG Urine Urobilinogen NEG Urine Leukocyte Esterase NEG Urine WBC (Auto) 1-5 /hpf Urine RBC (Auto) 0-4 /hpf Urine Hyaline Casts (Auto) 0 /lpf Urine Epithelial Cells (Auto) 10-20 /lpf Urine Bacteria (Auto) NEG White Blood Count 5.70 K/uL Red Blood Count 3.24 M/uL Hemoglobin 10.5 g/dL Hematocrit 31.6 % Mean Corpuscular Volume 97.5 fL Mean Corpuscular Hemoglobin 32.4 pg Mean Corpuscular Hemoglobin Concent 33.2 g/dl RDW Standard Deviation 52.5 fL RDW Coefficient of Variation 14.7 % Platelet Count 134 K/uL Mean Platelet Volume 8.6 fL Sodium Level 141 mmol/L Potassium Level 4.6 mmol/L Chloride Level 105 mmol/L Carbon Dioxide Level 28 mmol/L Anion Gap 8.0 mmol/L Blood Urea Nitrogen 28 mg/dl Creatinine 0.99 mg/dl Est Creatinine Clear Calc Drug Dose 35.8 ml/min Estimated GFR () 61.9 Estimated GFR (Non- 53.4 BUN/Creatinine Ratio 27.9 Random Glucose 166 mg/dl Calcium Level 8.5 mg/dl Magnesium Level 2.0 mg/dl Assessment & Plan ASTHMA EXACERBATION CXR- no infiltrate; influenza Ag- neg; influenza PCR- neg Treated with IV Solu-medrol 125 mg and Duoneb en route; additional Duoneb in ER No indication for antibiotics at this time IV Solu-medrol at 20 mg q8h Xopenex/ Atrovent nebs QIDR and q2h PRN Continue Symbicort, Singulair Supplemental O2 per protocol Monitor peak flow rate ATRIAL FIBRILLATION Likely chronic as per previous cardiology note; was also in AF during previous admission Continue diltiazem Not on anticoagulation due to falls/ history SAH per cardiology note H/O HYPERTENSION BP is stable Continue diltiazem H/O HYPOTHYROIDISM Not on medication TSH WNL in Sep 2016 DEPRESSION / ANXIETY Continue sertraline and PRN lorazepam DEMENTIA Monitor for signs of delirium LUNG NODULE F/u as outpatient DVT PROPHYLAXIS Lovenox SQ CODE STATUS DNR DISPOSITION Resides at [facility] Followed by Dr. Riley for primary care Social service, PT, OT [facility] upon discharge Current Inpatient Medications: Current Inpatient Medications Medications (Trade) Dose Ordered Sig/Ally Route Start Time Stop Time Status Last Admin Dose Admin Acetaminophen (Tylenol Tab) 650 mg Q4H PRN PO 10/20/16 12:00 11/19/16 11:59 Ondansetron HCl 4 mg 4 mg Q6H PRN IV 10/20/16 12:00 11/19/16 11:59 Methylprednisolone Sodium Succinate/ Syringe (Solu-Medrol IV/ Syringe) 0.32 ml @ 1.5 mls/min Q8H IV 10/20/16 15:00 11/19/16 13:59 10/21/16 14:20 1.5 MLS/MIN Aspirin (Ecotrin Tab) 81 mg DAILY PO 10/21/16 09:00 11/20/16 08:59 10/21/16 07:22 81 MG Budesonide/ Formoterol Fumarate (Symbicort 160/ 4.5 Inh) 2 puffs BID INH 10/20/16 21:00 11/19/16 20:59 10/21/16 07:22 2 PUFFS Diltiazem HCl (Dilacor Xr Cap) 120 mg QAM PO 10/21/16 09:00 11/20/16 08:59 10/21/16 07:22 120 MG Lorazepam (Ativan Tab) 0.5 mg Q8 PRN PO 10/20/16 12:15 11/19/16 12:14 Montelukast Sodium (Singulair Tab) 10 mg HS PO 10/20/16 21:00 11/19/16 20:59 10/20/16 21:11 10 MG Sertraline HCl (Zoloft Tab) 75 mg DAILY PO 10/21/16 09:00 11/20/16 08:59 10/21/16 07:22 75 MG Witch Dariana/ Glycerin (Tucks) 1 ea Q4H PRN EXT 10/20/16 12:15 11/19/16 12:14 Ipratropium [place] (Atrovent 0.02% 0.5MG/2.5ML Neb) 0.5 mg Q6R INH 10/20/16 15:00 11/19/16 14:59 10/21/16 14:38 0.5 MG Levalbuterol (Xopenex 1.25MG/ 0.5ML Neb) 1.25 mg Q6R INH 10/20/16 15:00 11/19/16 14:59 10/21/16 14:38 1.25 MG Ipratropium [place] (Atrovent 0.02% 0.5MG/2.5ML Neb) 0.5 mg Q2R PRN INH 10/20/16 13:15 11/19/16 13:14 Levalbuterol (Xopenex 0.63 Mg/ 3 Ml Neb) 0.63 mg Q2R PRN INH 10/20/16 13:15 11/19/16 13:14
[2016-10-21] MEDS: MONTELUKAST SOD 10 MG TAB PO SCH (20:29)
[2016-10-22] VITALS (12 sets, daily range): BP systolic 128–161; BP diastolic 63–81; PULSE 90–119; TEMP 36.5–36.8; O2SAT 90–99
[2016-10-22] MEDS: IPRATROPIUM BROMIDE NEB SOLN 0.02% 2.5 ML VIAL INH SCH ×4 (02:06→19:11)
[2016-10-22] MEDS: LEVALBUTEROL 1.25MG/0.5ML NEB INH SCH ×4 (02:07→19:11)
[2016-10-22 06:47] LABS: MEAN CELL VOLUME 97.9 fL (80-100); MEAN CORPUSCULAR HEMOGLOBIN 32.1 pg (25-34); MEAN CORPUSCULAR HGB CONC 32.8 g/dl (32-36); MEAN PLATELET VOLUME 8.8 fL (7.4-10.4); PLATELET COUNT 132 K/uL (130-400); RED BLOOD COUNT 3.27 M/uL (4.2-5.4)
[2016-10-22] MEDS: METHYLPREDNISOLONE IV 20 MG in SYRINGE 0 ML IV SCH ×2 (06:57→14:48)
[2016-10-22 07:15] LABS: BUN/CREATININE RATIO 31.2 (10-20); CALCIUM 8.6 mg/dl (8.5-10.1); CREATININE 0.93 mg/dl (0.60-1.20); POTASSIUM 4.8 mmol/L (3.5-5.1)
[2016-10-22] MEDS: BUDESONIDE/FORMOTEROL FUMARATE 160/4.5 60 PUFFS/INHALER INH SCH ×2 (08:56→19:42)
[2016-10-22] MEDS: DILTIAZEM HCL 120 MG ER CAP PO SCH (08:57)
[2016-10-22] MEDS: ASPIRIN 81 MG ECTAB PO SCH (08:58)
[2016-10-22] MEDS: SERTRALINE HCL 50 MG TAB PO SCH (08:59)
--- NOTE | 2016-10-22 17:50 | Progress Note ---
Medicine Progress Note Date & Time of Visit: Oct 22, 2016 at 17:47. Subjective Patient seen and examined. States that she feels better today. Looking forward to going home. Objective Last 8 Hrs Date Time Temp Pulse Resp B/P Pulse Ox O2 Delivery O2 Flow Rate FiO2 10/22/16 16:00 99 Room Air 10/22/16 15:40 36.8 99 18 129/77 96 10/22/16 14:43 94 20 98 Nasal Cannula 2.0 10/22/16 12:00 99 Room Air 10/22/16 11:00 36.8 99 20 134/74 97 Nasal Cannula 2.0 Physical Exam: General-awake; alert; NAD Eyes-EOMI; no scleral icterus Neck-no stridor; trachea midline Lungs-lungs sound relatively clear; no appreciable wheezing Heart-irregularly irregular Abdomen-soft; NTND; nBS Extremities-no c/c/e; no deformity Neuro-no gross focal deficits Laboratory Results: Last 24 Hours Test 10/22/16 06:29 White Blood Count 5.00 K/uL Red Blood Count 3.27 M/uL Hemoglobin 10.5 g/dL Hematocrit 32.0 % Mean Corpuscular Volume 97.9 fL Mean Corpuscular Hemoglobin 32.1 pg Mean Corpuscular Hemoglobin Concent 32.8 g/dl RDW Standard Deviation 52.5 fL RDW Coefficient of Variation 14.8 % Platelet Count 132 K/uL Mean Platelet Volume 8.8 fL Sodium Level 140 mmol/L Potassium Level 4.8 mmol/L Chloride Level 104 mmol/L Carbon Dioxide Level 29 mmol/L Anion Gap 7.0 mmol/L Blood Urea Nitrogen 29 mg/dl Creatinine 0.93 mg/dl Est Creatinine Clear Calc Drug Dose 38.1 ml/min Estimated GFR () 66.8 Estimated GFR (Non- 57.6 BUN/Creatinine Ratio 31.2 Random Glucose 184 mg/dl Calcium Level 8.6 mg/dl Assessment & Plan ASTHMA EXACERBATION CXR- no infiltrate; influenza Ag- neg; influenza PCR- neg Treated with IV Solu-medrol 125 mg and Duoneb en route; additional Duoneb in ER No indication for antibiotics at this time IV Solu-medrol transitioned to prednisone Xopenex/ Atrovent nebs QIDR and q2h PRN Continue Symbicort, Singulair Supplemental O2 per protocol Monitor peak flow rate ATRIAL FIBRILLATION Likely chronic as per previous cardiology note; was also in AF during previous admission Continue diltiazem Not on anticoagulation due to falls/ history SAH per cardiology note H/O HYPERTENSION BP is stable Continue diltiazem H/O HYPOTHYROIDISM Not on medication TSH WNL in Sep 2016 DEPRESSION / ANXIETY Continue sertraline and PRN lorazepam DEMENTIA Monitor for signs of delirium LUNG NODULE F/u as outpatient DVT PROPHYLAXIS Lovenox SQ CODE STATUS DNR DISPOSITION Resides at [facility] Followed by Dr. Riley for primary care Social service, PT, OT [facility] upon discharge Current Inpatient Medications: Current Inpatient Medications Medications (Trade) Dose Ordered Sig/Ally Route Start Time Stop Time Status Last Admin Dose Admin Acetaminophen (Tylenol Tab) 650 mg Q4H PRN PO 10/20/16 12:00 11/19/16 11:59 Ondansetron HCl (Zofran Inj) 4 mg Q6H PRN IV 10/20/16 12:00 11/19/16 11:59 Aspirin (Ecotrin Tab) 81 mg DAILY PO 10/21/16 09:00 11/20/16 08:59 10/22/16 08:58 81 MG Budesonide/ Formoterol Fumarate (Symbicort 160/ 4.5 Inh) 2 puffs BID INH 10/20/16 21:00 11/19/16 20:59 10/22/16 08:56 2 PUFFS Diltiazem HCl (Dilacor Xr Cap) 120 mg QAM PO 10/21/16 09:00 11/20/16 08:59 10/22/16 08:57 120 MG Lorazepam (Ativan Tab) 0.5 mg Q8 PRN PO 10/20/16 12:15 11/19/16 12:14 Montelukast Sodium (Singulair Tab) 10 mg HS PO 10/20/16 21:00 11/19/16 20:59 10/21/16 20:29 10 MG Sertraline HCl (Zoloft Tab) 75 mg DAILY PO 10/21/16 09:00 11/20/16 08:59 10/22/16 08:59 75 MG Witch Dariana/ Glycerin (Tucks) 1 ea Q4H PRN EXT 10/20/16 12:15 11/19/16 12:14 Ipratropium [place] (Atrovent 0.02% 0.5MG/2.5ML Neb) 0.5 mg Q6R INH 10/20/16 15:00 11/19/16 14:59 10/22/16 14:43 0.5 MG Levalbuterol (Xopenex 1.25MG/ 0.5ML Neb) 1.25 mg Q6R INH 10/20/16 15:00 11/19/16 14:59 10/22/16 14:43 1.25 MG Ipratropium [place] (Atrovent 0.02% 0.5MG/2.5ML Neb) 0.5 mg Q2R PRN INH 10/20/16 13:15 11/19/16 13:14 Levalbuterol (Xopenex 0.63 Mg/ 3 Ml Neb) 0.63 mg Q2R PRN INH 10/20/16 13:15 11/19/16 13:14 Prednisone (PredniSONE TAB) 40 mg DAILY PO 10/23/16 09:00 11/22/16 08:59
[2016-10-22] MEDS: MONTELUKAST SOD 10 MG TAB PO SCH (19:38)
[2016-10-22] MEDS: LORAZEPAM 0.5 MG TAB PO PRN (19:42)
[2016-10-23] VITALS (7 sets, daily range): BP systolic 139–151; BP diastolic 76–80; PULSE 88–107; TEMP 36.7–37.1; O2SAT 92–94
[2016-10-23] MEDS: IPRATROPIUM BROMIDE NEB SOLN 0.02% 2.5 ML VIAL INH SCH ×6 (01:47→19:19)
[2016-10-23] MEDS: LEVALBUTEROL 1.25MG/0.5ML NEB INH SCH ×6 (01:47→19:19)
[2016-10-23] MEDS: BUDESONIDE/FORMOTEROL FUMARATE 160/4.5 60 PUFFS/INHALER INH SCH ×2 (08:26→20:36)
[2016-10-23] MEDS: DILTIAZEM HCL 120 MG ER CAP PO SCH (08:27)
[2016-10-23] MEDS: SERTRALINE HCL 50 MG TAB PO SCH (08:27)
[2016-10-23] MEDS: ASPIRIN 81 MG ECTAB PO SCH (08:28)
[2016-10-23] MEDS: GUAIFENESIN SUGAR FREE 200 MG/10 ML UDC PO PRN ×2 (11:13→20:36)
--- NOTE | 2016-10-23 16:59 | Progress Note ---
Medicine Progress Note Date & Time of Visit: Oct 23, 2016 at 16:57. Subjective Patient seen and examined. Walked the hallway with PT. [place] that her breathing was stable. Objective Last 8 Hrs Date Time Temp Pulse Resp B/P Pulse Ox O2 Delivery O2 Flow Rate FiO2 10/23/16 16:39 36.7 107 22 139/76 93 Room Air 10/23/16 15:51 92 16 94 Room Air 10/23/16 11:49 96 16 93 Room Air Physical Exam: General-awake; alert; NAD Eyes-EOMI; no scleral icterus Neck-no stridor; trachea midline Lungs-scattered end expiratory wheezing; upper airway wheezing when agitated Heart-irregularly irregular Abdomen-soft; NTND; nBS Extremities-no c/c/e; no deformity Neuro-no gross focal deficits Assessment & Plan ASTHMA EXACERBATION CXR- no infiltrate; influenza Ag- neg; influenza PCR- neg Treated with IV Solu-medrol 125 mg and Duoneb en route; additional Duoneb in ER No indication for antibiotics at this time IV Solu-medrol transitioned to prednisone and plan for taper Xopenex/ Atrovent nebs QIDR and q2h PRN Continue Symbicort, Singulair Weaned off supplemental O2 Monitor peak flow rate ATRIAL FIBRILLATION Likely chronic as per previous cardiology note; was also in AF during previous admission Continue diltiazem Not on anticoagulation due to falls/ history SAH per cardiology note H/O HYPERTENSION BP is stable Continue diltiazem H/O HYPOTHYROIDISM Not on medication TSH WNL in Sep 2016 DEPRESSION / ANXIETY Continue sertraline and PRN lorazepam DEMENTIA Monitor for signs of delirium LUNG NODULE F/u as outpatient DVT PROPHYLAXIS Lovenox SQ CODE STATUS DNR DISPOSITION Resides at [facility] Followed by Dr. Riley for primary care Social service, PT, OT [facility] upon discharge Current Inpatient Medications: Current Inpatient Medications Medications (Trade) Dose Ordered Sig/Ally Route Start Time Stop Time Status Last Admin Dose Admin Acetaminophen (Tylenol Tab) 650 mg Q4H PRN PO 10/20/16 12:00 11/19/16 11:59 Ondansetron HCl (Zofran Inj) 4 mg Q6H PRN IV 10/20/16 12:00 11/19/16 11:59 Aspirin (Ecotrin Tab) 81 mg DAILY PO 10/21/16 09:00 11/20/16 08:59 10/23/16 08:28 81 MG Budesonide/ Formoterol Fumarate (Symbicort 160/ 4.5 Inh) 2 puffs BID INH 10/20/16 21:00 11/19/16 20:59 10/23/16 08:26 2 PUFFS Diltiazem HCl (Dilacor Xr Cap) 120 mg QAM PO 10/21/16 09:00 11/20/16 08:59 10/23/16 08:27 120 MG Lorazepam (Ativan Tab) 0.5 mg Q8 PRN PO 10/20/16 12:15 11/19/16 12:14 10/22/16 19:42 0.5 MG Montelukast Sodium (Singulair Tab) 10 mg HS PO 10/20/16 21:00 11/19/16 20:59 10/22/16 19:38 10 MG Sertraline HCl (Zoloft Tab) 75 mg DAILY PO 10/21/16 09:00 11/20/16 08:59 10/23/16 08:27 75 MG Witch Dariana/ Glycerin (Tucks) 1 ea Q4H PRN EXT 10/20/16 12:15 11/19/16 12:14 Ipratropium [place] (Atrovent 0.02% 0.5MG/2.5ML Neb) 0.5 mg Q6R INH 10/20/16 15:00 11/19/16 14:59 10/23/16 15:52 0.5 MG Levalbuterol (Xopenex 1.25MG/ 0.5ML Neb) 1.25 mg Q6R INH 10/20/16 15:00 11/19/16 14:59 10/23/16 15:52 1.25 MG Ipratropium [place] (Atrovent 0.02% 0.5MG/2.5ML Neb) 0.5 mg Q2R PRN INH 10/20/16 13:15 11/19/16 13:14 Levalbuterol (Xopenex 0.63 Mg/ 3 Ml Neb) 0.63 mg Q2R PRN INH 10/20/16 13:15 11/19/16 13:14 Prednisone (PredniSONE TAB) 40 mg DAILY PO 10/23/16 08:00 11/22/16 08:59 10/23/16 08:28 40 MG Guaifenesin (Robitussin Sugar Free Syrup) 200 mg Q6H PRN PO 10/23/16 10:15 11/22/16 10:14 10/23/16 11:13 200 MG
[2016-10-23] MEDS: MONTELUKAST SOD 10 MG TAB PO SCH (20:36)
[2016-10-24] VITALS (9 sets, daily range): BP systolic 116–139; BP diastolic 72–88; PULSE 82–114; TEMP 36.7–36.9; O2SAT 94–97
[2016-10-24] MEDS: IPRATROPIUM BROMIDE NEB SOLN 0.02% 2.5 ML VIAL INH PRN (00:14)
[2016-10-24] MEDS: LEVALBUTEROL 0.63MG/3 ML NEB INH PRN (00:14)
[2016-10-24] MEDS ORDERED: NURSING VERBAL MED ORDER ONE (00:30)
[2016-10-24] MEDS: BENZONATATE 100MG CAP PO PRN ×2 (00:41→20:32)
[2016-10-24] MEDS: GUAIFENESIN SUGAR FREE 200 MG/10 ML UDC PO PRN (02:48)
[2016-10-24] MEDS: LEVALBUTEROL 1.25MG/0.5ML NEB INH SCH ×4 (03:05→19:23)
[2016-10-24] MEDS: IPRATROPIUM BROMIDE NEB SOLN 0.02% 2.5 ML VIAL INH SCH ×4 (03:05→19:23)
[2016-10-24] MEDS: ASPIRIN 81 MG ECTAB PO SCH (07:31)
[2016-10-24] MEDS: BUDESONIDE/FORMOTEROL FUMARATE 160/4.5 60 PUFFS/INHALER INH SCH ×2 (07:31→20:31)
[2016-10-24] MEDS: DILTIAZEM HCL 120 MG ER CAP PO SCH (07:31)
[2016-10-24] MEDS: SERTRALINE HCL 50 MG TAB PO SCH (07:31)
[2016-10-24] MEDS: GUAIFENESIN 600 MG TABCR PO SCH ×2 (10:50→20:32)
--- NOTE | 2016-10-24 18:24 | Progress Note ---
Medicine Progress Note Date & Time of Visit: Oct 24, 2016 at 18:22. Subjective Patient seen and examined. Feels that her breathing is better today, but has more pronounced audible wheezing. Objective Last 8 Hrs Date Time Temp Pulse Resp B/P Pulse Ox O2 Delivery O2 Flow Rate FiO2 10/24/16 16:10 94 Room Air 10/24/16 16:02 36.8 114 20 116/72 94 Room Air 10/24/16 14:15 90 20 97 Room Air Physical Exam: General-awake; alert; NAD Eyes-EOMI; no scleral icterus Neck-no stridor; trachea midline Lungs-diffuse expiratory wheezing Heart-irregularly irregular Abdomen-soft; NTND; nBS Extremities-no c/c/e; no deformity Neuro-no gross focal deficits Assessment & Plan ASTHMA EXACERBATION CXR- no infiltrate; influenza Ag- neg; influenza PCR- neg Treated with IV Solu-medrol 125 mg and Duoneb en route; additional Duoneb in ER No indication for antibiotics at this time IV Solu-medrol transitioned to prednisone and plan for taper Xopenex/ Atrovent nebs QIDR and q2h PRN Continue Symbicort, Singulair Weaned off supplemental O2 Monitor peak flow rate ATRIAL FIBRILLATION Likely chronic as per previous cardiology note; was also in AF during previous admission Continue diltiazem Not on anticoagulation due to falls/ history SAH per cardiology note H/O HYPERTENSION BP is stable Continue diltiazem H/O HYPOTHYROIDISM Not on medication TSH WNL in Sep 2016 DEPRESSION / ANXIETY Continue sertraline and PRN lorazepam DEMENTIA Monitor for signs of delirium LUNG NODULE F/u as outpatient DVT PROPHYLAXIS Lovenox SQ CODE STATUS DNR DISPOSITION Resides at [facility] Followed by Dr. Riley for primary care Social service, PT, OT [facility] upon discharge Current Inpatient Medications: Current Inpatient Medications Medications (Trade) Dose Ordered Sig/Ally Route Start Time Stop Time Status Last Admin Dose Admin Acetaminophen (Tylenol Tab) 650 mg Q4H PRN PO 10/20/16 12:00 11/19/16 11:59 Ondansetron HCl (Zofran Inj) 4 mg Q6H PRN IV 10/20/16 12:00 11/19/16 11:59 Aspirin (Ecotrin Tab) 81 mg DAILY PO 10/21/16 09:00 11/20/16 08:59 10/24/16 07:31 81 MG Budesonide/ Formoterol Fumarate (Symbicort 160/ 4.5 Inh) 2 puffs BID INH 10/20/16 21:00 11/19/16 20:59 10/24/16 07:31 2 PUFFS Diltiazem HCl (Dilacor Xr Cap) 120 mg QAM PO 10/21/16 09:00 11/20/16 08:59 10/24/16 07:31 120 MG Lorazepam (Ativan Tab) 0.5 mg Q8 PRN PO 10/20/16 12:15 11/19/16 12:14 10/22/16 19:42 0.5 MG Montelukast Sodium (Singulair Tab) 10 mg HS PO 10/20/16 21:00 11/19/16 20:59 10/23/16 20:36 10 MG Sertraline HCl (Zoloft Tab) 75 mg DAILY PO 10/21/16 09:00 11/20/16 08:59 10/24/16 07:31 75 MG Witch Dariana/ Glycerin (Tucks) 1 ea Q4H PRN EXT 10/20/16 12:15 11/19/16 12:14 Ipratropium [place] (Atrovent 0.02% 0.5MG/2.5ML Neb) 0.5 mg Q6R INH 10/20/16 15:00 11/19/16 14:59 10/24/16 14:15 0.5 MG Levalbuterol (Xopenex 1.25MG/ 0.5ML Neb) 1.25 mg Q6R INH 10/20/16 15:00 11/19/16 14:59 10/24/16 14:15 1.25 MG Ipratropium [place] (Atrovent 0.02% 0.5MG/2.5ML Neb) 0.5 mg Q2R PRN INH 10/20/16 13:15 11/19/16 13:14 10/24/16 00:14 0.5 MG Levalbuterol (Xopenex 0.63 Mg/ 3 Ml Neb) 0.63 mg Q2R PRN INH 10/20/16 13:15 11/19/16 13:14 10/24/16 00:14 0.63 MG Prednisone (PredniSONE TAB) 40 mg DAILY PO 10/23/16 08:00 11/22/16 08:59 10/24/16 07:31 40 MG Benzonatate (Tessalon Perles Cap) 1-2 CAPS Q8H PRN PO 10/24/16 00:30 11/23/16 00:29 10/24/16 00:41 100 MG Guaifenesin (Mucinex Contr Rel Tab) 600 mg Q12 PO 10/24/16 10:15 11/23/16 10:14 10/24/16 10:50 600 MG
[2016-10-24] MEDS: MONTELUKAST SOD 10 MG TAB PO SCH (20:33)
[2016-10-25] VITALS (7 sets, daily range): BP systolic 107–130; BP diastolic 63–82; PULSE 93–106; TEMP 36.5–36.9; O2SAT 90–98
[2016-10-25] MEDS: IPRATROPIUM BROMIDE NEB SOLN 0.02% 2.5 ML VIAL INH SCH ×2 (01:30→07:26)
[2016-10-25] MEDS: LEVALBUTEROL 1.25MG/0.5ML NEB INH SCH ×2 (01:31→07:26)
[2016-10-25] MEDS: BENZONATATE 100MG CAP PO PRN ×2 (08:21→21:17)
[2016-10-25] MEDS: GUAIFENESIN 600 MG TABCR PO SCH ×2 (08:22→21:03)
[2016-10-25] MEDS: ASPIRIN 81 MG ECTAB PO SCH (08:22)
[2016-10-25] MEDS: BUDESONIDE/FORMOTEROL FUMARATE 160/4.5 60 PUFFS/INHALER INH SCH ×2 (08:22→21:03)
[2016-10-25] MEDS: SERTRALINE HCL 50 MG TAB PO SCH (08:23)
[2016-10-25] MEDS: DILTIAZEM HCL 120 MG ER CAP PO SCH (08:24)
[2016-10-25] MEDS: LORAZEPAM 0.5 MG TAB PO PRN (08:25)
--- NOTE | 2016-10-25 17:35 | Progress Note ---
Medicine Progress Note Date & Time of Visit: Oct 25, 2016 at 17:33. Subjective Patient sleeping peacefully in chair. Upon arousal, audible wheezing noted. Denies any SOB. Still with cough; nursing staff notes productive of phlegm this morning. Objective Last 8 Hrs Date Time Temp Pulse Resp B/P Pulse Ox O2 Delivery O2 Flow Rate FiO2 10/25/16 16:00 Room Air 10/25/16 14:41 36.5 97 18 107/72 98 Room Air Physical Exam: General-awake; alert; NAD Eyes-EOMI; no scleral icterus Neck-no stridor; trachea midline Lungs-diffuse expiratory wheezing Heart-irregularly irregular Abdomen-soft; NTND; nBS Extremities-no c/c/e; no deformity Neuro-no gross focal deficits Assessment & Plan ASTHMA EXACERBATION CXR- no infiltrate; influenza Ag- neg; influenza PCR- neg Treated with IV Solu-medrol 125 mg and Duoneb en route; additional Duoneb in ER No indication for antibiotics at this time IV Solu-medrol transitioned to prednisone and plan for taper Xopenex/ Atrovent nebs q2h PRN Continue Symbicort, Singulair Weaned off supplemental O2 Monitor peak flow rate ATRIAL FIBRILLATION Likely chronic as per previous cardiology note; was also in AF during previous admission Continue diltiazem Not on anticoagulation due to falls/ history SAH per cardiology note H/O HYPERTENSION BP is stable Continue diltiazem H/O HYPOTHYROIDISM Not on medication TSH WNL in Sep 2016 DEPRESSION / ANXIETY Continue sertraline and PRN lorazepam DEMENTIA Monitor for signs of delirium LUNG NODULE F/u as outpatient DVT PROPHYLAXIS Lovenox SQ CODE STATUS DNR DISPOSITION Resides at [facility] Followed by Dr. Riley for primary care Social service, PT, OT [facility] upon discharge Current Inpatient Medications: Current Inpatient Medications Medications (Trade) Dose Ordered Sig/Ally Route Start Time Stop Time Status Last Admin Dose Admin Acetaminophen (Tylenol Tab) 650 mg Q4H PRN PO 10/20/16 12:00 11/19/16 11:59 Ondansetron HCl (Zofran Inj) 4 mg Q6H PRN IV 10/20/16 12:00 11/19/16 11:59 Aspirin (Ecotrin Tab) 81 mg DAILY PO 10/21/16 09:00 11/20/16 08:59 10/25/16 08:22 81 MG Budesonide/ Formoterol Fumarate (Symbicort 160/ 4.5 Inh) 2 puffs BID INH 10/20/16 21:00 11/19/16 20:59 10/25/16 08:22 2 PUFFS Diltiazem HCl (Dilacor Xr Cap) 120 mg QAM PO 10/21/16 09:00 11/20/16 08:59 10/25/16 08:24 120 MG Lorazepam (Ativan Tab) 0.5 mg Q8 PRN PO 10/20/16 12:15 11/19/16 12:14 10/25/16 08:25 0.5 MG Montelukast Sodium (Singulair Tab) 10 mg HS PO 10/20/16 21:00 11/19/16 20:59 10/24/16 20:33 10 MG Sertraline HCl (Zoloft Tab) 75 mg DAILY PO 10/21/16 09:00 11/20/16 08:59 10/25/16 08:23 75 MG Witch Dariana/ Glycerin (Tucks) 1 ea Q4H PRN EXT 10/20/16 12:15 11/19/16 12:14 Ipratropium [place] (Atrovent 0.02% 0.5MG/2.5ML Neb) 0.5 mg Q2R PRN INH 10/20/16 13:15 11/19/16 13:14 10/25/16 00:00 0.5 MG Levalbuterol (Xopenex 0.63 Mg/ 3 Ml Neb) 0.63 mg Q2R PRN INH 10/20/16 13:15 11/19/16 13:14 10/25/16 00:00 0.63 MG Prednisone (PredniSONE TAB) 40 mg DAILY PO 10/23/16 08:00 11/22/16 08:59 10/25/16 08:23 40 MG Benzonatate (Tessalon Perles Cap) 1-2 CAPS Q8H PRN PO 10/24/16 00:30 11/23/16 00:29 10/25/16 08:21 200 MG Guaifenesin (Mucinex Contr Rel Tab) 600 mg Q12 PO 10/24/16 10:15 11/23/16 10:14 10/25/16 08:22 600 MG
[2016-10-25] MEDS: MONTELUKAST SOD 10 MG TAB PO SCH (21:03)
[2016-10-25] MEDS: IPRATROPIUM BROMIDE NEB SOLN 0.02% 2.5 ML VIAL INH PRN ×2 (21:28)
[2016-10-25] MEDS: LEVALBUTEROL 0.63MG/3 ML NEB INH PRN ×2 (21:28)
[2016-10-26] MEDS: BUDESONIDE/FORMOTEROL FUMARATE 160/4.5 60 PUFFS/INHALER INH SCH ×2 (07:56→20:06)
[2016-10-26] MEDS: BENZONATATE 100MG CAP PO PRN (08:00)
[2016-10-26] MEDS: GUAIFENESIN 600 MG TABCR PO SCH ×2 (08:00→20:08)
[2016-10-26] MEDS: ASPIRIN 81 MG ECTAB PO SCH (08:00)
[2016-10-26] MEDS: SERTRALINE HCL 50 MG TAB PO SCH (08:01)
[2016-10-26 08:09] VITALS: BP_SYST 155; BP_SYST 163; BP_DIAS 79; PULSE 95; TEMP 36.7; O2SAT 97
[2016-10-26] MEDS: DILTIAZEM HCL 120 MG ER CAP PO SCH (08:11)
[2016-10-26 09:37] VITALS: PULSE 112; O2SAT 94
[2016-10-26] MEDS: LEVALBUTEROL 0.63MG/3 ML NEB INH PRN (09:37)
[2016-10-26] MEDS: IPRATROPIUM BROMIDE NEB SOLN 0.02% 2.5 ML VIAL INH PRN (09:37)
[2016-10-26 15:58] VITALS: BP 114/66; PULSE 84; TEMP 36.7; O2SAT 96
--- NOTE | 2016-10-26 16:22 | Progress Note ---
Medicine Progress Note Date & Time of Visit: Oct 26, 2016 at 16:20. Subjective Patient seen and examined. No audible wheezing when having a conversation with patient. Still with harsh cough. Objective Last 8 Hrs Date Time Temp Pulse Resp B/P Pulse Ox O2 Delivery O2 Flow Rate FiO2 10/26/16 09:37 112 18 94 Room Air Physical Exam: General-awake; alert; NAD Eyes-EOMI; no scleral icterus Neck-no stridor; trachea midline Lungs-diffuse expiratory wheezing Heart-irregularly irregular Abdomen-soft; NTND; nBS Extremities-no c/c/e; no deformity Neuro-no gross focal deficits Assessment & Plan ASTHMA EXACERBATION CXR- no infiltrate; influenza Ag- neg; influenza PCR- neg Treated with IV Solu-medrol 125 mg and Duoneb en route; additional Duoneb in ER No indication for antibiotics at this time IV Solu-medrol transitioned to prednisone and slow taper off Xopenex/ Atrovent nebs q2h PRN Continue Symbicort, Singulair Weaned off supplemental O2 Monitor peak flow rate ATRIAL FIBRILLATION Likely chronic as per previous cardiology note; was also in AF during previous admission Continue diltiazem Not on anticoagulation due to falls/ history SAH per cardiology note H/O HYPERTENSION BP is stable Continue diltiazem H/O HYPOTHYROIDISM Not on medication TSH WNL in Sep 2016 DEPRESSION / ANXIETY Continue PRN lorazepam Increase sertraline DEMENTIA Monitor for signs of delirium LUNG NODULE F/u as outpatient DVT PROPHYLAXIS Lovenox SQ CODE STATUS DNR DISPOSITION Resides at [facility] Followed by Dr. Riley for primary care Social service, PT, OT [facility] upon discharge Current Inpatient Medications: Current Inpatient Medications Medications (Trade) Dose Ordered Sig/Ally Route Start Time Stop Time Status Last Admin Dose Admin Acetaminophen (Tylenol Tab) 650 mg Q4H PRN PO 10/20/16 12:00 11/19/16 11:59 Ondansetron HCl (Zofran Inj) 4 mg Q6H PRN IV 10/20/16 12:00 11/19/16 11:59 Aspirin (Ecotrin Tab) 81 mg DAILY PO 10/21/16 09:00 11/20/16 08:59 10/26/16 08:00 81 MG Budesonide/ Formoterol Fumarate (Symbicort 160/ 4.5 Inh) 2 puffs BID INH 10/20/16 21:00 11/19/16 20:59 10/26/16 07:56 2 PUFFS Diltiazem HCl (Dilacor Xr Cap) 120 mg QAM PO 10/21/16 09:00 11/20/16 08:59 10/26/16 08:11 120 MG Lorazepam (Ativan Tab) 0.5 mg Q8 PRN PO 10/20/16 12:15 11/19/16 12:14 10/25/16 08:25 0.5 MG Montelukast Sodium (Singulair Tab) 10 mg HS PO 10/20/16 21:00 11/19/16 20:59 10/25/16 21:03 10 MG Sertraline HCl (Zoloft Tab) 75 mg DAILY PO 10/21/16 09:00 11/20/16 08:59 10/26/16 08:01 75 MG Witch Dariana/ Glycerin (Tucks) 1 ea Q4H PRN EXT 10/20/16 12:15 11/19/16 12:14 Ipratropium [place] (Atrovent 0.02% 0.5MG/2.5ML Neb) 0.5 mg Q2R PRN INH 10/20/16 13:15 11/19/16 13:14 10/26/16 09:37 0.5 MG Levalbuterol (Xopenex 0.63 Mg/ 3 Ml Neb) 0.63 mg Q2R PRN INH 10/20/16 13:15 11/19/16 13:14 10/26/16 09:37 0.63 MG Benzonatate (Tessalon Perles Cap) 1-2 CAPS Q8H PRN PO 10/24/16 00:30 11/23/16 00:29 10/26/16 08:00 200 MG Guaifenesin (Mucinex Contr Rel Tab) 600 mg Q12 PO 10/24/16 10:15 11/23/16 10:14 10/26/16 08:00 600 MG Prednisone (PredniSONE TAB) 30 mg DAILY PO 10/26/16 08:00 11/25/16 07:59 10/26/16 07:59 30 MG
[2016-10-26] MEDS: MONTELUKAST SOD 10 MG TAB PO SCH (20:08)
[2016-10-26 23:56] VITALS: BP 156/84; PULSE 93; TEMP 36.7; O2SAT 94
[2016-10-27] MEDS: LORAZEPAM 0.5 MG TAB PO PRN ×2 (00:02→11:01)
[2016-10-27] MEDS: BENZONATATE 100MG CAP PO PRN ×2 (00:02→11:01)
[2016-10-27 07:33] VITALS: BP 110/84; PULSE 105; TEMP 37; O2SAT 93
[2016-10-27] MEDS ORDERED: SERTRALINE HCL 100 MG TAB PO SCH (08:00)
[2016-10-27 08:03] VITALS: PULSE 99; O2SAT 94
[2016-10-27] MEDS: LEVALBUTEROL 0.63MG/3 ML NEB INH PRN (08:03)
[2016-10-27] MEDS: IPRATROPIUM BROMIDE NEB SOLN 0.02% 2.5 ML VIAL INH PRN (08:03)
[2016-10-27] MEDS ORDERED: SERT50TA PO (10:29)
[2016-10-27] MEDS ORDERED: BENZ100C7 PO (10:29)
[2016-10-27] MEDS ORDERED: GFNSR600 PO (10:29)
[2016-10-27] MEDS ORDERED: PRED10TA PO (10:29)
[2016-10-27] MEDS ORDERED: ATRINS INH (10:29)
[2016-10-27] MEDS ORDERED: XPNINS INH (10:29)
--- NOTE | 2016-10-27 10:32 | Discharge Instructions ---
Discharge Instructions Admission Reason for Admission: Asthma Exacerbation Discharge Discharge Diagnosis / Problem: Asthma exacerbation Discharge Goals Goal(s): Improve disease control Activity Recommendations Activity Limitations: resume your previous activity . Instructions / Follow-Up Instructions / Follow-Up Please follow up with Dr. Riley within one week of discharge. Please follow the prednisone taper as prescribed: start 10/28/16 and take 30mg daily x2 days; then 20mg daily x3 days; then 10mg daily x3 days. Current Hospital Diet Patient's current hospital diet: AHA Diet (Heart Healthy) Discharge Diet Recommended Diet: AHA Diet (Heart Healthy) Pending Studies Studies pending at discharge: no Medical Emergencies . Who to Call and When: Medical Emergencies: If at any time you feel your situation is an emergency, please call 911 immediately. . Non-Emergent Contact Non-Emergency issues call your: Primary Care Provider . . "Provider Documentation" section prepared by Luz Harrison. VTE Core Measure Inpt VTE Proph given/why not?: SCD's
[2016-10-27 10:43] VITALS: BP 110/84; PULSE 99; TEMP 37; O2SAT 94
[2016-10-27] MEDS: DILTIAZEM HCL 120 MG ER CAP PO SCH (11:00)
[2016-10-27] MEDS: BUDESONIDE/FORMOTEROL FUMARATE 160/4.5 60 PUFFS/INHALER INH SCH (11:00)
[2016-10-27] MEDS: ASPIRIN 81 MG ECTAB PO SCH (11:00)
[2016-10-27] MEDS: GUAIFENESIN 600 MG TABCR PO SCH (11:01)
--- NOTE | 2016-10-27 17:51 | Discharge Summary ---
Discharge Summary Admission Date: Oct 20, 2016 at 11:04 Discharge Date: Oct 27, 2016 Discharge Disposition: Personal care Principal Diagnosis: Asthma exacerbation Medication Reconciliation New Medications: Prednisone Tab (Prednisone) 10 Mg Tab 10 MG PO UD for 8 Days, #15 TAB Take 3tab daily x2 days. Then 2tabs daily x3 days. Then 1tab daily x3 days. Benzonatate (Benzonatate) 100 Mg Cap 100-200 MG PO Q8H PRN for Cough for 10 Days, #60 CAP Guaifenesin Ext Rel (Mucinex Ext Rel) 600 Mg Tabcr 600 MG PO Q12 for 10 Days, #20 TAB Ipratropium [place] (Ipratropium [place]) 0.5 Mg/2.5 Ml Nebu 0.5 MG INH Q6 PRN for SOB/Wheezing for 30 Days, #30 EA Levalbuterol (Levalbuterol HCl) 0.63 Mg/3 Ml Nebu 0.63 MG INH Q6 PRN for SOB/Wheezing for 30 Days, #30 EA Changed Medications: Sertraline (Zoloft) 50 Mg Tab 100 MG PO DAILY for 30 Days, #60 TAB (Changed from: 75 MG) Continued Medications: Acetaminophen (Tylenol) 325 Mg Tab 650 MG PO Q8 PRN for Pain or Fever, TAB Aspirin (Aspirin 81) 81 Mg Tab 81 MG PO DAILY Budesonide/Formoterol Fumarate (Symbicort 160-4.5 Mcg/Act) 60 Puffs/Inhaler Aero 2 PUFFS INH BID for 30 Days Diltiazem HCl (Diltiazem HCl ER) 120 Mg Caper 120 MG PO QAM for 30 Days Loperamide Hcl (Anti-Diarrheal) 2 Mg Tab 2 MG PO Q4 PRN for Diarrhea Lorazepam (Ativan) 0.5 Mg Tab 0.5 MG PO Q8 PRN for Anxiety/Agitation, TAB Montelukast Sod (Montelukast Sodium) 10 Mg Tab 10 MG PO HS for 30 Days, TAB Polyethylene Glycol 3350 (Miralax) 1 Pow Pow 17 GM PO DAILY Witch Dariana (Hamamelis Virgini (Tucks Medicated Cooling) 50 % Pad 1 APPLN EXT UD apply externally to affected area 6 times daily as needed or after each bm Discontinued Medications: Albuterol Hfa (Ventolin Hfa) 200 Puffs/86568 Mcg Aers 2 PUFFS INH every 3-4 hrs PRN for SOB/Wheezing Prednisone (Prednisone) 5 Mg Tab 20 MG PO DAILY, TAB tapering dose started 10/18 20 mg x3days 15 mg x3days 10 mg x3days 5 mg x 3days Admission Information HPI (per Admitting provider): This is an 80 year old female with PMH of atrial fibrillation, asthma, lung nodule, hypertension, depression, mild dementia, hypothyroidism, who was sent to the ED from [facility] for SOB. She is followed by Dr. Riley for primary care. History from patient is mildly limited by dementia. Patient was recently admitted at [facility] from Sep 27- for respiratory distress due to asthma exacerbation. CXR was negative for infiltrate. She initially required BiPAP. She was continued on Levaquin which was started as an outpatient. She was seen by pulmonology started on Symbicort and Singulair. She was discharged on prednisone taper which is now at 20 mg/daily. Patient states after discharge she was feeling back to baseline. Then 4 days ago she developed nonproductive cough and subjective warmth/ chills. Then overnight she developed SOB and wheezing. En route patient was treated with IV Solu-Medrol 125 mg and Duoneb. She is now receiving another Duoneb treatment. Pt states SOB is improved. She notes associated fatigue and dizziness upon standing. She had notes diarrhea x 1 week which stopped yesterday and now having formed stool. She noted having dysuria last week which resolved. She notes RLE >LLE edema with unclear onset. She states it is an intermittent problem for her. She denies myalgias, rhinorrhea, ear ache, JAMES, sore throat, chest pain, N/V, abdominal pain, appetite loss, rash, calf pain, falls. Pt unsure about details of atrial fibrillation. As per prior cardiology note (Dr. Rogers) it is likely chronic. Pt denies hx of CAD or CHF. Per [facility] staff, patient has been afebrile with unremarkable VS. [facility] staff states at baseline she is oriented x 3. She is not on oxygen at [facility]. Physical Exam (per Admitting): General Appearance: + pertinent finding (alert acutely ill elderly female, pleasant, cooperativ) Head: normocephalic, atraumatic Eyes: normal inspection, PERRL, EOMI ENT: hearing grossly normal, TMs normal, + pertinent finding (on neb treatment) Neck: supple, no JVD, trachea midline Respiratory/Chest: no respiratory distress, no accessory muscle use, + wheezing, + pertinent finding (breath sounds equal bilaterally ) Cardiovascular: no murmur, normal peripheral pulses, + tachycardia, + irregularly irregular Abdomen/GI: normal bowel sounds, non tender, soft Extremities/Musculoskelatal: no calf tenderness, normal capillary refill, + pertinent finding (trace ankle edema R >L) Neurologic/Psych: alert, normal mood/affect, + pertinent finding (oriented to person, disoriented to location and date (thinks Thursday in July 2017). grossly nonfocal exam. ) Skin: normal color, warm/dry Hospital Course Patient was admitted with asthma exacerbation. CXR did not show any infiltrate. Influenza was negative. Patient was initially started on methylprednisolone; this was transitioned to prednisone with a slow taper upon discharge. Patient was weaned off supplemental oxygen. Patient was continued on Symbicort and Singulair. Nebulizers were changed to levalbuterol/ipratropium given patient's h /o atrial fibrillation. Patient was continued on the remainder of her home medications. It was felt that anxiety played a fairly large role in patient's wheezing (no wheezing noted when sleeping or during conversations). Sertraline dose was increased. Patient deemed stable for discharge to personal half-way with home health services. PE on discharge: General- awake; alert; NAD Eyes- EOMI; no scleral icterus Neck- no stridor; trachea midline Lungs- expiratory wheezes Heart- irregularly irregular Abdomen- soft; NTND; nBS Back- no gross abnormalities Extremities- no c/c/e; no deformity Neuro- no gross focal deficits Skin- no appreciable rash or bruise . Total time spent on discharge = This includes examination of the patient, discharge planning, medication reconciliation, and communication with other providers. Discharge Instructions Discharge Instructions Admission Reason for Admission: Asthma Exacerbation Discharge Discharge Diagnosis / Problem: Asthma exacerbation Discharge Goals Goal(s): Improve disease control Activity Recommendations Activity Limitations: resume your previous activity . Instructions / Follow-Up Instructions / Follow-Up Please follow up with Dr. Riley within one week of discharge. Please follow the prednisone taper as prescribed: start 10/28/16 and take 30mg daily x2 days; then 20mg daily x3 days; then 10mg daily x3 days. Current Hospital Diet Patient's current hospital diet: AHA Diet (Heart Healthy) Discharge Diet Recommended Diet: AHA Diet (Heart Healthy) Pending Studies Studies pending at discharge: no Medical Emergencies . Who to Call and When: Medical Emergencies: If at any time you feel your situation is an emergency, please call 911 immediately. . Non-Emergent Contact Non-Emergency issues call your: Primary Care Provider . . "Provider Documentation" section prepared by Luz Harrison. VTE Core Measure Inpt VTE Proph given/why not?: SCD's Additional Copies To Kee Riley D.O.
[2017-04-24] MEDS ORDERED: PRED10TA PO (12:12)
[2017-04-24] MEDS ORDERED: GFNSR600 PO (12:12)
[2017-04-24] MEDS ORDERED: PRFINS INH (12:12)
[2017-04-24] MEDS ORDERED: NYSS5 PO (12:12)
[2017-04-24] MEDS ORDERED: IPRASOL4 INH (12:12)
== END 2016-10-27 12:45 | disposition home or self-care (01) | DRG 203 ==
LOC: ENRESERVDT → ENRESERVTM → EDBD 09:08 → C.EDA 09:09 → C.2E 11:04 → CANBEDREQ 13:31 → C.2T 15:14 → C.MS4W 10-22 16:34
PROVIDERS: ADMIT Hospitalist; ATTEND Internal Medicine
DX: J45.901 Unspecified asthma with (acute) exacerbation (principal); I48.2 Chronic atrial fibrillation; I10 Essential (primary) hypertension; F32.9 Major depressive disorder, single episode, unspecified; F41.9 Anxiety disorder, unspecified; F03.90 Unspecified dementia, unspecified severity, without behavioral disturbance, psychotic disturbance, mood disturbance, and anxiety; Z66 Do not resuscitate; Z79.82 Long term (current) use of aspirin; Z79.899 Other long term (current) drug therapy

== ENCOUNTER 2016-10-28 03:05 | Inpatient (IN) | payer BC, OTHER ==
[~2016-10-28] VITALS: Ht 149.9 cm; Wt 59.1 kg
[2016-10-28] VITALS (8 sets, daily range): BP systolic 102–145; BP diastolic 61–75; PULSE 80–108; TEMP 36.5–37; O2SAT 87–98; Ht 149.9 cm; Wt 59.1 kg
[~2016-10-28 03:05] MED LIST changes: +ACET-1311 PO; +ATRINS INH; +BENZ100C7 PO; +GFNSR600 PO; -IPRASOL4 INH; +LORA-741 PO; -NYSS5 PO; +POLY335019 PO; +SERT50TA PO; -VNTHFA/IN INH; +WITCPAD EXT; +XPNINS INH
--- NOTE | 2016-10-28 03:23 | EMERGENCY ROOM VISIT NOTE ---
History Report prepared by Ulises: Allegra Lorenzana Under the Supervision of: Dr. Carlos De León M.D. First contact with patient: 03:10 Chief Complaint: SHORTNESS OF BREATH Stated Complaint: SHORT OF BREATH Nursing Triage Summary: Pt discharged 10/27/16 from [facility] after pneumonia admission to [facility]. Pt started coughing tonight with increased SOB and fever. Pt states she felt this way when she left the hospital. On arrival for EMS patient was 88% on RA. Audible expiratory wheezes in bases. History of Present Illness The patient is an 80 year old female who presents to the Emergency Room with complaints of worsening SOB starting earlier today [employer]. According to nursing staff the patient was discharged 10/27/16 after being treated for COPD exacerbation. They state she has been hospitalized twice in the last month for COPD exacerbation and was discharged yesterday with breathing treatments and prednisone. The patient states that after being discharged her SOB and wheezing worsened along with generalized weakness. She states her SOB is worsened with exertion and better with rest. She states she had breathing treatments while in the hospital and had one after being discharged but it did not relieved her SOB. The patient states that she does not usually wear oxygen at home. According to EMS the patient was in the low 80% saturation on room air and then received a breathing treatment in route to the ED. The patient denies any chest pain or syncope. Source of History: patient, EMS, nursing staff Onset: earlier today [employer] [place] Position: chest Timing: worsening Modifying Factors (Worsening): exertion Modifying Factors (Relieving): rest Associated Symptoms: + weakness (generalized), No chest pain Note: Patient denies syncope. Review of Systems See HPI for pertinent positives & negatives. A total of 10 systems reviewed and were otherwise negative. Past Medical & Surgical Medical Problems: (1) Afib (2) Alzheimer's disease, unspecified (3) Asthma exacerbation (4) Ataxia (5) Benign essential hypertension (6) Dizziness (7) History of subarachnoid hemorrhage (8) Hypothyroidism, unspecified (9) Polymyalgia rheumatica (10) Respiratory failure, acute (11) SAH (subarachnoid hemorrhage) (12) Syncope (13) Unspecified asthma Surgical Problems: (1) H/O tubal ligation (2) S/P appendectomy (3) S/P hysterectomy Family History Patient reports no known family medical history. Social History Smoking Status: Never Smoker Alcohol Use: none Marital Status: Housing Status: lives alone Occupation Status: retired Current/Historical Medications Scheduled Aspirin (Aspirin 81), 81 MG PO DAILY Budesonide/Formoterol Fumarate (Symbicort 160-4.5 Mcg/Act), 2 PUFFS INH BID Diltiazem HCl (Diltiazem HCl ER), 120 MG PO QAM Guaifenesin Ext Rel (Mucinex Ext Rel), 600 MG PO Q12 Montelukast Sod (Montelukast Sodium), 10 MG PO HS Polyethylene Glycol 3350 (Miralax), 17 GM PO DAILY Prednisone Tab (Prednisone), 10 MG PO UD Sertraline (Zoloft), 100 MG PO DAILY Witch Dariana (Hamamelis Virgini (Tucks Medicated Cooling), 1 APPLN EXT UD Scheduled PRN Acetaminophen (Tylenol), 650 MG PO Q8 PRN for Pain or Fever Ipratropium [place] (Ipratropium [place]), 0.5 MG INH Q6 PRN for SOB/Wheezing Levalbuterol (Levalbuterol HCl), 0.63 MG INH Q6 PRN for SOB/Wheezing Loperamide Hcl (Anti-Diarrheal), 2 MG PO Q4 PRN for Diarrhea Lorazepam (Ativan), 0.5 MG PO Q8 PRN for Anxiety/Agitation Allergies Coded Allergies: Adhesives (Verified Allergy, Severe, RED/SWOLLEN, 10/28/16) Codeine (Verified Allergy, Unknown, TOLERATED MORPHINE, 10/28/16) Erythromycin (Verified Allergy, Unknown, `, 10/28/16) Penicillins (Verified Allergy, Unknown, 10/28/16) Sulfamethoxazole (Verified Allergy, Unknown, 10/28/16) Physical Exam Vital Signs Date Time Temp Pulse Resp B/P Pulse Ox O2 Delivery O2 Flow Rate FiO2 10/28/16 07:24 89 20 146/84 97 10/28/16 06:46 102 10/28/16 06:28 127/77 10/28/16 06:03 107 27 98 Nasal Cannula 2.0 10/28/16 05:58 136/73 10/28/16 05:33 100 27 91 Nasal Cannula 2.0 10/28/16 05:28 119/66 10/28/16 05:16 105 30 95 Nasal Cannula 2.0 10/28/16 04:58 121/77 2/14/17 04:46 109 26 90 Room Air 10/28/16 04:28 132/60 10/28/16 04:25 124/70 10/28/16 04:16 104 30 100 10/28/16 03:46 95 32 97 10/28/16 03:41 141/79 10/28/16 03:35 105 29 100 Mask Nebulizer 10/28/16 03:34 108 28 87 Room Air 10/28/16 03:28 124/71 10/28/16 03:15 118 93 Room Air 10/28/16 03:15 104 10/28/16 03:12 129/71 10/28/16 03:08 94 Room Air 10/28/16 03:08 96 Room Air 10/28/16 03:08 36.6 111 28 129/71 94 Room Air Physical Exam GENERAL: Patient is mild distress and uncomfortably appearing. HEENT: No acute trauma, normocephalic atraumatic, mucous membranes moist, no nasal congestion, no scleral icterus. NECK: No stridor, no adenopathy, no meningismus, trachea is midline. LUNGS: Tight lung sounds with diffuse wheezing both inspiratory and expiratory. Dyspneic. HEART: Tachycardic and regular rhythm. No murmurs, rubs, gallops appreciated. ABDOMEN: Soft, nontender, bowel sounds positive, no masses appreciated, no peritonitis. BACK: No midline tenderness, no CVA tenderness EXTREMITIES: Normal motion all extremities, no cyanosis, no edema. NEUROLOGIC: Alert and oriented, no acute motor or sensory deficits, no focal weakness, cranial nerves grossly intact. SKIN: No rash, no jaundice, no diaphoresis. Medical Decision & Procedures ER Provider Diagnostic Interpretation: X ray results are stated below per my interpretation: Chest X-ray One View: New left lobe infiltrate compared to previous. No effusion Heart border normal. Laboratory Results 10/28/16 03:38 Red Blood Count 3.81, Mean Corpuscular Volume 95.0, Mean Corpuscular Hemoglobin 33.1, Mean Corpuscular Hemoglobin Concent 34.8, Mean Platelet Volume 9.0, Neutrophils (%) (Auto) 85.1, Lymphocytes (%) (Auto) 7.1, Monocytes (%) (Auto) 6.1, Eosinophils (%) (Auto) 0.1, Basophils (%) (Auto) 0.1, Neutrophils # (Auto) 12.93, Lymphocytes # (Auto) 1.07, Monocytes # (Auto) 0.92, Eosinophils # (Auto) 0.01, Basophils # (Auto) 0.02 10/28/16 03:38 Test 10/28/16 03:38 10/28/16 04:16 10/28/16 06:05 White Blood Count 15.17 K/uL (4.8-10.8) Red Blood Count 3.81 M/uL (4.2-5.4) Hemoglobin 12.6 g/dL (12.0-16.0) Hematocrit 36.2 % (37-47) Mean Corpuscular Volume 95.0 fL (80-100) Mean Corpuscular Hemoglobin 33.1 pg (25-34) Mean Corpuscular Hemoglobin Concent 34.8 g/dl (32-36) Platelet Count 172 K/uL (130-400) Mean Platelet Volume 9.0 fL (7.4-10.4) Neutrophils (%) (Auto) 85.1 % Lymphocytes (%) (Auto) 7.1 % Monocytes (%) (Auto) 6.1 % Eosinophils (%) (Auto) 0.1 % Basophils (%) (Auto) 0.1 % Neutrophils # (Auto) 12.93 K/uL (1.4-6.5) Lymphocytes # (Auto) 1.07 K/uL (1.2-3.4) Monocytes # (Auto) 0.92 K/uL (0.11-0.59) Eosinophils # (Auto) 0.01 K/uL (0-0.5) Basophils # (Auto) 0.02 K/uL (0-0.2) RDW Standard Deviation 48.7 fL (36.4-46.3) RDW Coefficient of Variation 14.3 % (11.5-14.5) Immature Granulocyte % (Auto) 1.5 % Immature Granulocyte # (Auto) 0.22 K/uL (0.00-0.02) Activated Partial Thromboplast Time 29.8 SECONDS (21.0-31.0) Partial Thromboplastin Ratio 1.1 Anion Gap 8.0 mmol/L (3-11) Est Creatinine Clear Calc Drug Dose 36.9 ml/min Estimated GFR () 66.8 Estimated GFR (Non- 57.6 BUN/Creatinine Ratio 30.2 (10-20) Calcium Level 8.6 mg/dl (8.5-10.1) Magnesium Level 1.9 mg/dl (1.8-2.4) Total Creatine Kinase 23 U/L (26-192) Creatine Kinase MB 1.2 ng/ml (0.5-3.6) Creatine Kinase MB Ratio 5.2 (0-3.0) Troponin I 0.021 ng/ml (0-0.045) Bedside Lactic Acid Venous 0.92 mmol/L (0.90-1.70) Arterial Blood pH 7.51 (7.35-7.45) Arterial Blood Partial Pressure CO2 33 mmHg (35-46) Arterial Blood Partial Pressure O2 93 mm/Hg (80-95) Arterial Blood HCO3 26 mmol/L (19-24) Arterial Blood Oxygen Saturation 97.5 % (90-95) Arterial Blood Base Excess 2.9 mEq/L (-9-1.8) Arterial Blood Gas Delivery 2L [place] Test POS (POS) Laboratory results as reviewed by me. Medications Administered Medications (Trade) Dose Ordered Sig/Ally Route Start Time Stop Time Status Last Admin Dose Admin Albuterol/ Ipratropium (Duoneb) 12 ml ONE ONCE INH 10/28/16 03:30 10/28/16 03:31 DC 10/28/16 03:34 12 ML Diltiazem HCl (Cardizem Inj) 15 mg NOW STAT IV 10/28/16 03:31 10/28/16 03:32 DC 10/28/16 03:38 15 MG Levofloxacin 750 mg 750 mg NOW STAT IV 10/28/16 04:16 10/28/16 04:17 DC 10/28/16 04:24 750 MG Imipenem/ Cilastatin Sodium/ Dextrose (Primaxin Iv/D5 100ml) 110 ml @ 100 mls/hr ONE STAT IV 10/28/16 06:03 10/28/16 07:08 DC 10/28/16 06:29 100 MLS/HR Methylprednisolone Sodium Succinate (Solu-Medrol IV) 125 mg STK-MED ONCE .ROUTE 10/28/16 05:43 10/28/16 05:45 DC 10/28/16 05:49 125 MG ECG Indication: SOB/dyspnea Rate (beats per minute): 121 Rhythm: atrial fibrillation (with RVR) Findings: no acute ischemic change Change: no significant change ED Course 0312: The patient was evaluated in room A11B. A complete history and physical exam was performed. 0330: Ordered DuoNeb 12 ml INH. 0331: Ordered Cardizem Inj 15 mg IV. 0415: I discussed the case with Dr. Grey Zamora . He agreed to evaluate the patient for further management and care. 0416: Ordered Levofloxacin 750 mg IV. Medical Decision Differential: Infectious, Reactive Airway Disease, Pneumonia, Pneumothorax, COPD , CHF, ACS, Pulmonary Embolism, MSK, GI, Dissection, amongst other etiologies entertained. 80 yr old female arrives with acutely worsening respiratory distress a few hours post discharge from hospital. Actually quite poor lungs exam though did improve some with duoneb. She has clearly new LLL infiltrate as well as WBC has bumped from 5 to 15 which is likely more than just steroid related as currently tapering. Given clear infiltrate, wbc elevation and lung exam along with hypoxia on room air she will need to come in. No clear evidence of requirement for CT PE study at this time given other findings. No evidence of ACS nor CHF. Consults Time Called: [phone] Consulting Physician: Dr. Grey Zamora Returned Call: [phone] I discussed the case with Dr. Grey Zamora . He agreed to evaluate the patient for further management and care. Impression Primary Impression: Pneumonia Additional Impressions: Respiratory distress Hypoxia Scribe Attestation The scribe's documentation has been prepared under my direction and personally reviewed by me in its entirety. I confirm that the note above accurately reflects all work, treatment, procedures, and medical decision making performed by me. Departure Information Dispostion Being Evaluated By Hospitalist Referrals Kee Riley D.O. (PCP) Problem Qualifiers Primary Impression: Pneumonia Pneumonia type: due to unspecified organism Laterality: left Lung location : lower lobe of lung Qualified Codes: J18.1 - Lobar pneumonia, unspecified organism
[2016-10-28] MEDS ORDERED: ALBUT/IPRATROP 3MG/0.5MG NEB 3 ML VIAL INH ONE (03:30)
[2016-10-28] MEDS ORDERED: DILTIAZEM HCL 5 MG/ML 5 ML VIAL IV STA (03:31)
[2016-10-28 03:46] LABS: HEMATOCRIT 36.2 % (37-47); MEAN CORPUSCULAR HEMOGLOBIN 33.1 pg (25-34); MEAN CORPUSCULAR HGB CONC 34.8 g/dl (32-36); PLATELET COUNT 172 K/uL (130-400); RED BLOOD COUNT 3.81 M/uL (4.2-5.4); WHITE BLOOD COUNT 15.17 K/uL (4.8-10.8)
[2016-10-28 04:04] LABS: BUN/CREATININE RATIO 30.2 (10-20); CALCIUM 8.6 mg/dl (8.5-10.1); CREATININE 0.93 mg/dl (0.60-1.20); MAGNESIUM 1.9 mg/dl (1.8-2.4); POTASSIUM 4.2 mmol/L (3.5-5.1)
[2016-10-28 04:09] LABS: CKMB/CK RATIO 5.2 (0-3.0)
[2016-10-28] MEDS ORDERED: LEVAQUIN 750MG / 150ML D5W IV STA (04:16)
[2016-10-28 04:29] LABS: BASO % 0.1 %; BASO ABS # 0.02 K/uL (0-0.2); COMPLETE YES; EOS % 0.1 %; IG% 1.5 %; LYMPH % 7.1 %; LYMPH ABS # 1.07 K/uL (1.2-3.4); MONO % 6.1 %; NEUT % 85.1 %
[2016-10-28] MEDS ORDERED: METHYLPREDNISOLONE IV 125 MG in SYRINGE 0 ML IV STA (05:33)
[2016-10-28] MEDS ORDERED: METHYLPREDNISOLONE 125 MG VIAL ONE (05:43)
[2016-10-28] MEDS ORDERED: IMIPENEM/CILASTATIN IV 500 MG in DEXTROSE 5% 100ML 100 ML IV STA (06:03)
[2016-10-28 06:13] LABS: ALLEN TEST POS (POS); ARTERIAL BLD GAS O2 SATURATION 97.5 % (90-95); ARTERIAL BLOOD GAS BASE EXCESS 2.9 mEq/L (-9-1.8); ARTERIAL BLOOD GAS HCO3 26 mmol/L (19-24); ARTERIAL BLOOD GAS PO2 93 mm/Hg (80-95); O2 ADMINISTRATION 2L
[2016-10-28 06:15] LABS: ARTERIAL BLOOD GAS pH 7.51 (7.35-7.45)
[2016-10-28 06:40] LABS: PARTIAL THROMBOPLASTIN RATIO 1.1
[2016-10-28] MEDS ORDERED: LEVALBUTEROL/IPRATROPIUM NEB INH ONE (06:41)
[2016-10-28] MEDS ORDERED: VANCOMYCIN INJ 0 MG in SODIUM CHLORIDE 0.9% 250ML 250 ML IV STA (06:41)
[2016-10-28] MEDS ORDERED: NITROGLYCERIN 0.4 MG SL PER TAB CHARGE SL PRN (06:45)
[2016-10-28] MEDS ORDERED: ONDANSETRON INJ 2 MG/ML 2 ML VIAL IV PRN (06:45)
[2016-10-28] MEDS ORDERED: LEVALBUTEROL/IPRATROPIUM NEB INH PRN (06:45)
[2016-10-28] MEDS ORDERED: TRAMADOL HCL 50 MG TAB PO PRN (06:45)
[2016-10-28] MEDS ORDERED: MoRPHine SULFATE 4 MG/ML 1 ML CARP\\VIAL IV PRN (06:45)
[2016-10-28] MEDS ORDERED: VANCOMYCIN CONSULT ACTIVE PRN ×2 (07:15→09:00)
--- NOTE | 2016-10-28 07:17 | DIAGNOSTIC IMAGING REPORT ---
CHEST ONE VIEW PORTABLE CLINICAL HISTORY: SAMRA dyspnea COMPARISON STUDY: 10/20/2016 FINDINGS: Parenchymal infiltrate left base. Lungs otherwise appear clear. Postoperative shoulder left shoulder hemiarthroplasty. Severe degenerative change right shoulder. IMPRESSION: Focal infiltrate left base. Electronically signed by: Didier Eldridge M.D. 10/28/2016 7:16 AM Dictated Date/Time: 10/28/2016 7:14 AM
[2016-10-28] MEDS ORDERED: IMIPENEM/CILASTATIN CONSULT ACTIVE PRN (07:30)
--- NOTE | 2016-10-28 08:04 | HISTORY & PHYSICAL EXAMINATION ---
DATE OF ADMISSION: 10/28/2016 PRIMARY CARE PHYSICIAN: Dr. Riley. HX obtained from px and records. CHIEF COMPLAINT: Cough, shortness of breath. HISTORY OF PRESENT ILLNESS: Medical history significant for asthma/COPD as per records, past tobacco abuse, hypertension, dementia as per records, hypothyroidism, polymyalgia rheumatica as per records, history of subarachnoid hemorrhage, atrial fibrillation off anticoagulation because of fall risk and subarachnoid hemorrhage. Recent confinement last week for asthma exacerbation. Patient treated with Solu-Medrol, discharged back to [facility]. Hours ago, patient felt febrile and hot. Junky cough symptoms, unable to expectorate, increasing shortness of breath, no chest pain. Admits to some coughing if she is not careful with meals, drinking water. In the Emergency Room, O2 sats 87 on room air initially. Patient received Levaquin for sepsis. MEDICAL HISTORY: As above. SURGERIES: She has had tubal ligation, appendectomy, hysterectomy. HOME MEDICATIONS: Include aspirin, Tylenol, Ativan, MiraLax, prednisone course. ALLERGIES: TO ADHESIVE, CODEINE, ERYTHROMYCIN, BACTRIM, PENICILLIN. FAMILY HISTORY: Lung disease. PERSONAL AND SOCIAL HISTORY: Past tobacco abuse. No chronic intake of alcoholic beverages. REVIEW OF SYSTEMS: As per HPI, all other ROS negative. PHYSICAL EXAMINATION: VITAL SIGNS: Blood pressure was noted to be 124/71, pulse rate 108, RR 28, temperature 36.6, sats 87 on room air, later 95 on 2 liters. GENERAL: Noted to be in respiratory distress, speaks in phrases. SKIN: Normal color. HEENT: [place] palpebral conjunctivae. Dry mucosa. NECK: Short neck. LUNGS: Expiratory wheezes and rhonchi, left greater than right. HEART: Tachycardic, irregular. ABDOMEN: Some distention. EXTREMITIES: Minimal LE edema, no tenderness. NEUROLOGIC: No gross focality. LABORATORY DATA: Hemoglobin 12, hematocrit 36, white cells 13, platelets 170. Sodium 138, potassium 4.2, chloride 100, CO2 of 28, BUN 28, creatinine 0.9, glucose was noted to be 100. trop 0.02 Chest x-ray, new infiltrate on the left. EKG AF ASSESSMENT: 1. Acute respiratory failure 2 to asthma (?COPD) exacerbation secondary to healthcare-associated pneumonia (recent confinement) rule out aspiration. 2. Sepsis secondary to above. 3. Past tobacco abuse. 4. Hypertension, stable. 5. Atrial fibrillation. Rate slightly uncontrolled secondary to illness. Not on anticoagulation because of history of subarachnoid hemorrhage. 6. Dementia as per records. 7. PMR as per records PLAN: PCU supplemental O2, baseline ABG. Cultures. Vancomycin and Imipenem for now Nebs, steroids. Swallow eval. Pulmonary consult. resp failure facilitate home CCB for AF rate control DVT prophylaxis, Lovenox subcu. DNR. Total critical care time was 45 minutes. MTDD
[2016-10-28] MEDS ORDERED: GUAIFENESIN 600 MG TABCR PO ONE (08:30)
[2016-10-28] MEDS ORDERED: NSS + 20MEQ KCL 1000ML 1,000 ML IV ONE (08:30)
[2016-10-28] MEDS ORDERED: VANCOMYCIN INJ 1,350 MG in SODIUM CHLORIDE 0.9% 250ML 250 ML IV ONE (09:00)
[2016-10-28] MEDS ORDERED: ENOXAPARIN 40 MG/0.4 ML SYR SC SCH (09:00)
[2016-10-28] MEDS: SERTRALINE HCL 50 MG TAB PO SCH (09:28)
[2016-10-28] MEDS: DILTIAZEM HCL 120 MG ER CAP PO SCH (09:28)
[2016-10-28] MEDS: ASPIRIN 81 MG ECTAB PO SCH (09:52)
[2016-10-28] MEDS ORDERED: AZTREONAM CONSULT ACTIVE PRN ×2 (10:15)
[2016-10-28] MEDS ORDERED: CLINDAMYCIN CONSULT ACTIVE PRN ×2 (10:15)
--- NOTE | 2016-10-28 10:47 | Medical Consult ---
Consultation Date of Consultation: Oct 28, 2016. Attending Physician: Kingston Cantu M.D. History of Present Illness Patient is a pleasant 80F with a PMHx of COPD/Asthma exacerbation, dementia, Afib and subarachnoid hemorrhage that presents with shortness of breath. She was discharged recently for a COPD exacerbation with breathing treatment and Prednisone. Patient states that her breathing is better since yesterday. Patient doesn't remember when the Shortness of Breath started exactly, she believes it is a chronic condition. PMHX: COPD, past tobacco abuse, HTN, dementia, hypothyroidism, polymyalgia rheumatica,subarachnoid hemorrhage, atrial fib, off anticoagulation because of fall risk and subarachnoid hemorrhage. SH: Pt lives in [facility], pt denies having a smoking history - chart reviews she is a former smoker. ROS: Patient denies abdominal pain, diarrhea, headaches, rash, fevers /feeling hot, or any other systemic complaints. Past Medical/Surgical History Medical Problems: (1) Asthma exacerbation Status: Acute (2) Bronchitis Status: Acute (3) Bronchospasm Status: Acute (4) Dizziness Status: Chronic (5) Dyspnea Status: Acute (6) Hypoxia Status: Acute (7) Influenza-like illness Status: Acute (8) Pneumonia Status: Acute (9) Respiratory distress Status: Acute (10) Respiratory distress Status: Acute Family History Patient reports no known family medical history. Social History Smoking Status: Former Smoker (pt denies) Marital Status: Housing Status: lives alone Occupation Status: retired Allergies Coded Allergies: Adhesives (Verified Allergy, Severe, RED/SWOLLEN, 10/28/16) Codeine (Verified Allergy, Unknown, TOLERATED MORPHINE, 10/28/16) Erythromycin (Verified Allergy, Unknown, `, 10/28/16) Penicillins (Verified Allergy, Unknown, 10/28/16) Sulfamethoxazole (Verified Allergy, Unknown, 10/28/16) Current Inpatient Medications Current Inpatient Medications Medications (Trade) Dose Ordered Sig/Ally Route Start Time Stop Time Status Last Admin Dose Admin Methylprednisolone Sodium Succinate 40 mg/Syringe 0.64 ml @ 1.5 mls/min Q8H IV 10/28/16 14:00 11/27/16 13:59 Potassium Chloride/Sodium Chloride (Nss + 20meq KCl 1000ml) 1,000 ml @ 75 mls/hr [id number] ONCE IV 10/28/16 08:30 10/28/16 21:49 10/28/16 09:27 75 MLS/HR Enoxaparin Sodium (Lovenox Inj) 40 mg Q24H SC 10/28/16 09:00 11/27/16 08:59 10/28/16 09:29 40 MG Acetaminophen (Tylenol Tab) 650 mg Q4H PRN PO 10/28/16 06:45 11/27/16 06:44 Nitroglycerin (Nitrostat Tab) 0.4 mg UD PRN SL 10/28/16 06:45 11/27/16 06:44 Aspirin (Ecotrin Tab) 81 mg DAILY PO 10/28/16 09:00 11/27/16 08:59 10/28/16 09:52 81 MG Diltiazem HCl (Dilacor Xr Cap) 120 mg QAM PO 10/28/16 09:00 11/27/16 08:59 10/28/16 09:28 120 MG Lorazepam (Ativan Tab) 0.5 mg Q8 PRN PO 10/28/16 06:45 11/27/16 06:44 Montelukast Sodium (Singulair Tab) 10 mg HS PO 10/28/16 21:00 11/27/16 20:59 Sertraline HCl (Zoloft Tab) 100 mg DAILY PO 10/28/16 09:00 11/27/16 08:59 10/28/16 09:28 100 MG Guaifenesin (Mucinex Contr Rel Tab) 600 mg Q12 PO 10/28/16 21:00 11/27/16 20:59 Ondansetron HCl (Zofran Inj) 4 mg Q6H PRN IV 10/28/16 06:45 11/27/16 06:44 Tramadol HCl (Ultram Tab) 25 mg Q6H PRN PO 10/28/16 06:45 11/27/16 06:44 Morphine Sulfate (MoRPHine SULFATE INJ) 4 mg Q6H PRN IV 10/28/16 06:45 11/11/16 06:44 Vancomycin HCl (Consult) 1 ea UD PRN N/A 10/28/16 07:15 11/27/16 07:14 Ipratropium [place] (Atrovent 0.02% 0.5MG/2.5ML Neb) 0.5 mg Q6R INH 10/28/16 09:00 11/27/16 08:59 Levalbuterol 1.25 mg 1.25 mg Q6R INH 10/28/16 09:00 11/27/16 08:59 Vancomycin HCl/ Sodium Chloride (Vancomycin Inj/ Nss 250ml) 277 ml @ 125 mls/hr TODAY@0900 ONCE IV 10/28/16 09:00 10/28/16 11:12 10/28/16 09:28 125 MLS/HR Aztreonam (Consult) 1 ea UD PRN N/A 10/28/16 10:15 11/27/16 10:14 Clindamycin Phosphate (Consult) 1 ea UD PRN N/A 10/28/16 10:15 11/27/16 10:14 Physical Exam Date Time Temp Pulse Resp B/P Pulse Ox O2 Delivery O2 Flow Rate FiO2 10/28/16 08:04 37.0 98 24 137/73 96 Nasal Cannula 2.0 10/28/16 07:24 89 20 146/84 97 10/28/16 06:46 102 10/28/16 06:28 127/77 10/28/16 06:03 107 27 98 Nasal Cannula 2.0 10/28/16 05:58 136/73 10/28/16 05:33 100 27 91 Nasal Cannula 2.0 10/28/16 05:28 119/66 10/28/16 05:16 105 30 95 Nasal Cannula 2.0 10/28/16 04:58 121/77 10/28/16 04:46 109 26 90 Room Air 10/28/16 04:28 132/60 10/28/16 04:25 124/70 10/28/16 04:16 104 30 100 10/28/16 03:46 95 32 97 10/28/16 03:41 141/79 10/28/16 03:35 105 29 100 Mask Nebulizer 10/28/16 03:34 108 28 87 Room Air 10/28/16 03:28 124/71 10/28/16 03:15 118 93 Room Air 10/28/16 03:15 104 10/28/16 03:12 129/71 10/28/16 03:08 94 Room Air 10/28/16 03:08 96 Room Air 10/28/16 03:08 36.6 111 28 129/71 94 Room Air General Appearance: WD/WN, no apparent distress, + thin Neck: supple, no adenopathy Respiratory/Chest: chest non-tender, no respiratory distress, no accessory muscle use, + pertinent finding (decreased breath sounds in all lung hudson, intermitten crackling in the posterior lung hudson worst in the left lung base. Pt also has mild conversational dyspnea. Is currently on 2LNC. ) Cardiovascular: no edema, no JVD, no murmur, + irregularly irregular Back: normal inspection, no CVA tenderness Extremities/Musculoskelatal: normal range of motion, + pertinent finding ( patient has bilateral calf tenderness) Neurologic/Psych: alert, normal mood/affect Skin: no rash Laboratory Results Last 24 Hours Test 10/28/16 03:38 10/28/16 04:16 10/28/16 06:05 White Blood Count 15.17 K/uL Red Blood Count 3.81 M/uL Hemoglobin 12.6 g/dL Hematocrit 36.2 % Mean Corpuscular Volume 95.0 fL Mean Corpuscular Hemoglobin 33.1 pg Mean Corpuscular Hemoglobin Concent 34.8 g/dl Platelet Count 172 K/uL Mean Platelet Volume 9.0 fL Neutrophils (%) (Auto) 85.1 % Lymphocytes (%) (Auto) 7.1 % Monocytes (%) (Auto) 6.1 % Eosinophils (%) (Auto) 0.1 % Basophils (%) (Auto) 0.1 % Neutrophils # (Auto) 12.93 K/uL Lymphocytes # (Auto) 1.07 K/uL Monocytes # (Auto) 0.92 K/uL Eosinophils # (Auto) 0.01 K/uL Basophils # (Auto) 0.02 K/uL RDW Standard Deviation 48.7 fL RDW Coefficient of Variation 14.3 % Immature Granulocyte % (Auto) 1.5 % Immature Granulocyte # (Auto) 0.22 K/uL Activated Partial Thromboplast Time 29.8 SECONDS Partial Thromboplastin Ratio 1.1 Sodium Level 136 mmol/L Potassium Level 4.2 mmol/L Chloride Level 100 mmol/L Carbon Dioxide Level 28 mmol/L Anion Gap 8.0 mmol/L Blood Urea Nitrogen 28 mg/dl Creatinine 0.93 mg/dl Est Creatinine Clear Calc Drug Dose 36.9 ml/min Estimated GFR () 66.8 Estimated GFR (Non- 57.6 BUN/Creatinine Ratio 30.2 Random Glucose 130 mg/dl Calcium Level 8.6 mg/dl Magnesium Level 1.9 mg/dl Total Creatine Kinase 23 U/L Creatine Kinase MB 1.2 ng/ml Creatine Kinase MB Ratio 5.2 Troponin I 0.021 ng/ml Bedside Lactic Acid Venous 0.92 mmol/L Arterial Blood pH 7.51 Arterial Blood Partial Pressure CO2 33 mmHg Arterial Blood Partial Pressure O2 93 mm/Hg Arterial Blood HCO3 26 mmol/L Arterial Blood Oxygen Saturation 97.5 % Arterial Blood Base Excess 2.9 mEq/L Arterial Blood Gas Delivery 2L [place] Test POS Assessment & Plan 80F with pmh of Asthma/COPD exacerbation presenting with shortness of breath. Lives at [facility]. [place] [facility] with Prednisone. Pt is afebrile at moment, tachycardia may be secondary to Afib or infection. Pt has conversational dyspnea and infiltrate in LLL on X-ray. Pending blood cultures. Would recommend HCAP coverage considering patient recent discharge from hospital and resident. Elevated WBC likely multifactorial from infection and steroid treatment. Pt received a dose of Primaxin this AM with no apparent ill effects. Will add on Legionella urine antigen testing and UA w culture if indicated. Plan includes continuing IV Vanco per protocol and IV Primaxin 500mg Q6H. Thank you for letting us be involved in Ms. Strong's care. Will continue to follow. PROVIDER ADDENDUM: Pt. examined and reviewed. Agree with above assessment. See ID note for additional details. Resident Involvement: Resident Care Provided Care Provided: Adult Hospital Medicine
--- NOTE | 2016-10-28 10:47 | Pharmacy Progress Note ---
Pharmacy Antibiotic Consult Date of Service: Oct 28, 2016. Pharmacy Dosing Scope Pharmacy is consulted to initiate vancomycin IV dosing therapy, order appropriate labs and adjust drug dose/frequency. Subjective The patient is a 80 year old female admitted on Oct 28, 2016 at 06:27. Objective Height (Feet): 4 Height (Inches): 11.00 Weight (Kilograms): 55.100 Lab Results (24hrs): Laboratory Tests Test 10/28/16 03:38 BUN/Creatinine Ratio 30.2 Blood Urea Nitrogen 28 mg/dl Creatinine 0.93 mg/dl White Blood Count 15.17 K/uL Red Blood Count 3.81 M/uL Hemoglobin 12.6 g/dL Hematocrit 36.2 % Mean Corpuscular Volume 95.0 fL Mean Corpuscular Hemoglobin 33.1 pg Mean Corpuscular Hemoglobin Concent 34.8 g/dl Platelet Count 172 K/uL Mean Platelet Volume 9.0 fL Neutrophils (%) (Auto) 85.1 % Lymphocytes (%) (Auto) 7.1 % Monocytes (%) (Auto) 6.1 % Eosinophils (%) (Auto) 0.1 % Basophils (%) (Auto) 0.1 % Neutrophils # (Auto) 12.93 K/uL Lymphocytes # (Auto) 1.07 K/uL Monocytes # (Auto) 0.92 K/uL Eosinophils # (Auto) 0.01 K/uL Basophils # (Auto) 0.02 K/uL Assessment & Plan Assessment * 80 yo F with COPD/asthma exacerbation 2nd HAP/aspiration PNA. * WBC elevated, LLL infiltrate. Nasal MRSA swab pending. * PCN allergy (unknown reaction) - no beta-lactams administered here in previous admissions. * On aztreonam, clindamycin, vancomycin * SCr at/near baseline with estimated CrCL ~ 30-37 mL/min * Will give vancomycin 25 mg/kg IV x1 now. * Lower body weight - these patient typically require higher doses in terms of mg/kg. Will continue vancomycin at 18 mg/kg IV q24h * Trough prior to 3rd overall dose as accurate estimation of dose in elderly patient with lower body weight is difficult. This will be prior to steady state. Plan * Vancomycin 1350 mg IV x1 now * Vancomycin 1000 mg IV q24h thereafter * Trough 10/30 @ 0930 Pharmacy will continue to follow and will adjust dose/frequency as necessary. Thank you
--- NOTE | 2016-10-28 11:47 | Medical Consult ---
Consultation Date of Consultation: Oct 28, 2016. Attending Physician: Kingston Cantu M.D. Reason for Consultation: Imipenem use for healthcare acquired pneumonia, sepsis History of Present Illness 80-year-old female with history of COPD, dementia, hypertension, status post recent hospitalization for exacerbation of COPD, discharged to a half-way facility, now readmitted with several days of progressively worsening cough, shortness of breath, and fever. Was brought to the hospital on found on chest x-ray, read by me, to have evidence of new infiltrate in the left lower lobe. Has been started on broad-spectrum antibiotic therapy with vancomycin, imipenem, levofloxacin, and clindamycin. Blood cultures have been negative to date. There is report of possible difficulty with swallowing certain foods and liquids. No obvious episode of aspiration documented. Past Medical/Surgical History Medical Problems: (1) Asthma exacerbation Status: Acute (2) Bronchitis Status: Acute (3) Bronchospasm Status: Acute (4) Dizziness Status: Chronic (5) Dyspnea Status: Acute (6) Hypoxia Status: Acute (7) Influenza-like illness Status: Acute (8) Pneumonia Status: Acute (9) Respiratory distress Status: Acute (10) Respiratory distress Status: Acute Medical Problems: (1) Afib (2) Alzheimer's disease, unspecified (3) Asthma exacerbation (4) Ataxia (5) Benign essential hypertension (6) Dizziness (7) History of subarachnoid hemorrhage (8) Hypothyroidism, unspecified (9) Polymyalgia rheumatica (10) Respiratory failure, acute (11) SAH (subarachnoid hemorrhage) (12) Syncope (13) Unspecified asthma Surgical Problems: (1) H/O tubal ligation (2) S/P appendectomy (3) S/P hysterectomy Family History Patient reports no known family medical history. Social History Smoking Status: Former Smoker (pt denies) Marital Status: Housing Status: lives alone Occupation Status: retired Allergies Coded Allergies: Adhesives (Verified Allergy, Severe, RED/SWOLLEN, 10/28/16) Codeine (Verified Allergy, Unknown, TOLERATED MORPHINE, 10/28/16) Erythromycin (Verified Allergy, Unknown, `, 10/28/16) Penicillins (Verified Allergy, Unknown, 10/28/16) Sulfamethoxazole (Verified Allergy, Unknown, 10/28/16) Current Inpatient Medications Current Inpatient Medications Medications (Trade) Dose Ordered Sig/Ally Route Start Time Stop Time Status Last Admin Dose Admin Methylprednisolone Sodium Succinate 40 mg/Syringe 0.64 ml @ 1.5 mls/min Q8H IV 10/28/16 14:00 11/27/16 13:59 Potassium Chloride/Sodium Chloride (Nss + 20meq KCl 1000ml) 1,000 ml @ 75 mls/hr [id number] ONCE IV 10/28/16 08:30 10/28/16 21:49 10/28/16 09:27 75 MLS/HR Enoxaparin Sodium (Lovenox Inj) 40 mg Q24H SC 10/28/16 09:00 11/27/16 08:59 10/28/16 09:29 40 MG Acetaminophen (Tylenol Tab) 650 mg Q4H PRN PO 10/28/16 06:45 11/27/16 06:44 Nitroglycerin (Nitrostat Tab) 0.4 mg UD PRN SL 10/28/16 06:45 11/27/16 06:44 Aspirin (Ecotrin Tab) 81 mg DAILY PO 10/28/16 09:00 11/27/16 08:59 10/28/16 09:52 81 MG Diltiazem HCl (Dilacor Xr Cap) 120 mg QAM PO 10/28/16 09:00 11/27/16 08:59 10/28/16 09:28 120 MG Lorazepam (Ativan Tab) 0.5 mg Q8 PRN PO 10/28/16 06:45 11/27/16 06:44 Montelukast Sodium (Singulair Tab) 10 mg HS PO 10/28/16 21:00 11/27/16 20:59 Sertraline HCl (Zoloft Tab) 100 mg DAILY PO 10/28/16 09:00 11/27/16 08:59 10/28/16 09:28 100 MG Guaifenesin (Mucinex Contr Rel Tab) 600 mg Q12 PO 10/28/16 21:00 11/27/16 20:59 Ondansetron HCl (Zofran Inj) 4 mg Q6H PRN IV 10/28/16 06:45 11/27/16 06:44 Tramadol HCl (Ultram Tab) 25 mg Q6H PRN PO 10/28/16 06:45 11/27/16 06:44 Morphine Sulfate (MoRPHine SULFATE INJ) 4 mg Q6H PRN IV 10/28/16 06:45 11/11/16 06:44 Vancomycin HCl (Consult) 1 ea UD PRN N/A 10/28/16 07:15 11/27/16 07:14 Ipratropium [place] (Atrovent 0.02% 0.5MG/2.5ML Neb) 0.5 mg Q6R INH 10/28/16 09:00 11/27/16 08:59 Levalbuterol (Xopenex 1.25MG/ 0.5ML Neb) 1.25 mg Q6R INH 10/28/16 09:00 11/27/16 08:59 Aztreonam (Consult) 1 ea UD PRN N/A 10/28/16 10:15 11/27/16 10:14 Clindamycin Phosphate 1 ea 1 ea UD PRN N/A 10/28/16 10:15 11/27/16 10:14 Aztreonam 1000 mg/ Dextrose 110 ml @ 110 mls/hr Q8@0400,1200,2000 IV 10/28/16 12:00 11/04/16 11:59 10/28/16 11:17 110 MLS/HR Clindamycin Phosphate 600 mg/ Dextrose 54 ml @ 108 mls/hr Q8@04,12,20 IV 10/28/16 12:00 11/04/16 11:59 10/28/16 11:15 108 MLS/HR Vancomycin HCl 1000 mg/Sodium Chloride 270 ml @ 125 mls/hr DAILY@1000 IV 10/29/16 10:00 11/04/16 09:59 Imipenem/ Cilastatin Sodium/ Dextrose (Primaxin Iv/D5 100ml) 110 ml @ 100 mls/hr Q6H IV 10/28/16 10:45 11/04/16 10:44 UNV Review of Systems Constitutional: + weakness, No fever Eyes: No problem reported ENT: + trouble swallowing Respiratory: + cough, + shortness of breath, No hemoptysis Cardiovascular: No problem reported Abdomen: No problem reported Musculoskeletal: No problem reported Genitourinary - Female: No problem reported Neurologic: No problem reported Psychiatric: No problem reported Endocrine: No problem reported Hematologic / Lymphatic: No problem reported Integumentary: No problem reported Allergic / Immunologic: No problem reported Physical Exam Date Time Temp Pulse Resp B/P Pulse Ox O2 Delivery O2 Flow Rate FiO2 10/28/16 08:04 37.0 98 24 137/73 96 Nasal Cannula 2.0 10/28/16 07:24 89 20 146/84 97 10/28/16 06:46 102 10/28/16 06:28 127/77 10/28/16 06:03 107 27 98 Nasal Cannula 2.0 10/28/16 05:58 136/73 10/28/16 05:33 100 27 91 Nasal Cannula 2.0 10/28/16 05:28 119/66 10/28/16 05:16 105 30 95 Nasal Cannula 2.0 10/28/16 04:58 121/77 10/28/16 04:46 109 26 90 Room Air 10/28/16 04:28 132/60 10/28/16 04:25 124/70 10/28/16 04:16 104 30 100 10/28/16 03:46 95 32 97 10/28/16 03:41 141/79 10/28/16 03:35 105 29 100 Mask Nebulizer 10/28/16 03:34 108 28 87 Room Air 10/28/16 03:28 124/71 10/28/16 03:15 118 93 Room Air 10/28/16 03:15 104 10/28/16 03:12 129/71 10/28/16 03:08 94 Room Air 10/28/16 03:08 96 Room Air 10/28/16 03:08 36.6 111 28 129/71 94 Room Air General Appearance: WD/WN, + mild distress Head: normocephalic, atraumatic Eyes: normal inspection, EOMI, sclerae normal ENT: normal ENT inspection, pharynx normal Neck: supple, no adenopathy, trachea midline Respiratory/Chest: chest non-tender, no accessory muscle use, + rales, + wheezing Cardiovascular: regular rate, rhythm, no gallop, no murmur Abdomen/GI: normal bowel sounds, non tender, soft, no organomegaly Back: normal inspection, no CVA tenderness Extremities/Musculoskelatal: no calf tenderness, non-tender Neurologic/Psych: alert, + disoriented Skin: normal color, warm/dry, no rash Lymphatic: no adenopathy Laboratory Results Date/Time Source Procedure Growth Status 10/28/16 04:18 Blood Blood Culture Pending Received 10/28/16 04:09 Blood Blood Culture Pending Received 10/28/16 10:40 Nasal MRSA DNA Surveillance Screen Pending Received Last 24 Hours Test 10/28/16 03:38 10/28/16 04:16 10/28/16 06:05 White Blood Count 15.17 K/uL Red Blood Count 3.81 M/uL Hemoglobin 12.6 g/dL Hematocrit 36.2 % Mean Corpuscular Volume 95.0 fL Mean Corpuscular Hemoglobin 33.1 pg Mean Corpuscular Hemoglobin Concent 34.8 g/dl Platelet Count 172 K/uL Mean Platelet Volume 9.0 fL Neutrophils (%) (Auto) 85.1 % Lymphocytes (%) (Auto) 7.1 % Monocytes (%) (Auto) 6.1 % Eosinophils (%) (Auto) 0.1 % Basophils (%) (Auto) 0.1 % Neutrophils # (Auto) 12.93 K/uL Lymphocytes # (Auto) 1.07 K/uL Monocytes # (Auto) 0.92 K/uL Eosinophils # (Auto) 0.01 K/uL Basophils # (Auto) 0.02 K/uL RDW Standard Deviation 48.7 fL RDW Coefficient of Variation 14.3 % Immature Granulocyte % (Auto) 1.5 % Immature Granulocyte # (Auto) 0.22 K/uL Activated Partial Thromboplast Time 29.8 SECONDS Partial Thromboplastin Ratio 1.1 Sodium Level 136 mmol/L Potassium Level 4.2 mmol/L Chloride Level 100 mmol/L Carbon Dioxide Level 28 mmol/L Anion Gap 8.0 mmol/L Blood Urea Nitrogen 28 mg/dl Creatinine 0.93 mg/dl Est Creatinine Clear Calc Drug Dose 36.9 ml/min Estimated GFR () 66.8 Estimated GFR (Non- 57.6 BUN/Creatinine Ratio 30.2 Random Glucose 130 mg/dl Calcium Level 8.6 mg/dl Magnesium Level 1.9 mg/dl Total Creatine Kinase 23 U/L Creatine Kinase MB 1.2 ng/ml Creatine Kinase MB Ratio 5.2 Troponin I 0.021 ng/ml Bedside Lactic Acid Venous 0.92 mmol/L Arterial Blood pH 7.51 Arterial Blood Partial Pressure CO2 33 mmHg Arterial Blood Partial Pressure O2 93 mm/Hg Arterial Blood HCO3 26 mmol/L Arterial Blood Oxygen Saturation 97.5 % Arterial Blood Base Excess 2.9 mEq/L Arterial Blood Gas Delivery 2L [place] Test POS Assessment & Plan 80-year-old female with longstanding COPD, resident of a half-way facility, recent hospitalization, now with developing left lower lobe pneumonia. Given possibility of resistant pathogen, patient be treated with combination of levofloxacin and imipenem pending further culture results. Legionella urine antigen ordered. I have discontinued aztreonam and clindamycin as they only provide superfluous coverage to above regimen. We will adjust once further culture results are available.
[2016-10-28] MEDS ORDERED: AZTREONAM IV 1,000 MG in DEXTROSE 5% 100ML IV SCH (12:00)
[2016-10-28] MEDS ORDERED: LEVOFLOXACIN / D5W 500 MG in PREMIXED IN D5W 100 ML IV ONE (12:00)
[2016-10-28] MEDS ORDERED: CLINDAMYCIN IV 600 MG in DEXTROSE 5% ADD-VANTAGE 50ML 50 ML IV SCH (12:00)
[2016-10-28] MEDS ORDERED: LEVALBUTEROL/IPRATROPIUM NEB INH SCH (12:00)
[2016-10-28 12:03] LABS: URINE APPEARANCE CLEAR (CLEAR); URINE BILIRUBIN NEG (NEG); URINE COLOR YELLOW; URINE NITRITE NEG (NEG); URINE SPECIFIC GRAVITY 1.017 (1.000-1.030); UROBILINOGEN NEG (NEG); ZZUR CULT IF INDIC CLEAN CATCH NO
[2016-10-28 12:07] LABS: MANUAL MICROSCOPIC REQUIRED? NO; REVIEW REQ? NO
[2016-10-28] MEDS: LEVALBUTEROL 1.25MG/0.5ML NEB INH SCH ×2 (14:18→19:39)
[2016-10-28] MEDS: IPRATROPIUM BROMIDE NEB SOLN 0.02% 2.5 ML VIAL INH SCH ×2 (14:18→19:38)
[2016-10-28] MEDS: METHYLPREDNISOLONE IV 40 MG in SYRINGE 0 ML IV SCH ×2 (14:38→22:08)
[2016-10-28] MEDS: IMIPENEM/CILASTATIN IV 300 MG in DEXTROSE 5% 100ML 100 ML IV SCH ×2 (14:38→20:43)
[2016-10-28] MEDS ORDERED: LEVALBUTEROL 0.63MG/3 ML NEB INH PRN (15:45)
--- NOTE | 2016-10-28 19:42 | PULMONARY CONSULTATION ---
DATE OF CONSULTATION: 10/28/2016 TIME: 3:25 p.m. HISTORY OF PRESENT ILLNESS: The patient was seen in room 221. She is an 80-year-old female who is now on her third hospital stay for this year. She herself is a very poor historian. She carries a diagnosis of asthma. She tells me she has had this since she was young. She denied significant breathing troubles until recently, however. I am not certain how reliable her history is. She was hospitalized from September 27 through October 07. She was admitted with respiratory distress and was felt to have an acute exacerbation of her asthma. She was readmitted from October 20 through October 27. She had similar type symptoms. She was only back at [facility] for 1 day or less than a day and was brought back once again because of shortness of breath. It was reported that she was short of breath with exertion. I am doubtful that she could do any significant exertion. The patient's saturations were in the low 80s when she was evaluated by EMS people. The patient is still short of breath today. She does not feel any better. She did have a chest x-ray yesterday that shows a new infiltrate in the left lower lung field. This was not seen on a prior x-ray done October 20. Thus, presumably this represents a healthcare associated pneumonia. She is not coughing all that much she states. She does not state that she indicates any phlegm at all. She has not been febrile since she was admitted. She just has been very short of breath. Review of the history and physical indicates that the patient smoked in the past and had tobacco abuse. The patient, however, denies to me that she ever smoked. She seemed quite lucid when she was telling me this. Thus, the history of her smoking background is not clear. PAST SURGICAL HISTORY: 1. Some type of surgery to the left arm as judged by hardware in the left humerus region on x-ray. 2. Tubal ligation. 3. Appendectomy. 4. Hysterectomy. PAST MEDICAL HISTORY: 1. Hypertension. 2. Subarachnoid hemorrhage. 3. Dementia. 4. Atrial fibrillation. 5. Hypothyroidism. 6. Polymyalgia rheumatica. 7. The patient tells me she had 1 child. ALLERGIES: LISTED ALLERGIES TO PENICILLIN, BACTRIM, ERYTHROMYCIN, AND CODEINE. FAMILY HISTORY: The patient states that her mother had asthma all of her lifetime. She did not know the medical history of her father. MEDICATIONS: At home: 1. Aspirin 81 mg daily. 2. Symbicort 160/4.5 two puffs b.i.d. 3. Diltiazem 120 mg daily. 4. Guaifenesin 600 mg b.i.d. 5. Levalbuterol 0.63 q. 6 hours p.r.n. 6. Ipratropium 0.5 q. 6 hours p.r.n. 7. Loperamide p.r.n. diarrhea. 8. Lorazepam 0.8 q. 8 hours p.r.n. 9. Montelukast 10 mg daily. 10. MiraLax daily. 11. Prednisone 10 mg. 12. Sertraline 100 mg daily. REVIEW OF SYSTEMS: Negative other than what is noted above, but I am not certain the patient is a reliable historian in this circumstance. PHYSICAL EXAMINATION: GENERAL: The patient is a pleasant but confused 80-year-old female who was cooperative and alert. She could not tell me what year she was born. She did know that this was the month of October. She could not tell me who her primary doctor is. She could not tell me the name of the home that she lives in, namely [facility]. VITAL SIGNS: BMI is 24.5. She is afebrile with a temperature of 36.7. Heart rate is 92. Blood pressure is 102/63. Oxygen saturation 98% on 1.5 liter nasal cannula. HEENT: Pupils were reactive. Nares were unremarkable. Mouth exam was unremarkable. NECK: Palpation of the neck reveals no lymph nodes. CHEST AND LUNGS: Normal development except for a mild kyphosis. The rhythm was irregular. It would be compatible with atrial fibrillation. Lungs [place]udson reveal that she is wheezing bilaterally. Much of this would seem to be in the upper lung [place]. When the patient calms a bit, her lungs sound much clearer. She started coughing when we sat her forward a bit to listen to her. ABDOMEN: Soft and nontender. Bowel sounds were normal. EXTREMITIES: Showed no cyanosis, clubbing or edema. LABORATORY DATA: White count was elevated at 15.17. Hemoglobin 12.6. Platelets 172,000. PTT was 29.8. Urinalysis showed 3+ glucose but was otherwise negative. Blood gas showed a pH of 7.51 with a pCO2 of 33 and a pO2 of 93 done on 2 liters. Electrolytes show sodium 136, potassium 4.2, chloride 100, bicarbonate 28. BUN was 28 with a creatinine of 0.93. Random blood sugar was 130. Troponin was negative. Legionella antigen from urine is pending. IMAGING DATA: The patient's chest x-ray shows a new infiltrate at the left lung base as noted above. It is notable that patient previously had had x-rays suggesting a nodule in the right upper lung field. She also had a CAT scan of the chest done 07/06/2015 that reported multiple ground-glass nodules with the dominant nodule in the right upper lobe that was slightly increased from prior. This was not clearly defined on the current x-rays. Nasal swab was positive for MRSA. Blood cultures are pending. IMPRESSION: 1. Healthcare-associated pneumonia. 2. Asthma with exacerbation. 3. Chronic obstructive pulmonary disease. 4. History of a lung nodule. COMMENTS AND RECOMMENDATIONS: The patient still is very tight. She is receiving levofloxacin and vancomycin. She is on montelukast and guaifenesin that she usually takes. The methylprednisolone is 40 mg IV q. 8 hours. If she does not improve, I would increase that tomorrow. She is also on imipenem and cilastatin. She is getting prophylactic enoxaparin. Her neb treatments include levalbuterol and ipratropium every 6 hours. I believe she might also need p.r.n. treatments if not already ordered. We will follow this patient with you. Thank you for asking me to assist in her care.
[2016-10-28] MEDS: MONTELUKAST SOD 10 MG TAB PO SCH (20:43)
[2016-10-28] MEDS: GUAIFENESIN 600 MG TABCR PO SCH (20:43)
--- NOTE | 2016-10-28 21:11 | Progress Note ---
Medicine Progress Note Date & Time of Visit: Oct 28, 2016 at 20:54. Subjective Pt was seen and examined lying in bed with mild respiratory distress Pt said that she is still having SOB she denies any chest pain and palpitation Objective Last 8 Hrs Date Time Temp Pulse Resp B/P Pulse Ox O2 Delivery O2 Flow Rate FiO2 10/28/16 19:39 83 22 96 Nasal Cannula 3.0 10/28/16 19:34 37.0 84 22 118/75 96 Nasal Cannula 3.0 10/28/16 16:35 36.5 96 24 145/70 97 Nasal Cannula 2.0 10/28/16 16:00 Nasal Cannula 10/28/16 14:19 92 24 98 Room Air Physical Exam: General-Mild respiratory distress Head- atraumatic Eyes- PERRL, EOMI ENT- oropharynx clear Neck- supple, no JVD Lungs- + wheezing Heart- tachycardia Abdomen- normal bowel sounds, soft Extremities- no calf tenderness Neuro- alert, awake, PERRL, EOMI Skin- warm & dry Laboratory Results: Last 24 Hours Test 10/28/16 03:38 10/28/16 04:16 10/28/16 06:05 10/28/16 11:45 White Blood Count 15.17 K/uL Red Blood Count 3.81 M/uL Hemoglobin 12.6 g/dL Hematocrit 36.2 % Mean Corpuscular Volume 95.0 fL Mean Corpuscular Hemoglobin 33.1 pg Mean Corpuscular Hemoglobin Concent 34.8 g/dl Platelet Count 172 K/uL Mean Platelet Volume 9.0 fL Neutrophils (%) (Auto) 85.1 % Lymphocytes (%) (Auto) 7.1 % Monocytes (%) (Auto) 6.1 % Eosinophils (%) (Auto) 0.1 % Basophils (%) (Auto) 0.1 % Neutrophils # (Auto) 12.93 K/uL Lymphocytes # (Auto) 1.07 K/uL Monocytes # (Auto) 0.92 K/uL Eosinophils # (Auto) 0.01 K/uL Basophils # (Auto) 0.02 K/uL RDW Standard Deviation 48.7 fL RDW Coefficient of Variation 14.3 % Immature Granulocyte % (Auto) 1.5 % Immature Granulocyte # (Auto) 0.22 K/uL Activated Partial Thromboplast Time 29.8 SECONDS Partial Thromboplastin Ratio 1.1 Sodium Level 136 mmol/L Potassium Level 4.2 mmol/L Chloride Level 100 mmol/L Carbon Dioxide Level 28 mmol/L Anion Gap 8.0 mmol/L Blood Urea Nitrogen 28 mg/dl Creatinine 0.93 mg/dl Est Creatinine Clear Calc Drug Dose 36.9 ml/min Estimated GFR () 66.8 Estimated GFR (Non- 57.6 BUN/Creatinine Ratio 30.2 Random Glucose 130 mg/dl Calcium Level 8.6 mg/dl Magnesium Level 1.9 mg/dl Total Creatine Kinase 23 U/L Creatine Kinase MB 1.2 ng/ml Creatine Kinase MB Ratio 5.2 Troponin I 0.021 ng/ml Bedside Lactic Acid Venous 0.92 mmol/L Arterial Blood pH 7.51 Arterial Blood Partial Pressure CO2 33 mmHg Arterial Blood Partial Pressure O2 93 mm/Hg Arterial Blood HCO3 26 mmol/L Arterial Blood Oxygen Saturation 97.5 % Arterial Blood Base Excess 2.9 mEq/L Arterial Blood Gas Delivery 2L [place]tan Test POS Urine Color YELLOW Urine Appearance CLEAR Urine pH 6.0 Urine Specific [place] 1.017 Urine Protein NEG Urine Glucose (UA) 3+ Urine Ketones NEG Urine Occult Blood NEG Urine Nitrite NEG Urine Bilirubin NEG Urine Urobilinogen NEG Urine Leukocyte Esterase NEG Date/Time Source Procedure Growth Status 10/28/16 04:18 Blood Blood Culture Pending Received 10/28/16 04:09 Blood Blood Culture Pending Received 10/28/16 10:40 Nasal MRSA DNA Surveillance Screen - Final Specimen Positive for MRSA by DNA Probe Complete Assessment & Plan Acute respiratory failure Possible related to healthcare associated pneumonia vs to asthma exacerbation CXR showed Focal infiltrate left base MRSA positive ID an pulmonary on board On Primaxin and Vanco iv continue neb treatment on solumedrol IV 40mg q8h Hypertension stable Continue monitor BP Atrial fibrillation Rate controlled Continue diltiazem Dementia Stable DVT px on SCDs due to hx of subarachnoid hemorrhage CODE STATUS DNR Current Inpatient Medications: Current Inpatient Medications Medications (Trade) Dose Ordered Sig/Ally Route Start Time Stop Time Status Last Admin Dose Admin Methylprednisolone Sodium Succinate 40 mg/Syringe 0.64 ml @ 1.5 mls/min Q8H IV 10/28/16 14:00 11/27/16 13:59 10/28/16 14:38 1.5 MLS/MIN Potassium Chloride/Sodium Chloride (Nss + 20meq KCl 1000ml) 1,000 ml @ 75 mls/hr [id number] ONCE IV 10/28/16 08:30 10/28/16 21:49 10/28/16 09:27 75 MLS/HR Acetaminophen (Tylenol Tab) 650 mg Q4H PRN PO 10/28/16 06:45 11/27/16 06:44 Nitroglycerin (Nitrostat Tab) 0.4 mg UD PRN SL 10/28/16 06:45 11/27/16 06:44 Aspirin (Ecotrin Tab) 81 mg DAILY PO 10/28/16 09:00 11/27/16 08:59 10/28/16 09:52 81 MG Diltiazem HCl (Dilacor Xr Cap) 120 mg QAM PO 10/28/16 09:00 11/27/16 08:59 10/28/16 09:28 120 MG Lorazepam (Ativan Tab) 0.5 mg Q8 PRN PO 10/28/16 06:45 11/27/16 06:44 Montelukast Sodium (Singulair Tab) 10 mg HS PO 10/28/16 21:00 11/27/16 20:59 10/28/16 20:43 10 MG Sertraline HCl (Zoloft Tab) 100 mg DAILY PO 10/28/16 09:00 11/27/16 08:59 10/28/16 09:28 100 MG Guaifenesin (Mucinex Contr Rel Tab) 600 mg Q12 PO 10/28/16 21:00 11/27/16 20:59 10/28/16 20:43 600 MG Ondansetron HCl (Zofran Inj) 4 mg Q6H PRN IV 10/28/16 06:45 11/27/16 06:44 Tramadol HCl (Ultram Tab) 25 mg Q6H PRN PO 10/28/16 06:45 11/27/16 06:44 Morphine Sulfate (MoRPHine SULFATE INJ) 4 mg Q6H PRN IV 10/28/16 06:45 11/11/16 06:44 Vancomycin HCl (Consult) 1 ea UD PRN N/A 10/28/16 07:15 11/27/16 07:14 Ipratropium [place] (Atrovent 0.02% 0.5MG/2.5ML Neb) 0.5 mg Q6R INH 10/28/16 09:00 11/27/16 08:59 10/28/16 19:38 0.5 MG Levalbuterol 1.25 mg 1.25 mg Q6R INH 10/28/16 09:00 11/27/16 08:59 10/28/16 19:39 1.25 MG Vancomycin HCl 1000 mg/Sodium Chloride 270 ml @ 125 mls/hr DAILY@1000 IV 10/29/16 10:00 11/04/16 09:59 Imipenem/ Cilastatin Sodium 300 mg/Dextrose 106 ml @ 100 mls/hr Q6H IV 10/28/16 14:00 11/04/16 10:44 10/28/16 20:43 100 MLS/HR Levofloxacin/Prmx (Levaquin / D5W/ Premixed D5W) 50 ml @ 50 mls/hr Q24H IV 10/29/16 12:00 11/03/16 12:59 Heparin Sodium (Porcine) (Heparin Sq 5000 Unit/0.5ml) 5,000 unit Q8 SQ 10/29/16 06:00 11/28/16 05:59 Levalbuterol (Xopenex 0.63 Mg/ 3 Ml Neb) 0.63 mg Q3R PRN INH 10/28/16 15:45 11/27/16 15:44
[2016-10-28] MEDS ORDERED: OPTIRAY 320 IV PRN (22:15)
[2016-10-28] MEDS: ACETAMINOPHEN 325 MG TAB PO PRN (22:44)
--- NOTE | 2016-10-28 23:06 | Progress Note ---
Internal Med Progress Note Date of Service: Oct 28, 2016. Provider Documentation: Made aware by radiologist of CT abd/pelvis findings. Px earlier co LLQ pain. incidental finding of multiple pulmonary emboli AP PE hx fall risk/traumatic SAH (2013) check LE venous dopplers low dose IV heparin for now Will request AM provider to discuss w/ px/family pros/cons of terminal gauger anticoag w/ respect to px's individual circumstances. Vital Signs: Date Time Temp Pulse Resp B/P Pulse Ox O2 Delivery O2 Flow Rate FiO2 10/29/16 08:21 36.5 109 20 103/64 96 Nasal Cannula 2.0 10/29/16 08:00 Nasal Cannula 10/29/16 07:18 78 16 94 Nasal Cannula 2.0 10/29/16 04:00 Nasal Cannula 2.0 10/29/16 03:22 36.5 89 20 121/70 95 Nasal Cannula 2.0 10/29/16 03:20 78 16 95 Nasal Cannula 2.0 10/29/16 00:27 84 20 97 Nasal Cannula 3.0 10/29/16 00:01 Nasal Cannula 2.0 10/28/16 23:00 36.8 80 18 105/61 96 Nasal Cannula 3.0 10/28/16 20:00 Nasal Cannula 2.0 10/28/16 19:39 83 22 96 Nasal Cannula 3.0 10/28/16 19:34 37.0 84 22 118/75 96 Nasal Cannula 3.0 10/28/16 16:35 36.5 96 24 145/70 97 Nasal Cannula 2.0 10/28/16 16:00 Nasal Cannula 10/28/16 14:19 92 24 98 Room Air 10/28/16 12:03 36.7 93 20 102/63 98 Nasal Cannula 1.5 10/28/16 12:00 Nasal Cannula Lab Results: Results Past 24 Hours Test 10/28/16 11:45 10/29/16 04:59 10/29/16 05:54 Range/Units Urine Color YELLOW Urine Appearance CLEAR CLEAR Urine pH 6.0 4.5-7.5 Urine Specific [place] 1.017 1.000-1.030 Urine Protein NEG NEG Urine Glucose (UA) 3+ NEG Urine Ketones NEG NEG Urine Occult Blood NEG NEG Urine Nitrite NEG NEG Urine Bilirubin NEG NEG Urine Urobilinogen NEG NEG Urine Leukocyte Esterase NEG NEG White Blood Count 16.81 4.8-10.8 K/uL Red Blood Count 3.32 4.2-5.4 M/uL Hemoglobin 10.8 12.0-16.0 g/dL Hematocrit 31.5 37-47 % Mean Corpuscular Volume 94.9 80-100 fL Mean Corpuscular Hemoglobin 32.5 25-34 pg Mean Corpuscular Hemoglobin Concent 34.3 32-36 g/dl Platelet Count 151 130-400 K/uL Mean Platelet Volume 9.1 7.4-10.4 fL Neutrophils (%) (Auto) 93.3 % Lymphocytes (%) (Auto) 2.5 % Monocytes (%) (Auto) 2.9 % Eosinophils (%) (Auto) 0.0 % Basophils (%) (Auto) 0.1 % Neutrophils # (Auto) 15.70 1.4-6.5 K/uL Lymphocytes # (Auto) 0.42 1.2-3.4 K/uL Monocytes # (Auto) 0.48 0.11-0.59 K/uL Eosinophils # (Auto) 0.00 0-0.5 K/uL Basophils # (Auto) 0.01 0-0.2 K/uL RDW Standard Deviation 49.9 36.4-46.3 fL RDW Coefficient of Variation 14.4 11.5-14.5 % Immature Granulocyte % (Auto) 1.2 % Immature Granulocyte # (Auto) 0.20 0.00-0.02 K/uL Activated Partial Thromboplast Time 59.0 52.9 21.0-31.0 SECONDS Partial Thromboplastin Ratio 2.3 2.0 Creatinine 1.00 0.60-1.20 mg/dl Est Creatinine Clear Calc Drug Dose 33.4 ml/min Estimated GFR () 61.2 Estimated GFR (Non- 52.8 Microbiology Results 10/28/16 MRSA DNA Surveillance Screen - Final, Complete Specimen Positive for MRSA by DNA Probe
--- NOTE | 2016-10-28 23:10 | DIAGNOSTIC IMAGING REPORT ---
CT OF THE ABDOMEN AND PELVIS WITH CONTRAST CLINICAL HISTORY: Left lower quadrant pain. COMPARISON STUDY: CT of the chest, abdomen and pelvis January 05, 2009. TECHNIQUE: Following IV administration of 118 mL of Optiray-320, axial images of the abdomen and pelvis were obtained from the lung bases to the proximal femurs. Images were reviewed in the axial, sagittal, and coronal planes. IV contrast was administered without complication. CT DOSE: 260.64 mGy.cm FINDINGS: Visualized portions of the lower chest demonstrate numerous bilateral segmental pulmonary emboli. A 4.4 cm subpleural wedge-shaped opacity within the left lower lobe is consistent with a pulmonary infarct. There is a small left pleural effusion. The heart is moderately enlarged. The gallbladder is surgically absent. Evaluation of the abdomen and pelvis is suboptimal given motion artifact. The liver, spleen, adrenal glands, kidneys and pancreas are unremarkable. There is no hydronephrosis. There is extensive atherosclerotic plaque of the abdominal aorta. There is extensive sigmoid diverticulosis without evidence for acute diverticulitis. No lymphadenopathy is present. There is no evidence for a bowel obstruction. The appendix is not visualized. There is no right lower quadrant inflammation. IMPRESSION: 1. Multiple segmental pulmonary emboli within visualized portions of the lower chest with a left lower lobe pulmonary infarct and small left pleural effusion. Discussed with Dr. Edmonds at time of dictation. 2. No acute process within the abdomen or pelvis. 3. Study mildly compromised by motion artifact. 4. Extensive sigmoid diverticulosis without evidence for acute diverticulitis. Electronically signed by: Justen Merida M.D. 10/28/2016 11:09 PM Dictated Date/Time: 10/28/2016 10:41 PM
[2016-10-28] MEDS ORDERED: HEPARIN IV LOW DOSE NO BOLUS SCH (23:30)
[2016-10-28] MEDS: HEPARIN 25,000 UNIT/500ML D5W 500 ML IV PRN (23:59)
[2016-10-29] VITALS (13 sets, daily range): BP systolic 103–153; BP diastolic 61–70; PULSE 74–109; TEMP 36.4–36.7; O2SAT 94–99
[2016-10-29] MEDS: IMIPENEM/CILASTATIN IV 300 MG in DEXTROSE 5% 100ML 100 ML IV SCH ×4 (01:42→20:00)
[2016-10-29] MEDS: IPRATROPIUM BROMIDE NEB SOLN 0.02% 2.5 ML VIAL INH SCH ×4 (03:20→20:30)
[2016-10-29] MEDS: LEVALBUTEROL 1.25MG/0.5ML NEB INH SCH ×4 (03:20→20:30)
[2016-10-29 05:19] LABS: BASO % 0.1 %; BASO ABS # 0.01 K/uL (0-0.2); COMPLETE YES; HEMATOCRIT 31.5 % (37-47); IG% 1.2 %; LYMPH % 2.5 %; LYMPH ABS # 0.42 K/uL (1.2-3.4); MEAN CELL VOLUME 94.9 fL (80-100); MEAN CORPUSCULAR HEMOGLOBIN 32.5 pg (25-34); MEAN CORPUSCULAR HGB CONC 34.3 g/dl (32-36); MEAN PLATELET VOLUME 9.1 fL (7.4-10.4); MONO % 2.9 %; NEUT % 93.3 %; PLATELET COUNT 151 K/uL (130-400); RED BLOOD COUNT 3.32 M/uL (4.2-5.4); WHITE BLOOD COUNT 16.81 K/uL (4.8-10.8)
[2016-10-29 05:36] LABS: PARTIAL THROMBOPLASTIN RATIO 2.3
[2016-10-29] MEDS ORDERED: HEPARIN SOD 5000 UNIT/0.5 ML CARP SQ SCH (06:00)
[2016-10-29] MEDS: METHYLPREDNISOLONE IV 40 MG in SYRINGE 0 ML IV SCH (06:34)
--- NOTE | 2016-10-29 08:03 | DIAGNOSTIC IMAGING REPORT ---
ULTRASOUND BILATERAL LOWER EXTREMITY VENOUS CLINICAL HISTORY: Pulmonary embolus. COMPARISON STUDY: Bilateral lower extremity venous ultrasound dated 08/31/2014. TECHNIQUE: Real-time, grayscale, and color Doppler sonography of the deep veins of the right and left lower extremity was performed from the inguinal crease to the calf. Compression and augmentation were utilized. The examination is degraded by lack of patient cooperation. FINDINGS: There is no sonographic evidence of deep venous thrombosis identified in the right or left lower extremity. The common femoral, superficial femoral, and popliteal veins are patent and normally compressible bilaterally. The greater saphenous vein and the profunda femoris vein at the junction with the common femoral vein are clear in both legs. The visualized calf veins are patent bilaterally. IMPRESSION: There is no sonographic evidence of deep venous thrombosis identified in the right or left lower extremity. Electronically signed by: Noe Marshall M.D. 10/29/2016 8:02 AM Dictated Date/Time: 10/29/2016 8:01 AM
[2016-10-29] MEDS ORDERED: SODIUM CHLORIDE 0.9% 1000ML 1,000 ML IV ONE (08:15)
[2016-10-29] MEDS: SERTRALINE HCL 50 MG TAB PO SCH (08:38)
[2016-10-29] MEDS: GUAIFENESIN 600 MG TABCR PO SCH ×2 (08:38→19:54)
[2016-10-29] MEDS: ASPIRIN 81 MG ECTAB PO SCH (08:38)
[2016-10-29] MEDS: DILTIAZEM HCL 120 MG ER CAP PO SCH (08:38)
--- NOTE | 2016-10-29 09:32 | Clinical Documentation Query ---
CLINICAL DOCUMENTATION QUERY 80 year old female with recent DC for Asthma exacerbation from [facility] on 10/27/16 who presents to the Emergency Room with complaints of worsening SOB. HCAP pneumonia is being documented but without suspected organism documented the Severity of Illness (SOI) is unchanged from simple pneumonia. In your clinical opinion is this patient being managed for: ( ) Likely MRSA pneumonia in setting of HCAP treated with IV Vancomycin. ( ) Other explanation of clinical findings (Please Explain) ( ) Unable to determine (Please Define) ( ) Need to Discuss ( ) Not Agree The medical record reflects the following clinical findings, treatment, and risk factors. Clinical Indicators: acute respiratory failure, leukocytosis 15.17, tachypnea 28, +MRSA swab. CXR showed left base infiltrate Treatment: IV Vancomycin, IV Levofloxacin, IV Primaxin, IV Solumdrol, ID consult, Risk Factors: Recent hospital stay, personal nursing home residence, COPD Please clarify and document your clinical opinion in the progress notes and discharge summary. Terms such as "probable", "suspected", "likely", "questionable", "possible", or "still to be ruled out" are acceptable. IF IN AGREEMENT, YOU MUST DOCUMENT ABOVE DIAGNOSTIC STATEMENT IN DAILY PROGRESS NOTES AND DISCHARGE SUMMARY. This document is not part of the patient's record. Thank You, Chuck Pope RN [phone]
[2016-10-29] MEDS: VANCOMYCIN INJ 1,000 MG in SODIUM CHLORIDE 0.9% 250ML 250 ML IV SCH (10:33)
--- NOTE | 2016-10-29 10:35 | Progress Note ---
Medicine Progress Note Date & Time of Visit: Oct 29, 2016 at 10:22. Subjective Pt was seen and examined Sitting in chair with no acute respiratory distress watching TV Pt said that her breathing is slightly better this morning Denies any chest pain, palpitation, dizziness Objective Last 8 Hrs Date Time Temp Pulse Resp B/P Pulse Ox O2 Delivery O2 Flow Rate FiO2 10/29/16 08:21 36.5 109 20 103/64 96 Nasal Cannula 2.0 10/29/16 08:00 Nasal Cannula 10/29/16 07:18 78 16 94 Nasal Cannula 2.0 10/29/16 04:00 Nasal Cannula 2.0 10/29/16 03:22 36.5 89 20 121/70 95 Nasal Cannula 2.0 10/29/16 03:20 78 16 95 Nasal Cannula 2.0 Physical Exam: General-No acute distress Head- atraumatic Eyes- PERRL, EOMI ENT- oropharynx clear Neck- supple, no JVD Lungs- + mild wheezing Heart- tachycardia Abdomen- normal bowel sounds, soft Extremities- no calf tenderness Neuro- alert, awake, PERRL, EOMI Skin- warm & dry Laboratory Results: Last 24 Hours Test 10/28/16 11:45 10/29/16 04:59 10/29/16 05:54 Urine Color YELLOW Urine Appearance CLEAR Urine pH 6.0 Urine Specific [place] 1.017 Urine Protein NEG Urine Glucose (UA) 3+ Urine Ketones NEG Urine Occult Blood NEG Urine Nitrite NEG Urine Bilirubin NEG Urine Urobilinogen NEG Urine Leukocyte Esterase NEG White Blood Count 16.81 K/uL Red Blood Count 3.32 M/uL Hemoglobin 10.8 g/dL Hematocrit 31.5 % Mean Corpuscular Volume 94.9 fL Mean Corpuscular Hemoglobin 32.5 pg Mean Corpuscular Hemoglobin Concent 34.3 g/dl Platelet Count 151 K/uL Mean Platelet Volume 9.1 fL Neutrophils (%) (Auto) 93.3 % Lymphocytes (%) (Auto) 2.5 % Monocytes (%) (Auto) 2.9 % Eosinophils (%) (Auto) 0.0 % Basophils (%) (Auto) 0.1 % Neutrophils # (Auto) 15.70 K/uL Lymphocytes # (Auto) 0.42 K/uL Monocytes # (Auto) 0.48 K/uL Eosinophils # (Auto) 0.00 K/uL Basophils # (Auto) 0.01 K/uL RDW Standard Deviation 49.9 fL RDW Coefficient of Variation 14.4 % Immature Granulocyte % (Auto) 1.2 % Immature Granulocyte # (Auto) 0.20 K/uL Activated Partial Thromboplast Time 59.0 SECONDS 52.9 SECONDS Partial Thromboplastin Ratio 2.3 2.0 Creatinine 1.00 mg/dl Est Creatinine Clear Calc Drug Dose 33.4 ml/min Estimated GFR () 61.2 Estimated GFR (Non- 52.8 Date/Time Source Procedure Growth Status 10/28/16 10:40 Nasal MRSA DNA Surveillance Screen - Final Specimen Positive for MRSA by DNA Probe Complete Assessment & Plan Acute respiratory failure Possible related to healthcare associated pneumonia vs to asthma exacerbation CXR showed Focal infiltrate left base MRSA positive ID an pulmonary on board On Primaxin and Vanco iv continue neb treatment Will change steroid to PO prednisone Pulmonary Emboli CT abd/pelvis showed multiple segmental pulmonary emboli within visualized portions of the lower chest with a left lower lobe pulmonary infarct and small left pleural effusion Heparin drip was started Pt was on anticoagulant in the past for afib that was discontinue due to risk of fall and subarachnoid hemorrhage. Not a good candidate for anticoagulant Pulmonary on board Hypertension stable Continue monitor BP Atrial fibrillation Rate controlled Continue diltiazem CT abd/pelvis showed multiple segmental pulmonary emboli Will consider to get an echo. Dementia Stable DVT px on SCDs due to hx of subarachnoid hemorrhage CODE STATUS DNR Consultants: ID Pulmonary Current Inpatient Medications: Current Inpatient Medications Medications (Trade) Dose Ordered Sig/Ally Route Start Time Stop Time Status Last Admin Dose Admin Methylprednisolone Sodium Succinate/ Syringe (Solu-Medrol IV/ Syringe) 0.64 ml @ 1.5 mls/min Q8H IV 10/28/16 14:00 11/27/16 13:59 10/29/16 06:34 1.5 MLS/MIN Acetaminophen (Tylenol Tab) 650 mg Q4H PRN PO 10/28/16 06:45 11/27/16 06:44 10/28/16 22:44 650 MG Nitroglycerin (Nitrostat Tab) 0.4 mg UD PRN SL 10/28/16 06:45 11/27/16 06:44 Aspirin (Ecotrin Tab) 81 mg DAILY PO 10/28/16 09:00 11/27/16 08:59 10/29/16 08:38 81 MG Diltiazem HCl (Dilacor Xr Cap) 120 mg QAM PO 10/28/16 09:00 11/27/16 08:59 10/29/16 08:38 120 MG Lorazepam (Ativan Tab) 0.5 mg Q8 PRN PO 10/28/16 06:45 11/27/16 06:44 Montelukast Sodium (Singulair Tab) 10 mg HS PO 10/28/16 21:00 11/27/16 20:59 10/28/16 20:43 10 MG Sertraline HCl (Zoloft Tab) 100 mg DAILY PO 10/28/16 09:00 11/27/16 08:59 10/29/16 08:38 100 MG Guaifenesin (Mucinex Contr Rel Tab) 600 mg Q12 PO 10/28/16 21:00 11/27/16 20:59 10/29/16 08:38 600 MG Ondansetron HCl (Zofran Inj) 4 mg Q6H PRN IV 10/28/16 06:45 11/27/16 06:44 Tramadol HCl (Ultram Tab) 25 mg Q6H PRN PO 10/28/16 06:45 11/27/16 06:44 Morphine Sulfate (MoRPHine SULFATE INJ) 4 mg Q6H PRN IV 10/28/16 06:45 11/11/16 06:44 Vancomycin HCl (Consult) 1 ea UD PRN N/A 10/28/16 07:15 11/27/16 07:14 Ipratropium Bruce (Atrovent 0.02% 0.5MG/2.5ML Neb) 0.5 mg Q6R INH 10/28/16 09:00 11/27/16 08:59 10/29/16 07:18 0.5 MG Levalbuterol 1.25 mg 1.25 mg Q6R INH 10/28/16 09:00 11/27/16 08:59 10/29/16 07:18 1.25 MG Vancomycin HCl 1000 mg/Sodium Chloride 270 ml @ 125 mls/hr DAILY@1000 IV 10/29/16 10:00 11/04/16 09:59 Imipenem/ Cilastatin Sodium 300 mg/Dextrose 106 ml @ 100 mls/hr Q6H IV 10/28/16 14:00 11/04/16 10:44 10/29/16 08:49 100 MLS/HR Levofloxacin/Prmx (Levaquin / D5W/ Premixed D5W) 50 ml @ 50 mls/hr Q24H IV 10/29/16 12:00 11/03/16 12:59 Levalbuterol (Xopenex 0.63 Mg/ 3 Ml Neb) 0.63 mg Q3R PRN INH 10/28/16 15:45 11/27/16 15:44 10/29/16 00:26 0.63 MG Ioversol 100 ml 100 ml UD PRN IV 10/28/16 22:15 11/01/16 22:14 Heparin Sodium/ Dextrose 500 ml @ 12 mls/hr Q24H PRN IV 10/28/16 23:45 11/27/16 23:44 10/28/16 23:59 12 MLS/HR Sodium Chloride (Nss 1000ml) 1,000 ml @ 60 mls/hr [id number] ONCE IV 10/29/16 08:15 10/30/16 00:54 10/29/16 08:46 60 MLS/HR
[2016-10-29] MEDS: ACETAMINOPHEN 325 MG TAB PO PRN ×2 (11:21→19:54)
[2016-10-29] MEDS ORDERED: PERFLUTREN LIPID MICROSPHERE (DEFINITY) IV ONE (11:40)
[2016-10-29] MEDS: LEVOFLOXACIN 250MG / D5W IV SCH (13:01)
--- NOTE | 2016-10-29 13:12 | PROGRESS NOTE ---
DATE: 10/29/2016 PULMONARY PROGRESS NOTE PROBLEM LIST: Includes: 1. Left lower lobe pneumonia. 2. Asthma exacerbation. 3. COPD. 4. History of lung nodule. SUBJECTIVE: The patient reports that she is doing relatively well. She states she has good days and bad days. She states that yesterday her breathing was more difficult, but today her breathing is improved. She states she has not had any difficulty with her breathing at this time. She has had a little bit of cough, but has not had any productive mucus. She has not had any pleuritic type chest pain. She still has this left-sided pinching pain in the left upper abdominal area. She denies any other concerns or problems at this time. In speaking with Dr. Cantu, he reports the patient did have a CT of her abdomen which did show pulmonary embolism and pulmonary infarct. The patient has a history of atrial fibrillation dating back several years. Unfortunately, she had a fall in August 2014 and had an intracranial hemorrhage. She has had multiple falls since then. Because of that, she was not felt to be a good candidate for anticoagulation. She also has a history of a right upper lobe lung nodule. She had serial CTs, last one being in 2014, which showed stability compared to a CT in 2013. OBJECTIVE: GENERAL: The patient is an 80-year-old female, sitting in bed. She is alert and oriented to person and place. Mood is good. Affect is good. VITAL SIGNS: Temp 36.5, pulse 109, respirations 20, blood pressure 103/64, pulse ox 96% on 2 liters. HEENT: Normocephalic, atraumatic. Pupils equal, round and reactive to light and accommodation. Extraocular movements are intact. [place] moist gingival and buccal mucosa. NECK: Supple, short. No mass. No adenopathy. No bruit. CHEST: Diminished breath sounds primarily at the left base, otherwise no adventitious breath sounds. No wheeze, no rale, no rhonchi. CARDIOVASCULAR: Regular rate and rhythm. No appreciated murmurs, gallops or rubs. ABDOMEN: Soft, nontender. No guarding, rigidity or organomegaly. EXTREMITIES: No erythema, no edema. No tenderness to palpation. LABORATORY DATA: White count 16,000, H\T\H 10.8/31.5, platelet count 151,000. IMAGING DATA: CT of the abdomen shows multiple segmental pulmonary emboli, bilaterally. There is also a 4.4 cm subpleural wedge-shaped opacity in the left lower lobe consistent with pulmonary infarct and small left pleural effusion. The patient did have venous Doppler done and was unremarkable. IMPRESSION: 1. An unfortunate 80-year-old female with multiple problems at this time. The patient came in with acute respiratory failure. Initially, was felt to be secondary to possibly a healthcare-related pneumonia in the left lower lobe; however, looking at the chest x-ray and the CAT scan, my suspicion is that what was seen on the chest x-ray is this area of pulmonary infarct, for now until decide further what to do with, continue antibiotic until we have more information on this, although like I said my suspicion is that this area is most likely related to the pulmonary emboli. Will decrease her steroids to 40 mg p.o. b.i.d. at this time. Will continue to monitor through hospitalization on this. 2. Pulmonary emboli. My suspicion is that pulmonary emboli developed from her chronic atrial fibrillation. Unfortunately, the patient has not been a candidate for anticoagulation due to multiple falls and an intracranial hemorrhage back in 2013. The patient continues to be a very high risk for anticoagulation. Unfortunately, at this time, I am not sure what else we have to offer the patient in regards to her pulmonary emboli. I would like to discuss this further with Dr. Gill. For now, she is being anticoagulated with heparin. We will continue that through hospitalization and then make decision on what we are going to do as an outpatient. We may need to consider vascular referral for possible [place] filter. PULMONARY ATTENDING NOTE: Case discussed with Dr. Cantu. Suggest neurology opinion as to the feasability of oil heaterman anticoagulation in light of her prior history. JUDE
--- NOTE | 2016-10-29 18:20 | ECHOCARDIOGRAM REPORT ---
*NOTICE TO RECEIVING REPUBLICAN AGENCY This information is strictly Confidential and protected under [place] law. [place] law prohibits you from making any further disclosure of this information unless further disclosure is expressly permitted by the written consent of the person to whom it pertains or is authorized by law. A general authorization for the release of medical or other information is not sufficient for this purpose. Hospital accepts no responsibility if the information is made available to any other person, INCLUDING THE PATIENT. Interpretation Summary * Name: DANNA HEATH Study Date: 10/29/2016 12:06 PM BP: 103/64 mmHg * Patient Location: C.2T\S\E221\S\1 HR: 109 * : 1935 (M/d/yyy) Gender: Female Height: 59 in * Age: 80 yrs Ethnicity: [place] Weight: 123 lb * Ordering Physician: Kingston Cantu * Referring Physician: [facility], [facility] * Performed By: Martha Loya * * Reason For Study: A-FIB * BSA: 1.5 m2 * Normal biventricular systolic function. * Mild biatrial dilatation. * Trace aortic regurgitation. 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 Mild mitral regurgitation. * Trace tricuspid regurgitation. * -- Conclusions -- * Aortic valve sclerosis mild, without significant aortic valvular stenosis. Procedure Details * A complete two-dimensional transthoracic echocardiogram was performed (2D, M-mode, Doppler and color flow Doppler). * A contrast injection of Definity was performed to improve assessment of LV function. * Contrast was injected into an intravenous site in the right arm. * One vial of Definity ultrasound contrast was diluted in normal saline to a total volume of 10 ml. A total of '2' ml of solution was administered during imaging. * Lot # [id number] of Definity utilized for procedure. * Expiration date 11/01. * The attending nurse who injected the contrast agent was COURTNEY VALENTIN RN. Left Ventricle * The left ventricle is normal in size. * There is normal left ventricular wall thickness. * Ejection Fraction = 65-70%. * The left ventricular wall motion is normal. Right Ventricle * The right ventricle is normal in size and function. Atria * The left atrium is mildly dilated. * The right atrium is mildly dilated. * No ASD detected; PFO is not assessed. 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 Mild prolapse of the anterior mitral valve leaflet. * Mitral stenosis is absent. * There is mild mitral regurgitation. Tricuspid Valve * The tricuspid valve is not well visualized, but is grossly normal. * There is no tricuspid stenosis. * There is trace tricuspid regurgitation. * Right ventricular systolic pressure is normal. Aortic Valve * Aortic valve sclerosis mild, without significant aortic valvular stenosis. * The aortic valve is trileaflet. * The aortic valve opens well. * Trace aortic regurgitation. Pulmonic Valve * The pulmonary valve is inadequately visualized, but the Doppler data is adequate for interpretation. * There is no pulmonic valvular stenosis. * There is no pulmonic valvular regurgitation. Great Vessels * The aortic root is normal size. * Normal inferior vena cava diameter and respiratory variation suggests normal central venous pressure. MMode 2D Measurements and Calculations IVSd 0.92 cm IVSs 1.3 cm LVIDd 4.4 cm LVIDs 2.9 cm LVPWd 0.92 cm LVPWs 2.3 cm IVS/LVPW 1.0 FS 32.9 % EDV(Teich) 87.2 ml ESV(Teich) 33.4 ml EF(Teich) 61.7 % EDV(cubed) 84.6 ml ESV(cubed) 25.5 ml EF(cubed) 69.8 % % IVS thick 39.5 % % LVPW thick 155.4 % LV mass(C)d 130.5 grams LV mass(C)dI 87.0 grams/m\S\2 LV mass(C)s 214.2 grams LV mass(C)sI 142.8 grams/m\S\2 SV(Teich) 53.8 ml SI(Teich) 35.9 ml/m\S\2 SV(cubed) 59.1 ml SI(cubed) 39.4 ml/m\S\2 Ao root diam 3.1 cm Ao root area 7.8 cm\S\2 ACS 1.2 cm LA dimension 4.1 cm asc Aorta Diam 2.4 cm LA/Ao 1.3 LVOT diam 1.9 cm LVOT area 2.7 cm\S\2 LVAd ap4 18.0 cm\S\2 LVLd ap4 6.2 cm EDV(MOD-sp4) 43.8 ml EDV(sp4-el) 44.6 ml LVAs ap4 8.9 cm\S\2 LVLs ap4 4.3 cm ESV(MOD-sp4) 15.1 ml ESV(sp4-el) 15.6 ml EF(MOD-sp4) 65.6 % EF(sp4-el) 65.0 % LVAd ap2 19.8 cm\S\2 LVLd ap2 5.7 cm EDV(MOD-sp2) 54.5 ml EDV(sp2-el) 57.8 ml LVAs ap2 10.1 cm\S\2 LVLs ap2 4.4 cm ESV(MOD-sp2) 19.0 ml ESV(sp2-el) 19.5 ml EF(MOD-sp2) 65.1 % EF(sp2-el) 66.2 % LVLd %diff -7.24 % EDV(MOD-bp) 49.2 ml LVLs %diff 3.9 % ESV(MOD-bp) 16.9 ml EF(MOD-bp) 65.6 % SV(MOD-sp4) 28.7 ml SI(MOD-sp4) 19.1 ml/m\S\2 SV(MOD-sp2) 35.5 ml SI(MOD-sp2) 23.7 ml/m\S\2 SV(MOD-bp) 32.3 ml SI(MOD-bp) 21.5 ml/m\S\2 SV(sp4-el) 29.0 ml SI(sp4-el) 19.3 ml/m\S\2 SV(sp2-el) 38.3 ml SI(sp2-el) 25.5 ml/m\S\2 Doppler Measurements and Calculations MV E max danie 119.2 cm/sec MV dec time 0.15 sec Ao V2 max 149.5 cm/sec Ao max PG 8.9 mmHg Ao max PG (full) 4.5 mmHg RUDY(V,A) 1.9 cm\S\2 RUDY(V,D) 1.9 cm\S\2 AI max danie 337.1 cm/sec AI max PG 45.4 mmHg AI dec slope 120.2 cm/sec\S\2 AI P1/2t 821.4 msec LV V1 max PG 4.5 mmHg LV V1 mean PG 1.9 mmHg LV V1 max 105.5 cm/sec LV V1 mean 62.0 cm/sec LV V1 VTI 16.6 cm MR max danie 336.9 cm/sec MR max PG 45.4 mmHg SV(LVOT) 45.5 ml SI(LVOT) 30.3 ml/m\S\2 PA V2 max 67.4 cm/sec PA max PG 1.8 mmHg TR max danie 197.4 cm/sec
[2016-10-29] MEDS: MONTELUKAST SOD 10 MG TAB PO SCH (19:54)
[2016-10-30] VITALS (12 sets, daily range): BP systolic 121–146; BP diastolic 68–74; PULSE 78–105; TEMP 36.4–36.9; O2SAT 93–96
[2016-10-30] MEDS: IMIPENEM/CILASTATIN IV 300 MG in DEXTROSE 5% 100ML 100 ML IV SCH ×4 (02:12→20:38)
[2016-10-30] MEDS: LEVALBUTEROL 1.25MG/0.5ML NEB INH SCH ×4 (02:25→20:48)
[2016-10-30] MEDS: IPRATROPIUM BROMIDE NEB SOLN 0.02% 2.5 ML VIAL INH SCH ×4 (02:25→20:48)
[2016-10-30 05:06] LABS: PARTIAL THROMBOPLASTIN RATIO 1.9
[2016-10-30] MEDS: DILTIAZEM HCL 120 MG ER CAP PO SCH (07:58)
[2016-10-30] MEDS: LORAZEPAM 0.5 MG TAB PO PRN ×2 (08:00→20:24)
[2016-10-30] MEDS: ASPIRIN 81 MG ECTAB PO SCH (08:01)
[2016-10-30] MEDS: GUAIFENESIN 600 MG TABCR PO SCH ×2 (08:01→20:24)
[2016-10-30] MEDS: SERTRALINE HCL 50 MG TAB PO SCH (08:02)
[2016-10-30] MEDS ORDERED: VANCOMYCIN TROUGH ONE (09:30)
[2016-10-30] MEDS: VANCOMYCIN INJ 1,000 MG in SODIUM CHLORIDE 0.9% 250ML 250 ML IV SCH ×2 (09:51→21:59)
[2016-10-30 10:08] LABS: LEGIONELLA ANTIGEN NOT DETECTED
--- NOTE | 2016-10-30 10:44 | Progress Note ---
Medicine Progress Note Date & Time of Visit: Oct 30, 2016 at 10:23. Subjective Pt was seen and examined Sitting in chair reading her newspaper with no distress Pt said that she feels a little better today She is saturated well on room air denies any chest pain, palpitation, dizziness Objective Last 8 Hrs Date Time Temp Pulse Resp B/P Pulse Ox O2 Delivery O2 Flow Rate FiO2 10/30/16 08:37 Room Air 10/30/16 07:24 102 18 93 Room Air 10/30/16 04:10 36.6 105 20 137/68 94 Room Air 10/30/16 04:00 94 Room Air 10/30/16 02:26 78 18 94 Room Air Physical Exam: General-No acute distress Head- atraumatic Eyes- PERRL, EOMI ENT- oropharynx clear Neck- supple, no JVD Lungs- + mild wheezing Heart- tachycardia Abdomen- normal bowel sounds, soft Extremities- no calf tenderness Neuro- alert, awake, PERRL, EOMI Skin- warm & dry Laboratory Results: Last 24 Hours Test 10/30/16 04:40 10/30/16 09:40 Activated Partial Thromboplast Time 49.2 SECONDS Partial Thromboplastin Ratio 1.9 Assessment & Plan Acute respiratory failure Possible related to healthcare associated pneumonia vs to asthma exacerbation VS PE CXR showed Focal infiltrate left base CTA thorax done yesterday showed Multiple segmental pulmonary emboli Not quite sure if the infiltrates seen on the chest xray was the pulmonary infarct seen on CT MRSA positive ID an pulmonary on board On Primaxin, levaquin and Vanco iv continue neb treatment Continue prednisone 40 mg BID Clinically stable Pulmonary Emboli CT abd/pelvis showed multiple segmental pulmonary emboli within visualized portions of the lower chest with a left lower lobe pulmonary infarct and small left pleural effusion Continue Heparin drip for now Correction for my previous note about anticoagulant, I spoke to her daughter, she confirmed that pt was never on anticoagulant in the past. Not a good candidate for anticoagulant in the past due to risk of fall and subarachnoid hemorrhage back 08/27 after a fall at the [employer] Pulmonary on board recommends to continue current therapy After discussing with pulmonary team, we decide to consult Neuro to evaluate if pt is a good candidate for anticoagulant therapy since she had a subarachnoid hemorrhage 08/27. Hypertension stable Continue monitor BP Atrial fibrillation Rate controlled Continue diltiazem Not on anticoagulant due to falls risk and subarachnoid hemorrhage on 08/27 CT abd/pelvis showed multiple segmental pulmonary emboli Echo Normal biventricular systolic function. * Mild biatrial dilatation. * Trace aortic regurgitation. 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 Mild mitral regurgitation. * Trace tricuspid regurgitation. Dementia Stable DVT px on heparin drip CODE STATUS DNR Consultants: ID Pulmonary Current Inpatient Medications: Current Inpatient Medications Medications (Trade) Dose Ordered Sig/Ally Route Start Time Stop Time Status Last Admin Dose Admin Acetaminophen (Tylenol Tab) 650 mg Q4H PRN PO 10/28/16 06:45 11/27/16 06:44 10/29/16 19:54 650 MG Nitroglycerin (Nitrostat Tab) 0.4 mg UD PRN SL 10/28/16 06:45 11/27/16 06:44 Aspirin (Ecotrin Tab) 81 mg DAILY PO 10/28/16 09:00 11/27/16 08:59 10/30/16 08:01 81 MG Diltiazem HCl (Dilacor Xr Cap) 120 mg QAM PO 10/28/16 09:00 11/27/16 08:59 10/30/16 07:58 120 MG Lorazepam (Ativan Tab) 0.5 mg Q8 PRN PO 10/28/16 06:45 11/27/16 06:44 10/30/16 08:00 0.5 MG Montelukast Sodium (Singulair Tab) 10 mg HS PO 10/28/16 21:00 11/27/16 20:59 10/29/16 19:54 10 MG Sertraline HCl (Zoloft Tab) 100 mg DAILY PO 10/28/16 09:00 11/27/16 08:59 10/30/16 08:02 100 MG Guaifenesin (Mucinex Contr Rel Tab) 600 mg Q12 PO 10/28/16 21:00 11/27/16 20:59 10/30/16 08:01 600 MG Ondansetron HCl (Zofran Inj) 4 mg Q6H PRN IV 10/28/16 06:45 11/27/16 06:44 Tramadol HCl (Ultram Tab) 25 mg Q6H PRN PO 10/28/16 06:45 11/27/16 06:44 Morphine Sulfate (MoRPHine SULFATE INJ) 4 mg Q6H PRN IV 10/28/16 06:45 11/11/16 06:44 Vancomycin HCl (Consult) 1 ea UD PRN N/A 10/28/16 07:15 11/27/16 07:14 Ipratropium [place] (Atrovent 0.02% 0.5MG/2.5ML Neb) 0.5 mg Q6R INH 10/28/16 09:00 11/27/16 08:59 10/30/16 07:24 0.5 MG Levalbuterol 1.25 mg 1.25 mg Q6R INH 10/28/16 09:00 11/27/16 08:59 10/30/16 07:24 1.25 MG Vancomycin HCl 1000 mg/Sodium Chloride 270 ml @ 125 mls/hr DAILY@1000 IV 10/29/16 10:00 11/04/16 09:59 10/30/16 09:51 125 MLS/HR Imipenem/ Cilastatin Sodium 300 mg/Dextrose 106 ml @ 100 mls/hr Q6H IV 10/28/16 14:00 11/04/16 10:44 10/30/16 07:37 100 MLS/HR Levofloxacin/Prmx (Levaquin / D5W/ Premixed D5W) 50 ml @ 50 mls/hr Q24H IV 10/29/16 12:00 11/03/16 12:59 10/29/16 13:01 50 MLS/HR Levalbuterol (Xopenex 0.63 Mg/ 3 Ml Neb) 0.63 mg Q3R PRN INH 10/28/16 15:45 11/27/16 15:44 10/29/16 00:26 0.63 MG Ioversol 100 ml 100 ml UD PRN IV 10/28/16 22:15 11/01/16 22:14 Heparin Sodium/ Dextrose (Heparin 25,000 Unit/500ml D5W) 500 ml @ 12 mls/hr Q24H PRN IV 10/28/16 23:45 11/27/16 23:44 10/28/16 23:59 12 MLS/HR Prednisone (PredniSONE TAB) 40 mg BID PO 10/29/16 21:00 11/28/16 20:59 10/30/16 08:02 40 MG
--- NOTE | 2016-10-30 11:24 | Pharmacy Progress Note ---
Pharmacy Antibiotic Prog Note Date of Service: Oct 30, 2016. Subjective: The patient is currently receiving Vancomycin 1000 mg IV every 24 hours. The patient is currently on day # 3 of Vancomycin IV therapy for Possible related to healthcare associated pneumonia vs to asthma exacerbation VS PE. Objective: Height (Feet): 4 Height (Inches): 11.00 Weight (Kilograms): 59.600 Levels: Item Value Date Time Vancomycin Level Trough 5.4 mcg/ml 10/30/16 0940 Micro Results: Item Value Date Time MRSA DNA Surveillance Screen - Final Complete 10/28/16 1040 Nasal Specimen Positive for MRSA by DNA Probe Blood Culture - Preliminary Resulted 10/28/16 0418 Blood NO GROWTH TO DATE. Blood Culture - Preliminary Resulted 10/28/16 0409 Blood NO GROWTH TO DATE. Recent Pertinent Medications: Imipenem 300mg IV Q6H Levaquin 250mg IV Q24H Assessment & Plan: This Vancomycin trough level of 5.4mcg/ml is Subtherapeutic after only 2 total doses. Patient is not at steady state, but we have dosed her at 25mg/kg load, then 1000mg is 18mg/kg. I will increase patient's dosing interval to get her to her goal Vancomycin trough level. We will need to watch for accumulation with dosing over patient's half-life and recheck levels even if patient is therapeutic with next trough level. * Change to Vancomycin 1000mg (18mg/kg) IV every 12 hours. * Goal trough level estimate: between 15 - 20 mcg/mL for pulmonary source. * Trough level has been ordered for: prior to 1000 dose, this will be after patient has received 4 doses at new dosing interval and patient will be at steady state. Pharmacy will continue to follow and will adjust dose/frequency as necessary. Thank you
[2016-10-30] MEDS ORDERED: METHYLPREDNISOLONE IV 40 MG in SYRINGE 0 ML IV ONE (11:45)
--- NOTE | 2016-10-30 12:20 | PROGRESS NOTE ---
DATE: 10/29/2016 PROBLEM LIST: Includes: 1. Bilateral pulmonary emboli. 2. Left pulmonary infarct. 3. History of intracranial hemorrhage. 4. Acute respiratory failure. 5. COPD. SUBJECTIVE: The patient reports that her breathing is a little bit worse today, she feels that she is a little bit more wheezy today. We did change her from IV Solu-Medrol to prednisone yesterday. She is still getting her nebulizer. She is not really having much cough. She states when she does have a cough, she does get some mucus up. No pleuritic chest pain at this time. No chest pain in general. No palpitations. No other concerns or problems. OBJECTIVE: GENERAL: The patient is an 80-year-old female, sitting in bed. She was asleep when I entered but awakened easily. Interactive and cooperative. She is alert and oriented to person and place. VITAL SIGNS: Temperature 36.4, pulse 93, respirations 20, blood pressure is 146/69, pulse ox 96% on room air. NECK: Supple. No mass. No adenopathy. No bruit or JVD. CHEST: The patient actually does have some diffuse wheezing throughout today. No rale or rhonchi noted. CARDIOVASCULAR: Irregularly irregular. No appreciated murmurs, gallops or rubs noted. ABDOMEN: Bowel sounds are present. Abdomen soft, nontender. No guarding, rigidity or organomegaly. EXTREMITIES: No erythema or edema. IMPRESSION: 1. This is an 80-year-old female who was found to have bilateral pulmonary embolism with left-sided pulmonary infarct. It appears and after discussion with Dr. Gill that the infarct found on the CAT scan is actually most likely what was a presumed pneumonia on chest x-ray. At this time, we did discuss and would make the recommendation that we can probably stop the antibiotics. I will leave that up to the hospitalist team and the infectious disease team. Her Legionella antigen is negative in regards to the pulmonary embolism. At this point waiting for neurology consult as patient does have a history of an intracranial hemorrhage secondary to fall, to see if they feel that the patient could safely be anticoagulated. If not, then we will get vascular surgery involved for a Alfredo filter. This was again discussed with the patient. She is agreeable to this. 2. Chronic obstructive pulmonary disease. The patient has had some increased wheezing today. At this point, we will go ahead and give her 40 of Solu-Medrol now and see how she responds to it. 3. Acute respiratory failure. The patient is doing better, oxygen demand is lower. She is actually on room air now and saturating well. PLAN: 1. Solu-Medrol 40 mg IV now. 2. Await results of neurology consult. 3. Consideration for stopping antibiotics. 4. Continue to follow through hospitalization.
[2016-10-30] MEDS: LEVOFLOXACIN 250MG / D5W IV SCH (12:42)
--- NOTE | 2016-10-30 14:26 | Neurology Consultation ---
Neurology Consultation Date of Consultation: Oct 30, 2016. Attending Physician: Kingston Cantu M.D. Primary Care Physician: Kee Riley D.O. Reason for Consultation: SAH 1 year ago ? restart anticoagulation History of Present Illness Source: patient Desiree is a 80 year old with PMH COPD, past tobacco abuse, HTN, dementia, hypothyroidism, polymyalgia rheumatica,subarachnoid hemorrhage, atrial fib, off anticoagulation because of fall risk and subarachnoid hemorrhage. after an acute respiratory issues she was discharged to a longterm facility, now readmitted with several days of progressively worsening cough, shortness of breath, and fever. Was brought to the hospital on found on chest x-ray, to have evidence of new infiltrate in the left lower lobe. She was started on broad-spectrum antibiotic therapy with vancomycin, imipenem, levofloxacin, and clindamycin. Blood cultures have been negative to date. There is report of possible difficulty with swallowing certain foods and liquids. She continued to have SOB and had a CT Chest which showed multiple vessel PE. Currently she is lying in bed with audible wheezing. She states she has been having breathing treatments all day. She has been out of bed walking. 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 denies CP, N, V, vision changes, weakness, numbness tingling. Past Medical/Surgical History Medical Problems: (1) Asthma exacerbation Status: Acute (2) Bronchitis Status: Acute (3) Bronchospasm Status: Acute (4) Dizziness Status: Chronic (5) Dyspnea Status: Acute (6) Hypoxia Status: Acute (7) Influenza-like illness Status: Acute (8) Pneumonia Status: Acute (9) Respiratory distress Status: Acute (10) Respiratory distress Status: Acute Social History Smoking Status: Former smoker Marital Status: Housing Status: lives alone Occupation Status: retired Allergies Coded Allergies: Adhesives (Verified Allergy, Severe, RED/SWOLLEN, 10/28/16) Codeine (Verified Allergy, Unknown, TOLERATED MORPHINE, 10/28/16) Erythromycin (Verified Allergy, Unknown, `, 10/28/16) Penicillins (Verified Allergy, Unknown, 10/28/16) Sulfamethoxazole (Verified Allergy, Unknown, 10/28/16) Current Inpatient Medications Current Inpatient Medications Medications (Trade) Dose Ordered Sig/Ally Route Start Time Stop Time Status Last Admin Dose Admin Acetaminophen (Tylenol Tab) 650 mg Q4H PRN PO 10/28/16 06:45 11/27/16 06:44 10/29/16 19:54 650 MG Nitroglycerin (Nitrostat Tab) 0.4 mg UD PRN SL 10/28/16 06:45 11/27/16 06:44 Aspirin (Ecotrin Tab) 81 mg DAILY PO 10/28/16 09:00 11/27/16 08:59 10/30/16 08:01 81 MG Diltiazem HCl (Dilacor Xr Cap) 120 mg QAM PO 10/28/16 09:00 11/27/16 08:59 10/30/16 07:58 120 MG Lorazepam (Ativan Tab) 0.5 mg Q8 PRN PO 10/28/16 06:45 11/27/16 06:44 10/30/16 08:00 0.5 MG Montelukast Sodium (Singulair Tab) 10 mg HS PO 10/28/16 21:00 11/27/16 20:59 10/29/16 19:54 10 MG Sertraline HCl (Zoloft Tab) 100 mg DAILY PO 10/28/16 09:00 11/27/16 08:59 10/30/16 08:02 100 MG Guaifenesin (Mucinex Contr Rel Tab) 600 mg Q12 PO 10/28/16 21:00 11/27/16 20:59 10/30/16 08:01 600 MG Ondansetron HCl (Zofran Inj) 4 mg Q6H PRN IV 10/28/16 06:45 11/27/16 06:44 Tramadol HCl (Ultram Tab) 25 mg Q6H PRN PO 10/28/16 06:45 11/27/16 06:44 Morphine Sulfate (MoRPHine SULFATE INJ) 4 mg Q6H PRN IV 10/28/16 06:45 11/11/16 06:44 Vancomycin HCl (Consult) 1 ea UD PRN N/A 10/28/16 07:15 11/27/16 07:14 Ipratropium [place] (Atrovent 0.02% 0.5MG/2.5ML Neb) 0.5 mg Q6R INH 10/28/16 09:00 11/27/16 08:59 10/30/16 07:24 0.5 MG Levalbuterol 1.25 mg 1.25 mg Q6R INH 10/28/16 09:00 11/27/16 08:59 10/30/16 07:24 1.25 MG Imipenem/ Cilastatin Sodium 300 mg/Dextrose 106 ml @ 100 mls/hr Q6H IV 10/28/16 14:00 11/04/16 10:44 10/30/16 13:47 100 MLS/HR Levofloxacin/Prmx (Levaquin / D5W/ Premixed D5W) 50 ml @ 50 mls/hr Q24H IV 10/29/16 12:00 11/03/16 12:59 10/30/16 12:42 50 MLS/HR Levalbuterol (Xopenex 0.63 Mg/ 3 Ml Neb) 0.63 mg Q3R PRN INH 10/28/16 15:45 11/27/16 15:44 10/29/16 00:26 0.63 MG Ioversol 100 ml 100 ml UD PRN IV 10/28/16 22:15 11/01/16 22:14 Heparin Sodium/ Dextrose (Heparin 25,000 Unit/500ml D5W) 500 ml @ 12 mls/hr Q24H PRN IV 10/28/16 23:45 11/27/16 23:44 10/28/16 23:59 12 MLS/HR Prednisone 40 mg 40 mg BID PO 10/29/16 21:00 11/28/16 20:59 10/30/16 08:02 40 MG Vancomycin HCl/ Sodium Chloride (Vancomycin Inj/ Nss 250ml) 270 ml @ 125 mls/hr Q12@1000,2200 IV 10/30/16 22:00 11/04/16 02:00 Physical Exam Vital Signs (Past 24 Hrs): Date Time Temp Pulse Resp B/P Pulse Ox O2 Delivery O2 Flow Rate FiO2 10/30/16 12:00 94 Room Air 10/30/16 10:40 36.4 93 20 146/69 96 Room Air 10/30/16 08:37 Room Air 10/30/16 08:00 94 Room Air 10/30/16 07:24 102 18 93 Room Air 10/30/16 04:10 36.6 105 20 137/68 94 Room Air 10/30/16 04:00 94 Room Air 10/30/16 02:26 78 18 94 Room Air 10/30/16 00:00 95 Room Air 10/29/16 23:45 36.7 96 20 153/67 95 Room Air 10/29/16 20:34 74 18 97 Nasal Cannula 2.0 10/29/16 20:00 97 Room Air 10/29/16 19:54 36.6 80 18 134/65 99 10/29/16 16:00 97 Room Air 10/29/16 15:58 36.7 86 20 122/61 97 Nasal Cannula 2.0 10/29/16 14:10 79 16 96 Nasal Cannula 2.0 Physical Exam: Constitutional: appearance nourished, healthy and normal Ears, Nose, Mouth and Throat: mucous membranes moist, no injection and skin normal, eyes normal Cardiovascular: irregular Respiratory: expiratory wheezing throughout harsh breath sounds Musculoskeletal: no peripheral edema Skin: no stigmata of neurocutaneous disease noted and normal and intact Eyes: extraocular muscles intact (EOMI) and pupils equal, round and reactive to light (PERRL) miotic NEUROLOGIC EXAMINATION: Mental status: Alert and interactive Oriented she does not now where she is but when told [facility] she states yes. she doesn't know where she lives but states "I have no where to live they sold my house" Oriented to person Speech fluent with no evidence of aphasia Cranial Nerves eye brow raise and smile symmetric Reflexes: Deep tendon reflexes were symmetrical and graded 2/5. Plantar responses were flexor. Sensory: no sensory deficits, to cool or light touch Coordination: finger to nose with no bipass Gait/Stance: Posture lying in bed but sits up with no difficulty with request Motor: Negative for pronator drift of out stretched arms with eyes closed. Strength: biceps triceps deltoids hand coal washer tender 5/5 bilaterally, hip flex plantar flex ext ( was walking to bathroom with minimal assistance prior to exam) Laboratory Results Past 24 Hours: Test 10/30/16 04:40 10/30/16 09:40 Activated Partial Thromboplast Time 49.2 SECONDS (21.0-31.0) Partial Thromboplastin Ratio 1.9 Vancomycin Level Trough 5.4 mcg/ml (SEE COMMENT) Imaging TTE-Aortic valve sclerosis mild, without significant aortic valvular stenosis. A complete two-dimensional transthoracic echocardiogram was performed (2D, M- mode, Doppler and color flow Doppler). Left Ventricle * The left ventricle is normal in size. * There is normal left ventricular wall thickness. * Ejection Fraction = 65-70%. * The left ventricular wall motion is normal. Right Ventricle * The right ventricle is normal in size and function. Atria * The left atrium is mildly dilated. * The right atrium is mildly dilated. * No ASD detected; PFO is not assessed. CT Chest/A/P-. Multiple segmental pulmonary emboli within visualized portions of the lower chest with a left lower lobe pulmonary infarct and small left pleural effusion. No acute process within the abdomen or pelvis. Study mildly compromised by motion artifact. Extensive sigmoid diverticulosis without evidence for acute diverticulitis. doppler bilateral LE -There is no sonographic evidence of deep venous thrombosis identified in the right or left lower extremity. Impression 80 year old female with extensive PMH ? anticoagulation due to afib and fall risk Plan 1. SAH was traumatic and not a contra indication to coumadin therapy 2. afib she has been off the anticoagulation due to fall risk by another provider 3. currently on aspirin 81 mg moderate substitute for coumadin heparin is currently provided for bridge 4. no DVT LE but PE is present and currently being treated with heparin 5. If she continues to be a fall risk /risk benefit of restarting coumadin should be evaluated in the setting of a fib 6. a IVC filter would not help with emboli from her a fib but would help with any pelvic source of emboli 7. fall risk should be evaluated by provider that is more aware of patients activity level and prior risk of falls 8. PT/OT would be helpful for evaluation I have seen and discussed above patient with Dr Hien Britton, neurology Pt seen and examined. PT with PE, prior traumatic SAH 2013 at which time pt was in new afib and anticoagulants not chosen for stroke prophylaxis. Pt awake alert , fair historian ( several recent hosp for syncope, pt does not recall any history of falls). Ox2, memory 0/3 at 3 min. Fine head and intention tremor. Gait mildly wide based, required the assistance of 2 and mildly off balanced. Proprio intact at toes. Pt hx of traumatic SAH while not on anticoagulants is not a contraindication to anticoagulants. Pt appears mildly unsteady and appears to have at least mild cognitive impairment making her seemingly a poor candidate for anticoagulation. I do not know what pt is at baseline and defer to those who know her better regarding her fall risk and AC candidacy. Will sign off, IRVING Britton MD
[2016-10-30] MEDS: HEPARIN 25,000 UNIT/500ML D5W 500 ML IV PRN (19:00)
[2016-10-30] MEDS: MONTELUKAST SOD 10 MG TAB PO SCH (20:25)
[2016-10-31] VITALS (16 sets, daily range): BP systolic 126–158; BP diastolic 70–82; PULSE 77–106; TEMP 36.3–37; O2SAT 92–98
[2016-10-31] MEDS: IMIPENEM/CILASTATIN IV 300 MG in DEXTROSE 5% 100ML 100 ML IV SCH ×4 (02:38→20:04)
[2016-10-31] MEDS: IPRATROPIUM BROMIDE NEB SOLN 0.02% 2.5 ML VIAL INH SCH ×5 (03:30→19:54)
[2016-10-31] MEDS: LEVALBUTEROL 1.25MG/0.5ML NEB INH SCH ×5 (03:30→19:54)
[2016-10-31 05:33] LABS: HEMATOCRIT 29.4 % (37-47); MEAN CELL VOLUME 94.2 fL (80-100); MEAN CORPUSCULAR HEMOGLOBIN 32.4 pg (25-34); MEAN CORPUSCULAR HGB CONC 34.4 g/dl (32-36); MEAN PLATELET VOLUME 9.2 fL (7.4-10.4); PLATELET COUNT 169 K/uL (130-400); RED BLOOD COUNT 3.12 M/uL (4.2-5.4)
[2016-10-31 05:54] LABS: PARTIAL THROMBOPLASTIN RATIO 2.1
[2016-10-31 05:56] LABS: BUN/CREATININE RATIO 27.2 (10-20); CREATININE 0.73 mg/dl (0.60-1.20); POTASSIUM 3.6 mmol/L (3.5-5.1)
[2016-10-31] MEDS ORDERED: COUGH DROP (SUGAR FREE) LOZ 24 LOZ/1 BOX ONE (08:28)
[2016-10-31] MEDS: SERTRALINE HCL 50 MG TAB PO SCH (08:33)
[2016-10-31] MEDS: GUAIFENESIN 600 MG TABCR PO SCH ×2 (08:33→21:08)
[2016-10-31] MEDS: ASPIRIN 81 MG ECTAB PO SCH (08:33)
[2016-10-31] MEDS: DILTIAZEM HCL 120 MG ER CAP PO SCH (08:34)
[2016-10-31] MEDS: VANCOMYCIN INJ 1,000 MG in SODIUM CHLORIDE 0.9% 250ML 250 ML IV SCH ×2 (10:00→21:37)
[2016-10-31] MEDS ORDERED: GUAIFENESIN 600 MG TABCR PO ONE (10:57)
[2016-10-31] MEDS ORDERED: FUROSEMIDE 40 MG/4 ML VIAL ONE (11:47)
[2016-10-31] MEDS: LEVOFLOXACIN 250MG / D5W IV SCH (11:53)
[2016-10-31] MEDS ORDERED: FUROSEMIDE INJ 40 MG in SYRINGE 0 ML IV ONE (12:00)
[2016-10-31] MEDS ORDERED: METHYLPREDNISOLONE IV 40 MG in SYRINGE 0 ML IV ONE (12:00)
--- NOTE | 2016-10-31 12:07 | DIAGNOSTIC IMAGING REPORT ---
CHEST ONE VIEW PORTABLE HISTORY: Cough, wheeze LLL changes. COMPARISON: Chest 10/28/2016. FINDINGS: Left lower lobe consolidation persists. There are trace bilateral pleural effusions. No pneumothorax. The heart remains borderline enlarged. There is a left shoulder prosthesis. Severe degenerative changes within the right shoulder. IMPRESSION: 1. Persistent left lower lobe consolidation. This favors a pulmonary infarct based on the prior examinations. 2. Trace bilateral pleural effusions. Electronically signed by: Marcus Handley M.D. 10/31/2016 12:06 PM Dictated Date/Time: 10/31/2016 12:04 PM
--- NOTE | 2016-10-31 12:21 | PROGRESS NOTE ---
DATE: 10/31/2016 DATE: 10/31/2016. PROBLEM LIST: Includes: 1. Pulmonary embolism. 2. Pulmonary infarct. 3. Pneumonia. SUBJECTIVE: The patient reports that she is actually feeling a bit worse today. She states that her chest is a little bit more tight. She is wheezing a little bit more. She has a little bit of increased cough. She states that she is not feeling horrible but she has noticed a decline. She states that her cough is mostly dry. She is not really able to expectorate any mucus at this time. She has no chest pain or abdominal pain. She has not had any fever or chills that she is aware of. No headache or lightheadedness. No drainage. No GI symptoms. No nausea or vomiting. No problems with ingestion or heartburn, no diarrhea. She is not having any swelling in her extremities. She has not having any difficulty with pain in her extremities. No numbness, tingling or weakness in her extremities. OBJECTIVE: GENERAL: The patient is an 81-year-old female lying in bed in no acute distress, no respiratory distress. She is alert and oriented x3. Mood is good. Affect is good. VITAL SIGNS: Temp 36.8, pulse 106, respirations 20, blood pressure 158/79, pulse ox 94% on room air. HEAD, EYES, EARS, NOSE, AND THROAT: Normocephalic, atraumatic. Pupils equal, round and reactive to light and accommodation. Extraocular movements are intact. [place] moist gingival and buccal mucosa. NECK: Short neck. No mass. No adenopathy. No bruit. CHEST: She has diffuse wheezing throughout. No rale or rhonchi noted. Fair air movement throughout. CARDIOVASCULAR: Irregularly irregular. There are no murmurs, gallops or rubs appreciated. ABDOMEN: Bowel sounds are present. Abdomen soft, nontender. No guarding, rigidity or organomegaly. EXTREMITIES: No erythema or edema. NEUROLOGIC: Cranial nerves II through XII are intact. No focal deficit noted. LABORATORY DATA: Show a white count of 11,000, H\T\H 10.1 and 29.4, platelet count of 169,000. Looking back on her weight she did have a 3.5 kilogram increase from 15th to 16th. No new radiologic data. IMPRESSION: This is an 81-year-old female who presented with shortness of breath and exacerbation of COPD who looks to also have bilateral pulmonary emboli with a left pulmonary infarction. When I first saw her, she was actually making improvement; however, over the past 24 hours there has been a decline in her breathing. She is having increased wheezing. At this time I would like for her to go back on IV Solu-Medrol. We will stop prednisone. Will start her on 40 mg q. 8 hours with a stat dose now. I will start her on Mucinex 600 mg b.i.d. I want her nebulizers to be switched to q. 4 hours while awake. I want her to have a chest x-ray today. In regards to her pulmonary emboli after our discussion with Dr. Gill and reviewing the neurologist's note and discussion with Dr. Cantu it was felt that the patient is too much of a fall risk to potentially be on anticoagulation; therefore we will put a consult in for vascular to see if they feel that a filter would be appropriate for this patient as we have not identified the source of the pulmonary emboli. I have discussed the possibility of doing a CT angiogram of the chest with Dr. Gill however at this time I will hold off. Also would like to do a ProBNP as patient has had a 3.5 kilogram weight change from the 15th to the 16th . Question if this maybe is fluid. I will await and see what the chest x-ray shows but the patient might benefit from some Lasix if this does look like fluid overload problem, will continue to follow through hospitalization. Went back to evaluate the patient and she was still having some difficulty and nursing reported that she was having some problems. I ordered 40 mg of lasix IV to be given. Will continue to monitor. MTDD
[2016-10-31] MEDS ORDERED: NURSING VERBAL MED ORDER ONE (12:30)
--- NOTE | 2016-10-31 13:18 | Surgery Consultation ---
Consultation Date of Service Oct 31, 2016. Chief Complaint PE, unstable gait with frequent falls History of Present Illness The patient is a 81 year old female who has bilateral PE on CT scan. Her lower extremity USN was neg for clot. She does however have frequent falls and is unstable in her gait. Her anticoagulation for her afib was stopped due to her falling history. Vitals Vital Signs Past 12 Hours Date Time Temp Pulse Resp B/P Pulse Ox O2 Delivery O2 Flow Rate FiO2 10/31/16 12:06 94 Nasal Cannula 3.0 10/31/16 11:18 36.9 97 20 139/75 97 2.0 10/31/16 11:15 88 20 96 Nasal Cannula 2.0 10/31/16 08:05 95 Nasal Cannula 3.0 10/31/16 07:49 36.8 106 20 158/79 94 Room Air 10/31/16 07:19 84 20 94 Room Air 10/31/16 04:00 36.7 102 18 156/70 95 Room Air 10/31/16 04:00 Room Air 10/31/16 03:30 82 18 94 Room Air Allergies Coded Allergies: Adhesives (Verified Allergy, Severe, RED/SWOLLEN, 10/28/16) Codeine (Verified Allergy, Unknown, TOLERATED MORPHINE, 10/28/16) Erythromycin (Verified Allergy, Unknown, `, 10/28/16) Penicillins (Verified Allergy, Unknown, 10/28/16) Sulfamethoxazole (Verified Allergy, Unknown, 10/28/16) Home Medications Scheduled Aspirin (Aspirin 81), 81 MG PO DAILY Budesonide/Formoterol Fumarate (Symbicort 160-4.5 Mcg/Act), 2 PUFFS INH BID Diltiazem HCl (Diltiazem HCl ER), 120 MG PO QAM Guaifenesin Ext Rel (Mucinex Ext Rel), 600 MG PO Q12 Montelukast Sod (Montelukast Sodium), 10 MG PO HS Polyethylene Glycol 3350 (Miralax), 17 GM PO DAILY Prednisone Tab (Prednisone), 10 MG PO UD Sertraline (Zoloft), 100 MG PO DAILY Witch Dariana (Hamamelis Virgini (Tucks Medicated Cooling), 1 APPLN EXT UD Scheduled PRN Acetaminophen (Tylenol), 650 MG PO Q8 PRN for Pain or Fever Ipratropium [place] (Ipratropium [place]), 0.5 MG INH Q6 PRN for SOB/Wheezing Levalbuterol (Levalbuterol HCl), 0.63 MG INH Q6 PRN for SOB/Wheezing Loperamide Hcl (Anti-Diarrheal), 2 MG PO Q4 PRN for Diarrhea Lorazepam (Ativan), 0.5 MG PO Q8 PRN for Anxiety/Agitation Problem List Medical Problems: (1) Afib (2) Alzheimer's disease, unspecified (3) Asthma exacerbation (4) Ataxia (5) Benign essential hypertension (6) Dizziness (7) History of subarachnoid hemorrhage (8) Hypothyroidism, unspecified (9) Polymyalgia rheumatica (10) Respiratory failure, acute (11) SAH (subarachnoid hemorrhage) (12) Syncope (13) Unspecified asthma Surgical Problems: (1) H/O tubal ligation (2) S/P appendectomy (3) S/P hysterectomy Surgical / Medical History Hx Cardiac Surgery: No Hx Abdominal Surgery: Yes (hysterectomy) Hx Cancer Surgery: No Hx Thoracic Surgery: No Hx Orthopedic: Yes (Lt shoulder surgery ) Hx Urinary Tract Surgery: No HX Other Surgery: No Past Medical/Surgical History: COPD, Hypertension, Other Psy. Disorders, Pulmonary Emboli, Thyroid Disease, Other (polymalgia rheumatica,dementia, afib) Family History Patient reports no known family medical history. Social History Smoking Status: Former Smoker (pt denies) Hx Tobacco Use In Past Year?: No Hx Alcohol Use - Type & Amnt: No Hx Substance Use -Type & Amnt: No Review of Systems Constitutional: No chills, No diaphoresis, No fatigue, No fever, No malaise, No problem reported, No sweats, No weakness, No weight gain, No weight loss Respiratory: + short of breath Cardiovascular: No chest pain, No chest pressure, No chest tightness, No cyanosis, No diaphoresis, No edema, No intermittent claudication, No lightheadedness, No mumur, No orthopnea, No palpitations, No paroxysmal nocturnal dyspnea, No problem reported, No syncope Gastrointestinal: No abdominal pain, No anorexia, No appetite changes, No belching, No constipation, No diarrhea, No dysphagia, No flatulence, No food intolerance, No heartburn, No hematemesis, No hematochezia, No hemorrhoids, No indigestion, No nausea, No problem reported, No rectal bleeding, No stool changes, No vomiting Physical Exam Constitutional: General Apperance: heathly-appearing, well-nourished, well-developed Level of Distress: NAD Ambulation: limited ambulation Psychiatric: Mental Status: active & alert, normal mood, normal affect Orientation: not oriented to time, not oriented to place, not oriented to person Neck: supple Lungs: Auscultation: breath sounds normal, deminished air movement, inspiratory wheezing, expiratory wheezing Cardiovascular: Heart Auscultation: RRR Peripheral Pulses: Carotid Pulse: normal on the left, normal on the right Radial Pulse: normal on the left Femoral Pulse: normal on the left, normal on the right Abdomen: Inspection & Palpation: soft Musculoskeletal: normal Extremities: Upper Right: no cyanosis, no edema, no varicosities, no palpable cord, no clubbing, no ulcers, no mottling Upper Left: no cyanosis, no edema, no palpable cord, no clubbing, no ulcers , no mottling Lower Right: no cyanosis, no edema, no varicosities, no palpable cord, no clubbing, no ulcers, no mottling Lower Left: no cyanosis, no edema, no varicosities, no palpable cord, no clubbing, no ulcers, no mottling Neurologic: Gait & Station: pertinent finding (unsteady) Cranial Nerves: grossly intact Sensation: grossly intact Assessment and Plan Imp: Bilateral PE Inability to anticoagulate due to unstable gait Plan: Would recommend placement of an IVC filter in view of bilateral PE's if she is not going to be discharged on oral anticoagulation. Due to her neg lower extremity doppler study, the clots may have come from the pelvis. Will discuss this with her daughter. Will plan on next week being she is SOB and wheezing today. Thank you very much for letting me participate in the care of this patient.
[2016-10-31] MEDS: LORAZEPAM 0.5 MG TAB PO PRN (17:18)
--- NOTE | 2016-10-31 17:47 | Progress Note ---
Medicine Progress Note Date & Time of Visit: Oct 31, 2016 at 17:32. Subjective Pt was seen and examined lying in bed with mild respiratory distress Pt said that her breathing feels worst today she denies any chest pain, palpitation and dizziness Objective Last 8 Hrs Date Time Temp Pulse Resp B/P Pulse Ox O2 Delivery O2 Flow Rate FiO2 10/31/16 16:08 37.0 100 22 136/80 97 Nasal Cannula 3.0 10/31/16 16:02 97 Nasal Cannula 3.0 10/31/16 15:32 77 12 96 Nasal Cannula 2.0 10/31/16 12:06 94 Nasal Cannula 3.0 10/31/16 11:18 36.9 97 20 139/75 97 2.0 10/31/16 11:15 88 20 96 Nasal Cannula 2.0 Physical Exam: General-mild respiratory distress Head- atraumatic Eyes- PERRL, EOMI ENT- oropharynx clear Neck- supple, no JVD Lungs- +wheezing Heart- tachycardia Abdomen- normal bowel sounds, soft Extremities- no calf tenderness Neuro- alert, awake, PERRL, EOMI Skin- warm & dry Laboratory Results: Last 24 Hours Test 10/31/16 05:00 White Blood Count 11.80 K/uL Red Blood Count 3.12 M/uL Hemoglobin 10.1 g/dL Hematocrit 29.4 % Mean Corpuscular Volume 94.2 fL Mean Corpuscular Hemoglobin 32.4 pg Mean Corpuscular Hemoglobin Concent 34.4 g/dl RDW Standard Deviation 49.5 fL RDW Coefficient of Variation 14.4 % Platelet Count 169 K/uL Mean Platelet Volume 9.2 fL Activated Partial Thromboplast Time 53.7 SECONDS Partial Thromboplastin Ratio 2.1 Sodium Level 140 mmol/L Potassium Level 3.6 mmol/L Chloride Level 104 mmol/L Carbon Dioxide Level 26 mmol/L Anion Gap 10.0 mmol/L Blood Urea Nitrogen 20 mg/dl Creatinine 0.73 mg/dl Est Creatinine Clear Calc Drug Dose 46.7 ml/min Estimated GFR () 88.9 Estimated GFR (Non- 76.7 BUN/Creatinine Ratio 27.2 Random Glucose 196 mg/dl Calcium Level 8.0 mg/dl Pro-B-Type Natriuretic Peptide 3475 pg/ml Assessment & Plan Acute respiratory failure Possible related to healthcare associated pneumonia vs to asthma exacerbation VS PE CXR showed Focal infiltrate left base CTA thorax done on 10/29 showed Multiple segmental pulmonary emboli Not quite sure if the infiltrates seen on the chest xray was the pulmonary infarct seen on CT MRSA positive discussed with pulmonary recommended to change po prednisone to IV solumedrol since wheezing get worst Lasix was given and she is diuresis well Repeat CXR showed Persistent left lower lobe consolidation Mucinex was added for the cough ID an pulmonary on board On Primaxin, levaquin and Vanco iv continue neb treatment Pulmonary Emboli CT abd/pelvis showed multiple segmental pulmonary emboli within visualized portions of the lower chest with a left lower lobe pulmonary infarct and small left pleural effusion Continue Heparin drip for now Corrected my previous note about anticoagulant, I spoke to her daughter, she confirmed that pt was never on anticoagulant in the past. Not a good candidate for anticoagulant in the past due to risk of fall and subarachnoid hemorrhage back 08/27 after a fall at the [employer] Pulmonary on board recommends to continue current therapy After discussing with pulmonary team, we decide to consult Neuro to evaluate if pt is a good candidate for anticoagulant therapy since she had a subarachnoid hemorrhage 08/27. 10/31 Unsteady gait as per physical therapist. NO source identified for the pulmonary embolie Vascular consulted since pt will not be discharge on anticoagulant due to fall risk for possible an IVC filter Case discussed with dr. Brock, will possible placed the IVC filter next week once pt is stable Hypertension stable Continue monitor BP Atrial fibrillation Rate controlled Continue diltiazem Not on anticoagulant due to falls risk and hx of subarachnoid hemorrhage from a fall on 08/27 CT abd/pelvis showed multiple segmental pulmonary emboli Echo Normal biventricular systolic function. * Mild biatrial dilatation. * Trace aortic regurgitation. 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 Mild mitral regurgitation. * Trace tricuspid regurgitation. Dementia Stable DVT px on heparin drip CODE STATUS DNR Consultants: ID Pulmonary Current Inpatient Medications: Current Inpatient Medications Medications (Trade) Dose Ordered Sig/Ally Route Start Time Stop Time Status Last Admin Dose Admin Acetaminophen (Tylenol Tab) 650 mg Q4H PRN PO 10/28/16 06:45 11/27/16 06:44 10/29/16 19:54 650 MG Nitroglycerin (Nitrostat Tab) 0.4 mg UD PRN SL 10/28/16 06:45 11/27/16 06:44 Aspirin (Ecotrin Tab) 81 mg DAILY PO 10/28/16 09:00 11/27/16 08:59 10/31/16 08:33 81 MG Diltiazem HCl (Dilacor Xr Cap) 120 mg QAM PO 10/28/16 09:00 11/27/16 08:59 10/31/16 08:34 120 MG Lorazepam (Ativan Tab) 0.5 mg Q8 PRN PO 10/28/16 06:45 11/27/16 06:44 10/31/16 17:18 0.5 MG Montelukast Sodium (Singulair Tab) 10 mg HS PO 10/28/16 21:00 11/27/16 20:59 10/30/16 20:25 10 MG Sertraline HCl (Zoloft Tab) 100 mg DAILY PO 10/28/16 09:00 11/27/16 08:59 10/31/16 08:33 100 MG Guaifenesin (Mucinex Contr Rel Tab) 600 mg Q12 PO 10/28/16 21:00 11/27/16 20:59 10/31/16 08:33 600 MG Ondansetron HCl (Zofran Inj) 4 mg Q6H PRN IV 10/28/16 06:45 11/27/16 06:44 Tramadol HCl (Ultram Tab) 25 mg Q6H PRN PO 10/28/16 06:45 11/27/16 06:44 Morphine Sulfate (MoRPHine SULFATE INJ) 4 mg Q6H PRN IV 10/28/16 06:45 11/11/16 06:44 Vancomycin HCl 1 ea 1 ea UD PRN N/A 10/28/16 07:15 11/27/16 07:14 Imipenem/ Cilastatin Sodium 300 mg/Dextrose 106 ml @ 100 mls/hr Q6H IV 10/28/16 14:00 11/04/16 10:44 10/31/16 14:00 100 MLS/HR Levofloxacin/Prmx (Levaquin / D5W/ Premixed D5W) 50 ml @ 50 mls/hr Q24H IV 10/29/16 12:00 11/03/16 12:59 10/31/16 11:53 50 MLS/HR Ioversol 100 ml 100 ml UD PRN IV 10/28/16 22:15 11/01/16 22:14 Heparin Sodium/ Dextrose 500 ml @ 12 mls/hr Q24H PRN IV 10/28/16 23:45 11/27/16 23:44 10/30/16 19:00 12 MLS/HR Vancomycin HCl/ Sodium Chloride (Vancomycin Inj/ Nss 250ml) 270 ml @ 125 mls/hr Q12@1000,2200 IV 10/30/16 22:00 11/04/16 02:00 10/31/16 10:00 125 MLS/HR Ipratropium [place] (Atrovent 0.02% 0.5MG/2.5ML Neb) 0.5 mg Q4RWA INH 10/31/16 12:00 11/30/16 11:59 10/31/16 15:32 0.5 MG Levalbuterol 1.25 mg 1.25 mg Q4RWA INH 10/31/16 12:00 11/30/16 11:59 10/31/16 15:32 1.25 MG Methylprednisolone Sodium Succinate/ Syringe (Solu-Medrol IV/ Syringe) 0.64 ml @ 1.5 mls/min Q8H IV 10/31/16 20:00 11/30/16 19:59
[2016-10-31] MEDS: METHYLPREDNISOLONE IV 40 MG in SYRINGE 0 ML IV SCH (20:04)
[2016-10-31] MEDS ORDERED: GUAIFENESIN 600 MG TABCR PO SCH (21:00)
[2016-10-31] MEDS: MONTELUKAST SOD 10 MG TAB PO SCH (21:08)
[2016-11-01] VITALS (11 sets, daily range): BP systolic 113–150; BP diastolic 67–81; PULSE 96–112; TEMP 36.4–36.8; O2SAT 96–99
[2016-11-01] MEDS ORDERED: POTASSIUM CHLORIDE 20 MEQ TABCR PO ONE ×3 (01:00→23:00)
[2016-11-01] MEDS: IMIPENEM/CILASTATIN IV 300 MG in DEXTROSE 5% 100ML 100 ML IV SCH ×4 (02:10→20:28)
[2016-11-01] MEDS: METHYLPREDNISOLONE IV 40 MG in SYRINGE 0 ML IV SCH ×3 (03:39→20:28)
[2016-11-01 04:55] LABS: BASO % 0.1 %; BASO ABS # 0.01 K/uL (0-0.2); COMPLETE YES; HEMATOCRIT 30.4 % (37-47); IG% 4.1 %; LYMPH % 4.2 %; LYMPH ABS # 0.46 K/uL (1.2-3.4); MEAN CELL VOLUME 91.3 fL (80-100); MEAN CORPUSCULAR HEMOGLOBIN 32.1 pg (25-34); MEAN CORPUSCULAR HGB CONC 35.2 g/dl (32-36); MEAN PLATELET VOLUME 8.9 fL (7.4-10.4); MONO % 4.1 %; NEUT % 87.5 %; PLATELET COUNT 159 K/uL (130-400); RED BLOOD COUNT 3.33 M/uL (4.2-5.4)
[2016-11-01] MEDS: LEVALBUTEROL 1.25MG/0.5ML NEB INH SCH ×4 (07:10→19:30)
[2016-11-01] MEDS: IPRATROPIUM BROMIDE NEB SOLN 0.02% 2.5 ML VIAL INH SCH ×4 (07:10→19:30)
[2016-11-01] MEDS: SERTRALINE HCL 50 MG TAB PO SCH (08:37)
[2016-11-01] MEDS: GUAIFENESIN 600 MG TABCR PO SCH ×2 (08:37→20:29)
[2016-11-01] MEDS: ASPIRIN 81 MG ECTAB PO SCH (08:37)
[2016-11-01] MEDS: DILTIAZEM HCL 120 MG ER CAP PO SCH (08:37)
[2016-11-01] MEDS ORDERED: VANCOMYCIN TROUGH ONE (09:30)
[2016-11-01] MEDS ORDERED: FUROSEMIDE INJ 20 MG in SYRINGE 0 ML IV ONE (09:45)
[2016-11-01] MEDS: VANCOMYCIN INJ 1,000 MG in SODIUM CHLORIDE 0.9% 250ML 250 ML IV SCH ×2 (10:00→22:27)
--- NOTE | 2016-11-01 11:13 | Pharmacy Progress Note ---
Pharmacy Antibiotic Prog Note Date of Service: Nov 01, 2016. Subjective: The patient is currently receiving Vancomycin 1000 mg IV every 12 hours. The patient is currently on day # 5 of Vancomycin IV therapy. Objective: Height (Feet): 4 Height (Inches): 11.00 Weight (Kilograms): 59.600 Levels: Item Value Date Time Vancomycin Level Trough 17.0 mcg/ml 11/01/16 0930 Lab Results (24hrs): Laboratory Tests Test 11/01/16 04:44 White Blood Count 10.90 K/uL Red Blood Count 3.33 M/uL Hemoglobin 10.7 g/dL Hematocrit 30.4 % Mean Corpuscular Volume 91.3 fL Mean Corpuscular Hemoglobin 32.1 pg Mean Corpuscular Hemoglobin Concent 35.2 g/dl Platelet Count 159 K/uL Mean Platelet Volume 8.9 fL Neutrophils (%) (Auto) 87.5 % Lymphocytes (%) (Auto) 4.2 % Monocytes (%) (Auto) 4.1 % Eosinophils (%) (Auto) 0.0 % Basophils (%) (Auto) 0.1 % Neutrophils # (Auto) 9.53 K/uL Lymphocytes # (Auto) 0.46 K/uL Monocytes # (Auto) 0.45 K/uL Eosinophils # (Auto) 0.00 K/uL Basophils # (Auto) 0.01 K/uL Micro Results: Item Value Date Time MRSA DNA Surveillance Screen - Final Complete 10/28/16 1040 Nasal Specimen Positive for MRSA by DNA Probe Blood Culture - Preliminary Resulted 10/28/16 0418 Blood NO GROWTH TO DATE. Blood Culture - Preliminary Resulted 10/28/16 0409 Blood NO GROWTH TO DATE. Assessment & Plan: Assessment * 80 y/o on empiric IV Vancomycin, Primaxin (not a consult), and Levaquin (not a consult) for HAP. ID is also following the patient. * Goal Vancomycin trough 15-20 mcg/mL * Trough level on 11/01 @ 0930 (appropriately drawn) of 17 mcg/mL is within the therapeutic range * She appears to be eliminating Vancomycin more rapidly than anticipated based on her renal function and age. Plan * Continue Vancomycin 1000mg IV q12 * Recheck trough level on 11/02 @ 30 to make sure patient is not accumulating drug and remains within the therapeutic range Pharmacy will continue to follow and will adjust dose/frequency as necessary. Thank you
[2016-11-01] MEDS: BENZONATATE 100MG CAP PO PRN ×2 (12:20→17:00)
[2016-11-01] MEDS: LEVOFLOXACIN 250 MG TAB PO SCH (12:20)
[2016-11-01] MEDS: LORAZEPAM 0.5 MG TAB PO PRN (12:40)
--- NOTE | 2016-11-01 16:23 | Pulmonology Progress Note ---
Pulmonary Progress Note Date of Service Nov 01, 2016. Attending Wilder Kulkarni Objective Chest x-ray 10/31/2016: Hyperlucent, confluence of shadows versus infiltrate in the left lower lobe, scarring along the minor fissure on the right side, parabronchial cuffing Bilateral lower extremity DVT study: 08/28/2017--no signs of DVT CT abdomen and pelvis to 2016: oMultiple subsegmental pulmonary embolism within the visualized portion of the left lower lobe with associated infarction, infiltrate and pleural effusion Echocardiogram: oLV: LVH, EF=65-70% oRV: WNL Assessment & Plan 1. Pulmonary Embolism: The pulmonary literature believes that an ICH especially a recent one is an absolute contra-indication for anti-coagulation. At this time I will order bilateral upper extremity DVT studies and if they are negative then one again per the pulmonary literature we are to place an IVC filter even if the bilateral lower DVT studies are negative. 2. COPD: Continue current regeim and wean off IV steroids RIKA. Data Medications: Current Inpatient Medications Medications (Trade) Dose Ordered Sig/Ally Route Start Time Stop Time Status Last Admin Dose Admin Acetaminophen (Tylenol Tab) 650 mg Q4H PRN PO 10/28/16 06:45 11/27/16 06:44 10/29/16 19:54 650 MG Nitroglycerin (Nitrostat Tab) 0.4 mg UD PRN SL 10/28/16 06:45 11/27/16 06:44 Aspirin (Ecotrin Tab) 81 mg DAILY PO 10/28/16 09:00 11/27/16 08:59 11/01/16 08:37 81 MG Diltiazem HCl (Dilacor Xr Cap) 120 mg QAM PO 10/28/16 09:00 11/27/16 08:59 11/01/16 08:37 120 MG Lorazepam (Ativan Tab) 0.5 mg Q8 PRN PO 10/28/16 06:45 11/27/16 06:44 11/01/16 12:40 0.5 MG Montelukast Sodium (Singulair Tab) 10 mg HS PO 10/28/16 21:00 11/27/16 20:59 10/31/16 21:08 10 MG Sertraline HCl (Zoloft Tab) 100 mg DAILY PO 10/28/16 09:00 11/27/16 08:59 11/01/16 08:37 100 MG Guaifenesin (Mucinex Contr Rel Tab) 600 mg Q12 PO 10/28/16 21:00 11/27/16 20:59 11/01/16 08:37 600 MG Ondansetron HCl (Zofran Inj) 4 mg Q6H PRN IV 10/28/16 06:45 11/27/16 06:44 Tramadol HCl (Ultram Tab) 25 mg Q6H PRN PO 10/28/16 06:45 11/27/16 06:44 Morphine Sulfate (MoRPHine SULFATE INJ) 4 mg Q6H PRN IV 10/28/16 06:45 11/11/16 06:44 Vancomycin HCl 1 ea 1 ea UD PRN N/A 10/28/16 07:15 11/27/16 07:14 Imipenem/ Cilastatin Sodium/ Dextrose (Primaxin Iv/D5 100ml) 106 ml @ 100 mls/hr Q6H IV 10/28/16 14:00 11/04/16 10:44 11/01/16 16:00 100 MLS/HR Ioversol 100 ml 100 ml UD PRN IV 10/28/16 22:15 11/01/16 22:14 Heparin Sodium/ Dextrose 500 ml @ 12 mls/hr Q24H PRN IV 10/28/16 23:45 11/27/16 23:44 10/30/16 19:00 12 MLS/HR Vancomycin HCl/ Sodium Chloride (Vancomycin Inj/ Nss 250ml) 270 ml @ 125 mls/hr Q12@1000,2200 IV 10/30/16 22:00 11/04/16 02:00 11/01/16 10:00 125 MLS/HR Ipratropium [place] (Atrovent 0.02% 0.5MG/2.5ML Neb) 0.5 mg Q4RWA INH 10/31/16 12:00 11/30/16 11:59 11/01/16 15:53 0.5 MG Levalbuterol 1.25 mg 1.25 mg Q4RWA INH 10/31/16 12:00 11/30/16 11:59 11/01/16 15:53 1.25 MG Methylprednisolone Sodium Succinate/ Syringe (Solu-Medrol IV/ Syringe) 0.64 ml @ 1.5 mls/min Q8H IV 10/31/16 20:00 11/30/16 19:59 11/01/16 12:19 1.5 MLS/MIN Benzonatate (Tessalon Perles Cap) 100 mg TID PRN PO 11/01/16 09:15 12/01/16 09:14 11/01/16 12:20 100 MG Levofloxacin (Levaquin Tab) 250 mg DAILY@11 PO 11/01/16 12:00 11/03/16 18:00 11/01/16 12:20 250 MG I & O: 24-Hour Column 11/01/16 08:00 Intake Total 2865 ml Output Total 3500 ml Balance -635 ml Vital Signs: Date Time Temp Pulse Resp B/P Pulse Ox O2 Delivery O2 Flow Rate FiO2 11/01/16 15:22 36.6 112 19 129/73 98 Nasal Cannula 3.0 11/01/16 12:01 Nasal Cannula 3.0 11/01/16 11:15 36.6 96 16 138/74 99 2.0 11/01/16 10:59 104 20 96 Nasal Cannula 2.0 11/01/16 08:04 Nasal Cannula 3.0 11/01/16 07:51 36.4 98 18 150/81 99 2.0 11/01/16 07:10 98 14 99 Nasal Cannula 2.0 11/01/16 04:00 Nasal Cannula 3.0 11/01/16 04:00 36.6 97 18 118/67 97 Nasal Cannula 2.0 11/01/16 00:00 97 Nasal Cannula 3.0 11/01/16 00:00 36.5 100 18 124/74 97 Nasal Cannula 2.0 10/31/16 20:00 98 Nasal Cannula 3.0 10/31/16 19:54 95 14 98 Nasal Cannula 3.0 10/31/16 19:29 36.6 103 22 126/76 92 Nasal Cannula 3.0 Laboratory Results: Last 24 Hours Test 11/01/16 04:44 11/01/16 09:30 White Blood Count 10.90 K/uL Red Blood Count 3.33 M/uL Hemoglobin 10.7 g/dL Hematocrit 30.4 % Mean Corpuscular Volume 91.3 fL Mean Corpuscular Hemoglobin 32.1 pg Mean Corpuscular Hemoglobin Concent 35.2 g/dl Platelet Count 159 K/uL Mean Platelet Volume 8.9 fL Neutrophils (%) (Auto) 87.5 % Lymphocytes (%) (Auto) 4.2 % Monocytes (%) (Auto) 4.1 % Eosinophils (%) (Auto) 0.0 % Basophils (%) (Auto) 0.1 % Neutrophils # (Auto) 9.53 K/uL Lymphocytes # (Auto) 0.46 K/uL Monocytes # (Auto) 0.45 K/uL Eosinophils # (Auto) 0.00 K/uL Basophils # (Auto) 0.01 K/uL RDW Standard Deviation 45.7 fL RDW Coefficient of Variation 13.8 % Immature Granulocyte % (Auto) 4.1 % Immature Granulocyte # (Auto) 0.45 K/uL Activated Partial Thromboplast Time 52.8 SECONDS Partial Thromboplastin Ratio 2.0 Vancomycin Level Trough 17.0 mcg/ml
--- NOTE | 2016-11-01 18:10 | Pulmonology Progress Note ---
Pulmonary Progress Note Date of Service Nov 01, 2016. Attending Wilder López Subjective Patient anxious today but has no acute respiratory complaints. With her baseline dementia and is hard to get a specific or definitive answer. Objective Patient able to complete full sentences not using accessory muscles are any tachypnea during our conversation. Vital signs: Reviewed Respiratory: Decreased breath sounds left lower lobe as compared to right, patient with wheezing only on forced expiration mostly coming from the neck Cardiac: S1-S2 irregular rate and rhythm Abdomen: Positive bowel sounds soft nontender Chest x-ray 10/31/2016: Hyperlucent, confluence of shadows versus infiltrate in the left lower lobe, scarring along the minor fissure on the right side, parabronchial cuffing Bilateral lower extremity DVT study: 08/28/2017--no signs of DVT CT abdomen and pelvis to 2016: oMultiple subsegmental pulmonary embolism within the visualized portion of the left lower lobe with associated infarction, infiltrate and pleural effusion Echocardiogram: oLV: LVH, EF=65-70% oRV: WNL Assessment & Plan 1. Pulmonary Embolism: He is history of intracranial hemorrhage is not a absolute contraindication for anticoagulation but adding this to the patient's baseline fall risk I believe at this time we should discontinue anticoagulation as its benefits outweigh the risks to the patient especially as this is a subsegmental pulmonary embolism (SSPE). If the team decides not to continue with anticoagulation I suggest we then performed bilateral upper extremity DVT studies and if negative IVC filter would be indicated. 2. COPD: No definitive asthma and/or COPD noted via pulmonary function test. As the patient was noted have increased work of breathing yesterday, I suggest we continue on current pulmonary regimen and monitor over the next 24 hours reducing steroids as soon as possible. #3 follow-up: In the future the patient will require full thoracic angiogram for possible etiology of pulmonary embolism. Data Medications: Current Inpatient Medications Medications (Trade) Dose Ordered Sig/Alyl Route Start Time Stop Time Status Last Admin Dose Admin Acetaminophen (Tylenol Tab) 650 mg Q4H PRN PO 10/28/16 06:45 11/27/16 06:44 10/29/16 19:54 650 MG Nitroglycerin (Nitrostat Tab) 0.4 mg UD PRN SL 10/28/16 06:45 11/27/16 06:44 Aspirin (Ecotrin Tab) 81 mg DAILY PO 10/28/16 09:00 11/27/16 08:59 11/01/16 08:37 81 MG Diltiazem HCl (Dilacor Xr Cap) 120 mg QAM PO 10/28/16 09:00 11/27/16 08:59 11/01/16 08:37 120 MG Lorazepam (Ativan Tab) 0.5 mg Q8 PRN PO 10/28/16 06:45 11/27/16 06:44 11/01/16 12:40 0.5 MG Montelukast Sodium (Singulair Tab) 10 mg HS PO 10/28/16 21:00 11/27/16 20:59 10/31/16 21:08 10 MG Sertraline HCl (Zoloft Tab) 100 mg DAILY PO 10/28/16 09:00 11/27/16 08:59 11/01/16 08:37 100 MG Guaifenesin (Mucinex Contr Rel Tab) 600 mg Q12 PO 10/28/16 21:00 11/27/16 20:59 11/01/16 08:37 600 MG Ondansetron HCl (Zofran Inj) 4 mg Q6H PRN IV 10/28/16 06:45 11/27/16 06:44 Tramadol HCl (Ultram Tab) 25 mg Q6H PRN PO 10/28/16 06:45 11/27/16 06:44 Morphine Sulfate (MoRPHine SULFATE INJ) 4 mg Q6H PRN IV 10/28/16 06:45 11/11/16 06:44 Vancomycin HCl 1 ea 1 ea UD PRN N/A 10/28/16 07:15 11/27/16 07:14 Imipenem/ Cilastatin Sodium/ Dextrose (Primaxin Iv/D5 100ml) 106 ml @ 100 mls/hr Q6H IV 10/28/16 14:00 11/04/16 10:44 11/01/16 16:00 100 MLS/HR Ioversol 100 ml 100 ml UD PRN IV 10/28/16 22:15 11/01/16 22:14 Heparin Sodium/ Dextrose 500 ml @ 12 mls/hr Q24H PRN IV 10/28/16 23:45 11/27/16 23:44 10/30/16 19:00 12 MLS/HR Vancomycin HCl/ Sodium Chloride (Vancomycin Inj/ Nss 250ml) 270 ml @ 125 mls/hr Q12@1000,2200 IV 10/30/16 22:00 11/04/16 02:00 11/01/16 10:00 125 MLS/HR Ipratropium [place] (Atrovent 0.02% 0.5MG/2.5ML Neb) 0.5 mg Q4RWA INH 10/31/16 12:00 11/30/16 11:59 11/01/16 15:53 0.5 MG Levalbuterol 1.25 mg 1.25 mg Q4RWA INH 10/31/16 12:00 11/30/16 11:59 11/01/16 15:53 1.25 MG Methylprednisolone Sodium Succinate/ Syringe (Solu-Medrol IV/ Syringe) 0.64 ml @ 1.5 mls/min Q8H IV 10/31/16 20:00 11/30/16 19:59 11/01/16 12:19 1.5 MLS/MIN Benzonatate (Tessalon Perles Cap) 100 mg TID PRN PO 11/01/16 09:15 12/01/16 09:14 11/01/16 12:20 100 MG Levofloxacin (Levaquin Tab) 250 mg DAILY@11 PO 11/01/16 12:00 11/03/16 18:00 11/01/16 12:20 250 MG I & O: 24-Hour Column 11/01/16 08:00 Intake Total 2865 ml Output Total 3500 ml Balance -635 ml Vital Signs: Date Time Temp Pulse Resp B/P Pulse Ox O2 Delivery O2 Flow Rate FiO2 11/01/16 16:02 Nasal Cannula 3.0 11/01/16 15:53 107 20 96 Nasal Cannula 2.0 11/01/16 15:22 36.6 112 19 129/73 98 Nasal Cannula 3.0 11/01/16 12:01 Nasal Cannula 3.0 11/01/16 11:15 36.6 96 16 138/74 99 2.0 11/01/16 10:59 104 20 96 Nasal Cannula 2.0 11/01/16 08:04 Nasal Cannula 3.0 11/01/16 07:51 36.4 98 18 150/81 99 2.0 11/01/16 07:10 98 14 99 Nasal Cannula 2.0 11/01/16 04:00 Nasal Cannula 3.0 11/01/16 04:00 36.6 97 18 118/67 97 Nasal Cannula 2.0 11/01/16 00:00 97 Nasal Cannula 3.0 11/01/16 00:00 36.5 100 18 124/74 97 Nasal Cannula 2.0 10/31/16 20:00 98 Nasal Cannula 3.0 10/31/16 19:54 95 14 98 Nasal Cannula 3.0 10/31/16 19:29 36.6 103 22 126/76 92 Nasal Cannula 3.0 Laboratory Results: Last 24 Hours Test 11/01/16 04:44 11/01/16 09:30 White Blood Count 10.90 K/uL Red Blood Count 3.33 M/uL Hemoglobin 10.7 g/dL Hematocrit 30.4 % Mean Corpuscular Volume 91.3 fL Mean Corpuscular Hemoglobin 32.1 pg Mean Corpuscular Hemoglobin Concent 35.2 g/dl Platelet Count 159 K/uL Mean Platelet Volume 8.9 fL Neutrophils (%) (Auto) 87.5 % Lymphocytes (%) (Auto) 4.2 % Monocytes (%) (Auto) 4.1 % Eosinophils (%) (Auto) 0.0 % Basophils (%) (Auto) 0.1 % Neutrophils # (Auto) 9.53 K/uL Lymphocytes # (Auto) 0.46 K/uL Monocytes # (Auto) 0.45 K/uL Eosinophils # (Auto) 0.00 K/uL Basophils # (Auto) 0.01 K/uL RDW Standard Deviation 45.7 fL RDW Coefficient of Variation 13.8 % Immature Granulocyte % (Auto) 4.1 % Immature Granulocyte # (Auto) 0.45 K/uL Activated Partial Thromboplast Time 52.8 SECONDS Partial Thromboplastin Ratio 2.0 Vancomycin Level Trough 17.0 mcg/ml
--- NOTE | 2016-11-01 18:47 | Progress Note ---
Medicine Progress Note Date & Time of Visit: Nov 01, 2016 at 18:41. Subjective Pt was seen and examined Sitting in chair, looks anxious she said that breathing is slightly improved she said that she is still coughing She denies any chest pain, palpitation and dizziness Objective Last 8 Hrs Date Time Temp Pulse Resp B/P Pulse Ox O2 Delivery O2 Flow Rate FiO2 11/01/16 16:02 Nasal Cannula 3.0 11/01/16 15:53 107 20 96 Nasal Cannula 2.0 11/01/16 15:22 36.6 112 19 129/73 98 Nasal Cannula 3.0 11/01/16 12:01 Nasal Cannula 3.0 11/01/16 11:15 36.6 96 16 138/74 99 2.0 11/01/16 10:59 104 20 96 Nasal Cannula 2.0 Physical Exam: General-mild respiratory distress Head- atraumatic Eyes- PERRL, EOMI ENT- oropharynx clear Neck- supple, no JVD Lungs- +wheezing Heart- tachycardia Abdomen- normal bowel sounds, soft Extremities- no calf tenderness Neuro- alert, awake, PERRL, EOMI Skin- warm & dry Laboratory Results: Last 24 Hours Test 11/01/16 04:44 11/01/16 09:30 11/01/16 18:18 White Blood Count 10.90 K/uL Red Blood Count 3.33 M/uL Hemoglobin 10.7 g/dL Hematocrit 30.4 % Mean Corpuscular Volume 91.3 fL Mean Corpuscular Hemoglobin 32.1 pg Mean Corpuscular Hemoglobin Concent 35.2 g/dl Platelet Count 159 K/uL Mean Platelet Volume 8.9 fL Neutrophils (%) (Auto) 87.5 % Lymphocytes (%) (Auto) 4.2 % Monocytes (%) (Auto) 4.1 % Eosinophils (%) (Auto) 0.0 % Basophils (%) (Auto) 0.1 % Neutrophils # (Auto) 9.53 K/uL Lymphocytes # (Auto) 0.46 K/uL Monocytes # (Auto) 0.45 K/uL Eosinophils # (Auto) 0.00 K/uL Basophils # (Auto) 0.01 K/uL RDW Standard Deviation 45.7 fL RDW Coefficient of Variation 13.8 % Immature Granulocyte % (Auto) 4.1 % Immature Granulocyte # (Auto) 0.45 K/uL Activated Partial Thromboplast Time 52.8 SECONDS Partial Thromboplastin Ratio 2.0 Vancomycin Level Trough 17.0 mcg/ml Assessment & Plan Acute respiratory failure Possible related to healthcare associated pneumonia vs to asthma exacerbation VS PE CXR showed Focal infiltrate left base CTA thorax done on 10/29 showed Multiple segmental pulmonary emboli Not quite sure if the infiltrates seen on the chest xray was the pulmonary infarct seen on CT MRSA positive discussed with pulmonary recommended to change po prednisone to IV solumedrol since wheezing get worst Lasix was given and she is diuresis well Repeat CXR showed Persistent left lower lobe consolidation continue supplement oxygen Mucinex was added for the cough ID an pulmonary on board On Primaxin, levaquin and Vanco iv continue neb treatment Pulmonary Emboli CT abd/pelvis showed multiple segmental pulmonary emboli within visualized portions of the lower chest with a left lower lobe pulmonary infarct and small left pleural effusion Continue Heparin drip for now Not a good candidate for anticoagulant in the past due to risk of fall and subarachnoid hemorrhage back 08/27 after a fall at the [employer] Pulmonary on board recommends to continue current therapy After discussing with pulmonary team, we decide to consult Neuro to evaluate if pt is a good candidate for anticoagulant therapy since she had a subarachnoid hemorrhage 08/27. 11/01 Unsteady gait as per physical therapist. NO source identified for the pulmonary emboli Case discussed with dr. López that ordered a doppler of upper extremities and if studies negative will plan for IVC Vascular consulted since pt will not be discharge on anticoagulant due to fall risk for possible an IVC filter Case discussed with dr. Brock, will possible placed the IVC filter next week once pt is stable Hypertension stable Continue monitor BP Atrial fibrillation Rate controlled Continue diltiazem Not on anticoagulant due to falls risk and hx of subarachnoid hemorrhage from a fall on 08/27 CT abd/pelvis showed multiple segmental pulmonary emboli On heparin drip Echo Normal biventricular systolic function. * Mild biatrial dilatation. * Trace aortic regurgitation. 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 Mild mitral regurgitation. * Trace tricuspid regurgitation. Dementia Stable DVT px on heparin drip CODE STATUS DNR Consultants: ID Pulmonary Current Inpatient Medications: Current Inpatient Medications Medications (Trade) Dose Ordered Sig/Ally Route Start Time Stop Time Status Last Admin Dose Admin Acetaminophen (Tylenol Tab) 650 mg Q4H PRN PO 10/28/16 06:45 11/27/16 06:44 10/29/16 19:54 650 MG Nitroglycerin (Nitrostat Tab) 0.4 mg UD PRN SL 10/28/16 06:45 11/27/16 06:44 Aspirin (Ecotrin Tab) 81 mg DAILY PO 10/28/16 09:00 11/27/16 08:59 11/01/16 08:37 81 MG Diltiazem HCl (Dilacor Xr Cap) 120 mg QAM PO 10/28/16 09:00 11/27/16 08:59 11/01/16 08:37 120 MG Lorazepam (Ativan Tab) 0.5 mg Q8 PRN PO 10/28/16 06:45 11/27/16 06:44 11/01/16 12:40 0.5 MG Montelukast Sodium (Singulair Tab) 10 mg HS PO 10/28/16 21:00 11/27/16 20:59 10/31/16 21:08 10 MG Sertraline HCl (Zoloft Tab) 100 mg DAILY PO 10/28/16 09:00 11/27/16 08:59 11/01/16 08:37 100 MG Guaifenesin (Mucinex Contr Rel Tab) 600 mg Q12 PO 10/28/16 21:00 11/27/16 20:59 11/01/16 08:37 600 MG Ondansetron HCl (Zofran Inj) 4 mg Q6H PRN IV 10/28/16 06:45 11/27/16 06:44 Tramadol HCl (Ultram Tab) 25 mg Q6H PRN PO 10/28/16 06:45 11/27/16 06:44 Morphine Sulfate (MoRPHine SULFATE INJ) 4 mg Q6H PRN IV 10/28/16 06:45 11/11/16 06:44 Vancomycin HCl 1 ea 1 ea UD PRN N/A 10/28/16 07:15 11/27/16 07:14 Imipenem/ Cilastatin Sodium/ Dextrose (Primaxin Iv/D5 100ml) 106 ml @ 100 mls/hr Q6H IV 10/28/16 14:00 11/04/16 10:44 11/01/16 16:00 100 MLS/HR Ioversol 100 ml 100 ml UD PRN IV 10/28/16 22:15 11/01/16 22:14 Heparin Sodium/ Dextrose 500 ml @ 12 mls/hr Q24H PRN IV 10/28/16 23:45 11/27/16 23:44 10/30/16 19:00 12 MLS/HR Vancomycin HCl/ Sodium Chloride (Vancomycin Inj/ Nss 250ml) 270 ml @ 125 mls/hr Q12@1000,2200 IV 10/30/16 22:00 11/04/16 02:00 11/01/16 10:00 125 MLS/HR Ipratropium [place] (Atrovent 0.02% 0.5MG/2.5ML Neb) 0.5 mg Q4RWA INH 10/31/16 12:00 11/30/16 11:59 11/01/16 15:53 0.5 MG Levalbuterol 1.25 mg 1.25 mg Q4RWA INH 10/31/16 12:00 11/30/16 11:59 11/01/16 15:53 1.25 MG Methylprednisolone Sodium Succinate/ Syringe (Solu-Medrol IV/ Syringe) 0.64 ml @ 1.5 mls/min Q8H IV 10/31/16 20:00 11/30/16 19:59 11/01/16 12:19 1.5 MLS/MIN Benzonatate (Tessalon Perles Cap) 100 mg TID PRN PO 11/01/16 09:15 12/01/16 09:14 11/01/16 12:20 100 MG Levofloxacin (Levaquin Tab) 250 mg DAILY@11 PO 11/01/16 12:00 11/03/16 18:00 11/01/16 12:20 250 MG
[2016-11-01 19:24] LABS: BUN/CREATININE RATIO 21.2 (10-20); CREATININE 1.2 mg/dl (0.60-1.20); MAGNESIUM 1.7 mg/dl (1.8-2.4)
[2016-11-01 19:48] LABS: BETA-HYDROXYBUTYRATE 0.89 mg/dL (0.2-2.81)
[2016-11-01 19:50] LABS: POTASSIUM 2.8 mmol/L (3.5-5.1)
[2016-11-01] MEDS: MONTELUKAST SOD 10 MG TAB PO SCH (20:29)
[2016-11-01] MEDS ORDERED: DILTIAZEM HCL 30 MG TAB PO ONE (21:30)
[2016-11-01] MEDS ORDERED: MAGNESIUM SULFATE 1GM / D5W 1 GM in PREMIXED IN D5W 100 ML IV ONE (21:30)
[2016-11-02] VITALS (10 sets, daily range): BP systolic 116–129; BP diastolic 65–77; PULSE 82–97; TEMP 36.6–37.1; O2SAT 95–99
[2016-11-02] MEDS ORDERED: POTASSIUM CHLORIDE 20 MEQ TABCR PO ONE (01:00)
[2016-11-02] MEDS: IMIPENEM/CILASTATIN IV 300 MG in DEXTROSE 5% 100ML 100 ML IV SCH ×4 (01:45→19:51)
[2016-11-02] MEDS: METHYLPREDNISOLONE IV 40 MG in SYRINGE 0 ML IV SCH ×3 (04:20→22:27)
[2016-11-02 05:12] LABS: HEMATOCRIT 30.3 % (37-47); MEAN CELL VOLUME 92.7 fL (80-100); MEAN CORPUSCULAR HEMOGLOBIN 32.4 pg (25-34); MEAN PLATELET VOLUME 9.2 fL (7.4-10.4); PLATELET COUNT 179 K/uL (130-400); RED BLOOD COUNT 3.27 M/uL (4.2-5.4); WHITE BLOOD COUNT 12.99 K/uL (4.8-10.8)
[2016-11-02 05:35] LABS: PARTIAL THROMBOPLASTIN RATIO 2.1
[2016-11-02 05:41] LABS: BUN/CREATININE RATIO 27.1 (10-20); CREATININE 0.83 mg/dl (0.60-1.20); POTASSIUM 4.1 mmol/L (3.5-5.1)
[2016-11-02] MEDS: LEVALBUTEROL 1.25MG/0.5ML NEB INH SCH ×4 (07:01→20:00)
[2016-11-02] MEDS: IPRATROPIUM BROMIDE NEB SOLN 0.02% 2.5 ML VIAL INH SCH ×4 (07:01→20:00)
[2016-11-02] MEDS: GUAIFENESIN 600 MG TABCR PO SCH ×2 (07:38→22:03)
[2016-11-02] MEDS: DILTIAZEM HCL 120 MG ER CAP PO SCH (07:38)
[2016-11-02] MEDS: SERTRALINE HCL 50 MG TAB PO SCH (07:38)
[2016-11-02] MEDS: ASPIRIN 81 MG ECTAB PO SCH (07:39)
[2016-11-02] MEDS ORDERED: VANCOMYCIN TROUGH ONE (09:30)
[2016-11-02] MEDS: VANCOMYCIN INJ 1,000 MG in SODIUM CHLORIDE 0.9% 250ML 250 ML IV SCH (10:32)
[2016-11-02] MEDS: LEVOFLOXACIN 250 MG TAB PO SCH (10:32)
--- NOTE | 2016-11-02 14:03 | DIAGNOSTIC IMAGING REPORT ---
VENOUS DOPPLER THE ARMS UPPER EXTREMITY VENOUS DOPPLER HISTORY: Pain. Edema. pulmonary emboli, looking for dv COMPARISON STUDY: None. FINDINGS: The internal jugular veins are patent. There is normal flow within the subclavian veins. There is normal flow and compressibility within the bilateral axillary, basilic, brachial, radial, ulnar, and visualized cephalic veins. IMPRESSION: No DVT within the upper extremity. Electronically signed by: Didier Eldridge M.D. 11/02/2016 2:02 PM Dictated Date/Time: 11/02/2016 2:01 PM
--- NOTE | 2016-11-02 14:33 | Pulmonology Progress Note ---
Pulmonary Progress Note Date of Service Nov 02, 2016. Attending Wilder López Subjective Patient notes no pulmonary complaints at this time, denies: Fever, chills, pleurisy Objective Our patient is mildly tangential but able to complete full sentences not using accessory muscles unable to perform deep inspiratory maneuvers: Vital signs: Reviewed Respiratory: Decreased breath sounds left lower lobe as compared to right, patient with wheezing only on forced expiration mostly coming from the neck Cardiac: S1-S2 irregular rate and rhythm Abdomen: Positive bowel sounds soft nontender Chest x-ray 10/31/2016: Hyperlucent, confluence of shadows versus infiltrate in the left lower lobe, scarring along the minor fissure on the right side, parabronchial cuffing Bilateral lower extremity DVT study: 08/28/2017--no signs of DVT CT abdomen and pelvis to 2016: oMultiple subsegmental pulmonary embolism within the visualized portion of the left lower lobe with associated infarction, infiltrate and pleural effusion Echocardiogram: oLV: LVH, EF=65-70% oRV: WNL + Upper extremity DVT: Studies shows no signs of upper extremity DVTs Assessment & Plan 1. Pulmonary Embolism: The patient has no definitive contraindication to anticoagulation but previous intracranial hemorrhage and follow history/ increased fall risk make the complications from anticoagulation out weight the benefit at this time. As her upper extremity DVT studies have been negative I do suggest we move forward with IVC filter placement at this time. I have spoken to the daughter and son-in-law about our plans. 2. COPD: We'll drop IV Solu-Medrol wait to twice a day at this time. Data Medications: Current Inpatient Medications Medications (Trade) Dose Ordered Sig/Ally Route Start Time Stop Time Status Last Admin Dose Admin Acetaminophen (Tylenol Tab) 650 mg Q4H PRN PO 10/28/16 06:45 11/27/16 06:44 10/29/16 19:54 650 MG Nitroglycerin (Nitrostat Tab) 0.4 mg UD PRN SL 10/28/16 06:45 11/27/16 06:44 Aspirin (Ecotrin Tab) 81 mg DAILY PO 10/28/16 09:00 11/27/16 08:59 11/02/16 07:39 81 MG Diltiazem HCl (Dilacor Xr Cap) 120 mg QAM PO 10/28/16 09:00 11/27/16 08:59 11/02/16 07:38 120 MG Lorazepam (Ativan Tab) 0.5 mg Q8 PRN PO 10/28/16 06:45 11/27/16 06:44 11/01/16 12:40 0.5 MG Montelukast Sodium (Singulair Tab) 10 mg HS PO 10/28/16 21:00 11/27/16 20:59 11/01/16 20:29 10 MG Sertraline HCl (Zoloft Tab) 100 mg DAILY PO 10/28/16 09:00 11/27/16 08:59 11/02/16 07:38 100 MG Guaifenesin (Mucinex Contr Rel Tab) 600 mg Q12 PO 10/28/16 21:00 11/27/16 20:59 11/02/16 07:38 600 MG Ondansetron HCl (Zofran Inj) 4 mg Q6H PRN IV 10/28/16 06:45 11/27/16 06:44 Tramadol HCl (Ultram Tab) 25 mg Q6H PRN PO 10/28/16 06:45 11/27/16 06:44 Morphine Sulfate (MoRPHine SULFATE INJ) 4 mg Q6H PRN IV 10/28/16 06:45 11/11/16 06:44 Vancomycin HCl 1 ea 1 ea UD PRN N/A 10/28/16 07:15 11/27/16 07:14 Imipenem/ Cilastatin Sodium 300 mg/Dextrose 106 ml @ 100 mls/hr Q6H IV 10/28/16 14:00 11/04/16 10:44 11/02/16 14:08 100 MLS/HR Heparin Sodium/ Dextrose (Heparin 25,000 Unit/500ml D5W) 500 ml @ 12 mls/hr Q24H PRN IV 10/28/16 23:45 11/27/16 23:44 10/30/16 19:00 12 MLS/HR Ipratropium [place] (Atrovent 0.02% 0.5MG/2.5ML Neb) 0.5 mg Q4RWA INH 10/31/16 12:00 11/30/16 11:59 11/02/16 11:03 0.5 MG Levalbuterol 1.25 mg 1.25 mg Q4RWA INH 10/31/16 12:00 11/30/16 11:59 11/02/16 11:04 1.25 MG Methylprednisolone Sodium Succinate/ Syringe (Solu-Medrol IV/ Syringe) 0.64 ml @ 1.5 mls/min Q8H IV 10/31/16 20:00 11/30/16 19:59 11/02/16 12:01 1.5 MLS/MIN Benzonatate (Tessalon Perles Cap) 100 mg TID PRN PO 11/01/16 09:15 12/01/16 09:14 11/01/16 17:00 100 MG Levofloxacin (Levaquin Tab) 250 mg DAILY@11 PO 11/01/16 12:00 11/03/16 18:00 11/02/16 10:32 250 MG Mupirocin (Bactroban 2% Nasal Oint) 1 gm BID EXT 11/02/16 21:00 11/07/16 20:59 I & O: 24-Hour Column 11/02/16 07:59 Intake Total 2818 ml Output Total 3700 ml Balance -882 ml Vital Signs: Date Time Temp Pulse Resp B/P Pulse Ox O2 Delivery O2 Flow Rate FiO2 11/02/16 12:00 Nasal Cannula 3.0 11/02/16 11:14 36.6 87 16 116/67 98 2.0 11/02/16 11:03 83 20 97 Nasal Cannula 2.0 11/02/16 08:00 Nasal Cannula 3.0 11/02/16 07:38 37.1 97 16 125/73 99 2.0 11/02/16 07:01 97 20 99 Nasal Cannula 2.0 11/02/16 04:00 Nasal Cannula 3.0 11/02/16 03:35 36.6 82 18 124/68 97 Nasal Cannula 2.0 11/02/16 00:00 36.7 97 20 119/65 98 Nasal Cannula 2.0 11/02/16 00:00 Nasal Cannula 3.0 11/01/16 20:00 98 Nasal Cannula 3.0 11/01/16 19:30 107 20 98 Nasal Cannula 3.0 11/01/16 19:08 36.8 107 22 113/69 96 Nasal Cannula 3.0 11/01/16 16:02 Nasal Cannula 3.0 11/01/16 15:53 107 20 96 Nasal Cannula 2.0 11/01/16 15:22 36.6 112 19 129/73 98 Nasal Cannula 3.0 Laboratory Results: Last 24 Hours Test 11/01/16 18:41 11/02/16 04:44 11/02/16 09:22 Sodium Level 135 mmol/L 137 mmol/L Potassium Level 2.8 mmol/L 4.1 mmol/L Chloride Level 91 mmol/L 96 mmol/L Carbon Dioxide Level 29 mmol/L 32 mmol/L Anion Gap 15.0 mmol/L 9.0 mmol/L Blood Urea Nitrogen 25 mg/dl 22 mg/dl Creatinine 1.20 mg/dl 0.83 mg/dl Est Creatinine Clear Calc Drug Dose 28.4 ml/min 41.1 ml/min Estimated GFR () 48.7 76.1 Estimated GFR (Non- 42.1 65.7 BUN/Creatinine Ratio 21.2 27.1 Random Glucose 343 mg/dl 231 mg/dl Calcium Level 8.0 mg/dl 8.0 mg/dl Magnesium Level 1.7 mg/dl Beta-Hydroxybutyric Acid 0.89 mg/dL White Blood Count 12.99 K/uL Red Blood Count 3.27 M/uL Hemoglobin 10.6 g/dL Hematocrit 30.3 % Mean Corpuscular Volume 92.7 fL Mean Corpuscular Hemoglobin 32.4 pg Mean Corpuscular Hemoglobin Concent 35.0 g/dl RDW Standard Deviation 46.8 fL RDW Coefficient of Variation 13.8 % Platelet Count 179 K/uL Mean Platelet Volume 9.2 fL Activated Partial Thromboplast Time 53.7 SECONDS Partial Thromboplastin Ratio 2.1 Vancomycin Level Trough 20.9 mcg/ml
--- NOTE | 2016-11-02 16:10 | Pharmacy Progress Note ---
Pharmacy Antibiotic Prog Note Date of Service: Nov 02, 2016. Subjective: The patient is currently receiving Vancomycin 1000 mg IV every 12 hours. The patient is currently on day # 6 of Vancomycin IV therapy. Objective: Height (Feet): 4 Height (Inches): 11.00 Weight (Kilograms): 60.100 Levels: Item Value Date Time Vancomycin Level Trough 20.9 mcg/ml 11/02/16 0922 Lab Results (24hrs): Laboratory Tests Test 11/01/16 18:41 11/02/16 04:44 BUN/Creatinine Ratio 21.2 27.1 Blood Urea Nitrogen 25 mg/dl 22 mg/dl Creatinine 1.20 mg/dl 0.83 mg/dl White Blood Count 12.99 K/uL Micro Results: Item Value Date Time Blood Culture - Final Complete 10/28/16 0409 Blood NO GROWTH Blood Culture - Final Complete 10/28/16 0418 Blood NO GROWTH MRSA DNA Surveillance Screen - Final Complete 10/28/16 1040 Nasal Specimen Positive for MRSA by DNA Probe Assessment & Plan: Assessment * 80 y/o on empiric IV Vancomycin, Primaxin (not a consult), and Levaquin (not a consult) for HAP. ID is also following the patient. * Goal Vancomycin trough 15-20 mcg/mL * Trough level on 11/02 @ 0922 (appropriately drawn) of 20.9 mcg/mL is supratherapeutic * Of note, renal function may have acutely worsened yesterday. BMP was drawn at 1841 on 11/01/16 that showed sCr incr' to 1.2mg/dL with estimated CrCl decr' to 28 mL/min. This may explain why repeat trough is much higher than anticipated. sCr seems to have recovered back to baseline today. It was 0.83mg /dL with estimated CrCl ~41 mL/min. Furthermore, despite the fact that she is not obese, she may also be accumulating Vancomycin. Therefore, will decrease dose by ~10% and extended dosing interval by ~4 hours to prevent supratherapeutic levels. Plan * Decr' Vancomycin to 900mg (~15mg/kg) IV q16 * Will not recheck any other levels at this time as last day of Vancomycin therapy should be tomorrow (will confirm with provider) * If Vancomycin therapy continues, will order repeat trough to make sure new regimen is adequate Pharmacy will continue to follow and will adjust dose/frequency as necessary. Thank you
--- NOTE | 2016-11-02 16:12 | Progress Note ---
Medicine Progress Note Date & Time of Visit: Nov 02, 2016 at 15:41. Subjective Pt was seen and examined Sitting in chair with no acute distress Pt said that her cough is slightly improved she is still wheezing she denies any chest pain, palpitation and dizziness Objective Last 8 Hrs Date Time Temp Pulse Resp B/P Pulse Ox O2 Delivery O2 Flow Rate FiO2 11/02/16 15:24 36.7 91 16 129/70 98 Nasal Cannula 2.0 11/02/16 12:00 Nasal Cannula 3.0 11/02/16 11:14 36.6 87 16 116/67 98 2.0 11/02/16 11:03 83 20 97 Nasal Cannula 2.0 11/02/16 08:00 Nasal Cannula 3.0 Physical Exam: General-No acute distress Head- atraumatic Eyes- PERRL, EOMI ENT- oropharynx clear Neck- supple, no JVD Lungs- +wheezing Heart- tachycardia Abdomen- normal bowel sounds, soft Extremities- no calf tenderness Neuro- alert, awake, PERRL, EOMI Skin- warm & dry Laboratory Results: Last 24 Hours Test 11/01/16 18:41 11/02/16 04:44 11/02/16 09:22 Sodium Level 135 mmol/L 137 mmol/L Potassium Level 2.8 mmol/L 4.1 mmol/L Chloride Level 91 mmol/L 96 mmol/L Carbon Dioxide Level 29 mmol/L 32 mmol/L Anion Gap 15.0 mmol/L 9.0 mmol/L Blood Urea Nitrogen 25 mg/dl 22 mg/dl Creatinine 1.20 mg/dl 0.83 mg/dl Est Creatinine Clear Calc Drug Dose 28.4 ml/min 41.1 ml/min Estimated GFR () 48.7 76.1 Estimated GFR (Non- 42.1 65.7 BUN/Creatinine Ratio 21.2 27.1 Random Glucose 343 mg/dl 231 mg/dl Calcium Level 8.0 mg/dl 8.0 mg/dl Magnesium Level 1.7 mg/dl Beta-Hydroxybutyric Acid 0.89 mg/dL White Blood Count 12.99 K/uL Red Blood Count 3.27 M/uL Hemoglobin 10.6 g/dL Hematocrit 30.3 % Mean Corpuscular Volume 92.7 fL Mean Corpuscular Hemoglobin 32.4 pg Mean Corpuscular Hemoglobin Concent 35.0 g/dl RDW Standard Deviation 46.8 fL RDW Coefficient of Variation 13.8 % Platelet Count 179 K/uL Mean Platelet Volume 9.2 fL Activated Partial Thromboplast Time 53.7 SECONDS Partial Thromboplastin Ratio 2.1 Vancomycin Level Trough 20.9 mcg/ml Assessment & Plan Acute respiratory failure Possible related to healthcare associated pneumonia vs to asthma exacerbation VS PE CXR showed Focal infiltrate left base CTA thorax done on 10/29 showed Multiple segmental pulmonary emboli Not quite sure if the infiltrates seen on the chest xray was the pulmonary infarct seen on CT MRSA positive discussed with pulmonary recommended to change po prednisone to IV solumedrol since wheezing get worst solumedrol decreased to BID Received lasix yesterday, no sign of fluid overload on exam Repeat CXR on 10/31 showed Persistent left lower lobe consolidation continue supplement oxygen Continue benzonatate for the cough that helps ID an pulmonary on board On Primaxin, levaquin and Vanco iv continue neb treatment Pulmonary Emboli CT abd/pelvis showed multiple segmental pulmonary emboli within visualized portions of the lower chest with a left lower lobe pulmonary infarct and small left pleural effusion Continue Heparin drip for now Not a good candidate for anticoagulant in the past due to risk of fall and subarachnoid hemorrhage back 08/27 after a fall at the [employer] lot Pulmonary on board recommends to continue current therapy After discussing with pulmonary team, we decide to consult Neuro to evaluate if pt is a good candidate for anticoagulant therapy since she had a subarachnoid hemorrhage 08/27. 11/01 Unsteady gait as per physical therapist. NO source identified for the pulmonary emboli Case discussed with dr. López that ordered a doppler of upper extremities and if studies negative will plan for IVC Vascular consulted since pt will not be discharge on anticoagulant due to fall risk for possible an IVC filter Case discussed with dr. Brock, will possible placed the IVC filter next week once pt is stable 11/02 Venous Doppler of upper extremities negative for DVT Dr. López spoke with daughter and son in-laws today about the plans. will proceed with IVC filter placement since pt is not a good candidate for anticoagulant due to risk of fall and since no source identified for the pulmonary emboli. Even if doppler of LE was negative, most pulmonary emboli came from the LE. Will keep NPO after midnight if vascular decides to place the filter if pt is clinically stable. Continue Heparin drip for now, it can place on hold in am after confirming with vascular in the morning Hypertension stable Continue monitor BP Atrial fibrillation Rate controlled Continue diltiazem Not on anticoagulant due to falls risk and hx of subarachnoid hemorrhage from a fall on 08/27 CT abd/pelvis showed multiple segmental pulmonary emboli On heparin drip Echo Normal biventricular systolic function. * Mild biatrial dilatation. * Trace aortic regurgitation. 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 Mild mitral regurgitation. * Trace tricuspid regurgitation. MRSA in nose Started on Bactroban ointment Dementia Stable DVT px on heparin drip CODE STATUS DNR Consultants: ID Pulmonary Current Inpatient Medications: Current Inpatient Medications Medications (Trade) Dose Ordered Sig/Ally Route Start Time Stop Time Status Last Admin Dose Admin Acetaminophen (Tylenol Tab) 650 mg Q4H PRN PO 10/28/16 06:45 11/27/16 06:44 10/29/16 19:54 650 MG Nitroglycerin (Nitrostat Tab) 0.4 mg UD PRN SL 10/28/16 06:45 11/27/16 06:44 Aspirin (Ecotrin Tab) 81 mg DAILY PO 10/28/16 09:00 11/27/16 08:59 11/02/16 07:39 81 MG Diltiazem HCl (Dilacor Xr Cap) 120 mg QAM PO 10/28/16 09:00 11/27/16 08:59 11/02/16 07:38 120 MG Lorazepam (Ativan Tab) 0.5 mg Q8 PRN PO 10/28/16 06:45 11/27/16 06:44 11/01/16 12:40 0.5 MG Montelukast Sodium (Singulair Tab) 10 mg HS PO 10/28/16 21:00 11/27/16 20:59 11/01/16 20:29 10 MG Sertraline HCl (Zoloft Tab) 100 mg DAILY PO 10/28/16 09:00 11/27/16 08:59 11/02/16 07:38 100 MG Guaifenesin (Mucinex Contr Rel Tab) 600 mg Q12 PO 10/28/16 21:00 11/27/16 20:59 11/02/16 07:38 600 MG Ondansetron HCl (Zofran Inj) 4 mg Q6H PRN IV 10/28/16 06:45 11/27/16 06:44 Tramadol HCl (Ultram Tab) 25 mg Q6H PRN PO 10/28/16 06:45 11/27/16 06:44 Morphine Sulfate (MoRPHine SULFATE INJ) 4 mg Q6H PRN IV 10/28/16 06:45 11/11/16 06:44 Vancomycin HCl 1 ea 1 ea UD PRN N/A 10/28/16 07:15 11/27/16 07:14 Imipenem/ Cilastatin Sodium 300 mg/Dextrose 106 ml @ 100 mls/hr Q6H IV 10/28/16 14:00 11/04/16 10:44 11/02/16 14:08 100 MLS/HR Heparin Sodium/ Dextrose (Heparin 25,000 Unit/500ml D5W) 500 ml @ 12 mls/hr Q24H PRN IV 10/28/16 23:45 11/27/16 23:44 10/30/16 19:00 12 MLS/HR Ipratropium [place] (Atrovent 0.02% 0.5MG/2.5ML Neb) 0.5 mg Q4RWA INH 10/31/16 12:00 11/30/16 11:59 11/02/16 11:03 0.5 MG Levalbuterol (Xopenex 1.25MG/ 0.5ML Neb) 1.25 mg Q4RWA INH 10/31/16 12:00 11/30/16 11:59 11/02/16 11:04 1.25 MG Benzonatate (Tessalon Perles Cap) 100 mg TID PRN PO 11/01/16 09:15 12/01/16 09:14 11/01/16 17:00 100 MG Levofloxacin (Levaquin Tab) 250 mg DAILY@11 PO 11/01/16 12:00 11/03/16 18:00 11/02/16 10:32 250 MG Mupirocin 1 gm 1 gm BID EXT 11/02/16 21:00 11/07/16 20:59 Methylprednisolone Sodium Succinate/ Syringe (Solu-Medrol IV/ Syringe) 0.64 ml @ 1.5 mls/min BID IV 11/02/16 21:00 12/02/16 20:59
[2016-11-02] MEDS: VANCOMYCIN INJ 900 MG in SODIUM CHLORIDE 0.9% 250ML 250 ML IV SCH (16:43)
[2016-11-02] MEDS ORDERED: MUPIROCIN 2% EXT SCH (21:00)
[2016-11-02] MEDS ORDERED: MUPIROCIN 2% OINT 22 GM TUBE EXT SCH (21:00)
[2016-11-02] MEDS: LORAZEPAM 0.5 MG TAB PO PRN (22:03)
[2016-11-02] MEDS: MONTELUKAST SOD 10 MG TAB PO SCH (22:03)
[2016-11-02] MEDS: MUPIROCIN 2% OINT 22 GM TUBE SCH (22:27)
[2016-11-03] VITALS (20 sets, daily range): BP systolic 105–162; BP diastolic 62–92; PULSE 80–112; TEMP 36.6–37; O2SAT 90–100
[2016-11-03] MEDS: IMIPENEM/CILASTATIN IV 300 MG in DEXTROSE 5% 100ML 100 ML IV SCH ×3 (03:04→14:13)
[2016-11-03] MEDS: LEVALBUTEROL 1.25MG/0.5ML NEB INH SCH ×4 (07:08→19:31)
[2016-11-03] MEDS: IPRATROPIUM BROMIDE NEB SOLN 0.02% 2.5 ML VIAL INH SCH ×4 (07:08→19:31)
[2016-11-03 07:16] LABS: HEMATOCRIT 30.5 % (37-47); MEAN CELL VOLUME 93.6 fL (80-100); MEAN CORPUSCULAR HEMOGLOBIN 32.2 pg (25-34); MEAN CORPUSCULAR HGB CONC 34.4 g/dl (32-36); MEAN PLATELET VOLUME 8.8 fL (7.4-10.4); PLATELET COUNT 180 K/uL (130-400); RED BLOOD COUNT 3.26 M/uL (4.2-5.4); WHITE BLOOD COUNT 12.44 K/uL (4.8-10.8)
[2016-11-03 07:52] LABS: BUN/CREATININE RATIO 32.4 (10-20); CALCIUM 8.4 mg/dl (8.5-10.1); CREATININE 0.81 mg/dl (0.60-1.20); POTASSIUM 4.9 mmol/L (3.5-5.1)
[2016-11-03] MEDS: VANCOMYCIN INJ 900 MG in SODIUM CHLORIDE 0.9% 250ML 250 ML IV SCH (08:16)
[2016-11-03] MEDS: ASPIRIN 81 MG ECTAB PO SCH (08:17)
[2016-11-03] MEDS: METHYLPREDNISOLONE IV 40 MG in SYRINGE 0 ML IV SCH (08:17)
[2016-11-03] MEDS: GUAIFENESIN 600 MG TABCR PO SCH ×2 (08:17→20:28)
[2016-11-03] MEDS: DILTIAZEM HCL 120 MG ER CAP PO SCH (08:17)
[2016-11-03] MEDS: MUPIROCIN 2% OINT 22 GM TUBE SCH ×2 (08:17→20:30)
[2016-11-03] MEDS: SERTRALINE HCL 50 MG TAB PO SCH (08:18)
[2016-11-03] MEDS: LORAZEPAM 0.5 MG TAB PO PRN (08:20)
[2016-11-03] MEDS: HEPARIN 25,000 UNIT/500ML D5W 500 ML IV PRN (08:24)
[2016-11-03] MEDS ORDERED: MUPIROCIN 2% OINT 22 GM TUBE SCH (09:00)
[2016-11-03] MEDS ORDERED: FENTANYL CITRATE INJ 50 MCG/1 ML 2 ML VIAL ONE (09:13)
[2016-11-03] MEDS ORDERED: MIDAZOLAM HCL 1 MG/ML 2ML VIAL ONE (09:13)
--- NOTE | 2016-11-03 09:18 | Progress Note ---
Progress Note Patient for insertion of IVC filter. I have discussed the risks options and benefits of the procedure with the patient and family. The patient's daughter understands the risks options and benefits and agrees to the procedure. I have examined the patient, reviewed the History & Physical and in the interval since the performance of the History & Physical I have noted the following changes of clinical significance: No changes noted
[2016-11-03] MEDS ORDERED: LIDOCAINE HCL 1% 20 ML VIAL SQ ONE (10:15)
[2016-11-03] MEDS ORDERED: IODIXANOL (VISIPAQUE) 270 MG/ML 50ML IV ONE (10:19)
--- NOTE | 2016-11-03 10:25 | [facility] Post Operative Brief Note ---
Immediate Operative Summary Operative Date Nov 03, 2016. Pre-Operative Diagnosis Pulmonary Emboli, Frequent falls, Contraindication to Anticoagulation. Post-Operative Diagnosis Same Procedure(s) Performed Insertion of Vena Cava Filter, Right Femoral approach, Surgeon Dr. Brock [employer] Operator Surgeon(s) None Estimated Blood Loss 3 Findings tip in infrarenal IVC, no cava clot seen Specimens None Anesthesia Local Complication(s) None Disposition
--- NOTE | 2016-11-03 11:02 | DIAGNOSTIC IMAGING REPORT ---
DATE OF PROCEDURE: 11/03/2016 PREOPERATIVE DIAGNOSIS: Acute deep venous thrombosis, frequent falls, contraindication to anticoagulation. POSTOPERATIVE DIAGNOSIS: Same. PROCEDURE: Insertion of inferior vena cava filter, femoral approach. SURGEON: Dr. Brock. ANESTHETIC: Local. PROCEDURE INDICATIONS: The patient is an 81-year-old female who is disoriented and has frequent falls. She has an acute deep venous thrombosis, in need of anticoagulation. Anticoagulation was contraindicated due to her frequent falling. A filter was recommended. The daughter understood the risks, options and agreed to go ahead with the procedure. Her daughter usually gives the consents. The patient was therefore taken to the angio suite and placed in supine position. After the right groin was prepped and draped in a sterile manner, local anesthetic was administered. A percutaneous puncture was then made of the right common femoral vein and a wire passed centrally. The puncture site was dilated. The sheath of the filter was inserted. An inferior venacavogram was performed showing there was no cava clot present. The renal veins were identified. The filter was then inserted and deployed below the renal veins in an upright position. After the filter was deployed successfully the sheath was removed. Pressure was applied. Adequate hemostasis was obtained. Dressings were applied to the wound and the patient left the angio suite in good condition and tolerated the procedure well.
[2016-11-03] MEDS: LEVOFLOXACIN 250 MG TAB PO SCH (11:19)
--- NOTE | 2016-11-03 15:09 | Progress Note ---
Medicine Progress Note Date & Time of Visit: Nov 03, 2016 at 15:02. Subjective Pt was seen and examined Lying in bed with no distress with daughter at bedside Pt feels tired because she just came from OR for the IVC filter She said that she is coughing, but she is unable to bring any sputum up denies any chest pain, palpitation, dizziness Objective Last 8 Hrs Date Time Temp Pulse Resp B/P Pulse Ox O2 Delivery O2 Flow Rate FiO2 11/03/16 13:18 96 18 119/65 96 Nasal Cannula 2.0 11/03/16 12:27 37.0 112 18 129/82 94 Nasal Cannula 2.0 11/03/16 12:00 Nasal Cannula 3.0 11/03/16 11:45 36.6 91 16 162/92 99 Nasal Cannula 3.0 11/03/16 11:30 94 16 148/70 99 Nasal Cannula 3.0 11/03/16 11:16 101 18 100 Nasal Cannula 3.0 11/03/16 11:15 91 16 152/80 99 Nasal Cannula 3.0 11/03/16 11:00 94 16 162/86 99 Nasal Cannula 3.0 11/03/16 10:45 37.0 98 16 156/89 96 Nasal Cannula 3.0 11/03/16 09:18 96 11/03/16 09:12 36.8 111 21 146/81 90 Room Air 3.0 11/03/16 08:00 Nasal Cannula 3.0 11/03/16 07:36 36.8 111 21 146/81 90 Room Air 11/03/16 07:08 80 18 98 Nasal Cannula 2.0 Physical Exam: General-No acute distress Head- atraumatic Eyes- PERRL, EOMI ENT- oropharynx clear Neck- supple, no JVD Lungs- +wheezing Heart- tachycardia Abdomen- normal bowel sounds, soft Extremities- no calf tenderness Neuro- alert, awake, PERRL, EOMI Skin- warm & dry Laboratory Results: Last 24 Hours Test 11/03/16 07:07 White Blood Count 12.44 K/uL Red Blood Count 3.26 M/uL Hemoglobin 10.5 g/dL Hematocrit 30.5 % Mean Corpuscular Volume 93.6 fL Mean Corpuscular Hemoglobin 32.2 pg Mean Corpuscular Hemoglobin Concent 34.4 g/dl RDW Standard Deviation 47.8 fL RDW Coefficient of Variation 13.9 % Platelet Count 180 K/uL Mean Platelet Volume 8.8 fL Sodium Level 136 mmol/L Potassium Level 4.9 mmol/L Chloride Level 96 mmol/L Carbon Dioxide Level 31 mmol/L Anion Gap 9.0 mmol/L Blood Urea Nitrogen 26 mg/dl Creatinine 0.81 mg/dl Est Creatinine Clear Calc Drug Dose 41.8 ml/min Estimated GFR () 78.4 Estimated GFR (Non- 67.6 BUN/Creatinine Ratio 32.4 Random Glucose 217 mg/dl Calcium Level 8.4 mg/dl Assessment & Plan Acute respiratory failure Possible related to healthcare associated pneumonia vs to asthma exacerbation VS PE CXR showed Focal infiltrate left base CTA thorax done on 10/29 showed Multiple segmental pulmonary emboli Not quite sure if the infiltrates seen on the chest xray was the pulmonary infarct seen on CT MRSA positive discussed with pulmonary recommended to change po prednisone to IV solumedrol since wheezing get worst solumedrol decreased to BID Received lasix yesterday, no sign of fluid overload on exam Repeat CXR on 10/31 showed Persistent left lower lobe consolidation continue supplement oxygen Continue benzonatate for the cough that helps ID an pulmonary on board On Primaxin, levaquin and Vanco iv continue neb treatment 11/03 Will transition to PO prednisone continue neb treatment ID on board Culture has no growth will discuss with ID about de-escalate the abx Pulmonary Emboli CT abd/pelvis showed multiple segmental pulmonary emboli within visualized portions of the lower chest with a left lower lobe pulmonary infarct and small left pleural effusion Continue Heparin drip for now Not a good candidate for anticoagulant in the past due to risk of fall and subarachnoid hemorrhage back 08/27 after a fall at the [employer] lot Pulmonary on board recommends to continue current therapy After discussing with pulmonary team, we decide to consult Neuro to evaluate if pt is a good candidate for anticoagulant therapy since she had a subarachnoid hemorrhage 08/27. 11/01 Unsteady gait as per physical therapist. NO source identified for the pulmonary emboli Case discussed with dr. López that ordered a doppler of upper extremities and if studies negative will plan for IVC Vascular consulted since pt will not be discharge on anticoagulant due to fall risk for possible an IVC filter Case discussed with dr. Brock, will possible placed the IVC filter next week once pt is stable 11/02 Venous Doppler of upper extremities negative for DVT Dr. López spoke with daughter and son in-laws today about the plans. will proceed with IVC filter placement since pt is not a good candidate for anticoagulant due to risk of fall and since no source identified for the pulmonary emboli. Even if doppler of LE was negative, most pulmonary emboli came from the LE. Will keep NPO after midnight if vascular decides to place the filter if pt is clinically stable. Continue Heparin drip for now, it can place on hold in am after confirming with vascular in the morning 11/03 IVC filter placed this morning will talk to vascular about when to d/c the heparin drip continue monitor Hypertension stable Continue monitor BP Atrial fibrillation Rate controlled Continue diltiazem Not on anticoagulant due to falls risk and hx of subarachnoid hemorrhage from a fall on 08/27 CT abd/pelvis showed multiple segmental pulmonary emboli On heparin drip s/p IVC filter tthis morning Echo Normal biventricular systolic function. * Mild biatrial dilatation. * Trace aortic regurgitation. 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 Mild mitral regurgitation. * Trace tricuspid regurgitation. MRSA in nose Started on Bactroban ointment Dementia Stable DVT px on heparin drip CODE STATUS DNR Consultants: ID Pulmonary Current Inpatient Medications: Current Inpatient Medications Medications (Trade) Dose Ordered Sig/Ally Route Start Time Stop Time Status Last Admin Dose Admin Acetaminophen (Tylenol Tab) 650 mg Q4H PRN PO 10/28/16 06:45 11/27/16 06:44 10/29/16 19:54 650 MG Nitroglycerin (Nitrostat Tab) 0.4 mg UD PRN SL 10/28/16 06:45 11/27/16 06:44 Aspirin (Ecotrin Tab) 81 mg DAILY PO 10/28/16 09:00 11/27/16 08:59 11/03/16 08:17 81 MG Diltiazem HCl (Dilacor Xr Cap) 120 mg QAM PO 10/28/16 09:00 11/27/16 08:59 11/03/16 08:17 120 MG Lorazepam (Ativan Tab) 0.5 mg Q8 PRN PO 10/28/16 06:45 11/27/16 06:44 11/03/16 08:20 0.5 MG Montelukast Sodium (Singulair Tab) 10 mg HS PO 10/28/16 21:00 11/27/16 20:59 11/02/16 22:03 10 MG Sertraline HCl (Zoloft Tab) 100 mg DAILY PO 10/28/16 09:00 11/27/16 08:59 11/03/16 08:18 100 MG Guaifenesin (Mucinex Contr Rel Tab) 600 mg Q12 PO 10/28/16 21:00 11/27/16 20:59 11/03/16 08:17 600 MG Ondansetron HCl (Zofran Inj) 4 mg Q6H PRN IV 10/28/16 06:45 11/27/16 06:44 Tramadol HCl (Ultram Tab) 25 mg Q6H PRN PO 10/28/16 06:45 11/27/16 06:44 Morphine Sulfate (MoRPHine SULFATE INJ) 4 mg Q6H PRN IV 10/28/16 06:45 11/11/16 06:44 Vancomycin HCl 1 ea 1 ea UD PRN N/A 10/28/16 07:15 11/27/16 07:14 Imipenem/ Cilastatin Sodium 300 mg/Dextrose 106 ml @ 100 mls/hr Q6H IV 10/28/16 14:00 11/04/16 03:04 11/03/16 14:13 100 MLS/HR Heparin Sodium/ Dextrose (Heparin 25,000 Unit/500ml D5W) 500 ml @ 12 mls/hr Q24H PRN IV 10/28/16 23:45 11/27/16 23:44 11/03/16 08:24 12 MLS/HR Ipratropium [place] (Atrovent 0.02% 0.5MG/2.5ML Neb) 0.5 mg Q4RWA INH 10/31/16 12:00 11/30/16 11:59 11/03/16 11:16 0.5 MG Levalbuterol (Xopenex 1.25MG/ 0.5ML Neb) 1.25 mg Q4RWA INH 10/31/16 12:00 11/30/16 11:59 11/03/16 11:16 1.25 MG Benzonatate (Tessalon Perles Cap) 100 mg TID PRN PO 11/01/16 09:15 12/01/16 09:14 11/01/16 17:00 100 MG Levofloxacin 250 mg 250 mg DAILY@11 PO 11/01/16 12:00 11/03/16 18:00 11/03/16 11:19 250 MG Methylprednisolone Sodium Succinate 40 mg/Syringe 0.64 ml @ 1.5 mls/min BID IV 11/02/16 21:00 12/02/16 20:59 11/03/16 08:17 1.5 MLS/MIN Vancomycin HCl/ Sodium Chloride (Vancomycin Inj/ Nss 250ml) 268 ml @ 125 mls/hr Q16H IV 11/02/16 16:00 11/03/16 15:59 11/03/16 08:16 125 MLS/HR Mupirocin (Bactroban 2% Oint) 1 appln BID NA 11/02/16 22:00 12/02/16 21:59 11/03/16 08:17 1 APPLN
--- NOTE | 2016-11-03 17:10 | Pulmonology Progress Note ---
Pulmonary Progress Note Date of Service Nov 03, 2016. Attending Dr. López Subjective "Im so very tired". Denies pain. Reports her breathing feels somewhat improved today. Objective 80-yo female admitted to [facility] 10/28/16 with respiratory failure. Prior records were reviewed. PMHx includes: asthma (diagnosed in childhood), pulmonary embolism, polymyalgia rheumatica, atrial fibrillation (off AC 2/2 fall risk and SAH), HTN, BCC- skin, hyperlipidemaia, esophageal reflux, hyperlipidemia, OA, subarachnoid hemorrhage, h/o syncope, right suprahilar pulmonary nodule (16mm stable), and dementia. She is a resident of [facility]. This is her third admission since September with respiratory failure: 09/27/16-, 10/20/16-10/27/16. Patient was discharged 1-day prior to this most recent admission. She presented to [facility] 09/27/16 from [facility] with increased dyspnea, fever, wheeze and hypoxia (88%- RA). ABG consistent with respiratory acidosis. Imaging suggestive of LLL infiltrate with associated leukocytosis. SHe was treated with broad spectrum antibitoic then adjusted to levofloxacin and imipenem per ID -coverage for health care associated pneumonia. CTA Abdomen/pelvis 10/29/16 consistent with multiple segmental pulmonary emboli with consolidative area concerning for pulmonary infarct in LLL. Echocardiogram: pEF, no ASD, mild bi- atrial enlargement, trace TR, no RV strain. UE/LE dopplers: negative for DVT. IVC filter placed 11/03/16. Today: - Afebrile, intermittent low-grade tachycardia, HD stable - O2: 94-96%: 2LPM - Wt: 58.8kg - Currently on 40mg prednisone, [id number], levaquin/imipenem/ vancomycin - WBC: 12.44, Hgb/Hct/Plts: 10.5/30.5/180 - CO2: 31, Cr: 0.81 Physical Exam: Constitutional: Well developed elderly female sleeping in hospital bed. No acute distress. Head: + facial symmetry Eyes: EOMi, PERRLA, no conjunctival injection Mouth: No erythema, exudate, or post nasal gtt Neck: Trachea midline. No adenopathy or masses Respiratory: Non-labored respirations. Nasal cannula in place. Diffuse bilateral wheeze. No wheeze, rales or rhonchi. No clubbing or cyanosis. Cardiovascular: RRR, cannot appreciated any murmur, +2 radial pulses. <1s capillary refill. Abdomen: soft, active bowel sounds throughout Integumentary: no rashes, or ecchymosis, well healed scare left shoulder MSK/Extremities: Moving and developed symmetrically. Weak grasp. No peripheral edema. No calf tenderness. Neurologic: Aroused to voice. Cooperative and follows commands with some coaxing. Assessment & Plan 1. Asthma/obstructive lung disease: - Weaned to 40mg prednisone: follow clinically Q4-hour levalbuterol-ipratropium - Add BID budesonide by nebulizer - Magnesium level tomorrow AM 2. Pulmonary Embolism: - Anticoagulation held secondary to h/o SAH and falls - IVC placed today Patient and plan reviewed and agreed with. Data Medications: Current Inpatient Medications Medications (Trade) Dose Ordered Sig/Ally Route Start Time Stop Time Status Last Admin Dose Admin Acetaminophen (Tylenol Tab) 650 mg Q4H PRN PO 10/28/16 06:45 11/27/16 06:44 10/29/16 19:54 650 MG Nitroglycerin (Nitrostat Tab) 0.4 mg UD PRN SL 10/28/16 06:45 11/27/16 06:44 Aspirin (Ecotrin Tab) 81 mg DAILY PO 10/28/16 09:00 11/27/16 08:59 11/03/16 08:17 81 MG Diltiazem HCl (Dilacor Xr Cap) 120 mg QAM PO 10/28/16 09:00 11/27/16 08:59 11/03/16 08:17 120 MG Lorazepam (Ativan Tab) 0.5 mg Q8 PRN PO 10/28/16 06:45 11/27/16 06:44 11/03/16 08:20 0.5 MG Montelukast Sodium (Singulair Tab) 10 mg HS PO 10/28/16 21:00 11/27/16 20:59 11/02/16 22:03 10 MG Sertraline HCl (Zoloft Tab) 100 mg DAILY PO 10/28/16 09:00 11/27/16 08:59 11/03/16 08:18 100 MG Guaifenesin (Mucinex Contr Rel Tab) 600 mg Q12 PO 10/28/16 21:00 11/27/16 20:59 11/03/16 08:17 600 MG Ondansetron HCl (Zofran Inj) 4 mg Q6H PRN IV 10/28/16 06:45 11/27/16 06:44 Tramadol HCl (Ultram Tab) 25 mg Q6H PRN PO 10/28/16 06:45 11/27/16 06:44 Morphine Sulfate (MoRPHine SULFATE INJ) 4 mg Q6H PRN IV 10/28/16 06:45 11/11/16 06:44 Future Hold Vancomycin HCl 1 ea 1 ea UD PRN N/A 10/28/16 07:15 11/27/16 07:14 Imipenem/ Cilastatin Sodium 300 mg/Dextrose 106 ml @ 100 mls/hr Q6H IV 10/28/16 14:00 11/04/16 03:04 11/03/16 14:13 100 MLS/HR Heparin Sodium/ Dextrose (Heparin 25,000 Unit/500ml D5W) 500 ml @ 12 mls/hr Q24H PRN IV 10/28/16 23:45 11/27/16 23:44 11/03/16 08:24 12 MLS/HR Ipratropium [place] (Atrovent 0.02% 0.5MG/2.5ML Neb) 0.5 mg Q4RWA INH 10/31/16 12:00 11/30/16 11:59 11/03/16 15:45 0.5 MG Levalbuterol (Xopenex 1.25MG/ 0.5ML Neb) 1.25 mg Q4RWA INH 10/31/16 12:00 11/30/16 11:59 11/03/16 15:45 1.25 MG Benzonatate (Tessalon Perles Cap) 100 mg TID PRN PO 11/01/16 09:15 12/01/16 09:14 11/01/16 17:00 100 MG Levofloxacin (Levaquin Tab) 250 mg DAILY@11 PO 11/01/16 12:00 11/03/16 18:00 11/03/16 11:19 250 MG Mupirocin (Bactroban 2% Oint) 1 appln BID NA 11/02/16 22:00 12/02/16 21:59 11/03/16 08:17 1 APPLN Prednisone (PredniSONE TAB) 40 mg BID PO 11/03/16 21:00 12/03/16 20:59 I & O: 24-Hour Column 11/03/16 07:59 Intake Total 1638 ml Output Total 1800 ml Balance -162 ml Vital Signs: Date Time Temp Pulse Resp B/P Pulse Ox O2 Delivery O2 Flow Rate FiO2 11/03/16 16:25 37.0 99 20 150/72 97 Nasal Cannula 3.0 11/03/16 16:00 96 Nasal Cannula 2.0 11/03/16 15:48 94 16 96 Nasal Cannula 2.0 11/03/16 13:18 96 18 119/65 96 Nasal Cannula 2.0 11/03/16 12:27 37.0 112 18 129/82 94 Nasal Cannula 2.0 11/03/16 12:00 Nasal Cannula 3.0 11/03/16 11:45 36.6 91 16 162/92 99 Nasal Cannula 3.0 11/03/16 11:30 94 16 148/70 99 Nasal Cannula 3.0 11/03/16 11:16 101 18 100 Nasal Cannula 3.0 11/03/16 11:15 91 16 152/80 99 Nasal Cannula 3.0 11/03/16 11:00 94 16 162/86 99 Nasal Cannula 3.0 11/03/16 10:45 37.0 98 16 156/89 96 Nasal Cannula 3.0 11/03/16 09:18 96 11/03/16 09:12 36.8 111 21 146/81 90 Room Air 3.0 11/03/16 08:00 Nasal Cannula 3.0 11/03/16 07:36 36.8 111 21 146/81 90 Room Air 11/03/16 07:08 80 18 98 Nasal Cannula 2.0 11/03/16 04:01 36.6 95 18 112/66 97 Nasal Cannula 2.0 11/03/16 04:00 Nasal Cannula 3.0 11/03/16 00:02 36.7 95 20 116/65 98 Nasal Cannula 2.0 11/03/16 00:00 Nasal Cannula 3.0 11/02/16 20:00 89 18 97 Nasal Cannula 2.0 11/02/16 20:00 Nasal Cannula 3.0 11/02/16 19:57 36.6 83 16 128/77 95 Nasal Cannula 2.0 Laboratory Results: Last 24 Hours Test 11/03/16 07:07 White Blood Count 12.44 K/uL Red Blood Count 3.26 M/uL Hemoglobin 10.5 g/dL Hematocrit 30.5 % Mean Corpuscular Volume 93.6 fL Mean Corpuscular Hemoglobin 32.2 pg Mean Corpuscular Hemoglobin Concent 34.4 g/dl RDW Standard Deviation 47.8 fL RDW Coefficient of Variation 13.9 % Platelet Count 180 K/uL Mean Platelet Volume 8.8 fL Sodium Level 136 mmol/L Potassium Level 4.9 mmol/L Chloride Level 96 mmol/L Carbon Dioxide Level 31 mmol/L Anion Gap 9.0 mmol/L Blood Urea Nitrogen 26 mg/dl Creatinine 0.81 mg/dl Est Creatinine Clear Calc Drug Dose 41.8 ml/min Estimated GFR () 78.4 Estimated GFR (Non- 67.6 BUN/Creatinine Ratio 32.4 Random Glucose 217 mg/dl Calcium Level 8.4 mg/dl
--- NOTE | 2016-11-03 18:33 | Infectious Disease Progress Nt ---
Progress Note Date of Service Nov 03, 2016. Subjective Pt evaluation today including: conversation w/ patient, physical exam, chart review, lab review, review of studies, conversation w/ project management consultant, review of inpatient medication list S/P IVC filter. Still with cough, some chest discomfort. Remains afebrile. All Other Systems: Reviewed and Negative Medications Current Inpatient Medications Medications (Trade) Dose Ordered Sig/Ally Route Start Time Stop Time Status Last Admin Dose Admin Acetaminophen (Tylenol Tab) 650 mg Q4H PRN PO 10/28/16 06:45 11/27/16 06:44 10/29/16 19:54 650 MG Nitroglycerin (Nitrostat Tab) 0.4 mg UD PRN SL 10/28/16 06:45 11/27/16 06:44 Aspirin (Ecotrin Tab) 81 mg DAILY PO 10/28/16 09:00 11/27/16 08:59 11/03/16 08:17 81 MG Diltiazem HCl (Dilacor Xr Cap) 120 mg QAM PO 10/28/16 09:00 11/27/16 08:59 11/03/16 08:17 120 MG Lorazepam (Ativan Tab) 0.5 mg Q8 PRN PO 10/28/16 06:45 11/27/16 06:44 11/03/16 08:20 0.5 MG Montelukast Sodium (Singulair Tab) 10 mg HS PO 10/28/16 21:00 11/27/16 20:59 11/02/16 22:03 10 MG Sertraline HCl (Zoloft Tab) 100 mg DAILY PO 10/28/16 09:00 11/27/16 08:59 11/03/16 08:18 100 MG Guaifenesin (Mucinex Contr Rel Tab) 600 mg Q12 PO 10/28/16 21:00 11/27/16 20:59 11/03/16 08:17 600 MG Ondansetron HCl (Zofran Inj) 4 mg Q6H PRN IV 10/28/16 06:45 11/27/16 06:44 Tramadol HCl (Ultram Tab) 25 mg Q6H PRN PO 10/28/16 06:45 11/27/16 06:44 Morphine Sulfate 4 mg 4 mg Q6H PRN IV 10/28/16 06:45 11/11/16 06:44 Future Hold Heparin Sodium/ Dextrose (Heparin 25,000 Unit/500ml D5W) 500 ml @ 12 mls/hr Q24H PRN IV 10/28/16 23:45 11/27/16 23:44 11/03/16 08:24 12 MLS/HR Ipratropium [place] (Atrovent 0.02% 0.5MG/2.5ML Neb) 0.5 mg Q4RWA INH 10/31/16 12:00 11/30/16 11:59 11/03/16 15:45 0.5 MG Levalbuterol (Xopenex 1.25MG/ 0.5ML Neb) 1.25 mg Q4RWA INH 10/31/16 12:00 11/30/16 11:59 11/03/16 15:45 1.25 MG Benzonatate (Tessalon Perles Cap) 100 mg TID PRN PO 11/01/16 09:15 12/01/16 09:14 11/01/16 17:00 100 MG Mupirocin (Bactroban 2% Oint) 1 appln BID NA 11/02/16 22:00 12/02/16 21:59 11/03/16 08:17 1 APPLN Prednisone (PredniSONE TAB) 40 mg BID PO 11/03/16 21:00 12/03/16 20:59 Budesonide (Pulmicort Respules 0.5MG/ 2ML Neb Soln) 0.5 mg BIDR INH 11/03/16 20:00 12/03/16 19:59 Objective Vital Signs Date Time Temp Pulse Resp B/P Pulse Ox O2 Delivery O2 Flow Rate FiO2 11/03/16 16:25 37.0 99 20 150/72 97 Nasal Cannula 3.0 11/03/16 16:00 96 Nasal Cannula 2.0 11/03/16 15:48 94 16 96 Nasal Cannula 2.0 11/03/16 13:18 96 18 119/65 96 Nasal Cannula 2.0 11/03/16 12:27 37.0 112 18 129/82 94 Nasal Cannula 2.0 11/03/16 12:00 Nasal Cannula 3.0 11/03/16 11:45 36.6 91 16 162/92 99 Nasal Cannula 3.0 11/03/16 11:30 94 16 148/70 99 Nasal Cannula 3.0 11/03/16 11:16 101 18 100 Nasal Cannula 3.0 11/03/16 11:15 91 16 152/80 99 Nasal Cannula 3.0 11/03/16 11:00 94 16 162/86 99 Nasal Cannula 3.0 11/03/16 10:45 37.0 98 16 156/89 96 Nasal Cannula 3.0 11/03/16 09:18 96 11/03/16 09:12 36.8 111 21 146/81 90 Room Air 3.0 11/03/16 08:00 Nasal Cannula 3.0 11/03/16 07:36 36.8 111 21 146/81 90 Room Air 11/03/16 07:08 80 18 98 Nasal Cannula 2.0 11/03/16 04:01 36.6 95 18 112/66 97 Nasal Cannula 2.0 11/03/16 04:00 Nasal Cannula 3.0 11/03/16 00:02 36.7 95 20 116/65 98 Nasal Cannula 2.0 11/03/16 00:00 Nasal Cannula 3.0 11/02/16 20:00 89 18 97 Nasal Cannula 2.0 11/02/16 20:00 Nasal Cannula 3.0 11/02/16 19:57 36.6 83 16 128/77 95 Nasal Cannula 2.0 Physical Exam General Appearance: WD/WN, no apparent distress Eyes: normal inspection, sclerae normal ENT: normal ENT inspection, pharynx normal Neck: supple, no adenopathy, trachea midline Respiratory/Chest: chest non-tender, no respiratory distress, + wheezing Cardiovascular: regular rate, rhythm, no gallop, no murmur Abdomen: normal bowel sounds, non tender, soft, no organomegaly Extremities: non-tender, no calf tenderness Neurologic/Psychiatric: alert, oriented x 3 Skin: normal color, warm/dry, no rash Lymphatic: no adenopathy Laboratory Results RUN DATE: 10/28/16 [facility] LAB PAGE 1 RUN TIME: 8517 Specimen Inquiry PATIENT: DANNA HEATH LOC: Jeffrey U # : [id number] AGE/SX: 80/F ROOM: [facility] REG : 10/28/[address]: Kingston Cantu M.D. : 1935 BED: 1 DIS : STATUS: ADM IN TLOC: SPEC #: [id number] KESHA: 10/28/16 STATUS: SYLWIA REQ #: [id number] RECD: 10/28/[address] [facility] [address]: Sarkis Edmonds M.D. SOURCE: NASAL ENTR: 10/28/[address]: Oleksandr Velarde MD SPDESC: Kingston Cantu M.D. Hale, Richard C. D.O. Pulmonary Kee Riley D.O. 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 Y Procedure Result Verified Site MRSA DNA (NASAL SWAB) Final 10/28/16-1327 Specimen Positive for MRSA by DNA Probe RESULTS WERE ALSO CALLED TO [facility] INFECTION CONTROL ANSWERING MACHINE ON 10/28/16 BY [place]. Last 24 Hours Test 11/03/16 07:07 White Blood Count 12.44 K/uL Red Blood Count 3.26 M/uL Hemoglobin 10.5 g/dL Hematocrit 30.5 % Mean Corpuscular Volume 93.6 fL Mean Corpuscular Hemoglobin 32.2 pg Mean Corpuscular Hemoglobin Concent 34.4 g/dl RDW Standard Deviation 47.8 fL RDW Coefficient of Variation 13.9 % Platelet Count 180 K/uL Mean Platelet Volume 8.8 fL Sodium Level 136 mmol/L Potassium Level 4.9 mmol/L Chloride Level 96 mmol/L Carbon Dioxide Level 31 mmol/L Anion Gap 9.0 mmol/L Blood Urea Nitrogen 26 mg/dl Creatinine 0.81 mg/dl Est Creatinine Clear Calc Drug Dose 41.8 ml/min Estimated GFR () 78.4 Estimated GFR (Non- 67.6 BUN/Creatinine Ratio 32.4 Random Glucose 217 mg/dl Calcium Level 8.4 mg/dl HISTORY: Cough, wheeze LLL changes. COMPARISON: Chest 10/28/2016. FINDINGS: Left lower lobe consolidation persists. There are trace bilateral pleural effusions. No pneumothorax. The heart remains borderline enlarged. There is a left shoulder prosthesis. Severe degenerative changes within the right shoulder. IMPRESSION: 1. Persistent left lower lobe consolidation. This favors a pulmonary infarct based on the prior examinations. 2. Trace bilateral pleural effusions. Assessment and Plan 80-year-old female with longstanding COPD, resident of a longterm facility, recent hospitalization, now with developing left lower lobe infiltrate. 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 Has received adequate course of Abx for PNA, and have discontinued imipenem. Will follow closely off antibiotics.
[2016-11-03] MEDS: BUDESONIDE 0.5 MG/2 ML VIAL (PULMICORT) INH SCH (19:31)
[2016-11-03] MEDS: MONTELUKAST SOD 10 MG TAB PO SCH (20:28)
[2016-11-04] VITALS (13 sets, daily range): BP systolic 114–152; BP diastolic 67–88; PULSE 81–105; TEMP 36.3–36.9; O2SAT 91–98
[2016-11-04 07:21] LABS: BASO % 0.2 %; BASO ABS # 0.02 K/uL (0-0.2); COMPLETE YES; HEMATOCRIT 31.3 % (37-47); IG% 4.2 %; LYMPH % 3.5 %; LYMPH ABS # 0.47 K/uL (1.2-3.4); MEAN CELL VOLUME 93.2 fL (80-100); MEAN CORPUSCULAR HEMOGLOBIN 32.4 pg (25-34); MEAN CORPUSCULAR HGB CONC 34.8 g/dl (32-36); MEAN PLATELET VOLUME 8.4 fL (7.4-10.4); MONO % 3.2 %; NEUT % 88.9 %; PLATELET COUNT 199 K/uL (130-400); RED BLOOD COUNT 3.36 M/uL (4.2-5.4); WHITE BLOOD COUNT 13.26 K/uL (4.8-10.8)
[2016-11-04 07:52] LABS: BUN/CREATININE RATIO 36.8 (10-20); CALCIUM 8.1 mg/dl (8.5-10.1); CREATININE 0.84 mg/dl (0.60-1.20); MAGNESIUM 2.1 mg/dl (1.8-2.4)
[2016-11-04] MEDS: BUDESONIDE 0.5 MG/2 ML VIAL (PULMICORT) INH SCH ×2 (08:00→19:58)
[2016-11-04 08:01] LABS: PARTIAL THROMBOPLASTIN RATIO 2.8
[2016-11-04] MEDS: LORAZEPAM 0.5 MG TAB PO PRN (08:28)
[2016-11-04] MEDS: MUPIROCIN 2% OINT 22 GM TUBE SCH ×2 (08:29→20:07)
[2016-11-04] MEDS: SERTRALINE HCL 50 MG TAB PO SCH (08:29)
[2016-11-04] MEDS: ASPIRIN 81 MG ECTAB PO SCH (08:29)
[2016-11-04] MEDS: GUAIFENESIN 600 MG TABCR PO SCH ×2 (08:29→20:08)
[2016-11-04] MEDS: DILTIAZEM HCL 120 MG ER CAP PO SCH (08:29)
[2016-11-04] MEDS: HEPARIN 25,000 UNIT/500ML D5W 500 ML IV PRN (08:32)
[2016-11-04] MEDS: IPRATROPIUM BROMIDE NEB SOLN 0.02% 2.5 ML VIAL INH SCH (11:05)
[2016-11-04] MEDS: LEVALBUTEROL 1.25MG/0.5ML NEB INH SCH (11:05)
--- NOTE | 2016-11-04 19:23 | Progress Note ---
Medicine Progress Note Date & Time of Visit: Nov 04, 2016 at 19:06. Subjective Patient seen and examined. Feeling ok today. Objective Last 8 Hrs Date Time Temp Pulse Resp B/P Pulse Ox O2 Delivery O2 Flow Rate FiO2 11/04/16 17:03 94 Nasal Cannula 2.0 11/04/16 15:11 36.7 84 16 125/70 94 Nasal Cannula 2.0 11/04/16 14:11 36.3 81 18 118/67 91 Nasal Cannula 2.0 11/04/16 13:20 36.9 102 16 97 3.0 11/04/16 12:00 Nasal Cannula 3.0 Physical Exam: General-awake; alert; NAD Eyes-EOMI; no scleral icterus Neck-no stridor; trachea midline Lungs-end expiratory wheezes Heart-irregularly irregular Abdomen-soft; NTND; nBS Extremities-no c/c/e; no deformity Neuro-no gross focal deficits Laboratory Results: Last 24 Hours Test 11/04/16 07:05 White Blood Count 13.26 K/uL Red Blood Count 3.36 M/uL Hemoglobin 10.9 g/dL Hematocrit 31.3 % Mean Corpuscular Volume 93.2 fL Mean Corpuscular Hemoglobin 32.4 pg Mean Corpuscular Hemoglobin Concent 34.8 g/dl Platelet Count 199 K/uL Mean Platelet Volume 8.4 fL Neutrophils (%) (Auto) 88.9 % Lymphocytes (%) (Auto) 3.5 % Monocytes (%) (Auto) 3.2 % Eosinophils (%) (Auto) 0.0 % Basophils (%) (Auto) 0.2 % Neutrophils # (Auto) 11.78 K/uL Lymphocytes # (Auto) 0.47 K/uL Monocytes # (Auto) 0.43 K/uL Eosinophils # (Auto) 0.00 K/uL Basophils # (Auto) 0.02 K/uL RDW Standard Deviation 47.2 fL RDW Coefficient of Variation 13.9 % Immature Granulocyte % (Auto) 4.2 % Immature Granulocyte # (Auto) 0.56 K/uL Activated Partial Thromboplast Time 73.7 SECONDS Partial Thromboplastin Ratio 2.8 Sodium Level 136 mmol/L Potassium Level 4.0 mmol/L Chloride Level 96 mmol/L Carbon Dioxide Level 31 mmol/L Anion Gap 9.0 mmol/L Blood Urea Nitrogen 31 mg/dl Creatinine 0.84 mg/dl Est Creatinine Clear Calc Drug Dose 40.4 ml/min Estimated GFR () 75.0 Estimated GFR (Non- 64.7 BUN/Creatinine Ratio 36.8 Random Glucose 225 mg/dl Calcium Level 8.1 mg/dl Magnesium Level 2.1 mg/dl Assessment & Plan Acute respiratory failure -possibly related to healthcare associated pneumonia vs asthma exacerbation vs PE -CT chest from 10/29 showed multiple segmental pulmonary emboli -Pulmonary consulted -methylprednisolone changed to prednisone and plan for taper over 2 weeks -continue budesonide -continue nebulizers PRN -wean supplement oxygen -ID consulted -during hospitalization, received aztreonam, Imipenem, vancomycin, clindamycin, levofloxacin -- completed course of antibiotics Pulmonary Emboli -noted on CT -had received heparin drip -however, patient is felt to be a poor anticoagulation candidate given h/o falls and past subarachnoid hemorrhage -Vascular surgery consulted -s/p IVC filter on 11/03/16 Atrial fibrillation -continue diltiazem MRSA nasal swab -Mupirocin ointment nasally x7days DVT prophylaxis with heparin sq Anticipate discharge to rehab Consultants: ID Pulmonary Procedures: CT a/p 1. Multiple segmental pulmonary emboli within visualized portions of the lower chest with a left lower lobe pulmonary infarct and small left pleural effusion. Discussed with Dr. Edmonds at time of dictation. 2. No acute process within the abdomen or pelvis. 3. Study mildly compromised by motion artifact. 4. Extensive sigmoid diverticulosis without evidence for acute diverticulitis. Venous doppler LE There is no sonographic evidence of deep venous thrombosis identified in the right or left lower extremity. Venous doppler UE No DVT within the upper extremity. Current Inpatient Medications: Current Inpatient Medications Medications (Trade) Dose Ordered Sig/Ally Route Start Time Stop Time Status Last Admin Dose Admin Acetaminophen (Tylenol Tab) 650 mg Q4H PRN PO 10/28/16 06:45 11/27/16 06:44 10/29/16 19:54 650 MG Nitroglycerin (Nitrostat Tab) 0.4 mg UD PRN SL 10/28/16 06:45 11/27/16 06:44 Aspirin (Ecotrin Tab) 81 mg DAILY PO 10/28/16 09:00 11/27/16 08:59 11/04/16 08:29 81 MG Diltiazem HCl (Dilacor Xr Cap) 120 mg QAM PO 10/28/16 09:00 11/27/16 08:59 11/04/16 08:29 120 MG Lorazepam (Ativan Tab) 0.5 mg Q8 PRN PO 10/28/16 06:45 11/27/16 06:44 11/04/16 08:28 0.5 MG Montelukast Sodium (Singulair Tab) 10 mg HS PO 10/28/16 21:00 11/27/16 20:59 11/03/16 20:28 10 MG Sertraline HCl (Zoloft Tab) 100 mg DAILY PO 10/28/16 09:00 11/27/16 08:59 11/04/16 08:29 100 MG Guaifenesin (Mucinex Contr Rel Tab) 600 mg Q12 PO 10/28/16 21:00 11/27/16 20:59 11/04/16 08:29 600 MG Ondansetron HCl (Zofran Inj) 4 mg Q6H PRN IV 10/28/16 06:45 11/27/16 06:44 Tramadol HCl (Ultram Tab) 25 mg Q6H PRN PO 10/28/16 06:45 11/27/16 06:44 Morphine Sulfate (MoRPHine SULFATE INJ) 4 mg Q6H PRN IV 10/28/16 06:45 11/11/16 06:44 Future Hold Ipratropium [place] (Atrovent 0.02% 0.5MG/2.5ML Neb) 0.5 mg Q4RWA INH 10/31/16 12:00 11/30/16 11:59 11/04/16 11:05 0.5 MG Levalbuterol (Xopenex 1.25MG/ 0.5ML Neb) 1.25 mg Q4RWA INH 10/31/16 12:00 11/30/16 11:59 11/04/16 11:05 1.25 MG Benzonatate (Tessalon Perles Cap) 100 mg TID PRN PO 11/01/16 09:15 12/01/16 09:14 11/01/16 17:00 100 MG Mupirocin (Bactroban 2% Oint) 1 appln BID NA 11/02/16 22:00 12/02/16 21:59 11/04/16 08:29 1 APPLN Budesonide (Pulmicort Respules 0.5MG/ 2ML Neb Soln) 0.5 mg BIDR INH 11/03/16 20:00 12/03/16 19:59 11/04/16 08:00 0.5 MG Prednisone (PredniSONE TAB) 40 mg DAILY PO 11/05/16 09:00 12/05/16 08:59
[2016-11-04] MEDS: IPRATROPIUM BROMIDE NEB SOLN 0.02% 2.5 ML VIAL INH PRN (19:58)
[2016-11-04] MEDS: LEVALBUTEROL 1.25MG/0.5ML NEB INH PRN (19:58)
[2016-11-04] MEDS: MONTELUKAST SOD 10 MG TAB PO SCH (20:07)
[2016-11-04] MEDS: HEPARIN SOD 5000 UNIT/0.5 ML CARP SQ SCH (20:46)
[2016-11-05] MEDS: BENZONATATE 100MG CAP PO PRN ×2 (03:27→13:35)
[2016-11-05 06:31] LABS: HEMATOCRIT 32.8 % (37-47); MEAN CELL VOLUME 93.7 fL (80-100); MEAN CORPUSCULAR HEMOGLOBIN 31.7 pg (25-34); MEAN CORPUSCULAR HGB CONC 33.8 g/dl (32-36); MEAN PLATELET VOLUME 8.9 fL (7.4-10.4); PLATELET COUNT 210 K/uL (130-400); WHITE BLOOD COUNT 14.92 K/uL (4.8-10.8)
[2016-11-05] MEDS: HEPARIN SOD 5000 UNIT/0.5 ML CARP SQ SCH ×3 (06:47→20:59)
[2016-11-05 07:02] LABS: CALCIUM 8.1 mg/dl (8.5-10.1); CREATININE 0.91 mg/dl (0.60-1.20); POTASSIUM 4.2 mmol/L (3.5-5.1)
[2016-11-05 07:03] VITALS: PULSE 93; O2SAT 97
[2016-11-05] MEDS: BUDESONIDE 0.5 MG/2 ML VIAL (PULMICORT) INH SCH ×2 (07:03→19:52)
[2016-11-05 07:15] VITALS: BP 176/82; PULSE 86; TEMP 36.7; O2SAT 97
[2016-11-05] MEDS: DILTIAZEM HCL 120 MG ER CAP PO SCH (07:34)
[2016-11-05] MEDS: GUAIFENESIN 600 MG TABCR PO SCH ×2 (07:34→20:56)
[2016-11-05] MEDS: SERTRALINE HCL 50 MG TAB PO SCH (07:34)
[2016-11-05] MEDS: ASPIRIN 81 MG ECTAB PO SCH (07:34)
[2016-11-05] MEDS: MUPIROCIN 2% OINT 22 GM TUBE SCH ×2 (07:36→20:56)
[2016-11-05 15:05] VITALS: BP 126/73; PULSE 88; TEMP 36.7; O2SAT 93
[2016-11-05 16:00] VITALS: O2SAT 93
--- NOTE | 2016-11-05 17:12 | Progress Note ---
Medicine Progress Note Date & Time of Visit: Nov 05, 2016 at 17:09. Subjective Patient seen and examined. Slid off chair onto floor and found by nursing staff. Patient did not hit her head. Denies any pain. Objective Last 8 Hrs Date Time Temp Pulse Resp B/P Pulse Ox O2 Delivery O2 Flow Rate FiO2 11/05/16 16:00 93 Nasal Cannula 1.0 11/05/16 15:05 36.7 88 16 126/73 93 Nasal Cannula 1.0 Physical Exam: General-awake; alert; NAD Eyes-EOMI; no scleral icterus Neck-no stridor; trachea midline Lungs-expiratory wheezes Heart-irregularly irregular Abdomen-soft; NTND; nBS Extremities-no c/c/e; no deformity Neuro-no gross focal deficits Laboratory Results: Last 24 Hours Test 11/05/16 05:12 White Blood Count 14.92 K/uL Red Blood Count 3.50 M/uL Hemoglobin 11.1 g/dL Hematocrit 32.8 % Mean Corpuscular Volume 93.7 fL Mean Corpuscular Hemoglobin 31.7 pg Mean Corpuscular Hemoglobin Concent 33.8 g/dl RDW Standard Deviation 47.7 fL RDW Coefficient of Variation 13.9 % Platelet Count 210 K/uL Mean Platelet Volume 8.9 fL Sodium Level 134 mmol/L Potassium Level 4.2 mmol/L Chloride Level 94 mmol/L Carbon Dioxide Level 34 mmol/L Anion Gap 6.0 mmol/L Blood Urea Nitrogen 31 mg/dl Creatinine 0.91 mg/dl Est Creatinine Clear Calc Drug Dose 37.3 ml/min Estimated GFR () 68.1 Estimated GFR (Non- 58.8 BUN/Creatinine Ratio 34.0 Random Glucose 152 mg/dl Calcium Level 8.1 mg/dl Assessment & Plan Acute respiratory failure -possibly related to healthcare associated pneumonia vs asthma exacerbation vs PE -CT chest from 10/29 showed multiple segmental pulmonary emboli -Pulmonary consulted -methylprednisolone changed to prednisone and plan for taper over 2 weeks -continue budesonide -continue nebulizers PRN -wean supplement oxygen -ID consulted -during hospitalization, received aztreonam, Imipenem, vancomycin, clindamycin, levofloxacin -- completed course of antibiotics Pulmonary Emboli -noted on CT -had received heparin drip -however, patient is felt to be a poor anticoagulation candidate given h/o falls and past subarachnoid hemorrhage -Vascular surgery consulted -s/p IVC filter on 11/03/16 Atrial fibrillation -continue diltiazem MRSA nasal swab -Mupirocin ointment nasally x7days DVT prophylaxis with heparin sq Anticipate discharge to rehab to [facility]. Consultants: ID Pulmonary Procedures: CT a/p 1. Multiple segmental pulmonary emboli within visualized portions of the lower chest with a left lower lobe pulmonary infarct and small left pleural effusion. Discussed with Dr. Edmonds at time of dictation. 2. No acute process within the abdomen or pelvis. 3. Study mildly compromised by motion artifact. 4. Extensive sigmoid diverticulosis without evidence for acute diverticulitis. Venous doppler LE There is no sonographic evidence of deep venous thrombosis identified in the right or left lower extremity. Venous doppler UE No DVT within the upper extremity. Current Inpatient Medications: Current Inpatient Medications Medications (Trade) Dose Ordered Sig/Ally Route Start Time Stop Time Status Last Admin Dose Admin Acetaminophen (Tylenol Tab) 650 mg Q4H PRN PO 10/28/16 06:45 11/27/16 06:44 10/29/16 19:54 650 MG Nitroglycerin (Nitrostat Tab) 0.4 mg UD PRN SL 10/28/16 06:45 11/27/16 06:44 Aspirin (Ecotrin Tab) 81 mg DAILY PO 10/28/16 09:00 11/27/16 08:59 11/05/16 07:34 81 MG Diltiazem HCl (Dilacor Xr Cap) 120 mg QAM PO 10/28/16 09:00 11/27/16 08:59 11/05/16 07:34 120 MG Lorazepam (Ativan Tab) 0.5 mg Q8 PRN PO 10/28/16 06:45 11/27/16 06:44 11/04/16 08:28 0.5 MG Montelukast Sodium (Singulair Tab) 10 mg HS PO 10/28/16 21:00 11/27/16 20:59 11/04/16 20:07 10 MG Sertraline HCl (Zoloft Tab) 100 mg DAILY PO 10/28/16 09:00 11/27/16 08:59 11/05/16 07:34 100 MG Guaifenesin (Mucinex Contr Rel Tab) 600 mg Q12 PO 10/28/16 21:00 11/27/16 20:59 11/05/16 07:34 600 MG Ondansetron HCl (Zofran Inj) 4 mg Q6H PRN IV 10/28/16 06:45 11/27/16 06:44 Tramadol HCl (Ultram Tab) 25 mg Q6H PRN PO 10/28/16 06:45 11/27/16 06:44 Morphine Sulfate (MoRPHine SULFATE INJ) 4 mg Q6H PRN IV 10/28/16 06:45 11/11/16 06:44 Future Hold Benzonatate (Tessalon Perles Cap) 100 mg TID PRN PO 11/01/16 09:15 12/01/16 09:14 11/05/16 13:35 100 MG Mupirocin (Bactroban 2% Oint) 1 appln BID NA 11/02/16 22:00 11/09/16 21:59 11/05/16 07:36 1 APPLN Budesonide (Pulmicort Respules 0.5MG/ 2ML Neb Soln) 0.5 mg BIDR INH 11/03/16 20:00 12/03/16 19:59 11/05/16 07:03 0.5 MG Ipratropium [place] (Atrovent 0.02% 0.5MG/2.5ML Neb) 0.5 mg Q4RWA PRN INH 11/04/16 20:00 12/04/16 19:59 11/04/16 19:58 0.5 MG Levalbuterol (Xopenex 1.25MG/ 0.5ML Neb) 1.25 mg Q4RWA PRN INH 11/04/16 20:00 12/04/16 19:59 11/04/16 19:58 1.25 MG Heparin Sodium (Porcine) (Heparin Sq 5000 Unit/0.5ml) 5,000 unit Q8 SQ 11/04/16 22:00 12/04/16 21:59 11/05/16 13:38 5,000 UNIT Prednisone (PredniSONE TAB) 30 mg DAILY PO 11/06/16 09:00 12/06/16 08:59
[2016-11-05] MEDS: LORAZEPAM 0.5 MG TAB PO PRN (18:57)
[2016-11-05] MEDS: IPRATROPIUM BROMIDE NEB SOLN 0.02% 2.5 ML VIAL INH PRN (19:52)
[2016-11-05] MEDS: LEVALBUTEROL 1.25MG/0.5ML NEB INH PRN (19:52)
[2016-11-05 19:53] VITALS: PULSE 111; O2SAT 93
[2016-11-05] MEDS: MONTELUKAST SOD 10 MG TAB PO SCH (20:56)
[2016-11-05 23:40] VITALS: BP 125/78; PULSE 86; TEMP 36.6; O2SAT 96
[2016-11-06] MEDS: HEPARIN SOD 5000 UNIT/0.5 ML CARP SQ SCH ×3 (05:59→21:46)
[2016-11-06 06:53] VITALS: BP 132/75; PULSE 91; TEMP 36.6; O2SAT 95
[2016-11-06 06:59] VITALS: PULSE 95; O2SAT 96
[2016-11-06] MEDS: IPRATROPIUM BROMIDE NEB SOLN 0.02% 2.5 ML VIAL INH PRN ×2 (06:59→20:58)
[2016-11-06] MEDS: BUDESONIDE 0.5 MG/2 ML VIAL (PULMICORT) INH SCH ×2 (06:59→19:20)
[2016-11-06] MEDS: LEVALBUTEROL 1.25MG/0.5ML NEB INH PRN ×2 (06:59→20:58)
[2016-11-06] MEDS: MUPIROCIN 2% OINT 22 GM TUBE SCH ×2 (07:30→20:27)
[2016-11-06] MEDS: GUAIFENESIN 600 MG TABCR PO SCH ×2 (07:31→20:27)
[2016-11-06] MEDS: DILTIAZEM HCL 120 MG ER CAP PO SCH (07:31)
[2016-11-06] MEDS: ASPIRIN 81 MG ECTAB PO SCH (07:31)
[2016-11-06] MEDS: SERTRALINE HCL 50 MG TAB PO SCH (07:31)
[2016-11-06] MEDS: BENZONATATE 100MG CAP PO PRN (08:30)
--- NOTE | 2016-11-06 09:09 | Pulmonology Progress Note ---
Pulmonary Progress Note Date of Service Nov 06, 2016. Attending Wilder López Subjective Patient is anxious and tearful this morning. When I initially walked in she was eating showing no signs of increased work of breathing. After speak with the patient's she did note left lower hemithorax/left upper quadrant pain. Objective Patient is tearful morning but shows no signs of increased work of breathin-yo female admitted to [facility] 10/28/16 with respiratory failure. PMHx includes: asthma (diagnosed in childhood), pulmonary embolism, polymyalgia rheumatica, atrial fibrillation (off AC / fall risk and SAH), HTN, BCC- skin, hyperlipidemaia, esophageal reflux, hyperlipidemia, OA, subarachnoid hemorrhage , h/o syncope, right suprahilar pulmonary nodule (16mm stable), and dementia. She is a resident of [facility]. This is her third admission since September with respiratory insufficiency/failure: 09/27/16-10/07/16 , 10/20/16-10/27/16. Current admission: -Left lower lobe pneumonia with leukocytosis: Treated with broad-spectrum antibiotics Levaquin/imipenem/vancomycin discontinued 11/03/2016 Clindamycin discontinued to 2016 -Subsegmental pulmonary embolism: CT of the abdomen/pelvis 10/29/2016 with associated infiltrate/pulmonary infarction of the left lower lobe Echocardiogram, preserved EF, no ASD, biatrial enlargement DVT examination upper/lower: Negative for DVTs IVC filter placement: 11/03/2016 -Medications: 30mg prednisone [id number] Pulmicort nebulized twice a day Tessalon Perles 100 mg 3 times a day Singular 10 mg daily Today: -Leukocytosis: 15,000 steadily rising Physical Exam: Gen: Initially stable and evening and became tearful and anxious/no acute distress noted Respiratory: Decreased breath sounds left lower lobe diffuse wheezing but only on forced expiration and mostly in the subglottic region Cardiovascular: RRR, cannot appreciated any murmur, +2 radial pulses. <1s capillary refill. Abdomen: soft, active bowel sounds throughout Assessment & Plan 1. Asthma/?COPD: Continue current medical regimen: Prednisone, nebulizers, Pulmicort, Tessalon Perles and Singulair 2. Pulmonary Embolism: - Anticoagulation held secondary to h/o SAH and falls - IVC placed today #3 leukocytosis: Patient has been off antibiotics since the with continued elevated WBC count will continue to monitor. At this time suggest we monitor the patient shows any signs of advancing infection would panculture and reinitiate antibiotics. Data Medications: Current Inpatient Medications Medications (Trade) Dose Ordered Sig/Ally Route Start Time Stop Time Status Last Admin Dose Admin Acetaminophen (Tylenol Tab) 650 mg Q4H PRN PO 10/28/16 06:45 11/27/16 06:44 10/29/16 19:54 650 MG Nitroglycerin (Nitrostat Tab) 0.4 mg UD PRN SL 10/28/16 06:45 11/27/16 06:44 Aspirin (Ecotrin Tab) 81 mg DAILY PO 10/28/16 09:00 11/27/16 08:59 11/06/16 07:31 81 MG Diltiazem HCl (Dilacor Xr Cap) 120 mg QAM PO 10/28/16 09:00 11/27/16 08:59 11/06/16 07:31 120 MG Lorazepam (Ativan Tab) 0.5 mg Q8 PRN PO 10/28/16 06:45 11/27/16 06:44 11/05/16 18:57 0.5 MG Montelukast Sodium (Singulair Tab) 10 mg HS PO 10/28/16 21:00 11/27/16 20:59 11/05/16 20:56 10 MG Sertraline HCl (Zoloft Tab) 100 mg DAILY PO 10/28/16 09:00 11/27/16 08:59 11/06/16 07:31 100 MG Guaifenesin (Mucinex Contr Rel Tab) 600 mg Q12 PO 10/28/16 21:00 11/27/16 20:59 11/06/16 07:31 600 MG Ondansetron HCl (Zofran Inj) 4 mg Q6H PRN IV 10/28/16 06:45 11/27/16 06:44 Tramadol HCl (Ultram Tab) 25 mg Q6H PRN PO 10/28/16 06:45 11/27/16 06:44 11/06/16 08:31 25 MG Morphine Sulfate (MoRPHine SULFATE INJ) 4 mg Q6H PRN IV 10/28/16 06:45 11/11/16 06:44 Future Hold Benzonatate (Tessalon Perles Cap) 100 mg TID PRN PO 11/01/16 09:15 12/01/16 09:14 11/06/16 08:30 100 MG Mupirocin (Bactroban 2% Oint) 1 appln BID NA 11/02/16 22:00 11/09/16 21:59 11/06/16 07:30 1 APPLN Budesonide (Pulmicort Respules 0.5MG/ 2ML Neb Soln) 0.5 mg BIDR INH 11/03/16 20:00 12/03/16 19:59 11/06/16 06:59 0.5 MG Ipratropium [place] (Atrovent 0.02% 0.5MG/2.5ML Neb) 0.5 mg Q4RWA PRN INH 11/04/16 20:00 12/04/16 19:59 11/06/16 06:59 0.5 MG Levalbuterol (Xopenex 1.25MG/ 0.5ML Neb) 1.25 mg Q4RWA PRN INH 11/04/16 20:00 12/04/16 19:59 11/06/16 06:59 1.25 MG Heparin Sodium (Porcine) (Heparin Sq 5000 Unit/0.5ml) 5,000 unit Q8 SQ 11/04/16 22:00 12/04/16 21:59 11/06/16 05:59 5,000 UNIT Prednisone (PredniSONE TAB) 30 mg DAILY PO 11/06/16 09:00 12/06/16 08:59 11/06/16 07:31 30 MG I & O: 24-Hour Column 11/06/16 08:00 Intake Total 1090 ml Balance 1090 ml Vital Signs: Date Time Temp Pulse Resp B/P Pulse Ox O2 Delivery O2 Flow Rate FiO2 11/06/16 08:00 Nasal Cannula 1.0 11/06/16 06:59 95 16 96 Nasal Cannula 2.0 11/06/16 06:53 36.6 91 17 132/75 95 Nasal Cannula 1.0 11/06/16 00:25 Nasal Cannula 1.0 11/05/16 23:40 36.6 86 16 125/78 96 Nasal Cannula 2.0 11/05/16 19:53 111 16 93 Nasal Cannula 2.0 11/05/16 16:00 93 Nasal Cannula 1.0 11/05/16 15:05 36.7 88 16 126/73 93 Nasal Cannula 1.0
[2016-11-06 13:31] VITALS: BP 100/50
[2016-11-06 15:29] VITALS: BP 118/73; PULSE 93; TEMP 36.9; O2SAT 93
--- NOTE | 2016-11-06 18:16 | Progress Note ---
Medicine Progress Note Date & Time of Visit: Nov 06, 2016 at 18:14. Subjective Patient seen and examined. Is without complaints. Nursing staff noted that she was very upset this morning after an episode of urinary incontinence. Objective Last 8 Hrs Date Time Temp Pulse Resp B/P Pulse Ox O2 Delivery O2 Flow Rate FiO2 11/06/16 15:29 36.9 93 18 118/73 93 Room Air 11/06/16 15:20 Nasal Cannula 1.0 Physical Exam: General-awake; alert; NAD Eyes-EOMI; no scleral icterus Neck-no stridor; trachea midline Lungs-end expiratory wheezes Heart-irregularly irregular Abdomen-soft; NTND; nBS Extremities-no c/c/e; no deformity Neuro-no gross focal deficits Assessment & Plan Acute respiratory failure -possibly related to healthcare associated pneumonia vs asthma exacerbation vs PE -CT chest from 10/29 showed multiple segmental pulmonary emboli -Pulmonary consulted -methylprednisolone changed to prednisone and plan for taper over 2 weeks -continue budesonide -continue nebulizers PRN -wean supplement oxygen -ID consulted -during hospitalization, received aztreonam, Imipenem, vancomycin, clindamycin, levofloxacin -- completed course of antibiotics Pulmonary Emboli -noted on CT -had received heparin drip -however, patient is felt to be a poor anticoagulation candidate given h/o falls and past subarachnoid hemorrhage -Vascular surgery consulted -s/p IVC filter on 11/03/16 Atrial fibrillation -continue diltiazem MRSA nasal swab -Mupirocin ointment nasally x7days DVT prophylaxis with heparin sq Anticipate discharge to rehab to [place]. Consultants: ID Pulmonary Procedures: CT a/p 1. Multiple segmental pulmonary emboli within visualized portions of the lower chest with a left lower lobe pulmonary infarct and small left pleural effusion. Discussed with Dr. Edmonds at time of dictation. 2. No acute process within the abdomen or pelvis. 3. Study mildly compromised by motion artifact. 4. Extensive sigmoid diverticulosis without evidence for acute diverticulitis. Venous doppler LE There is no sonographic evidence of deep venous thrombosis identified in the right or left lower extremity. Venous doppler UE No DVT within the upper extremity. Current Inpatient Medications: Current Inpatient Medications Medications (Trade) Dose Ordered Sig/Ally Route Start Time Stop Time Status Last Admin Dose Admin Acetaminophen (Tylenol Tab) 650 mg Q4H PRN PO 10/28/16 06:45 11/27/16 06:44 10/29/16 19:54 650 MG Nitroglycerin (Nitrostat Tab) 0.4 mg UD PRN SL 10/28/16 06:45 11/27/16 06:44 Aspirin (Ecotrin Tab) 81 mg DAILY PO 10/28/16 09:00 11/27/16 08:59 11/06/16 07:31 81 MG Diltiazem HCl (Dilacor Xr Cap) 120 mg QAM PO 10/28/16 09:00 11/27/16 08:59 11/06/16 07:31 120 MG Lorazepam (Ativan Tab) 0.5 mg Q8 PRN PO 10/28/16 06:45 11/27/16 06:44 11/05/16 18:57 0.5 MG Montelukast Sodium (Singulair Tab) 10 mg HS PO 10/28/16 21:00 11/27/16 20:59 11/05/16 20:56 10 MG Sertraline HCl (Zoloft Tab) 100 mg DAILY PO 10/28/16 09:00 11/27/16 08:59 11/06/16 07:31 100 MG Guaifenesin (Mucinex Contr Rel Tab) 600 mg Q12 PO 10/28/16 21:00 11/27/16 20:59 11/06/16 07:31 600 MG Ondansetron HCl (Zofran Inj) 4 mg Q6H PRN IV 10/28/16 06:45 11/27/16 06:44 Tramadol HCl (Ultram Tab) 25 mg Q6H PRN PO 10/28/16 06:45 11/27/16 06:44 11/06/16 08:31 25 MG Morphine Sulfate (MoRPHine SULFATE INJ) 4 mg Q6H PRN IV 10/28/16 06:45 11/11/16 06:44 Future Hold Benzonatate (Tessalon Perles Cap) 100 mg TID PRN PO 11/01/16 09:15 12/01/16 09:14 11/06/16 08:30 100 MG Mupirocin (Bactroban 2% Oint) 1 appln BID NA 11/02/16 22:00 11/09/16 21:59 11/06/16 07:30 1 APPLN Budesonide (Pulmicort Respules 0.5MG/ 2ML Neb Soln) 0.5 mg BIDR INH 11/03/16 20:00 12/03/16 19:59 11/06/16 06:59 0.5 MG Ipratropium [place] (Atrovent 0.02% 0.5MG/2.5ML Neb) 0.5 mg Q4RWA PRN INH 11/04/16 20:00 12/04/16 19:59 11/06/16 06:59 0.5 MG Levalbuterol (Xopenex 1.25MG/ 0.5ML Neb) 1.25 mg Q4RWA PRN INH 11/04/16 20:00 12/04/16 19:59 11/06/16 06:59 1.25 MG Heparin Sodium (Porcine) (Heparin Sq 5000 Unit/0.5ml) 5,000 unit Q8 SQ 11/04/16 22:00 12/04/16 21:59 11/06/16 13:40 5,000 UNIT Prednisone (PredniSONE TAB) 30 mg DAILY PO 11/06/16 09:00 12/06/16 08:59 11/06/16 07:31 30 MG
[2016-11-06 19:25] VITALS: PULSE 95; O2SAT 95
[2016-11-06] MEDS: MONTELUKAST SOD 10 MG TAB PO SCH (20:27)
[2016-11-07 00:06] VITALS: BP 118/73; PULSE 92; TEMP 36.8; O2SAT 98
[2016-11-07] MEDS: HEPARIN SOD 5000 UNIT/0.5 ML CARP SQ SCH (05:54)
[2016-11-07] MEDS: IPRATROPIUM BROMIDE NEB SOLN 0.02% 2.5 ML VIAL INH PRN (06:59)
[2016-11-07] MEDS: BUDESONIDE 0.5 MG/2 ML VIAL (PULMICORT) INH SCH (06:59)
[2016-11-07 07:00] VITALS: PULSE 93; O2SAT 96
[2016-11-07] MEDS: LEVALBUTEROL 1.25MG/0.5ML NEB INH PRN (07:00)
[2016-11-07 08:03] VITALS: BP 123/77; PULSE 94; TEMP 36.7; O2SAT 96
[2016-11-07 08:04] LABS: HEMATOCRIT 31.7 % (37-47); MEAN CELL VOLUME 92.4 fL (80-100); MEAN CORPUSCULAR HEMOGLOBIN 32.4 pg (25-34); MEAN PLATELET VOLUME 8.8 fL (7.4-10.4); PLATELET COUNT 214 K/uL (130-400); RED BLOOD COUNT 3.43 M/uL (4.2-5.4); WHITE BLOOD COUNT 16.37 K/uL (4.8-10.8)
[2016-11-07] MEDS: ASPIRIN 81 MG ECTAB PO SCH (08:31)
[2016-11-07] MEDS: DILTIAZEM HCL 120 MG ER CAP PO SCH (08:31)
[2016-11-07] MEDS: MONTELUKAST SOD 10 MG TAB PO SCH (08:31)
[2016-11-07] MEDS: SERTRALINE HCL 50 MG TAB PO SCH (08:31)
[2016-11-07 08:32] LABS: BUN/CREATININE RATIO 35.6 (10-20); CALCIUM 8.5 mg/dl (8.5-10.1); CREATININE 0.7 mg/dl (0.60-1.20); POTASSIUM 4.3 mmol/L (3.5-5.1)
[2016-11-07] MEDS: GUAIFENESIN 600 MG TABCR PO SCH (08:32)
[2016-11-07] MEDS: BENZONATATE 100MG CAP PO PRN ×2 (08:32→10:16)
[2016-11-07] MEDS: MUPIROCIN 2% OINT 22 GM TUBE SCH (08:34)
[2016-11-07 09:10] VITALS: O2SAT 96
[2016-11-07] MEDS ORDERED: BENZ100C7 PO (09:19)
[2016-11-07] MEDS ORDERED: POLY335019 PO (09:19)
[2016-11-07] MEDS ORDERED: PRD10 PO (09:19)
[2016-11-07] MEDS ORDERED: BCTRO (09:19)
[2016-11-07] MEDS ORDERED: PLMINS INH (09:19)
--- NOTE | 2016-11-07 09:23 | Discharge Instructions ---
Discharge Instructions Admission Reason for Admission: Acute Respiratory Failure Discharge Discharge Diagnosis / Problem: Bilateral pulmonary emboli. Acute asthma exacerbation. Discharge Goals Goal(s): Increase independence Activity Recommendations Activity Level: Assistance Required Therapies: Physical Therapy, Occupational Therapy . Additional Information Patient informed of condition: Yes Advance Directives: No DNR: Yes Level of Care: Acute Rehab Communicable Disease: No Prognosis: Stable Oxygen at (LPM): 1-2 Orellana Catheter: No Instructions / Follow-Up Instructions / Follow-Up Please monitor CBC. Patient does have an elevated WBC count, likely due to prednisone. Afebrile, no infectious symptoms at this time. Patient is on a prednisone taper. Please take 30mg on 11/08/16. Then decrease to 20mg daily x3 days. Then 10mg daily x3 days. Wean supplemental oxygen as able. Patient had an IVF filter placed 11/03/16 for pulmonary emboli as anticoagulation is contraindicated. Current Hospital Diet Patient's current hospital diet: AHA Diet (Heart Healthy) Discharge Diet Recommended Diet: AHA Diet (Heart Healthy) Procedures Procedures Performed: Insertion of Vena Cava Filter on 11/03/16. Pending Studies Studies pending at discharge: no Medical Emergencies . Who to Call and When: Medical Emergencies: If at any time you feel your situation is an emergency, please call 911 immediately. . Non-Emergent Contact Non-Emergency issues call your: Primary Care Provider . . "Provider Documentation" section prepared by Luz Harrison. Core Measure Problem Core Measures: VTE VTE Core Measures Date of VTE Diagnosis: Oct 28, 2016 Time of VTE Diagnosis: 21:58 Reason no anticoag overlap I/P: Contraindicated Reason no anticoag overlap @DC: Contraindicated
[2016-11-07 11:00] VITALS: BP 123/77; PULSE 94; TEMP 36.7; O2SAT 96
[2016-11-07 12:41] VITALS: PULSE 88; O2SAT 92
--- NOTE | 2016-11-07 13:29 | Pulmonology Progress Note ---
Pulmonary Progress Note Date of Service Nov 07, 2016. Attending Wilder López Subjective Continued LLL/JENSEN abd-quadrant pain. She note improvement in her respiratory status with decreased dyspnea over the last 24 hours. Objective Patient sitting up eating and able to complete full sentences: 80-yo female admitted to [facility] 10/28/16 with respiratory failure. PMHx includes: asthma (diagnosed in childhood), pulmonary embolism, polymyalgia rheumatica, atrial fibrillation (off AC 2/2 fall risk and SAH), HTN, BCC- skin, hyperlipidemaia, esophageal reflux, hyperlipidemia, OA, subarachnoid hemorrhage , h/o syncope, right suprahilar pulmonary nodule (16mm stable), and dementia. She is a resident of [facility]. This is her third admission since September with respiratory insufficiency/failure: 09/27/16-10/07/16 , 10/20/16-10/27/16. Current admission: -Left lower lobe pneumonia with leukocytosis: Treated with broad-spectrum antibiotics Levaquin/imipenem/vancomycin discontinued 11/03/2016 Clindamycin discontinued -Subsegmental pulmonary embolism: CT of the abdomen/pelvis 10/29/2016 with associated infiltrate/pulmonary infarction of the left lower lobe Echocardiogram, preserved EF, no ASD, biatrial enlargement DVT examination upper/lower: Negative for DVTs IVC filter placement: 11/03/2016 -Medications: 1)Prednisone 30 mg by mouth daily 2)Atrovent/Xopenex nebulizers every 4 hours when necessary 3)Pulmicort nebulized twice a day 4)Singular 10 mg daily 5)Mucinex guaifenesin 600 mg twice a day Today: -Leukocytosis: 16,000 continues to rise slowly Physical Exam: Gen: doing well today and oriented x3 Respiratory: Decreased breath sounds left lower lobe diffuse wheezing but only on forced expiration and mostly in the subglottic region Cardiovascular: RRR, cannot appreciated any murmur, +2 radial pulses. <1s capillary refill. Abdomen: soft, active bowel sounds throughout Inguinal region: right previous access sight no signs of infection. Assessment & Plan 1. Asthma/?COPD: Will drop prednisone dose to 25mg/QD but continue nebulizers, Pulmicort, Tessalon Perles and Singulair 2. Pulmonary Embolism: - Anticoagulation held secondary to h/o SAH and falls - IVC placed today #3 Leukocytosis: To be f/u at [facility] Data Medications: Current Inpatient Medications Medications (Trade) Dose Ordered Sig/Ally Route Start Time Stop Time Status Last Admin Dose Admin Acetaminophen (Tylenol Tab) 650 mg Q4H PRN PO 10/28/16 06:45 11/27/16 06:44 10/29/16 19:54 650 MG Nitroglycerin (Nitrostat Tab) 0.4 mg UD PRN SL 10/28/16 06:45 11/27/16 06:44 Aspirin (Ecotrin Tab) 81 mg DAILY PO 10/28/16 09:00 11/27/16 08:59 11/07/16 08:31 81 MG Diltiazem HCl (Dilacor Xr Cap) 120 mg QAM PO 10/28/16 09:00 11/27/16 08:59 11/07/16 08:31 120 MG Lorazepam (Ativan Tab) 0.5 mg Q8 PRN PO 10/28/16 06:45 11/27/16 06:44 11/05/16 18:57 0.5 MG Montelukast Sodium (Singulair Tab) 10 mg HS PO 10/28/16 21:00 11/27/16 20:59 11/07/16 08:31 10 MG Sertraline HCl (Zoloft Tab) 100 mg DAILY PO 10/28/16 09:00 11/27/16 08:59 11/07/16 08:31 100 MG Guaifenesin (Mucinex Contr Rel Tab) 600 mg Q12 PO 10/28/16 21:00 11/27/16 20:59 11/07/16 08:32 600 MG Ondansetron HCl (Zofran Inj) 4 mg Q6H PRN IV 10/28/16 06:45 11/27/16 06:44 Tramadol HCl (Ultram Tab) 25 mg Q6H PRN PO 10/28/16 06:45 11/27/16 06:44 11/06/16 08:31 25 MG Morphine Sulfate (MoRPHine SULFATE INJ) 4 mg Q6H PRN IV 10/28/16 06:45 11/11/16 06:44 Future Hold Benzonatate (Tessalon Perles Cap) 100 mg TID PRN PO 11/01/16 09:15 12/01/16 09:14 11/07/16 10:16 100 MG Mupirocin (Bactroban 2% Oint) 1 appln BID NA 11/02/16 22:00 11/09/16 21:59 11/07/16 08:34 1 APPLN Budesonide (Pulmicort Respules 0.5MG/ 2ML Neb Soln) 0.5 mg BIDR INH 11/03/16 20:00 12/03/16 19:59 11/07/16 06:59 0.5 MG Ipratropium [place] (Atrovent 0.02% 0.5MG/2.5ML Neb) 0.5 mg Q4RWA PRN INH 11/04/16 20:00 12/04/16 19:59 11/07/16 06:59 0.5 MG Levalbuterol (Xopenex 1.25MG/ 0.5ML Neb) 1.25 mg Q4RWA PRN INH 11/04/16 20:00 12/04/16 19:59 11/07/16 07:00 1.25 MG Heparin Sodium (Porcine) (Heparin Sq 5000 Unit/0.5ml) 5,000 unit Q8 SQ 11/04/16 22:00 12/04/16 21:59 11/07/16 05:54 5,000 UNIT Prednisone (PredniSONE TAB) 30 mg DAILY PO 11/06/16 09:00 12/06/16 08:59 11/07/16 08:33 30 MG I & O: 24-Hour Column 11/07/16 08:00 Intake Total 890 ml Balance 890 ml Vital Signs: Date Time Temp Pulse Resp B/P Pulse Ox O2 Delivery O2 Flow Rate FiO2 11/07/16 12:41 88 92 Nasal Cannula 2.0 11/07/16 11:00 36.7 94 18 96 Nasal Cannula 11/07/16 09:10 96 Nasal Cannula 2.0 11/07/16 08:03 36.7 94 18 123/77 96 Nasal Cannula 2.0 11/07/16 08:00 Nasal Cannula 2.0 11/07/16 07:00 93 18 96 Nasal Cannula 2.0 11/07/16 00:06 36.8 92 20 118/73 98 Nasal Cannula 2.0 11/07/16 00:05 Nasal Cannula 2.0 11/06/16 19:25 95 18 95 Nasal Cannula 2.0 11/06/16 15:29 36.9 93 18 118/73 93 Room Air 11/06/16 15:20 Nasal Cannula 1.0 Laboratory Results: Last 24 Hours Test 11/07/16 07:04 White Blood Count 16.37 K/uL Red Blood Count 3.43 M/uL Hemoglobin 11.1 g/dL Hematocrit 31.7 % Mean Corpuscular Volume 92.4 fL Mean Corpuscular Hemoglobin 32.4 pg Mean Corpuscular Hemoglobin Concent 35.0 g/dl RDW Standard Deviation 47.1 fL RDW Coefficient of Variation 14.1 % Platelet Count 214 K/uL Mean Platelet Volume 8.8 fL Sodium Level 130 mmol/L Potassium Level 4.3 mmol/L Chloride Level 92 mmol/L Carbon Dioxide Level 34 mmol/L Anion Gap 4.0 mmol/L Blood Urea Nitrogen 25 mg/dl Creatinine 0.70 mg/dl Est Creatinine Clear Calc Drug Dose 48.5 ml/min Estimated GFR () 93.5 Estimated GFR (Non- 80.7 BUN/Creatinine Ratio 35.6 Random Glucose 131 mg/dl Calcium Level 8.5 mg/dl
--- NOTE | 2016-11-07 18:02 | Discharge Summary ---
Discharge Summary Date of Service Nov 07, 2016. Discharge Summary Admission Date: Oct 28, 2016 at 06:27 Discharge Date: Nov 07, 2016 Discharge Disposition: Rehab Principal Diagnosis: Bilateral segmental PE Secondary Diagnoses/Problems: Asthma exacerbation Procedures: CT a/p 1. Multiple segmental pulmonary emboli within visualized portions of the lower chest with a left lower lobe pulmonary infarct and small left pleural effusion. Discussed with Dr. Edmonds at time of dictation. 2. No acute process within the abdomen or pelvis. 3. Study mildly compromised by motion artifact. 4. Extensive sigmoid diverticulosis without evidence for acute diverticulitis. Venous doppler LE There is no sonographic evidence of deep venous thrombosis identified in the right or left lower extremity. Venous doppler UE No DVT within the upper extremity. Consultations: ID Pulmonary Medication Reconciliation New Medications: Benzonatate (Benzonatate) 100 Mg Cap 100 MG PO TID PRN for cough for 10 Days, #30 CAP Budesonide (Inhalation) (Pulmicort Respules 0.5MG/2ML) 0.5 Mg/2 Ml Danette 0.5 MG INH BIDR for 30 Days Mupirocin (Mupirocin) 66 Appln/22 Gm Oint 1 APPLN NA BID for 3 Days Prednisone (Prednisone) 10 Mg Tab 30 MG PO UD for 7 Days, TAB Start 11/08. Take 30mg daily x1day. Then 20mg daily x3days. Then 10mg daily x3days. Changed Medications: Polyethylene Glycol 3350 (Miralax) 1 Pow Pow 17 GM PO DAILY PRN for Constipation for 30 Days (Medication details modified) Continued Medications: Acetaminophen (Tylenol) 325 Mg Tab 650 MG PO Q8 PRN for Pain or Fever, TAB Aspirin (Aspirin 81) 81 Mg Tab 81 MG PO DAILY Diltiazem HCl (Diltiazem HCl ER) 120 Mg Caper 120 MG PO QAM for 30 Days Ipratropium [place] (Ipratropium [place]) 0.5 Mg/2.5 Ml Nebu 0.5 MG INH Q6 PRN for SOB/Wheezing for 30 Days, #30 EA Levalbuterol (Levalbuterol HCl) 0.63 Mg/3 Ml Nebu 0.63 MG INH Q6 PRN for SOB/Wheezing for 30 Days, #30 EA Loperamide Hcl (Anti-Diarrheal) 2 Mg Tab 2 MG PO Q4 PRN for Diarrhea Lorazepam (Ativan) 0.5 Mg Tab 0.5 MG PO Q8 PRN for Anxiety/Agitation, TAB Montelukast Sod (Montelukast Sodium) 10 Mg Tab 10 MG PO HS for 30 Days, TAB Sertraline (Zoloft) 50 Mg Tab 100 MG PO DAILY for 30 Days, #60 TAB Witch Dariana (Hamamelis Virgini (Tucks Medicated Cooling) 50 % Pad 1 APPLN EXT UD apply externally to affected area 6 times daily as needed or after each bm Discontinued Medications: Budesonide/Formoterol Fumarate (Symbicort 160-4.5 Mcg/Act) 60 Puffs/Inhaler Aero 2 PUFFS INH BID for 30 Days Guaifenesin Ext Rel (Mucinex Ext Rel) 600 Mg Tabcr 600 MG PO Q12 for 10 Days, #20 TAB Admission Information HPI (per Admitting provider): Medical history significant for asthma/COPD as per records, past tobacco abuse, hypertension, dementia as per records, hypothyroidism, polymyalgia rheumatica as per records, history of subarachnoid hemorrhage, atrial fibrillation off anticoagulation because of fall risk and subarachnoid hemorrhage. Recent confinement last week for asthma exacerbation. Patient treated with Solu-Medrol, discharged back to [facility]. Hours ago, patient felt febrile and hot. Junky cough symptoms, unable to expectorate, increasing shortness of breath, no chest pain. Admits to some coughing if she is not careful with meals, drinking water. In the Emergency Room, O2 sats 87 on room air initially. Patient received Levaquin for sepsis. Physical Exam (per Admitting): VITAL SIGNS: Blood pressure was noted to be 124/71, pulse rate 108, RR 28, temperature 36.6, sats 87 on room air, later 95 on 2 liters. GENERAL: Noted to be in respiratory distress, speaks in phrases. SKIN: Normal color. HEENT: [place] palpebral conjunctivae. Dry mucosa. NECK: Short neck. LUNGS: Expiratory wheezes and rhonchi, left greater than right. HEART: Tachycardic, irregular. ABDOMEN: Some distention. EXTREMITIES: Minimal LE edema, no tenderness. NEUROLOGIC: No gross focality. Hospital Course Patient admitted with acute respiratory failure, possibly related to healthcare associated pneumonia vs asthma exacerbation vs PE. Infectious disease and Pulmonary were consulted. CT chest from 10/29 showed multiple segmental pulmonary emboli. Patient was started on methylprednisolone, budesonide. She was continued on nebulizers. During patient's hospitalization she received varying courses of aztreonam, Imipenem, vancomycin, clindamycin, levofloxacin. She completed a course of antibiotics. Patient was felt to be a poor candidate for anticoagulation for PE due to fall risk and previous h/o subarachnoid hemorrhage. Vascular surgery was consulted and an IVC filter was placed on . Patient still required supplemental oxygen on discharge and this can be weaned as tolerated. Patient was continued on the remainder of her home medications. She was discharged on a prednisone taper. Of note, patient did have persistent leukocytosis, likely 2/2 prednisone. Would recommend monitoring CBC while at SNF and consider obtaining cultures as clinically indicated. Patient deemed stable for discharge to SNF for rehab. PE on discharge: General- awake; alert; NAD Eyes- EOMI; no scleral icterus Neck- no stridor; trachea midline Lungs- scant end expiratory wheezes Heart- irregularly irregular Abdomen- soft; NTND; nBS Back- no gross abnormalities Extremities- no c/c/e; no deformity Neuro- no gross focal deficits Skin- no appreciable rash or bruise . Total time spent on discharge = This includes examination of the patient, discharge planning, medication reconciliation, and communication with other providers. Discharge Instructions Discharge Instructions Admission Reason for Admission: Acute Respiratory Failure Discharge Discharge Diagnosis / Problem: Bilateral pulmonary emboli. Acute asthma exacerbation. Discharge Goals Goal(s): Increase independence Activity Recommendations Activity Level: Assistance Required Therapies: Physical Therapy, Occupational Therapy . Additional Information Patient informed of condition: Yes Advance Directives: No DNR: Yes Level of Care: Acute Rehab Communicable Disease: No Prognosis: Stable Oxygen at (LPM): 1-2 Orellana Catheter: No Instructions / Follow-Up Instructions / Follow-Up Please monitor CBC. Patient does have an elevated WBC count, likely due to prednisone. Afebrile, no infectious symptoms at this time. Patient is on a prednisone taper. Please take 30mg on 11/08/16. Then decrease to 20mg daily x3 days. Then 10mg daily x3 days. Wean supplemental oxygen as able. Patient had an IVF filter placed 11/03/16 for pulmonary emboli as anticoagulation is contraindicated. Current Hospital Diet Patient's current hospital diet: AHA Diet (Heart Healthy) Discharge Diet Recommended Diet: AHA Diet (Heart Healthy) Procedures Procedures Performed: Insertion of Vena Cava Filter on 11/03/16. Pending Studies Studies pending at discharge: no Medical Emergencies . Who to Call and When: Medical Emergencies: If at any time you feel your situation is an emergency, please call 911 immediately. . Non-Emergent Contact Non-Emergency issues call your: Primary Care Provider . . "Provider Documentation" section prepared by Luz Harrison. Core Measure Problem Core Measures: VTE VTE Core Measures Date of VTE Diagnosis: Oct 28, 2016 Time of VTE Diagnosis: 21:58 Reason no anticoag overlap I/P: Contraindicated Reason no anticoag overlap @DC: Contraindicated Additional Copies To Kee Riley D.O.
--- NOTE | 2016-11-27 08:41 | EDITING REQUIRED CODING QUERY ---
CODING QUERY To promote full compliance with coding requirements relating to patient care, provider participation is requested in all cases of death surveys coder uncertainty. Please assist us with the question(s) below: Coding Question(s): Further clarification is needed for correct coding assignment. Did the patient have 1. Hospital acquired pneumonia 2. MRSA pneumonia 3. Pneumonia not present 4. Unable to determine 5. Other diagnosis - healthcare associated pneumonia Physician's Response(s): Thank you Shasha Story Principal Diagnosis: "_that condition established after study, to be chiefly responsible for occasioning the admission of the patient to the hospital for care." Co-Existing Principal Diagnosis: "_when two or more diagnoses equally meet the criteria for principal diagnosis as determined by the circumstances of admission, diagnostic work up, and/or therapy provided, and the Alphabetic Index, Tabular List, or another coding guideline does not provide sequencing direction, any one of the diagnoses may be sequenced first." "When the physician has documented what appears to be a current diagnosis in the body of the record, but has not included the diagnosis in the final diagnostic statement, the physician should be asked whether the diagnosis should be added." (Source Coding [facility] 2 QTR90. p3-4)
[2017-04-24] MEDS ORDERED: PRED10TA PO (12:12)
[2017-04-24] MEDS ORDERED: IPRASOL4 INH (12:12)
[2017-04-24] MEDS ORDERED: PRFINS INH (12:12)
[2017-04-24] MEDS ORDERED: GFNSR600 PO (12:12)
[2017-04-24] MEDS ORDERED: NYSS5 PO (12:12)
== END 2016-11-07 13:19 | DRG 166 ==
LOC: ENRESERVDT → ENRESERVTM → EDBD 03:05 → C.EDA 03:06 → C.2T 06:27 → UNDOADMIN 06:27 → EDBEDREQSVC 11-04 11:50 → C.MS2W 11-04 13:58
PROVIDERS: ADMIT Internal Medicine; ATTEND Internal Medicine
PROC: 06H03DZ Insertion of Intraluminal Device into Inferior Vena Cava, Percutaneous Approach (ICD-10-PCS; principal; 2016-11-03 10:30)
DX: I26.99 Other pulmonary embolism without acute cor pulmonale (principal); J96.00 Acute respiratory failure, unspecified whether with hypoxia or hypercapnia; J18.9 Pneumonia, unspecified organism; J45.901 Unspecified asthma with (acute) exacerbation; Z87.891 Personal history of nicotine dependence; I10 Essential (primary) hypertension; E03.9 Hypothyroidism, unspecified; M35.3 Polymyalgia rheumatica; I48.91 Unspecified atrial fibrillation; Z98.51 Tubal ligation status; Z90.710 Acquired absence of both cervix and uterus; Z79.82 Long term (current) use of aspirin; Z79.899 Other long term (current) drug therapy; Z66 Do not resuscitate; Z82.5 Family history of asthma and other chronic lower respiratory diseases; G30.9 Alzheimer's disease, unspecified; F02.80 Dementia in other diseases classified elsewhere, unspecified severity, without behavioral disturbance, psychotic disturbance, mood disturbance, and anxiety; Z87.820 Personal history of traumatic brain injury

== ENCOUNTER 2016-11-24 01:48 | Emergency (ER) | payer BC, OTHER ==
[~2016-11-24 01:48] MED LIST changes: +BCTRO; -GFNSR600 PO; +PLMINS INH; +PRD10 PO; -PRED10TA PO; -SYMIN INH
[2016-11-24 02:08] LABS: HEMATOCRIT 25.7 % (37-47); MEAN CELL VOLUME 94.5 fL (80-100); MEAN CORPUSCULAR HEMOGLOBIN 31.6 pg (25-34); MEAN CORPUSCULAR HGB CONC 33.5 g/dl (32-36); MEAN PLATELET VOLUME 8.1 fL (7.4-10.4); PLATELET COUNT 244 K/uL (130-400); RED BLOOD COUNT 2.72 M/uL (4.2-5.4); WHITE BLOOD COUNT 9.05 K/uL (4.8-10.8)
--- NOTE | 2016-11-24 02:11 | EMERGENCY ROOM VISIT NOTE ---
History Report prepared by Ulises: Mehul Esqueda Under the Supervision of: Dr. Jovanny Richardson D.O. First contact with patient: 01:55 Chief Complaint: ABDOMINAL PAIN Stated Complaint: ABDOMINAL PAIN Nursing Triage Summary: Pt arrives by ALS from [facility] c/o sudden onset of LUQ pain. Hx of COPD and Pneumonia. Per staff pt given shot of Dexamethasone today. Pt alert to person, unabel to answer other asked questions. History of Present Illness The patient is an 81 year old female who presents to the Emergency Room with complaints of persistent abdominal pain that started suddenly tonight. The patient came to the ED from [facility]. Records indicate that she was given a shot of Dexamethasone earlier today. She has a history of COPD and pneumonia. History limited secondary to clinical condition and mental status. Source of History: patient, [facility] notes History Limited By: AMS, other (clinical condition) Onset: tonight Position: abdomen Timing: other (persistent) Review of Systems ROS limited secondary to clinical condition and mental status. Past Medical & Surgical Medical Problems: (1) Afib (2) Alzheimer's disease, unspecified (3) Asthma exacerbation (4) Ataxia (5) Benign essential hypertension (6) Dizziness (7) History of subarachnoid hemorrhage (8) Hypothyroidism, unspecified (9) Polymyalgia rheumatica (10) Respiratory failure, acute (11) SAH (subarachnoid hemorrhage) (12) Syncope (13) Unspecified asthma Surgical Problems: (1) H/O tubal ligation (2) S/P appendectomy (3) S/P hysterectomy Family History Patient reports no known family medical history. Social History Smoking Status: Never Smoker Alcohol Use: none Marital Status: Housing Status: lives alone Occupation Status: retired Current/Historical Medications Scheduled Aspirin (Aspirin 81), 81 MG PO DAILY Budesonide (Inhalation) (Pulmicort Respules 0.5MG/2ML), 0.5 MG INH BIDR Diltiazem HCl (Diltiazem HCl ER), 120 MG PO QAM Montelukast Sod (Montelukast Sodium), 10 MG PO HS Mupirocin (Mupirocin), 1 APPLN NA BID Prednisone (Prednisone), 30 MG PO UD Sertraline (Zoloft), 100 MG PO DAILY Witch Dariana (Hamamelis Virgini (Tucks Medicated Cooling), 1 APPLN EXT UD Scheduled PRN Acetaminophen (Tylenol), 650 MG PO Q8 PRN for Pain or Fever Benzonatate (Benzonatate), 100 MG PO TID PRN for cough Ipratropium Viper (Ipratropium Viper), 0.5 MG INH Q6 PRN for SOB/Wheezing Levalbuterol (Levalbuterol HCl), 0.63 MG INH Q6 PRN for SOB/Wheezing Loperamide Hcl (Anti-Diarrheal), 2 MG PO Q4 PRN for Diarrhea Lorazepam (Ativan), 0.5 MG PO Q8 PRN for Anxiety/Agitation Polyethylene Glycol 3350 (Miralax), 17 GM PO DAILY PRN for Constipation Allergies Coded Allergies: Adhesives (Verified Allergy, Severe, RED/SWOLLEN, 10/28/16) Codeine (Verified Allergy, Unknown, TOLERATED MORPHINE, 10/28/16) Erythromycin (Verified Allergy, Unknown, `, 10/28/16) Penicillins (Verified Allergy, Unknown, 10/28/16) Sulfamethoxazole (Verified Allergy, Unknown, 10/28/16) Physical Exam Vital Signs Date Time Temp Pulse Resp B/P Pulse Ox O2 Delivery O2 Flow Rate FiO2 11/24/16 03:12 76 20 146/85 96 Room Air 11/24/16 01:56 98 11/24/16 01:53 36.8 94 12 152/90 91 Room Air Physical Exam GENERAL: Awake, poor historian, well-appearing, in no distress HENT: Normocephalic, atraumatic. Oropharynx unremarkable. EYES: Normal conjunctiva. Sclera non-icteric. NECK: Supple. No nuchal rigidity. FROM. No JVD. RESPIRATORY: Clear to auscultation. CARDIAC: Regular rate, normal rhythm. Extremities warm and well perfused. Pulses equal. ABDOMEN: Decreased bowel sounds in all quadrants. Diffuse bruising present. Tender in all quadrants, maximally tender in the left lower quadrant. RECTAL: Deferred. MUSCULOSKELETAL: Chest examination reveals no tenderness. The back is symmetrical on inspection without obvious abnormality. There is no CVA tenderness to palpation. No joint edema. LOWER EXTREMITIES: Calves are equal size bilaterally and non-tender. No edema. No discoloration. NEURO: Normal sensorium. No sensory or motor deficits noted. Patient is alert but a poor historian. SKIN: No rash or jaundice noted. Ecchymosis over the abdomen and right hip/ thigh. Medical Decision & Procedures ER Provider Diagnostic Interpretation: Radiology results as stated below per my review and radiologist interpretation CT ABDOMEN & PELVIS: Comparison is made to CT dated 10/28/16. There is a small to moderate left pleural effusion, new from prior exam. There is left lower lobe compressive atelectasis. Gallbladder surgically absent. There is intrahepatic biliary dilation. Common bile duct measures 11 mm likely a consequence of post cholecystectomy state. The spleen, pancreas, and adrenal glands are within normal limits. There is aortoiliac atherosclerosis without aneurysm. Infrarenal IVC filter is in place. Both kidneys are similar in size and enhancement. There is no hydronephrosis. There is no evidence of small or large bowel obstruction. Nonvisualized appendix , but no secondary signs of acute appendicis. Sigmoid diverticulosis without evidence of acute diverticulitis. There is moderate gas in the distal sigmoid and rectum. Urinary bladder is unremarkable. Uterus is surgically absent. There are no acute osseous findings. Radiologist: Grace Wood MD. Laboratory Results 11/24/16 02:00 Red Blood Count 2.72, Mean Corpuscular Volume 94.5, Mean Corpuscular Hemoglobin 31.6, Mean Corpuscular Hemoglobin Concent 33.5, Mean Platelet Volume 8.1 11/24/16 02:00 Test 11/24/16 02:00 White Blood Count 9.05 K/uL (4.8-10.8) Red Blood Count 2.72 M/uL (4.2-5.4) Hemoglobin 8.6 g/dL (12.0-16.0) Hematocrit 25.7 % (37-47) Mean Corpuscular Volume 94.5 fL (80-100) Mean Corpuscular Hemoglobin 31.6 pg (25-34) Mean Corpuscular Hemoglobin Concent 33.5 g/dl (32-36) Platelet Count 244 K/uL (130-400) Mean Platelet Volume 8.1 fL (7.4-10.4) RDW Standard Deviation 50.5 fL (36.4-46.3) RDW Coefficient of Variation 14.8 % (11.5-14.5) Nucleated RBC Absolute Count (auto) 0.08 K/uL (0-0) Neutrophils % (Manual) 76.7 % Lymphocytes % (Manual) 11.6 % Monocytes % (Manual) 6.3 % Metamyelocytes % 0.9 % Myelocytes % 4.5 % Nucleated Red Blood Cells % 0.9 % Neutrophils # (Manual) 6.94 K/uL (1.4-6.5) Total Absolute Neutrophils 6.94 K/uL (1.4-6.5) Lymphocytes # (Manual) 1.05 K/uL (1.2-3.4) Total Absolute Lymphocytes 1.05 K/uL (1.2-3.4) Monocytes # (Manual) 0.57 K/uL (0.11-0.59) Metamyelocytes # 0.08 K/uL (0-0) Myelocytes # 0.41 K/uL (0-0) Anisocytosis PRESENT Urine Color YELLOW Urine Appearance CLEAR (CLEAR) Urine pH 5.5 (4.5-7.5) Urine Specific [place] 1.015 (1.000-1.030) Urine Protein NEG (NEG) Urine Glucose (UA) NEG (NEG) Urine Ketones NEG (NEG) Urine Occult Blood NEG (NEG) Urine Nitrite NEG (NEG) Urine Bilirubin NEG (NEG) Urine Urobilinogen NEG (NEG) Urine Leukocyte Esterase NEG (NEG) Anion Gap 10.0 mmol/L (3-11) Estimated GFR () 87.4 Estimated GFR (Non- 75.4 BUN/Creatinine Ratio 29.9 (10-20) Calcium Level 8.2 mg/dl (8.5-10.1) Total Bilirubin 0.2 mg/dl (0.2-1) Direct Bilirubin < 0.1 mg/dl (0-0.2) Aspartate Amino Transf (AST/SGOT) 22 U/L (15-37) Alanine Aminotransferase (ALT/SGPT) 29 U/L (12-78) Alkaline Phosphatase 65 U/L (45-117) Total Protein 6.5 gm/dl (6.4-8.2) Albumin 2.0 gm/dl (3.4-5.0) Lipase 249 U/L (73-393) Laboratory results reviewed by nd ED Course 0156: The patient was evaluated in room B4b. A complete history and physical exam was performed. 0428: Upon reexamination, the patient's abdomen is soft without rebound or significant tenderness. The patient states that she has no pain. Medical Decision Etiologies such as appendicitis, diverticulitis, obstruction, inflammatory bowel disease, renal colic, PUD, biliary pathology, pancreatitis, mesenteric ischemia, aortic pathology, infections, genitourinary, UTI, perforated viscus, as well as others were entertained. Reexamination of the patient at 4:30 AM, she is resting comfortably and her abdomen is nontender there is no rebound rigidity or guarding; upon questioning she states that she is in no further pain. Patient has a slight drop in her hemoglobin however her white blood cell count is normal the CAT scan has been reviewed and negative is negative, I do not suspect ischemic bowel at this time. There is no obvious bowel obstruction. I will send the patient back to [facility] for further evaluation and if she has continued pain they are to return her for reexam Impression Primary Impression: Left lower quadrant pain Additional Impression: Alzheimer's disease, unspecified Scribe Attestation The scribe's documentation has been prepared under my direction and personally reviewed by me in its entirety. I confirm that the note above accurately reflects all work, treatment, procedures, and medical decision making performed by me. Departure Information Dispostion Home / Self-Care Referrals Kee Riley D.O. (PCP) Forms HOME CARE DOCUMENTATION FORM, IMPORTANT VISIT INFORMATION Patient Instructions Abdominal Pain, My [facility] Health Problem Qualifiers
[2016-11-24 02:23] LABS: URINE APPEARANCE CLEAR (CLEAR); URINE BILIRUBIN NEG (NEG); URINE COLOR YELLOW; URINE NITRITE NEG (NEG); URINE PH 5.5 (4.5-7.5); URINE SPECIFIC GRAVITY 1.015 (1.000-1.030); UROBILINOGEN NEG (NEG)
[2016-11-24 02:27] LABS: MANUAL MICROSCOPIC REQUIRED? NO; REVIEW REQ? NO
[2016-11-24] MEDS ORDERED: OPTIRAY 320 IV PRN (02:30)
[2016-11-24 02:33] LABS: ALT/SGPT 29 U/L (12-78); AST/SGOT 22 U/L (15-37); BLOOD UREA NITROGEN 22 mg/dl (7-18); BUN/CREATININE RATIO 29.9 (10-20); CALCIUM 8.2 mg/dl (8.5-10.1); CARBON DIOXIDE 28 mmol/L (21-32); CHLORIDE 103 mmol/L (98-107); CREATININE 0.74 mg/dl (0.60-1.20); GLUCOSE 128 mg/dl (70-99); POTASSIUM 4.1 mmol/L (3.5-5.1); SODIUM 141 mmol/L (136-145)
[2016-11-24 02:35] LABS: ALKALINE PHOSPHATASE 65 U/L (45-117)
[2016-11-24 02:40] LABS: ANISOCYTOSIS PRESENT; COMPLETE YES; LYMPH ABS # 1.05 K/uL (1.2-3.4); LYMPHOCYTE % 11.6 %; META ABS # 0.08 K/uL (0-0); METAMYELOCYTE % 0.9 %; MYELOCYTE % 4.5 %; NEUTROPHILS % 76.7 %
[2016-11-24 05:24] VITALS: BP 141/76; PULSE 81; TEMP 36.8; O2SAT 99
--- NOTE | 2016-11-24 07:23 | DIAGNOSTIC IMAGING REPORT ---
CT SCAN OF THE ABDOMEN AND PELVIS WITH IV CONTRAST CLINICAL HISTORY: Left lower quadrant abdominal pain. COMPARISON STUDY: Abdominal CT dated 10/28/2016. TECHNIQUE: Following the IV administration of 92 cc of Optiray 320, CT scan of the abdomen and pelvis is performed from the lung bases to the proximal femora. Images are reviewed in the axial, sagittal, and coronal planes. IV contrast was administered without complication. Automated dose control exposure was utilized. CT DOSE: 269.79 mGy.cm FINDINGS: Lung bases: The heart is enlarged and without pericardial effusion. There is a small to moderate pleural effusion/collection at the left lung base with associated pleural thickening and consolidation of the left lower lobe. Dependent atelectasis is seen at the right lung base. Liver: The contrast-enhanced liver is normal in size, contour, and attenuation. There is [id number] central intrahepatic biliary ductal dilatation. The hepatic veins and portal veins are patent. Gallbladder: Surgically absent noting clips in the gallbladder fossa. Spleen: Normal in size and attenuation. Pancreas: Moderately atrophic and grossly unremarkable. A coarse calcification is incidentally noted in the pancreatic head. Adrenal glands: Unremarkable. Kidneys: The contrast enhanced kidneys demonstrate cortical atrophy and are without hydronephrosis. The kidneys enhance symmetrically. Abdominal vasculature: The abdominal aorta is normal in course and caliber noting advanced atherosclerotic calcification. An infrarenal IVC filter is in place. Bowel: The small bowel and colon are normal in course and caliber. There is advanced diverticulosis of left colon without CT evidence of acute diverticulitis. Moderate colonic fecal retention is observed. The appendix is not clearly visualized. Peritoneum: There is no intraperitoneal free air or abdominal ascites. A midline surgical scar is noted in the pelvis. There is a small fat-containing umbilical hernia. Lymphadenopathy: None. Pelvic viscera: The bladder is normal as visualized. The uterus is surgically absent. No adnexal lesion is seen. Skeletal structures: The skeletal structures are osteopenic. There is moderate lumbosacral spondylosis. No lytic or blastic lesions are seen. IMPRESSION: 1. There is a small to moderate left pleural effusion/collection with associated pleural thickening and left lower lobe consolidation. The volume of pleural fluid has significantly increased from 10/28/2016. Infection of the pleural fluid is not excluded. 2. There are no acute infectious or inflammatory findings in the abdomen or pelvis. 3. Advanced diverticulosis of the left colon without CT evidence of acute diverticulitis. 4. Status post cholecystectomy. Intrahepatic biliary ductal dilatation may be related to previous cholecystectomy but appears increased from 10/28/2016. Correlation with clinical findings and serum bilirubin levels be required. 5. Additional findings as above. Electronically signed by: Noe Marshall M.D. 11/24/2016 7:22 AM Dictated Date/Time: 11/24/2016 7:15 AM
[2017-01-01] MEDS ORDERED: ATV5 PO (10:05)
[2017-01-01] MEDS ORDERED: CRDCD180 PO (10:05)
[2017-04-24] MEDS ORDERED: GFNSR600 PO (12:12)
[2017-04-24] MEDS ORDERED: IPRASOL4 INH (12:12)
[2017-04-24] MEDS ORDERED: PRFINS INH (12:12)
[2017-04-24] MEDS ORDERED: NYSS5 PO (12:12)
[2017-04-24] MEDS ORDERED: PRED10TA PO (12:12)
== END 2016-11-24 05:24 | disposition home or self-care (01) ==
LOC: EDBD 01:48 → C.EDB 01:51
DX: R10.32 Left lower quadrant pain (principal); G30.9 Alzheimer's disease, unspecified; F02.80 Dementia in other diseases classified elsewhere, unspecified severity, without behavioral disturbance, psychotic disturbance, mood disturbance, and anxiety; I48.91 Unspecified atrial fibrillation; J45.901 Unspecified asthma with (acute) exacerbation; I10 Essential (primary) hypertension; E03.9 Hypothyroidism, unspecified; M35.3 Polymyalgia rheumatica; Z79.82 Long term (current) use of aspirin; Z79.52 Long term (current) use of systemic steroids; Z79.899 Other long term (current) drug therapy

== ENCOUNTER 2016-12-30 05:21 | Inpatient (IN) | payer BC, OTHER ==
[~2016-12-30] VITALS: Ht 149.9 cm; Wt 51.4 kg
[2016-12-30 05:46] LABS: BASO % 0.3 %; BASO ABS # 0.04 K/uL (0-0.2); COMPLETE YES; EOS % 2.2 %; HEMATOCRIT 28.6 % (37-47); IG% 1.1 %; LYMPH % 16.4 %; MEAN CELL VOLUME 92.9 fL (80-100); MEAN CORPUSCULAR HEMOGLOBIN 29.9 pg (25-34); MEAN CORPUSCULAR HGB CONC 32.2 g/dl (32-36); MEAN PLATELET VOLUME 8.3 fL (7.4-10.4); MONO % 7.8 %; NEUT % 72.2 %; PLATELET COUNT 398 K/uL (130-400); RED BLOOD COUNT 3.08 M/uL (4.2-5.4); WHITE BLOOD COUNT 11.56 K/uL (4.8-10.8)
[2016-12-30] MEDS ORDERED: METOPROLOL TARTRATE 1 MG/ML VIAL IV STA (05:46)
--- NOTE | 2016-12-30 05:48 | EMERGENCY ROOM VISIT NOTE ---
History Report prepared by Ulises: Sharad Gutierres Under the Supervision of: Dr. Monalisa Diaz M.D. First contact with patient: 05:25 Chief Complaint: CARDIAC ASSESSMENT Stated Complaint: CARDIAC ASSESSMENT/FALL Nursing Triage Summary: arrived via amb from [facility] after falling in the br. small lump to posterior scalp and small abrasion to left lmid back. pt denies any c/o. History of Present Illness The patient is an 81 year old female who presents to the Emergency Room via [facility] from [facility]. This HPI is limited due to dementia. The patient does not know what happened, or why she is here. History Limited By: dementia Review of Systems See HPI for pertinent positives & negatives. A total of 10 systems reviewed and were otherwise negative. Past Medical & Surgical Medical Problems: (1) Afib (2) Alzheimer's disease, unspecified (3) Asthma exacerbation (4) Ataxia (5) Benign essential hypertension (6) Dizziness (7) History of subarachnoid hemorrhage (8) Hypothyroidism, unspecified (9) Polymyalgia rheumatica (10) Respiratory failure, acute (11) SAH (subarachnoid hemorrhage) (12) Syncope (13) Unspecified asthma Surgical Problems: (1) H/O tubal ligation (2) S/P appendectomy (3) S/P hysterectomy Family History Patient reports no known family medical history. Social History Smoking Status: Never Smoker Alcohol Use: none Marital Status: Housing Status: lives alone Occupation Status: retired Current/Historical Medications Scheduled Ascorbic Acid (Vitamin C), 500 MG PO BID Aspirin (Ecotrin Low Strength), 81 MG PO DAILY Budesonide (Budesonide), 1 VIAL NEB BID Diltiazem Hcl Coated Beads (Diltiazem Cd), 120 MG PO DAILY Ferrous Sulfate (Ferrous Sulfate), 325 MG PO TID Infant Foods (Protein Fortifier), 30 ML PO BID Levalbuterol (Levalbuterol HCl), 3 ML NEB BID Lorazepam (Ativan), 0.5 MG PO BID Montelukast Sod (Montelukast Sodium), 10 MG PO HS Multivitamins/Minerals (Mvi With Minerals), 1 TAB PO DAILY Polyethylene Glycol 3350 (Miralax), 17 GM PO DAILY Sertraline (Zoloft), 25 MG PO HS Sertraline (Zoloft), 100 MG PO HS Scheduled PRN Acetaminophen (Mapap), 650 MG PO Q6 PRN for Pain Acetaminophen (Mapap), 650 MG PO Q6 PRN for TEMP>100 Guaifenesin/Codeine (Robitussin-Ac Syrup), 10 ML PO Q6 PRN for Cough Levalbuterol (Levalbuterol HCl), 3 ML NEB Q6 PRN for SOB/Wheezing Lorazepam (Ativan), 0.5 MG PO Q8 PRN for Anxiety Allergies Coded Allergies: Adhesives (Verified Allergy, Severe, RED/SWOLLEN, 12/30/16) Codeine (Verified Allergy, Unknown, TOLERATED MORPHINE, 12/30/16) Erythromycin (Verified Allergy, Unknown, `, 12/30/16) Penicillins (Verified Allergy, Unknown, 12/30/16) Sulfamethoxazole (Verified Allergy, Unknown, 12/30/16) Physical Exam Vital Signs Date Time Temp Pulse Resp B/P Pulse Ox O2 Delivery O2 Flow Rate FiO2 12/30/16 06:07 99 20 132/87 94 Room Air 12/30/16 06:05 117 137/89 12/30/16 05:44 94 Room Air 12/30/16 05:39 36.9 117 20 137/89 94 Room Air 12/30/16 05:32 94 Room Air 12/30/16 05:29 119 Physical Exam Vital signs reviewed. General: Elderly female, in no significant distress. HEENT: No scleral icterus, PERRLA, neck supple. Atraumatic. Cardiovascular: Irregular rate and rapid rhythm, no extra sounds. Pulmonary: Crackles at the lung bases bilaterally, normal work of breathing. Abdomen: Soft, nontender, nondistended, positive bowel sounds. Musculoskeletal: Atraumatic, no peripheral edema. Back: There is a contusion to the left upper back, it is not tender to palpation. The thoracic and lumbar spine are non-tender to palpation. There is no step off or deformity. The pelvis is stable. Neurologic: Patient awake alert and oriented x 3, full strength in all 4 extremities. Cranial nerves 2 through 12 grossly intact. Skin: Warm, dry, no rash Medical Decision & Procedures ER Provider Diagnostic Interpretation: Radiology results as stated below per my review and radiologist interpretation: CHEST X-RAY: Left mid to lower lung pulmonary infiltrate, obscuration of the heart border. Likely left pleural effusion. Post surgical changes to the left shoulder. CT HEAD: Comparison with head CT from 07/02/16. No ICH, mass effect or edema. No evidence of acute cortical stroke. Periventricular small vessel ischemic change. No midline shift or hydrocephalus. Diffuse parenchymal atrophy. Visualized sinuses and mastoid air cells are clear. Radiologist: Lon Morataya M.D. Study Ready at 06:04 and initial results transmitted at 06: 32. Laboratory Results 12/30/16 05:08 Red Blood Count 3.08, Mean Corpuscular Volume 92.9, Mean Corpuscular Hemoglobin 29.9, Mean Corpuscular Hemoglobin Concent 32.2, Mean Platelet Volume 8.3, Neutrophils (%) (Auto) 72.2, Lymphocytes (%) (Auto) 16.4, Monocytes (%) (Auto) 7.8, Eosinophils (%) (Auto) 2.2, Basophils (%) (Auto) 0.3, Neutrophils # (Auto) 8.34, Lymphocytes # (Auto) 1.90, Monocytes # (Auto) 0.90, Eosinophils # (Auto) 0.25, Basophils # (Auto) 0.04 12/30/16 05:08 Test 12/30/16 05:08 12/30/16 05:40 12/30/16 06:32 White Blood Count 11.56 K/uL (4.8-10.8) Red Blood Count 3.08 M/uL (4.2-5.4) Hemoglobin 9.2 g/dL (12.0-16.0) Hematocrit 28.6 % (37-47) Mean Corpuscular Volume 92.9 fL (80-100) Mean Corpuscular Hemoglobin 29.9 pg (25-34) Mean Corpuscular Hemoglobin Concent 32.2 g/dl (32-36) Platelet Count 398 K/uL (130-400) Mean Platelet Volume 8.3 fL (7.4-10.4) Neutrophils (%) (Auto) 72.2 % Lymphocytes (%) (Auto) 16.4 % Monocytes (%) (Auto) 7.8 % Eosinophils (%) (Auto) 2.2 % Basophils (%) (Auto) 0.3 % Neutrophils # (Auto) 8.34 K/uL (1.4-6.5) Lymphocytes # (Auto) 1.90 K/uL (1.2-3.4) Monocytes # (Auto) 0.90 K/uL (0.11-0.59) Eosinophils # (Auto) 0.25 K/uL (0-0.5) Basophils # (Auto) 0.04 K/uL (0-0.2) RDW Standard Deviation 57.8 fL (36.4-46.3) RDW Coefficient of Variation 17.0 % (11.5-14.5) Immature Granulocyte % (Auto) 1.1 % Immature Granulocyte # (Auto) 0.13 K/uL (0.00-0.02) Nucleated RBC Absolute Count (auto) 0.02 K/uL (0-0) Nucleated Red Blood Cells % 0.2 % Anion Gap 9.0 mmol/L (3-11) Estimated GFR () 94.9 Estimated GFR (Non- 81.9 BUN/Creatinine Ratio 26.3 (10-20) Calcium Level 8.6 mg/dl (8.5-10.1) Total Bilirubin 0.3 mg/dl (0.2-1) Direct Bilirubin 0.1 mg/dl (0-0.2) Aspartate Amino Transf (AST/SGOT) 20 U/L (15-37) Alanine Aminotransferase (ALT/SGPT) 15 U/L (12-78) Alkaline Phosphatase 104 U/L (45-117) Total Creatine Kinase 20 U/L (26-192) Creatine Kinase MB 0.9 ng/ml (0.5-3.6) Creatine Kinase MB Ratio 4.5 (0-3.0) Total Protein 7.5 gm/dl (6.4-8.2) Albumin 2.2 gm/dl (3.4-5.0) Bedside Troponin I 0.010 ng/ml (0-0.045) Bedside Lactic Acid Venous 1.22 mmol/L (0.90-1.70) Laboratory results per my review. Medications Administered Medications (Trade) Dose Ordered Sig/Ally Route Start Time Stop Time Status Last Admin Dose Admin Metoprolol Tartrate (Lopressor Iv) 5 mg NOW STAT IV 12/30/16 05:46 12/30/16 05:47 DC 12/30/16 06:05 5 MG Levofloxacin (Levaquin / D5W) 750 mg NOW STAT IV 12/30/16 06:27 12/30/16 06:31 DC 4/18/17 06:41 750 MG ED Course 0538: Past medical records reviewed. The patient was evaluated in room B6. A complete history and physical examination was performed. 0546: Ordered Metoprolol 5 mg IV. 0603: Ordered Metoprolol 5 mg. 0627: Ordered Vancomycin HCl 528 mL @ 200 mL/hr IV, Levofloxacin 750 mg IV, Cefepime HCl 122.6 mL @ 200 mL/hr IV. 0645: I discussed the case with Dr. Cantu at this time, he will evaluate the patient for further treatment. Medical Decision Differential diagnosis of this patient's presentation includes generalized weakness, ambulatory dysfunction, rapid atrial fibrillation, pneumonia, PE, acute coronary syndrome, UTI, metabolic abnormality This patient was evaluated and appeared to be in no significant distress. IV access was obtained and laboratory work was drawn. The patient was given 5 mg of IV Lopressor for rapid atrial fibrillation. The patient is otherwise well appearing however she is demented and not able to answer questions appropriately. CT scan of the head was performed and is negative for acute traumatic findings. Chest x-ray was performed and reveals a left-sided pneumonia. The patient has had several hospitalizations recently, the last of which was in October. She had similar issues with a left-sided infiltrate and PEs. Given the patient's complicated medical history and new infiltrate, blood cultures were obtained and a lactate. Lactic acid is normal. Patient does have a slight leukocytosis. She was medicated with IV vancomycin, IV Levaquin and IV cefepime. Patient was discussed with the [facility] hospitalist, Dr. Cantu who has agreed to evaluate the patient for further management. Consults Time Called: [phone] [facility]ing [facility] Return[facility] Call: [phone] I discussed the case with Dr. Cantu at this time, he will evaluate the patient for further treatment. Impression Primary Impression: Pneumonia Additional Impressions: Rapid atrial fibrillation Fall Closed head injury Scribe Attestation The scribe's documentation has been prepared under my direction and personally reviewed by me in its entirety. I confirm that the note above accurately reflects all work, treatment, procedures, and medical decision making performed by me. Departure Information Dispostion Being Evaluated By Hospitalist Referrals Justyn Vargas (PCP) Patient Instructions My [facility] Problem Qualifiers Primary Impression: Pneumonia Pneumonia type: due to unspecified organism Laterality: left Lung location : lower lobe of lung Qualified Codes: J18.1 - Lobar pneumonia, unspecified organism Additional Impressions: Fall Encounter type: initial encounter Qualified Codes: W19.XXXA - Unspecified fall, initial encounter Closed head injury Encounter type: initial encounter Qualified Codes: S09.90XA - Unspecified injury of head, initial encounter
[2016-12-30 05:54] LABS: ALT/SGPT 15 U/L (12-78); AST/SGOT 20 U/L (15-37); BLOOD UREA NITROGEN 18 mg/dl (7-18); BUN/CREATININE RATIO 26.3 (10-20); CALCIUM 8.6 mg/dl (8.5-10.1); CARBON DIOXIDE 26 mmol/L (21-32); CHLORIDE 105 mmol/L (98-107); CREATININE 0.67 mg/dl (0.60-1.20); GLUCOSE 100 mg/dl (70-99); POTASSIUM 4.2 mmol/L (3.5-5.1); SODIUM 140 mmol/L (136-145)
[2016-12-30] MEDS ORDERED: ASPI-428 PO (05:54)
[2016-12-30] MEDS ORDERED: LORA-741 PO (05:58)
[2016-12-30] MEDS ORDERED: MULT-513 PO (05:58)
[2016-12-30] MEDS ORDERED: ASCO-63 PO (05:58)
[2016-12-30] MEDS ORDERED: SERT-234 PO (05:58)
[2016-12-30] MEDS ORDERED: SERT25TA PO (05:58)
[2016-12-30 05:59] LABS: ALKALINE PHOSPHATASE 104 U/L (45-117); CKMB/CK RATIO 4.5 (0-3.0)
[2016-12-30] MEDS ORDERED: INFA1LIQ PO (06:00)
[2016-12-30] MEDS ORDERED: METOPROLOL TARTRATE 1 MG/ML VIAL ONE (06:03)
[2016-12-30] MEDS ORDERED: XPNINS NEB ×2 (06:04→06:11)
[2016-12-30] MEDS ORDERED: ACET-1047 PO (06:04)
[2016-12-30] MEDS ORDERED: GUAISYP4 PO (06:07)
[2016-12-30] MEDS ORDERED: POLY335019 PO (06:10)
[2016-12-30] MEDS ORDERED: FRRS300 PO (06:10)
[2016-12-30] MEDS ORDERED: DILT120C99 PO (06:13)
[2016-12-30] MEDS ORDERED: PLMINS NEB (06:14)
[2016-12-30] MEDS ORDERED: VANCOMYCIN INJ 1,400 MG in SODIUM CHLORIDE 0.9% 500ML 500 ML IV STA (06:27)
[2016-12-30] MEDS ORDERED: CEFEPIME IV 2,000 MG in DEXTROSE 5% 100ML 100 ML IV STA (06:27)
[2016-12-30] MEDS ORDERED: LEVAQUIN 750MG / 150ML D5W IV STA (06:27)
--- NOTE | 2016-12-30 06:44 | DIAGNOSTIC IMAGING REPORT ---
HEAD CT NONCONTRAST CT DOSE: 537.48 mGy.cm HISTORY: Trauma FALL, CHI TECHNIQUE: Multiaxial CT images of the head were performed without the use of intravenous contrast. Comparison: 07/02/2016 Findings: The paranasal sinuses and mastoid air cells are clear. The calvarium and skull base are intact. The ventricles and sulci are within normal limits. There is no mass, hematoma, midline shift, or acute infarct. Moderate chronic small vessel change of aging. No acute intracranial hemorrhage. Impression: Age-related change. No acute process. Electronically signed by: Didier Eldridge M.D. 12/30/2016 6:42 AM Dictated Date/Time: 12/30/2016 6:42 AM
--- NOTE | 2016-12-30 07:08 | DIAGNOSTIC IMAGING REPORT ---
CHEST ONE VIEW PORTABLE CLINICAL HISTORY: FALL trauma. Pain. COMPARISON STUDY: 10/31/2016 FINDINGS: Diffuse infiltrate and effusion left lung base. Right lung is considered clear. No evidence pneumothorax. Status post prior left shoulder hemiarthroplasty. IMPRESSION: Prominent left mid and lower lung basilar effusion/infiltrate. No evidence of pneumothorax. Electronically signed by: Didier Eldridge M.D. 12/30/2016 7:06 AM Dictated Date/Time: 12/30/2016 7:05 AM
[2016-12-30] MEDS ORDERED: ALBUT/IPRATROP 3MG/0.5MG NEB 3 ML VIAL INH SCH (08:00)
[2016-12-30 08:01] VITALS: O2SAT 94; Ht 149.9 cm; Wt 51.4 kg
--- NOTE | 2016-12-30 08:42 | History and Physical ---
History & Physical Date & Time of Service: Dec 30, 2016 at 07:52 Chief Complaint: Cardiac Assessment/Fall Primary Care Physician: [facility] History of Present Illness Source: patient, clinic records, hospital records, [facility] 81 year old female with PMH of Afib, Asthma, PE s/p IVC, SAH, ambulatory dysfunction was brought to the Emergency Room via [facility] from [facility]. History is limited due to dementia. Pt does not know why she is here. I called [facility]. As per shelter staff they heard pt fell when she was walking possible to go to the bathroom. Her HR was elevated and was in afib as per [facility] staff. No loss of consciousness, bladder or bowel. Pt said that she feels fine at this time. She denies any chest pain, palpitation, dizziness, dysuria and SOB. She saturated at 94% on RA. Past Medical/Surgical History Medical Problems: (1) Afib Status: Chronic (2) Alzheimer's disease, unspecified Status: Chronic (3) Ataxia Status: Chronic (4) Benign essential hypertension Status: Chronic (5) Dizziness Status: Chronic (6) History of subarachnoid hemorrhage Permanent Comment: August 2014 per records Status: Chronic (7) Hypothyroidism, unspecified Status: Chronic (8) Polymyalgia rheumatica Status: Chronic (9) SAH (subarachnoid hemorrhage) Status: Resolved (10) Syncope Status: Chronic (11) Unspecified asthma Status: Chronic Surgical Problems: (1) H/O tubal ligation Status: Chronic (2) S/P appendectomy Status: Chronic (3) S/P hysterectomy Status: Chronic Family History Patient reports no known family medical history. Social History Smoking Status: Never Smoker Marital Status: Housing status: other Occupational Status: retired Immunizations History of Influenza Vaccine: No History of Tetanus Vaccine?: Yes Tetanus Immunization Date: Dec 13, 1988 History of Pneumococcal: Unknown Pneumococcal Date: Dec 14, 1991 History of Hepatitis B Vaccine: Unknown Multi-Drug Resistant Organisms History of MDRO: Yes Type of MDRO: MRSA Allergies Coded Allergies: Adhesives (Verified Allergy, Severe, RED/SWOLLEN, 12/30/16) Codeine (Verified Allergy, Unknown, TOLERATED MORPHINE, 12/30/16) Erythromycin (Verified Allergy, Unknown, `, 12/30/16) Penicillins (Verified Allergy, Unknown, 12/30/16) Sulfamethoxazole (Verified Allergy, Unknown, 12/30/16) Home Medications Scheduled Ascorbic Acid (Vitamin C), 500 MG PO BID Aspirin (Ecotrin Low Strength), 81 MG PO DAILY Budesonide (Budesonide), 1 VIAL NEB BID Diltiazem Hcl Coated Beads (Diltiazem Cd), 120 MG PO DAILY Ferrous Sulfate (Ferrous Sulfate), 325 MG PO TID Infant Foods (Protein Fortifier), 30 ML PO BID Levalbuterol (Levalbuterol HCl), 3 ML NEB BID Lorazepam (Ativan), 0.5 MG PO BID Montelukast Sod (Montelukast Sodium), 10 MG PO HS Multivitamins/Minerals (Mvi With Minerals), 1 TAB PO DAILY Polyethylene Glycol 3350 (Miralax), 17 GM PO DAILY Sertraline (Zoloft), 25 MG PO HS Sertraline (Zoloft), 100 MG PO HS Scheduled PRN Acetaminophen (Mapap), 650 MG PO Q6 PRN for Pain Acetaminophen (Mapap), 650 MG PO Q6 PRN for TEMP>100 Guaifenesin/Codeine (Robitussin-Ac Syrup), 10 ML PO Q6 PRN for Cough Levalbuterol (Levalbuterol HCl), 3 ML NEB Q6 PRN for SOB/Wheezing Lorazepam (Ativan), 0.5 MG PO Q8 PRN for Anxiety Review of Systems Constitutional: No chills, No fever, No sweats Eyes: No eye pain, No redness ENT: No nasal symptoms, No sore throat, No unusual epistaxis Respiratory: No cough, No shortness of breath, No sputum Cardiovascular: No chest pain, No palpitations Abdomen: No nausea, No pain, No vomiting Musculoskeletal: No calf pain Genitourinary - Female: No dysuria, No urinary frequency Neurologic: No numbness/tingling Psychiatric: No substance abuse Endocrine: No excessive thirst Hematologic / Lymphatic: No night sweats Integumentary: No itch, No rash Physical Exam Vital Signs Date Time Temp Pulse Resp B/P Pulse Ox O2 Delivery O2 Flow Rate FiO2 12/30/16 07:13 113 24 132/74 94 Room Air 12/30/16 06:07 99 20 132/87 94 Room Air 12/30/16 06:05 117 137/89 12/30/16 05:44 94 Room Air 12/30/16 05:39 36.9 117 20 137/89 94 Room Air 12/30/16 05:32 94 Room Air 12/30/16 05:29 119 General Appearance: WD/WN, no apparent distress Head: normocephalic, atraumatic Eyes: normal inspection, PERRL, EOMI ENT: normal ENT inspection, hearing grossly normal Neck: supple, no JVD Respiratory/Chest: no respiratory distress, no accessory muscle use, + pertinent finding (+crackles at base with poor air entry) Cardiovascular: no JVD, + tachycardia, + irregularly irregular Abdomen/GI: normal bowel sounds, non tender, soft Back: normal inspection, no CVA tenderness Extremities/Musculoskelatal: no calf tenderness, + pertinent finding (bruises at the left side of the back) Neurologic/Psych: no motor/sensory deficits, alert Skin: normal color, warm/dry, no rash Diagnostics Laboratory Results Results Past 24 Hours Test 12/30/16 05:08 12/30/16 05:40 12/30/16 06:32 Range/Units White Blood Count 11.56 4.8-10.8 K/uL Red Blood Count 3.08 4.2-5.4 M/uL Hemoglobin 9.2 12.0-16.0 g/dL Hematocrit 28.6 37-47 % Mean Corpuscular Volume 92.9 80-100 fL Mean Corpuscular Hemoglobin 29.9 25-34 pg Mean Corpuscular Hemoglobin Concent 32.2 32-36 g/dl Platelet Count 398 130-400 K/uL Mean Platelet Volume 8.3 7.4-10.4 fL Neutrophils (%) (Auto) 72.2 % Lymphocytes (%) (Auto) 16.4 % Monocytes (%) (Auto) 7.8 % Eosinophils (%) (Auto) 2.2 % Basophils (%) (Auto) 0.3 % Neutrophils # (Auto) 8.34 1.4-6.5 K/uL Lymphocytes # (Auto) 1.90 1.2-3.4 K/uL Monocytes # (Auto) 0.90 0.11-0.59 K/uL Eosinophils # (Auto) 0.25 0-0.5 K/uL Basophils # (Auto) 0.04 0-0.2 K/uL RDW Standard Deviation 57.8 36.4-46.3 fL RDW Coefficient of Variation 17.0 11.5-14.5 % Immature Granulocyte % (Auto) 1.1 % Immature Granulocyte # (Auto) 0.13 0.00-0.02 K/uL Nucleated RBC Absolute Count (auto) 0.02 0-0 K/uL Nucleated Red Blood Cells % 0.2 % Sodium Level 140 136-145 mmol/L Potassium Level 4.2 3.5-5.1 mmol/L Chloride Level 105 98-107 mmol/L Carbon Dioxide Level 26 21-32 mmol/L Anion Gap 9.0 3-11 mmol/L Blood Urea Nitrogen 18 7-18 mg/dl Creatinine 0.67 0.60-1.20 mg/dl Estimated GFR () 94.9 Estimated GFR (Non- 81.9 BUN/Creatinine Ratio 26.3 10-20 Random Glucose 100 70-99 mg/dl Calcium Level 8.6 8.5-10.1 mg/dl Total Bilirubin 0.3 0.2-1 mg/dl Direct Bilirubin 0.1 0-0.2 mg/dl Aspartate Amino Transf (AST/SGOT) 20 15-37 U/L Alanine Aminotransferase (ALT/SGPT) 15 12-78 U/L Alkaline Phosphatase 104 45-117 U/L Total Creatine Kinase 20 26-192 U/L Creatine Kinase MB 0.9 0.5-3.6 ng/ml Creatine Kinase MB Ratio 4.5 0-3.0 Total Protein 7.5 6.4-8.2 gm/dl Albumin 2.2 3.4-5.0 gm/dl Bedside Troponin I 0.010 0-0.045 ng/ml Bedside Lactic Acid Venous 1.22 0.90-1.70 mmol/L Microbiology Results 12/30/16 Blood Culture, Received Pending 12/30/16 Blood Culture, Received Pending Diagnostic Radiology CHEST ONE VIEW PORTABLE CLINICAL HISTORY: FALL trauma. Pain. COMPARISON STUDY: 10/31/2016 FINDINGS: Diffuse infiltrate and effusion left lung base. Right lung is considered clear. No evidence pneumothorax. Status post prior left shoulder hemiarthroplasty. IMPRESSION: Prominent left mid and lower lung basilar effusion/infiltrate. No evidence of pneumothorax. Electronically signed by: Didier Eldridge M.D. 12/30/2016 7:[address] CT DOSE: 537.48 mGy.cm HISTORY: Trauma FALL, CHI TECHNIQUE: Multiaxial CT images of the head were performed without the use of intravenous contrast. Comparison: 07/02/2016 Findings: The paranasal sinuses and mastoid air cells are clear. The calvarium and skull base are intact. The ventricles and sulci are within normal limits. There is no mass, hematoma, midline shift, or acute infarct. Moderate chronic small vessel change of aging. No acute intracranial hemorrhage. Impression: Age-related change. No acute process. Electronically signed by: Didier Eldridge M.D. 12/30/2016 6:42 AM Impression Assessment and Plan Pneumonia shelter pt with multiple hospital admission in the last 3 months CXR showed Diffuse infiltrate and effusion left lung base Afebrile with mild elevated WBC, normal lactate received levaquin, cefepime and vanco in the ER Positive MRSA swab in her last admission Will treat continue Vanco/levaquin for now Will follow blood cx, urine cx monitor WBC ATRIAL FIBRILLATION Rate uncontrolled Continue diltiazem, aspirin Not on anticoagulation due to falls Risk/ history SAH EKG showed atrial flutter Follow up CM Monitor in telemetry Hx Asthma No exacerbation Continue Home med Monitor closely Hx of PE s/p IVC filter back on 10/31 Stable S/P Falls due to Ambulatory dysfunction CT head was negative fall precautions PT/OT eval H/O HYPERTENSION BP is stable Continue diltiazem H/O HYPOTHYROIDISM Not on medication TSH WNL in Sep 2016 DEPRESSION / ANXIETY Continue sertraline and PRN lorazepam DEMENTIA Monitor for signs of delirium LUNG NODULE F/u as outpatient DVT PROPHYLAXIS hEPARIN SQ CODE STATUS DNR per my discussion with the patient and Nursing Chart/Staff DISPOSITION Resides at [facility] Level of Care Telemetry Resuscitation Status DO NOT RESUSCITATE VTE Prophylaxis Given or contraindicated: Unfractionated heparin SQ
[2016-12-30] MEDS ORDERED: LEVALBUTEROL/IPRATROPIUM NEB INH SCH (09:00)
[2016-12-30 09:07] LABS: URINE APPEARANCE CLEAR (CLEAR); URINE BILIRUBIN NEG (NEG); URINE COLOR YELLOW; URINE NITRITE NEG (NEG); URINE SPECIFIC GRAVITY 1.009 (1.000-1.030); UROBILINOGEN NEG (NEG); ZZUR CULT IF INDIC CLEAN CATCH NO
[2016-12-30 09:08] LABS: MANUAL MICROSCOPIC REQUIRED? NO; REVIEW REQ? NO
[2016-12-30 09:50] VITALS: BP 150/99; PULSE 134; TEMP 36.9; O2SAT 98
[2016-12-30] MEDS: BUDESONIDE 0.5 MG/2 ML VIAL (PULMICORT) INH SCH ×2 (10:00→20:06)
[2016-12-30] MEDS ORDERED: VANCOMYCIN CONSULT ACTIVE PRN (11:00)
[2016-12-30] MEDS: DILTIAZEM HCL 120 MG CAPCR PO SCH (11:32)
[2016-12-30] MEDS: ASPIRIN 81 MG ECTAB PO SCH (11:33)
[2016-12-30] MEDS: CEROVITE ADV FORMULA TAB PO SCH (11:33)
[2016-12-30] MEDS: LORAZEPAM 0.5 MG TAB PO SCH ×2 (11:34→21:37)
[2016-12-30] MEDS: FERROUS SULFATE 325 MG TAB PO SCH ×3 (11:35→21:31)
[2016-12-30] MEDS: ASCORBIC ACID 500 MG TAB PO SCH ×2 (11:35→21:31)
[2016-12-30 12:46] VITALS: BP 150/91; PULSE 121
[2016-12-30] MEDS ORDERED: HEPARIN SOD 5000 UNIT/0.5 ML CARP SQ SCH (14:00)
[2016-12-30] MEDS: HEPARIN SOD 5000 UNIT/0.5 ML CARP SQ SCH ×2 (14:07→21:50)
[2016-12-30] MEDS: METOPROLOL TARTRATE 1 MG/ML VIAL IV PRN ×2 (14:10→21:37)
[2016-12-30 14:52] VITALS: BP 112/75; PULSE 102; TEMP 36.6; O2SAT 96
[2016-12-30] MEDS ORDERED: LEVALBUTEROL 0.63MG/3 ML NEB INH PRN (15:00)
[2016-12-30] MEDS ORDERED: IPRATROPIUM BROMIDE NEB SOLN 0.02% 2.5 ML VIAL INH PRN (15:00)
[2016-12-30] MEDS ORDERED: IPRATROPIUM BROMIDE NEB SOLN 0.02% 2.5 ML VIAL INH SCH (15:00)
[2016-12-30] MEDS ORDERED: LEVALBUTEROL 0.63MG/3 ML NEB INH SCH (15:00)
--- NOTE | 2016-12-30 16:09 | Progress Note ---
Medicine Progress Note Date & Time of Visit: Dec 30, 2016 at 15:52. Subjective Patient seen and examined. Intermittently tearful. Called [facility]. Patient was found on the floor earlier this morning. Believed to have fallen ambulating to bathroom. Heart rate was noted to be elevated and so patient was sent to the ED. Deny fever. Note chronic nonproductive cough. Patient herself is without symptoms. Denies pain, SOB, cough, fevers/chills. Objective Last 8 Hrs Date Time Temp Pulse Resp B/P Pulse Ox O2 Delivery O2 Flow Rate FiO2 12/30/16 14:52 36.6 102 24 112/75 96 Room Air 12/30/16 14:10 145 112/75 12/30/16 12:46 121 21 150/91 12/30/16 12:00 Room Air 12/30/16 09:50 36.9 134 24 150/99 98 Room Air 12/30/16 09:15 122 20 129/81 94 12/30/16 08:49 116 24 122/66 95 Room Air 12/30/16 08:01 94 Room Air Physical Exam: General-awake; alert; intermittently tearful Eyes-EOMI; no scleral icterus Neck-no stridor; trachea midline Lungs-CTA bilaterally; no wheezes/crackles Heart-tachycardic; irregularly irregular Abdomen-soft; NTND; nBS Extremities-no c/c/e; no deformity Neuro-no focal deficits Laboratory Results: Last 24 Hours Test 12/30/16 05:08 12/30/16 05:40 12/30/16 06:32 12/30/16 08:45 White Blood Count 11.56 K/uL Red Blood Count 3.08 M/uL Hemoglobin 9.2 g/dL Hematocrit 28.6 % Mean Corpuscular Volume 92.9 fL Mean Corpuscular Hemoglobin 29.9 pg Mean Corpuscular Hemoglobin Concent 32.2 g/dl Platelet Count 398 K/uL Mean Platelet Volume 8.3 fL Neutrophils (%) (Auto) 72.2 % Lymphocytes (%) (Auto) 16.4 % Monocytes (%) (Auto) 7.8 % Eosinophils (%) (Auto) 2.2 % Basophils (%) (Auto) 0.3 % Neutrophils # (Auto) 8.34 K/uL Lymphocytes # (Auto) 1.90 K/uL Monocytes # (Auto) 0.90 K/uL Eosinophils # (Auto) 0.25 K/uL Basophils # (Auto) 0.04 K/uL RDW Standard Deviation 57.8 fL RDW Coefficient of Variation 17.0 % Immature Granulocyte % (Auto) 1.1 % Immature Granulocyte # (Auto) 0.13 K/uL Nucleated RBC Absolute Count (auto) 0.02 K/uL Nucleated Red Blood Cells % 0.2 % Sodium Level 140 mmol/L Potassium Level 4.2 mmol/L Chloride Level 105 mmol/L Carbon Dioxide Level 26 mmol/L Anion Gap 9.0 mmol/L Blood Urea Nitrogen 18 mg/dl Creatinine 0.67 mg/dl Estimated GFR () 94.9 Estimated GFR (Non- 81.9 BUN/Creatinine Ratio 26.3 Random Glucose 100 mg/dl Calcium Level 8.6 mg/dl Total Bilirubin 0.3 mg/dl Direct Bilirubin 0.1 mg/dl Aspartate Amino Transf (AST/SGOT) 20 U/L Alanine Aminotransferase (ALT/SGPT) 15 U/L Alkaline Phosphatase 104 U/L Total Creatine Kinase 20 U/L Creatine Kinase MB 0.9 ng/ml Creatine Kinase MB Ratio 4.5 Total Protein 7.5 gm/dl Albumin 2.2 gm/dl Procalcitonin 0.08 ng/mL Bedside Troponin I 0.010 ng/ml Bedside Lactic Acid Venous 1.22 mmol/L Urine Color YELLOW Urine Appearance CLEAR Urine pH 7.0 Urine Specific [place] 1.009 Urine Protein NEG Urine Glucose (UA) NEG Urine Ketones NEG Urine Occult Blood NEG Urine Nitrite NEG Urine Bilirubin NEG Urine Urobilinogen NEG Urine Leukocyte Esterase TRACE Urine WBC (Auto) 1-5 /hpf Urine RBC (Auto) 0-4 /hpf Urine Hyaline Casts (Auto) 1-5 /lpf Urine Epithelial Cells (Auto) 5-10 /lpf Urine Bacteria (Auto) NEG Test 12/30/16 12:00 12/30/16 12:15 Creatine Kinase MB Ratio Creatine Kinase MB 1.2 ng/ml Troponin I < 0.015 ng/ml Date/Time Source Procedure Growth Status 12/30/16 06:30 Blood Blood Culture Pending Received 12/30/16 06:25 Blood Blood Culture Pending Received 12/30/16 10:05 Nasal MRSA DNA Surveillance Screen - Final Specimen Negative for MRSA by DNA Probe Complete Assessment & Plan Clinically do not feel that patient has pneumonia. Procalcitonin negative. Minimally elevated WBC count. No clinical symptoms at longterm. Afebrile. No supplemental oxygen requirements. Therefore, will discontinue antibiotics. Monitor clinically and repeat CXR in am. Atrial fibrillation - continue diltiazem - PRN metoprolol - not an anticoagulation candidate due to fall risk Fall - unwitnessed - CT head negative - PT/OT evaluations Asthma - not in exacerbation - continue montelukast - continue budesonide - continue nebulizers PRN H/o PE - IVC filter placed 10/2016 Depression/Anxiety - continue sertraline and lorazepam DVT prophylaxis with heparin sq. Anticipate discharge back to [facility]. Current Inpatient Medications: Current Inpatient Medications Medications (Trade) Dose Ordered Sig/Ally Route Start Time Stop Time Status Last Admin Dose Admin Aspirin (Ecotrin Tab) 81 mg DAILY PO 12/30/16 09:00 01/29/17 08:59 12/30/16 11:33 81 MG Budesonide (Pulmicort Respules 0.5MG/ 2ML Neb Soln) 1 mg BIDR INH 12/30/16 10:00 01/29/17 09:59 Diltiazem HCl (Cardizem Cd Cap) 120 mg DAILY PO 12/30/16 09:00 01/29/17 08:59 12/30/16 11:32 120 MG Ferrous Sulfate (Feosol Tab) 325 mg TID PO 12/30/16 10:00 01/29/17 09:59 12/30/16 14:04 325 MG Montelukast Sodium (Singulair Tab) 10 mg HS PO 12/30/16 21:00 01/29/17 20:59 Multivitamins/ Minerals (Multivitamin W/ Minerals Tab) 1 tab DAILY PO 12/30/16 09:00 01/29/17 08:59 12/30/16 11:33 1 TAB Sertraline HCl (Zoloft Tab) 25 mg HS PO 12/30/16 21:00 01/29/17 20:59 Sertraline HCl (Zoloft Tab) 100 mg HS PO 12/30/16 21:00 01/29/17 20:59 Ascorbic Acid (Vitamin C Tab) 500 mg BID PO 12/30/16 10:00 01/29/17 09:59 12/30/16 11:35 500 MG Lorazepam (Ativan Tab) 0.5 mg BID PO 12/30/16 10:00 01/29/17 09:59 12/30/16 11:34 0.5 MG Metoprolol Tartrate (Lopressor Iv) 2.5 mg Q6 PRN IV 12/30/16 08:45 01/29/17 08:44 12/30/16 14:10 2.5 MG Heparin Sodium (Porcine) (Heparin Sq 5000 Unit/0.5ml) 5,000 unit Q8 SQ 12/30/16 14:00 01/29/17 13:59 12/30/16 14:07 5,000 UNIT Ipratropium [place] (Atrovent 0.02% 0.5MG/2.5ML Neb) 0.5 mg Q6R PRN INH 12/30/16 15:00 01/29/17 14:59 Levalbuterol (Xopenex 0.63 Mg/ 3 Ml Neb) 0.63 mg Q6R PRN INH 12/30/16 15:00 01/29/17 14:59
[2016-12-30 20:06] VITALS: BP 123/75; PULSE 110; TEMP 37; O2SAT 95
[2016-12-30 20:10] VITALS: PULSE 120; O2SAT 95
[2016-12-30] MEDS ORDERED: SERTRALINE HCL 50 MG TAB PO SCH (21:00)
[2016-12-30] MEDS: SERTRALINE HCL 100 MG TAB PO SCH (21:30)
[2016-12-30] MEDS: MONTELUKAST SOD 10 MG TAB PO SCH (21:32)
[2016-12-31] VITALS (7 sets, daily range): BP systolic 100–154; BP diastolic 57–97; PULSE 99–115; TEMP 36.4–36.6; O2SAT 90–100
[2016-12-31] MEDS ORDERED: VANCOMYCIN INJ 850 MG in SODIUM CHLORIDE 0.9% 250ML 250 ML IV SCH (02:00)
[2016-12-31] MEDS: HEPARIN SOD 5000 UNIT/0.5 ML CARP SQ SCH ×3 (06:39→21:19)
[2016-12-31 07:04] LABS: HEMATOCRIT 29.8 % (37-47); MEAN CORPUSCULAR HEMOGLOBIN 29.3 pg (25-34); MEAN CORPUSCULAR HGB CONC 31.2 g/dl (32-36); MEAN PLATELET VOLUME 8.2 fL (7.4-10.4); PLATELET COUNT 365 K/uL (130-400); RED BLOOD COUNT 3.17 M/uL (4.2-5.4); WHITE BLOOD COUNT 9.12 K/uL (4.8-10.8)
[2016-12-31] MEDS: BUDESONIDE 0.5 MG/2 ML VIAL (PULMICORT) INH SCH ×2 (07:12→19:24)
[2016-12-31] MEDS: ASPIRIN 81 MG ECTAB PO SCH (07:16)
[2016-12-31] MEDS: LORAZEPAM 0.5 MG TAB PO SCH ×3 (07:16→21:14)
[2016-12-31] MEDS: FERROUS SULFATE 325 MG TAB PO SCH ×3 (07:16→21:15)
[2016-12-31] MEDS: DILTIAZEM HCL 120 MG CAPCR PO SCH (07:17)
[2016-12-31] MEDS: ASCORBIC ACID 500 MG TAB PO SCH ×2 (07:17→21:16)
[2016-12-31] MEDS: CEROVITE ADV FORMULA TAB PO SCH (07:17)
[2016-12-31 07:36] LABS: BUN/CREATININE RATIO 17.1 (10-20); CALCIUM 8.6 mg/dl (8.5-10.1); CREATININE 0.69 mg/dl (0.60-1.20)
[2016-12-31] MEDS ORDERED: LEVOFLOXACIN 750 MG TAB PO SCH (11:00)
--- NOTE | 2016-12-31 11:07 | DIAGNOSTIC IMAGING REPORT ---
CHEST 2 VIEWS ROUTINE CLINICAL HISTORY: Chest pain. Abnormal chest x-ray. COMPARISON STUDY: 12/30/2016 FINDINGS: The heart remains enlarged. There is a left pleural effusion with associated left lower lung zone airspace opacities. There is an equivocal small air-fluid level visualized on the lateral radiograph. A small loculated pneumothorax or pleural air collection cannot be excluded. CT scanning might be considered in follow-up. Are postsurgical changes of a left shoulder arthroplasty. There is conventional radiographic evidence of a chronic right-sided rotator cuff tear.[ IMPRESSION: 1. Persistent left pleural effusion with associated left mid and lower lung zone airspace opacities 2. Equivocal air-fluid level in the lateral view. Air within the left pleural space cannot be excluded. CT scanning might be considered in follow-up for further evaluation Electronically signed by: Angel Luis Johnson M.D. 12/31/2016 11:05 AM Dictated Date/Time: 12/31/2016 11:02 AM
--- NOTE | 2016-12-31 15:53 | Progress Note ---
Medicine Progress Note Date & Time of Visit: Dec 31, 2016 at 15:42. Subjective Patient seen and examined. Still with crying spells. Family feels that her dementia has greatly worsened over the past month. More crying spells. Needs help with feeding. More confused. Objective Last 8 Hrs Date Time Temp Pulse Resp B/P Pulse Ox O2 Delivery O2 Flow Rate FiO2 12/31/16 12:00 Room Air 12/31/16 11:48 36.4 113 20 100/57 96 12/31/16 08:16 36.4 100 18 154/80 100 12/31/16 08:00 Room Air Physical Exam: General-awake; alert; intermittently tearful Eyes-EOMI; no scleral icterus Neck-no stridor; trachea midline Lungs-CTA bilaterally; no wheezes/crackles Heart-tachycardic; irregularly irregular Abdomen-soft; NTND; nBS Extremities-no c/c/e; no deformity Neuro-no focal deficits Laboratory Results: Last 24 Hours Test 12/30/16 18:00 12/30/16 18:15 12/31/16 06:35 12/31/16 15:33 Creatine Kinase MB Ratio Creatine Kinase MB 1.3 ng/ml Troponin I < 0.015 ng/ml White Blood Count 9.12 K/uL Red Blood Count 3.17 M/uL Hemoglobin 9.3 g/dL Hematocrit 29.8 % Mean Corpuscular Volume 94.0 fL Mean Corpuscular Hemoglobin 29.3 pg Mean Corpuscular Hemoglobin Concent 31.2 g/dl RDW Standard Deviation 58.5 fL RDW Coefficient of Variation 16.9 % Platelet Count 365 K/uL Mean Platelet Volume 8.2 fL Sodium Level 140 mmol/L Potassium Level 4.0 mmol/L Chloride Level 105 mmol/L Carbon Dioxide Level 29 mmol/L Anion Gap 6.0 mmol/L Blood Urea Nitrogen 12 mg/dl Creatinine 0.69 mg/dl Est Creatinine Clear Calc Drug Dose 42.9 ml/min Estimated GFR () 94.0 Estimated GFR (Non- 81.1 BUN/Creatinine Ratio 17.1 Random Glucose 94 mg/dl Calcium Level 8.6 mg/dl Assessment & Plan Clinically do not feel that patient has pneumonia. Procalcitonin negative. Minimally elevated WBC count on admission normalized. No clinical symptoms at senior living. Afebrile. No supplemental oxygen requirements. Therefore, discontinued antibiotics. Repeat CXR this am with a left pleural effusion. Dementia - worsening over the past several months, most acutely over the past month per family - will r/o reversible causes (folate, b12, TSH and RPR) - MRI brain - if above negative, will d/w Psychiatry any potential medications to benefit mood (frequent crying spells) Atrial fibrillation - increase diltiazem - PRN metoprolol - not an anticoagulation candidate due to fall risk Fall - unwitnessed - CT head negative - PT/OT evaluations Asthma - not in exacerbation - continue montelukast - continue budesonide - continue nebulizers PRN H/o PE - IVC filter placed 10/2016 Depression/Anxiety - decrease sertraline and lorazepam doses DVT prophylaxis with heparin sq. Anticipate discharge back to [facility]. Current Inpatient Medications: Current Inpatient Medications Medications (Trade) Dose Ordered Sig/Ally Route Start Time Stop Time Status Last Admin Dose Admin Aspirin (Ecotrin Tab) 81 mg DAILY PO 12/30/16 09:00 01/29/17 08:59 12/31/16 07:16 81 MG Budesonide (Pulmicort Respules 0.5MG/ 2ML Neb Soln) 1 mg BIDR INH 12/30/16 10:00 01/29/17 09:59 12/31/16 07:12 1 MG Diltiazem HCl (Cardizem Cd Cap) 120 mg DAILY PO 12/30/16 09:00 01/29/17 08:59 12/31/16 07:17 120 MG Ferrous Sulfate (Feosol Tab) 325 mg TID PO 12/30/16 10:00 01/29/17 09:59 12/31/16 13:34 325 MG Montelukast Sodium (Singulair Tab) 10 mg HS PO 12/30/16 21:00 01/29/17 20:59 12/30/16 21:32 10 MG Multivitamins/ Minerals (Multivitamin W/ Minerals Tab) 1 tab DAILY PO 12/30/16 09:00 01/29/17 08:59 12/31/16 07:17 1 TAB Sertraline HCl (Zoloft Tab) 100 mg HS PO 12/30/16 21:00 01/29/17 20:59 12/30/16 21:30 100 MG Ascorbic Acid (Vitamin C Tab) 500 mg BID PO 12/30/16 10:00 01/29/17 09:59 12/31/16 07:17 500 MG Metoprolol Tartrate (Lopressor Iv) 2.5 mg Q6 PRN IV 12/30/16 08:45 01/29/17 08:44 12/30/16 21:37 2.5 MG Heparin Sodium (Porcine) (Heparin Sq 5000 Unit/0.5ml) 5,000 unit Q8 SQ 12/30/16 14:00 01/29/17 13:59 12/31/16 13:34 5,000 UNIT Ipratropium [place] (Atrovent 0.02% 0.5MG/2.5ML Neb) 0.5 mg Q6R PRN INH 12/30/16 15:00 01/29/17 14:59 Levalbuterol (Xopenex 0.63 Mg/ 3 Ml Neb) 0.63 mg Q6R PRN INH 12/30/16 15:00 01/29/17 14:59 Lorazepam (Ativan Tab) 0.25 mg BID PO 12/31/16 09:00 01/30/17 08:59
[2016-12-31] MEDS ORDERED: DILTIAZEM HCL 120 MG CAPCR PO ONE (16:30)
[2016-12-31] MEDS: METOPROLOL TARTRATE 1 MG/ML VIAL IV PRN (17:42)
[2016-12-31] MEDS ORDERED: DILTIAZEM SR 60 MG CAP PO ONE (18:00)
[2016-12-31] MEDS ORDERED: LORAZEPAM 0.5 MG TAB PO PRN (18:15)
[2016-12-31] MEDS: MONTELUKAST SOD 10 MG TAB PO SCH (21:15)
[2016-12-31] MEDS: SERTRALINE HCL 100 MG TAB PO SCH (21:16)
--- NOTE | 2016-12-31 21:41 | DIAGNOSTIC IMAGING REPORT ---
Brain MRI WITHOUT CONTRAST HISTORY: No status change Change in mental status TECHNIQUE: Multiplanar multisequence MRI of the brain was performed without the use of contrast. COMPARISON STUDY: 08/16/2011 FINDINGS: There are no areas of restricted diffusion to suggest acute infarction. The midline structures are intact. The paranasal sinuses are clear. The mastoid air cells are clear. The ventricles and sulci are within normal limits for age. There is no mass, hematoma, midline shift. The major vascular flow-voids at the skull base are well maintained. Age-related atrophy. Considerable chronic small vessel change stable from the prior exam. No midline shift. Sella and parasellar regions are unremarkable. IMPRESSION: Age-related atrophy and chronic small vessel change. No acute process. No change from the prior study. Electronically signed by: Didier Eldridge M.D. 12/31/2016 9:39 PM Dictated Date/Time: 12/31/2016 9:35 PM
[2017-01-01] VITALS (7 sets, daily range): BP systolic 113–144; BP diastolic 51–95; PULSE 88–109; TEMP 36.5–36.8; O2SAT 92–96
[2017-01-01] MEDS: HEPARIN SOD 5000 UNIT/0.5 ML CARP SQ SCH (05:37)
[2017-01-01] MEDS: BUDESONIDE 0.5 MG/2 ML VIAL (PULMICORT) INH SCH (07:03)
[2017-01-01] MEDS: ASCORBIC ACID 500 MG TAB PO SCH (08:00)
[2017-01-01] MEDS: LORAZEPAM 0.5 MG TAB PO SCH (08:00)
[2017-01-01] MEDS: ASPIRIN 81 MG ECTAB PO SCH (08:01)
[2017-01-01] MEDS: FERROUS SULFATE 325 MG TAB PO SCH (08:01)
[2017-01-01] MEDS: CEROVITE ADV FORMULA TAB PO SCH (08:02)
[2017-01-01] MEDS ORDERED: DILTIAZEM HCL 180 MG CAPCR PO SCH (09:00)
[2017-01-01] MEDS ORDERED: CRDCD180 PO (10:05)
[2017-01-01] MEDS ORDERED: ATV5 PO (10:05)
--- NOTE | 2017-01-01 10:10 | Discharge Instructions ---
Discharge Instructions Date of Service Jan 01, 2017. Admission Reason for Admission: Rapid Atrial Fibrillation Discharge Discharge Diagnosis / Problem: Atrial fibrillation Discharge Goals Goal(s): Improve disease control Activity Recommendations Activity Level: Assistance Required . Additional Information Patient informed of condition: Yes Advance Directives: No DNR: Yes Level of Care: Skilled Communicable Disease: No Prognosis: Stable [place] Catheter: No Instructions / Follow-Up Instructions / Follow-Up Diltiazem dose was increased to 180mg daily. Sertraline dose was decreased to 100mg daily. Lorazepam dose was decreased to 0.25mg BID. Would recommend against increasing dose or using PRN dosing due to increased risk of delirium. Patient has a tendency to pocket medications. Please be vigilant with medication administration. Current Hospital Diet Patient's current hospital diet: Low Sodium Diet (2gm Na), AHA Diet (Heart Healthy) Discharge Diet Recommended Diet: AHA Diet (Heart Healthy) Diet Texture: Dental Soft (bite-sized) Pending Studies Studies pending at discharge: no Medical Emergencies . Who to Call and When: Medical Emergencies: If at any time you feel your situation is an emergency, please call 911 immediately. . Non-Emergent Contact Non-Emergency issues call your: Primary Care Provider . . "Provider Documentation" section prepared by Luz Harrison. . Core Measure Problem Core Measures: None
--- NOTE | 2017-01-01 16:28 | Discharge Summary ---
Discharge Summary Date of Service Jan 01, 2017. Discharge Summary Admission Date: Dec 30, 2016 at 08:30 Discharge Date: Jan 01, 2017 [facility] Principal Diagnosis: Atrial fibrillation Procedures: CT head Age-related change. No acute process. CXR 1. Persistent left pleural effusion with associated left mid and lower lung zone airspace opacities 2. Equivocal air-fluid level in the lateral view. Air within the left pleural space cannot be excluded. CT scanning might be considered in follow-up for further evaluation MRI brain Age-related atrophy and chronic small vessel change. No acute process. No change from the prior study. Medication Reconciliation New Medications: Diltiazem HCl (Diltiazem HCl ER) 180 Mg Capcr 180 MG PO QAM for 30 Days, #30 CAP Lorazepam (Lorazepam) 0.5 Mg Tab 0.25 MG PO BID for 30 Days, #30 TAB Continued Medications: Acetaminophen (Mapap) 325 Mg Tab 650 MG PO Q6 PRN for Pain NOT TO EXCEED 3GM APAP/24HR Acetaminophen (Mapap) 325 Mg Tab 650 MG PO Q6 PRN for TEMP>100 NOT TO EXCEED 3GM/24HR Ascorbic Acid (Vitamin C) 500 Mg Tab 500 MG PO BID Aspirin (Ecotrin Low Strength) 81 Mg Tab 81 MG PO DAILY, 3 Refills Budesonide (Budesonide) 0.5 Mg/2 Ml Nebu 1 VIAL NEB BID, 11 Refills Ferrous Sulfate (Ferrous Sulfate) 325 Mg Tab 325 MG PO TID Infant Foods (Protein Fortifier) 1 Gm/6 Ml Liq 30 ML PO BID MIX IN APPLE JUICE Levalbuterol (Levalbuterol HCl) 0.63 Mg/3 Ml Nebu 3 ML NEB Q6 PRN for SOB/Wheezing Montelukast Sod (Montelukast Sodium) 10 Mg Tab 10 MG PO HS for 30 Days, TAB Multivitamins/Minerals (Mvi With Minerals) Tab 1 TAB PO DAILY Polyethylene Glycol 3350 (Miralax) 1 Pow Pow 17 GM PO DAILY Sertraline (Zoloft) 100 Mg Tab 100 MG PO HS Discontinued Medications: Diltiazem Hcl Coated Beads (Diltiazem Cd) 120 Mg Cap 120 MG PO DAILY Guaifenesin/Codeine (Robitussin-Ac Syrup) Syrp 10 ML PO Q6 PRN for Cough for 4 Days, #240 ML Levalbuterol (Levalbuterol HCl) 0.63 Mg/3 Ml Nebu 3 ML NEB BID Lorazepam (Ativan) 0.5 Mg Tab 0.5 MG PO Q8 PRN for Anxiety Lorazepam (Ativan) 0.5 Mg Tab 0.5 MG PO BID Sertraline (Zoloft) 25 Mg Tab 25 MG PO HS Admission Information HPI (per Admitting provider): 81 year old female with PMH of Afib, Asthma, PE s/p IVC, SAH, ambulatory dysfunction was brought to the Emergency Room via Emergency Medical Services from [facility]. History is limited due to dementia. Pt does not know why she is here. I called [facility]. As per long term staff they heard pt fell when she was walking possible to go to the bathroom. Her HR was elevated and was in afib as per long term staff. No loss of consciousness, bladder or bowel. Pt said that she feels fine at this time. She denies any chest pain, palpitation, dizziness, dysuria and SOB. She saturated at 94% on RA. Physical Exam (per Admitting): General Appearance: WD/WN, no apparent distress Head: normocephalic, atraumatic Eyes: normal inspection, PERRL, EOMI ENT: normal ENT inspection, hearing grossly normal Neck: supple, no JVD Respiratory/Chest: no respiratory distress, no accessory muscle use, + pertinent finding (+crackles at base with poor air entry) Cardiovascular: no JVD, + tachycardia, + irregularly irregular Abdomen/GI: normal bowel sounds, non tender, soft Back: normal inspection, no CVA tenderness Extremities/Musculoskelatal: no calf tenderness, + pertinent finding ( bruises at the left side of the back) Neurologic/Psych: no motor/sensory deficits, alert Skin: normal color, warm/dry, no rash Hospital Course Patient was admitted due to A fib with RVR. Diltiazem dose was up-titrated with improvement of rate control. Patient is not an anticoagulation candidate due to frequent falls. Initially it was felt that patient had pneumonia on admission. However, patient was afebrile, with normal WBC count and procalcitonin and no supplemental oxygen requirements. It was not felt clinically that patient had pneumonia. Antibiotics were therefore discontinued. CXR showed a left sided pleural effusion. Patient does have a h/o PE for which she has an IVC filter. No further imaging was pursued given patient's stable clinical state. Patient has had worsening dementia over the past several months, acutely worsening over the past month per family. Folate, B12, TSH and RPR were all normal. MRI brain showed chronic small vessel disease and no acute findings. Medications were discussed with Psychiatry and it was opted not to make any additional changes at this time. Sertraline dose was decreased to 100mg daily and Lorazepam was decreased to 0.25mg BID given the potential for delirium in this elderly patient with dementia. Patient was continued on the remainder of her medications with the exceptions noted above. Care was discussed with the patient's daughter. Patient deemed stable for discharge to [facility]. PE on discharge: General- awake; alert; NAD Eyes- EOMI; no scleral icterus Neck- no stridor; trachea midline Lungs- CTA bilaterally; no wheezes/crackles Heart- irregularly irregular Abdomen- soft; NTND; nBS Back- no gross abnormalities Extremities- no c/c/e; no deformity Neuro- no focal deficits; oriented to person Skin- no appreciable rash . Total time spent on discharge = This includes examination of the patient, discharge planning, medication reconciliation, and communication with other providers. Discharge Instructions Discharge Instructions Date of Service Jan 01, 2017. Admission Reason for Admission: Rapid Atrial Fibrillation Discharge Discharge Diagnosis / Problem: Atrial fibrillation Discharge Goals Goal(s): Improve disease control Activity Recommendations Activity Level: Assistance Required . Additional Information Patient informed of condition: Yes Advance Directives: No DNR: Yes Level of Care: Skilled Communicable Disease: No Prognosis: Stable [place] Catheter: No Instructions / Follow-Up Instructions / Follow-Up Diltiazem dose was increased to 180mg daily. Sertraline dose was decreased to 100mg daily. Lorazepam dose was decreased to 0.25mg BID. Would recommend against increasing dose or using PRN dosing due to increased risk of delirium. Patient has a tendency to pocket medications. Please be vigilant with medication administration. Current Hospital Diet Patient's current hospital diet: Low Sodium Diet (2gm Na), AHA Diet (Heart Healthy) Discharge Diet Recommended Diet: AHA Diet (Heart Healthy) Diet Texture: Dental Soft (bite-sized) Pending Studies Studies pending at discharge: no Medical Emergencies . Who to Call and When: Medical Emergencies: If at any time you feel your situation is an emergency, please call 911 immediately. . Non-Emergent Contact Non-Emergency issues call your: Primary Care Provider . . "Provider Documentation" section prepared by Luz Harrison. . Core Measure Problem Core Measures: None Additional Copies To Drew, [place]
[2017-01-01] MEDS ORDERED: VANCOMYCIN TROUGH ONE (17:30)
[2017-04-24] MEDS ORDERED: GFNSR600 PO (12:12)
[2017-04-24] MEDS ORDERED: PRED10TA PO (12:12)
[2017-04-24] MEDS ORDERED: IPRASOL4 INH (12:12)
[2017-04-24] MEDS ORDERED: PRFINS INH (12:12)
[2017-04-24] MEDS ORDERED: NYSS5 PO (12:12)
== END 2017-01-01 14:45 | DRG 310 ==
LOC: ENRESERVTM → ENRESERVDT → EDBD 05:21 → C.EDB 05:24 → C.2E 08:30 → EDBEDREQ 08:50 → UNDODISIN 12-31 17:00
PROVIDERS: ADMIT Internal Medicine; ATTEND Internal Medicine
DX: I48.2 Chronic atrial fibrillation (principal); I48.92 Unspecified atrial flutter; J45.909 Unspecified asthma, uncomplicated; Z86.711 Personal history of pulmonary embolism; F02.80 Dementia in other diseases classified elsewhere, unspecified severity, without behavioral disturbance, psychotic disturbance, mood disturbance, and anxiety; G30.9 Alzheimer's disease, unspecified; R27.0 Ataxia, unspecified; I10 Essential (primary) hypertension; E03.9 Hypothyroidism, unspecified; M35.3 Polymyalgia rheumatica; Z90.49 Acquired absence of other specified parts of digestive tract; Z98.51 Tubal ligation status; Z90.710 Acquired absence of both cervix and uterus; Z88.0 Allergy status to penicillin; Z88.2 Allergy status to sulfonamides; Z88.5 Allergy status to narcotic agent; Z91.048 Other nonmedicinal substance allergy status; Z79.82 Long term (current) use of aspirin; Z79.899 Other long term (current) drug therapy; F41.9 Anxiety disorder, unspecified; F32.9 Major depressive disorder, single episode, unspecified; Z66 Do not resuscitate; R91.1 Solitary pulmonary nodule

== ENCOUNTER → 2017-02-10 | Outpatient (CLI) | payer BC ==
[~2017-02-10] MED LIST changes: +ACET-1047 PO; -ACET-1311 PO; +ASCO-63 PO; +ASPI-428 PO; -ASPI-435 PO; -ATRINS INH; +ATV5 PO; -BCTRO; -BENZ100C7 PO; +BISA10SU3 PR; +CIPR250T3 PO; +CRDCD180 PO; -DLCSR120 PO; +FORM1NEB INH; +FRRS300 PO; +GFNSR600 PO; +INFA1LIQ PO; +INSU100I SC; +IPRASOL4 INH; +LEVO-366 PO; -LOPE2TAB84 PO; -LORA-741 PO; +METR-162 PO; +MOML PO; +MULT-513 PO; +MULTTAB63 PO; +NYSS5 PO; -PLMINS INH; +PLMINS NEB; -PRD10 PO; +PRED10TA PO; +PRFINS INH; +SERT-234 PO; -SERT50TA PO; +SODI1ENE RE; +VERA240T20 PO; -WITCPAD EXT; -XPNINS INH; +XPNINS NEB
[2017-02-10 09:24] LABS: BASO % 0.5 %; BASO ABS # 0.04 K/uL (0-0.2); COMPLETE YES; EOS % 3.6 %; HEMATOCRIT 34.4 % (37-47); IG% 0.8 %; LYMPH % 18.6 %; LYMPH ABS # 1.46 K/uL (1.2-3.4); MEAN CELL VOLUME 93.7 fL (80-100); MEAN CORPUSCULAR HEMOGLOBIN 29.4 pg (25-34); MEAN CORPUSCULAR HGB CONC 31.4 g/dl (32-36); MEAN PLATELET VOLUME 9.3 fL (7.4-10.4); MONO % 7.1 %; NEUT % 69.4 %; PLATELET COUNT 259 K/uL (130-400); RED BLOOD COUNT 3.67 M/uL (4.2-5.4); WHITE BLOOD COUNT 7.86 K/uL (4.8-10.8)
[2017-02-10 09:31] LABS: BLOOD UREA NITROGEN 22 mg/dl (7-18); CARBON DIOXIDE 29 mmol/L (21-32); CHLORIDE 106 mmol/L (98-107); CREATININE 0.86 mg/dl (0.60-1.20); GLUCOSE 92 mg/dl (70-99); POTASSIUM 4.1 mmol/L (3.5-5.1); SODIUM 141 mmol/L (136-145)
[2017-02-10 09:42] LABS: CALCIUM 9.2 mg/dl (8.5-10.1)
== END ==
LOC: C.LABCC 09:00
PROVIDERS: ATTEND Internal Medicine
DX: E03.9 Hypothyroidism, unspecified (principal); I10 Essential (primary) hypertension; I48.91 Unspecified atrial fibrillation

== ENCOUNTER 2017-04-17 11:38 | Inpatient (IN) | payer BC, OTHER ==
[~2017-04-17] VITALS: Ht 149.9 cm; Wt 57.3 kg
[~2017-04-17 11:38] MED LIST changes: -BISA10SU3 PR; -CIPR250T3 PO; -FORM1NEB INH; -GFNSR600 PO; -INSU100I SC; -IPRASOL4 INH; -LEVO-366 PO; -METR-162 PO; -MOML PO; -MULTTAB63 PO; -NYSS5 PO; -PRED10TA PO; -PRFINS INH; -SODI1ENE RE; -VERA240T20 PO
[2017-04-17] MEDS ORDERED: IPRATROPIUM BROMIDE NEB SOLN 0.02% 2.5 ML VIAL INH PRN (12:15)
[2017-04-17] MEDS ORDERED: AZITHROMYCIN IV 500 MG in DEXTROSE 5% 250ML 250 ML IV SCH (12:15)
[2017-04-17] MEDS ORDERED: ALBUTEROL 0.083% NEBU SOLN 3 ML VIAL INH PRN (12:15)
--- NOTE | 2017-04-17 12:18 | EMERGENCY ROOM VISIT NOTE ---
History Report prepared by Ulises: Yazan Mukherjee Under the Supervision of: Dr. Yeyo Stevens M.D. First contact with patient: 12:09 Chief Complaint: RESPIRATORY PROBLEMS Stated Complaint: RESPIRATORY Nursing Triage Summary: pt is from [facility] pt had recent ER visit for exacerbation of asthma pt on prednisone dose pack she finished, and restarted last pm pt on Levaquin pt recent xray showed a mass that "they are not going to do anything d/t pt health hx" pt has productive cough with thick sputum History of Present Illness The patient is an 81 year old female who presents to the Emergency Room from [facility] with complaints of worsening shortness of breath that started a couple days ago. Per the nursing staff, the patient recently was here for an exacerbation of asthma. She was put on a Prednisone dose pack which she has finished. The patient was restarted on it yesterday. She also had a recent chest x-ray which revealed a mass that the doctors do not want to do anything with currently due to the patient's age and health. The patient says that she has been congested with a productive cough with yellow mucous, in addition to intermittent fevers and chills. She states that she is not normally on oxygen. She denies any leg swelling. The patient is on Levaquin. Source of History: patient, nursing staff Onset: A couple days ago Position: other (global - shortness of breath) Timing: worsening Associated Symptoms: + fevers, + chills, + cough Note: Associated symptoms: Congestion. Denies leg swelling. Review of Systems See HPI for pertinent positives and negatives. A total of ten systems were reviewed and were otherwise negative. Past Medical & Surgical Medical Problems: (1) Afib (2) Alzheimer's disease, unspecified (3) Anxiety (4) Ataxia (5) Benign essential hypertension (6) Depression (7) Dizziness (8) History of subarachnoid hemorrhage (9) Hypothyroidism, unspecified (10) Polymyalgia rheumatica (11) SAH (subarachnoid hemorrhage) (12) Syncopal episodes (13) Unspecified asthma Surgical Problems: (1) H/O tubal ligation (2) S/P appendectomy (3) S/P hysterectomy Family History Patient reports no known family medical history. Social History Smoking Status: Unknown if Ever Smoked Alcohol Use: none Marital Status: Housing Status: lives alone Occupation Status: retired Current/Historical Medications Scheduled Aspirin (Ecotrin Low Strength), 81 MG PO DAILY Budesonide (Budesonide), 1 VIAL NEB BID Diltiazem HCl (Diltiazem HCl ER), 180 MG PO QAM Ferrous Sulfate (Ferrous Sulfate), 325 MG PO TID Foods (Protein Fortifier), 30 ML PO BID Levofloxacin (Levaquin), 500 MG PO DAILY Lorazepam (Lorazepam), 0.25 MG PO BID Montelukast Sod (Montelukast Sodium), 10 MG PO HS Multivitamins/Minerals (Mvi With Minerals), 1 TAB PO DAILY Polyethylene Glycol 3350 (Miralax), 17 GM PO DAILY Prednisone (Prednisone), 0 PO UD Sertraline (Zoloft), 100 MG PO HS Verapamil Sust Rel (Calan Sr Ext Rel), 240 MG PO QAM Scheduled PRN Acetaminophen (Mapap), 650 MG PO Q6 PRN for Pain Levalbuterol (Levalbuterol HCl), 3 ML NEB Q4 PRN for SOB/Wheezing Allergies Coded Allergies: Adhesives (Verified Allergy, Severe, RED/SWOLLEN, 12/30/16) Codeine (Verified Allergy, Unknown, TOLERATED MORPHINE, 12/30/16) Erythromycin (Verified Allergy, Unknown, `, 12/30/16) Penicillins (Verified Allergy, Unknown, 12/30/16) Sulfamethoxazole (Verified Allergy, Unknown, 12/30/16) Physical Exam Vital Signs Date Time Temp Pulse Resp B/P (MAP) Pulse Ox O2 Delivery O2 Flow Rate FiO2 04/17/17 15:50 79 25 96 04/17/17 15:46 104/52 04/17/17 15:35 94 21 96 04/17/17 15:20 85 31 98 04/17/17 15:15 122/63 04/17/17 15:05 84 18 98 04/17/17 15:00 125/56 04/17/17 14:50 84 19 98 04/17/17 14:45 96/52 04/17/17 14:35 75 29 98 04/17/17 14:30 97/50 04/17/17 14:20 84 27 99 04/17/17 14:15 93/49 04/17/17 14:08 80 22 98 04/17/17 14:00 86/48 04/17/17 14:00 80 24 101/63 98 BiPAP 04/17/17 13:53 85 17 99 04/17/17 13:45 101/53 04/17/17 13:38 95 22 100 04/17/17 13:30 101/52 04/17/17 13:23 80 18 99 04/17/17 13:15 97/49 04/17/17 13:08 81 23 98 04/17/17 13:00 101/61 04/17/17 12:59 99 26 148/63 93 BiPAP 04/17/17 12:53 88 24 96 04/17/17 12:48 111/51 04/17/17 12:40 98 19 97 BiPAP/CPAP 40 04/17/17 12:38 92 21 97 04/17/17 12:23 90 04/17/17 12:23 95 28 98 04/17/17 12:22 98 96 40 04/17/17 11:56 95 Nasal Cannula 2.0 04/17/17 11:49 36.8 109 36 127/58 94 Nasal Cannula 3.0 04/17/17 11:49 93 Room Air 04/17/17 11:42 127/58 Physical Exam GENERAL: Awake, alert, chronically ill-appearing, dyspneic, in mild distress. HENT: Normocephalic, atraumatic. Oropharynx unremarkable. Dry mucous membranes. EYES: Normal conjunctiva. Sclera non-icteric. NECK: Supple. No nuchal rigidity. FROM. No JVD. RESPIRATORY: Diffuse rhonchi and wheezing throughout with accessory muscle use. CARDIAC: Regular rate, AF. Extremities warm and well perfused. Pulses equal. ABDOMEN: Soft, non-distended. No tenderness to palpation. No rebound or guarding. No masses. RECTAL: Deferred. MUSCULOSKELETAL: Chest examination reveals no tenderness. The back is symmetrical on inspection without obvious abnormality. There is no CVA tenderness to palpation. No joint edema. LOWER EXTREMITIES: Calves are equal size bilaterally and non-tender. No edema. No discoloration. NEURO: Normal sensorium. No sensory or motor deficits noted. SKIN: No rash or jaundice noted. Medical Decision & Procedures ER Provider Diagnostic Interpretation: X-ray: Per my interpretation, radiologist review. CHEST ONE VIEW PORTABLE CLINICAL HISTORY: sob dyspnea COMPARISON STUDY: 12/31/2016 FINDINGS: Mild improvement in aeration of the left hemithorax compared to the prior study. Persistent infiltrative change left base with a small left effusion. Right lung is clear. Total left shoulder replacement with severe degenerative change right shoulder. IMPRESSION: Mild cardiomegaly with evidence for a small left effusion. Mild superimposed infiltrative change left mid to lower lung. The above report was generated using voice recognition software. It may contain grammatical, syntax or spelling errors. Electronically signed by: Didier Eldridge M.D. 04/17/2017 12:36 PM Dictated Date/Time: 04/17/2017 12:35 PM Laboratory Results Test 04/17/17 12:47 04/17/17 13:38 Immature Granulocyte % (Auto) 0.3 % White Blood Count 10.21 K/uL (4.8-10.8) Red Blood Count 4.14 M/uL (4.2-5.4) Hemoglobin 12.4 g/dL (12.0-16.0) Hematocrit 37.3 % (37-47) Mean Corpuscular Volume 90.1 fL (80-100) Mean Corpuscular Hemoglobin 30.0 pg (25-34) Mean Corpuscular Hemoglobin Concent 33.2 g/dl (32-36) Platelet Count 223 K/uL (130-400) Mean Platelet Volume 9.1 fL (7.4-10.4) Neutrophils (%) (Auto) 93.2 % Lymphocytes (%) (Auto) 5.4 % Monocytes (%) (Auto) 1.0 % Eosinophils (%) (Auto) 0.0 % Basophils (%) (Auto) 0.1 % Neutrophils # (Auto) 9.52 K/uL (1.4-6.5) Lymphocytes # (Auto) 0.55 K/uL (1.2-3.4) Monocytes # (Auto) 0.10 K/uL (0.11-0.59) Eosinophils # (Auto) 0.00 K/uL (0-0.5) Basophils # (Auto) 0.01 K/uL (0-0.2) Immature Granulocyte # (Auto) 0.03 K/uL (0.00-0.02) Total Bilirubin 0.7 mg/dl (0.2-1) Direct Bilirubin 0.1 mg/dl (0-0.2) Aspartate Amino Transf (AST/SGOT) 17 U/L (15-37) Alanine Aminotransferase (ALT/SGPT) 29 U/L (12-78) Alkaline Phosphatase 89 U/L (45-117) Troponin I < 0.015 ng/ml (0-0.045) Pro-B-Type Natriuretic Peptide 2411 pg/ml (0-1800) Total Protein 8.2 gm/dl (6.4-8.2) Albumin 3.2 gm/dl (3.4-5.0) Venous Blood pH 7.45 (7.36-7.41) Venous Blood Partial Pressure CO2 37 mmHg (38.0-50.0) Venous Blood Partial Pressure O2 36 mmHg Venous Blood HCO3 25 mmol/L Venous Blood Oxygen Saturation 69.4 % Venous Blood Base Excess 1.1 mEq/L Laboratory results reviewed by me Medications Administered Medications (Trade) Dose Ordered Sig/Ally Route Start Time Stop Time Status Last Admin Dose Admin Azithromycin 500 mg/Dextrose 255 ml @ 250 mls/hr Q24H IV 04/17/17 12:15 04/17/17 17:42 DC 04/17/17 12:49 250 MLS/HR Albuterol Sulfate (Ventolin 0.083% 2.5MG/3ML Neb) 7.5 mg Q4H PRN INH 04/17/17 12:15 04/17/17 16:36 DC 04/17/17 12:30 7.5 MG Ipratropium Gilliam (Atrovent 0.02% 0.5MG/2.5ML Neb) 0.5 mg Q4H PRN INH 04/17/17 12:15 04/17/17 16:36 DC 04/17/17 12:29 0.5 MG Cefepime HCl 2000 mg/Dextrose 122.6 ml @ 200 mls/hr NOW STAT IV 04/17/17 13:21 04/17/17 13:57 DC 04/17/17 17:41 200 MLS/HR Vancomycin HCl 1250 mg/Sodium Chloride 275 ml @ 125 mls/hr NOW ONCE IV 04/17/17 13:45 04/17/17 15:56 DC 04/17/17 14:18 125 MLS/HR ECG Indication: SOB/dyspnea Rate (beats per minute): 98 Rhythm: atrial flutter Findings: no acute ischemic change, other (variable AV block) Change: no significant change (compared to 12/30/16) ED Course 1210: The patient was evaluated in room C5. A complete history and physical exam was performed. 1215: Ordered Atrovent 0.02% 0.5MG/2.5Ml Neb 0.5 mg INH PRN, Ventolin 0.083% 2.5MG/3ML Neb 7.5 mg INH PRN, Azithromycin 500 mg/Dextrose 255 ml @ 250 mls/hr IV. 1304: I reevaluated and updated the patient. She is resting. The patient verbally expressed understanding and agreement of the treatment plan. The patient will be evaluated for further treatment. 1321: Ordered Cefepime HCl 2000 mg/Dextrose 122.6 ml @ 200 mls/hr IV. 1342: I discussed the patient with Bruna VEGA resident care technician - she will evaluate the patient for further treatment. 1345: Ordered Vancomycin HCl 1250 mg/Sodium Chloride 275 ml @ 125 mls/hr IV. Medical Decision I reviewed the patient's past medical history, medications, and the nursing notes as described above. Differentials include but are not limited to: COPD exacerbation, pneumonia, CHF , less likely ACS or PE. Patient is a 81-year-old woman with a comes to past medical history of pulmonary embolism status post IVC filter, CHF, COPD presents to the emergency department from [facility] with worsening shortness of breath and the setting of being treated for pneumonia with Levaquin per history of present illness. On arrival the patient is significantly dyspneic breathing with a rate in the 30s with accessory muscle use. Placed on BiPAP on arrival for significant work of breathing. Covering initially empirically with azithromycin in the setting of yellow sputum. Nebs given. Steroids given by EMS. Chest x-ray with infiltrate consistent with pneumonia. Considering the patient has failed Levaquin patient was treated empirically with vancomycin and cefepime. Blood cultures drawn and pending. BNP 2000s unchanged from recent. Troponin negative. VBG without any significant CO2 retention. Respiratory distress likely secondary to pneumonia. She was admitted to the medicine service with possible ICU admission. Medication Reconcilliation Current Medication List: was personally reviewed by tn Blood Pressure Screening Patient's blood pressure: Elevated blood pressure Referred to hospitalist. Consults Time Called: 1340 Consulting Physician: Bruna VEGA resident care technician Returned Call: 1342 (in person) I discussed the patient with Bruna VEGA resident care technician - she will evaluate the patient for further treatment. Impression Primary Impression: COPD exacerbation Additional Impression: PNA (pneumonia) Critical Care I have personally spent greater than [60] minutes of critical care time in the direct management of this patient. This includes bedside care, interpretation of diagnostic studies, and testing, discussion with consultants, patient, and family members, and other required patient management activities. This [60] minutes is in excess of all separately billable procedures. Scribe Attestation The scribe's documentation has been prepared under my direction and personally reviewed by me in its entirety. I confirm that the note above accurately reflects all work, treatment, procedures, and medical decision making performed by me. Departure Information Dispostion Being Evaluated By Hospitalist Referrals BlessingJustyn (PCP) Patient Instructions My [facility] Problem Qualifiers Additional Impression: PNA (pneumonia) Pneumonia type: due to unspecified organism Laterality: unspecified laterality Lung location: unspecified part of lung Qualified Codes: J18.9 - Pneumonia, unspecified organism
[2017-04-17 12:22] VITALS: PULSE 98; O2SAT 96
--- NOTE | 2017-04-17 12:38 | DIAGNOSTIC IMAGING REPORT ---
CHEST ONE VIEW PORTABLE CLINICAL HISTORY: sob dyspnea COMPARISON STUDY: 12/31/2016 FINDINGS: Mild improvement in aeration of the left hemithorax compared to the prior study. Persistent infiltrative change left base with a small left effusion. Right lung is clear. Total left shoulder replacement with severe degenerative change right shoulder. IMPRESSION: Mild cardiomegaly with evidence for a small left effusion. Mild superimposed infiltrative change left mid to lower lung. The above report was generated using voice recognition software. It may contain grammatical, syntax or spelling errors. Electronically signed by: Didier Eldridge M.D. 04/17/2017 12:36 PM Dictated Date/Time: 04/17/2017 12:35 PM
[2017-04-17 12:40] VITALS: PULSE 98; O2SAT 97
[2017-04-17] MEDS ORDERED: VERA240T20 PO (13:00)
[2017-04-17] MEDS ORDERED: PRED10TA PO (13:00)
[2017-04-17] MEDS ORDERED: LEVO-366 PO (13:00)
[2017-04-17 13:11] LABS: BASO % 0.1 %; BASO ABS # 0.01 K/uL (0-0.2); COMPLETE YES; HEMATOCRIT 37.3 % (37-47); IG% 0.3 %; LYMPH % 5.4 %; LYMPH ABS # 0.55 K/uL (1.2-3.4); MEAN CELL VOLUME 90.1 fL (80-100); MEAN CORPUSCULAR HGB CONC 33.2 g/dl (32-36); MEAN PLATELET VOLUME 9.1 fL (7.4-10.4); NEUT % 93.2 %; PLATELET COUNT 223 K/uL (130-400); RED BLOOD COUNT 4.14 M/uL (4.2-5.4); WHITE BLOOD COUNT 10.21 K/uL (4.8-10.8)
[2017-04-17] MEDS ORDERED: VANCOMYCIN INJ 1,250 MG in SODIUM CHLORIDE 0.9% 500ML 500 ML IV STA (13:21)
[2017-04-17] MEDS ORDERED: CEFEPIME IV 2,000 MG in DEXTROSE 5% 100ML 100 ML IV STA (13:21)
[2017-04-17 13:27] LABS: BLOOD UREA NITROGEN 34 mg/dl (7-18); BUN/CREATININE RATIO 31.2 (10-20); CALCIUM 9.5 mg/dl (8.5-10.1); CARBON DIOXIDE 26 mmol/L (21-32); CHLORIDE 100 mmol/L (98-107); GLUCOSE 175 mg/dl (70-99); POTASSIUM 3.7 mmol/L (3.5-5.1); SODIUM 136 mmol/L (136-145)
[2017-04-17] MEDS ORDERED: VANCOMYCIN INJ 1,250 MG in SODIUM CHLORIDE 0.9% 250ML 250 ML IV ONE (13:45)
[2017-04-17 13:55] LABS: VEN BLD GAS O2 SATURATION 69.4 %; VEN BLOOD GAS BASE EXCESS 1.1 mEq/L
[2017-04-17] MEDS ORDERED: SODIUM CHLORIDE 0.9% 1000ML 1,000 ML IV SCH (16:00)
[2017-04-17] MEDS ORDERED: ONDANSETRON INJ 2 MG/ML 2 ML VIAL IV PRN (16:15)
[2017-04-17] MEDS ORDERED: ACETAMINOPHEN 325 MG TAB PO PRN (16:15)
[2017-04-17] MEDS ORDERED: VANCOMYCIN CONSULT ACTIVE PRN (16:30)
[2017-04-17 16:41] VITALS: BP 122/79; PULSE 88; TEMP 36.4; O2SAT 93
--- NOTE | 2017-04-17 17:08 | History and Physical ---
History & Physical Date & Time of Service: Apr 17, 2017 at 16:46 Chief Complaint: Asthma Exacerbation Primary Care Physician: Justyn Vargas History of Present Illness Source: patient, other (Davy Justyn RN) This is an 81yo F with PMH of asthma, A Fib, h/o PE (s/p IVC in 10/31), dementia , HTN, h/o SAH who presents with worsening SOB. Patient is a resident of [facility] and was noticed to have wheezing and SOB 10 days ago (04/08/17). Was started on Xopenex nebulizer treatments and completed a steroid taper yesterday. However, patient had developed a productive cough and chills, so was started on PO Levaquin, another steroid taper and continued nebs. This morning, wheezing and SOB were worsening so patient was sent to ED. Has had stable vitals throughout, with O2 sat in the 90s on 4L O2 NC. Patient has dementia and is only oriented to person at baseline. Endorses wheezing and a cough with productive yellow phlegm currently but states that she is breathing better and is no longer dyspneic. Denies any fever, chills, lightheadedness, confusion, headache, palpitations, CP, nausea/vomiting, MSK pain or LE swelling. On exam this morning, patient was diagnosed with shingles on her R buttocks. Denies any pain or itching. Past Medical/Surgical History Medical Problems: (1) Afib Status: Chronic (2) Alzheimer's disease, unspecified Status: Chronic (3) Anxiety Status: Chronic (4) Ataxia Status: Chronic (5) Benign essential hypertension Status: Chronic (6) Depression Status: Chronic (7) Dizziness Status: Chronic (8) History of subarachnoid hemorrhage Permanent Comment: August 2014 per records Status: Chronic (9) Hypothyroidism, unspecified Status: Chronic (10) Polymyalgia rheumatica Status: Chronic (11) SAH (subarachnoid hemorrhage) Status: Resolved (12) Syncopal episodes Status: Chronic (13) Unspecified asthma Status: Chronic Surgical Problems: (1) H/O tubal ligation Status: Chronic (2) S/P appendectomy Status: Chronic (3) S/P hysterectomy Status: Chronic Family History Patient reports no known family medical history. Social History Smoking Status: Unknown if Ever Smoked Marital Status: Housing status: other Occupational Status: retired Immunizations History of Influenza Vaccine: No History of Tetanus Vaccine?: Yes Tetanus Immunization Date: Dec 13, 1988 History of Pneumococcal: Unknown Pneumococcal Date: Dec 14, 1991 History of Hepatitis B Vaccine: Unknown Multi-Drug Resistant Organisms History of MDRO: Yes Type of MDRO: MRSA Allergies Coded Allergies: Adhesives (Verified Allergy, Severe, RED/SWOLLEN, 12/30/16) Codeine (Verified Allergy, Unknown, TOLERATED MORPHINE, 12/30/16) Erythromycin (Verified Allergy, Unknown, `, 12/30/16) Penicillins (Verified Allergy, Unknown, 12/30/16) Sulfamethoxazole (Verified Allergy, Unknown, 12/30/16) Home Medications Scheduled Aspirin (Ecotrin Low Strength), 81 MG PO DAILY Budesonide (Budesonide), 1 VIAL NEB BID Diltiazem HCl (Diltiazem HCl ER), 180 MG PO QAM Ferrous Sulfate (Ferrous Sulfate), 325 MG PO TID Infant Foods (Protein Fortifier), 30 ML PO BID Levofloxacin (Levaquin), 500 MG PO DAILY Lorazepam (Lorazepam), 0.25 MG PO BID Montelukast Sod (Montelukast Sodium), 10 MG PO HS Multivitamins/Minerals (Mvi With Minerals), 1 TAB PO DAILY Polyethylene Glycol 3350 (Miralax), 17 GM PO DAILY Prednisone (Prednisone), 0 PO UD Sertraline (Zoloft), 100 MG PO HS Verapamil Sust Rel (Calan Sr Ext Rel), 240 MG PO QAM Scheduled PRN Acetaminophen (Mapap), 650 MG PO Q6 PRN for Pain Levalbuterol (Levalbuterol HCl), 3 ML NEB Q4 PRN for SOB/Wheezing Review of Systems Ten systems reviewed and negative except as noted in the HPI. Physical Exam Vital Signs Date Time Temp Pulse Resp B/P (MAP) Pulse Ox O2 Delivery O2 Flow Rate FiO2 04/17/17 16:41 36.4 88 18 122/79 (93) 93 Nasal Cannula 4.0 04/17/17 16:15 103/50 04/17/17 16:05 94 22 98 04/17/17 16:00 100/50 04/17/17 15:50 79 25 96 04/17/17 15:46 104/52 04/17/17 15:35 94 21 96 04/17/17 15:20 85 31 98 04/17/17 15:15 122/63 04/17/17 15:05 84 18 98 04/17/17 15:00 125/56 04/17/17 14:50 84 19 98 04/17/17 14:45 96/52 04/17/17 14:35 75 29 98 04/17/17 14:30 97/50 04/17/17 14:20 84 27 99 04/17/17 14:15 93/49 04/17/17 14:08 80 22 98 04/17/17 14:00 86/48 04/17/17 14:00 80 24 101/63 98 BiPAP 04/17/17 13:53 85 17 99 04/17/17 13:45 101/53 04/17/17 13:38 95 22 100 04/17/17 13:30 101/52 04/17/17 13:23 80 18 99 04/17/17 13:15 97/49 04/17/17 13:08 81 23 98 04/17/17 13:00 101/61 04/17/17 12:59 99 26 148/63 93 BiPAP 04/17/17 12:53 88 24 96 04/17/17 12:48 111/51 04/17/17 12:40 98 19 97 BiPAP/CPAP 40 04/17/17 12:38 92 21 97 04/17/17 12:23 90 04/17/17 12:23 95 28 98 04/17/17 12:22 98 96 40 04/17/17 11:56 95 Nasal Cannula 2.0 04/17/17 11:49 36.8 109 36 127/58 94 Nasal Cannula 3.0 04/17/17 11:49 93 Room Air 04/17/17 11:42 127/58 General Appearance: + mild distress (Patient upset and confused 2/2 dementia. Cannot remember where she is. ) Head: normocephalic, atraumatic Eyes: normal inspection, PERRL ENT: normal ENT inspection, hearing grossly normal, pharynx normal, + nasal congestion Neck: supple, no adenopathy, thyroid normal, trachea midline Respiratory/Chest: chest non-tender, no respiratory distress, no accessory muscle use, + wheezing (Diffuse wheezing on exam ) Cardiovascular: regular rate, rhythm, no murmur Abdomen/GI: normal bowel sounds, non tender, soft, no organomegaly Extremities/Musculoskelatal: normal inspection (Presence of varicose veins on LE bilaterally. ), no calf tenderness, normal capillary refill, no pedal edema Neurologic/Psych: no motor/sensory deficits, + depressed affect (Patient crying intermittently. Feels like she is a burden. Oriented to self but not time or place.) Skin: warm/dry, + rash (Presence of crusted vesciles on an erythematous base on R buttocks. ) Diagnostics Laboratory Results Results Past 24 Hours Test 04/17/17 12:47 04/17/17 13:38 Range/Units White Blood Count 10.21 4.8-10.8 K/uL Red Blood Count 4.14 4.2-5.4 M/uL Hemoglobin 12.4 12.0-16.0 g/dL Hematocrit 37.3 37-47 % Mean Corpuscular Volume 90.1 80-100 fL Mean Corpuscular Hemoglobin 30.0 25-34 pg Mean Corpuscular Hemoglobin Concent 33.2 32-36 g/dl Platelet Count 223 130-400 K/uL Mean Platelet Volume 9.1 7.4-10.4 fL Neutrophils (%) (Auto) 93.2 % Lymphocytes (%) (Auto) 5.4 % Monocytes (%) (Auto) 1.0 % Eosinophils (%) (Auto) 0.0 % Basophils (%) (Auto) 0.1 % Neutrophils # (Auto) 9.52 1.4-6.5 K/uL Lymphocytes # (Auto) 0.55 1.2-3.4 K/uL Monocytes # (Auto) 0.10 0.11-0.59 K/uL Eosinophils # (Auto) 0.00 0-0.5 K/uL Basophils # (Auto) 0.01 0-0.2 K/uL RDW Standard Deviation 47.8 36.4-46.3 fL RDW Coefficient of Variation 14.5 11.5-14.5 % Immature Granulocyte % (Auto) 0.3 % Immature Granulocyte # (Auto) 0.03 0.00-0.02 K/uL Sodium Level 136 136-145 mmol/L Potassium Level 3.7 3.5-5.1 mmol/L Chloride Level 100 98-107 mmol/L Carbon Dioxide Level 26 21-32 mmol/L Anion Gap 10.0 3-11 mmol/L Blood Urea Nitrogen 34 7-18 mg/dl Creatinine 1.10 0.60-1.20 mg/dl Estimated GFR () 54.1 Estimated GFR (Non- 46.7 BUN/Creatinine Ratio 31.2 10-20 Random Glucose 175 70-99 mg/dl Calcium Level 9.5 8.5-10.1 mg/dl Total Bilirubin 0.7 0.2-1 mg/dl Direct Bilirubin 0.1 0-0.2 mg/dl Aspartate Amino Transf (AST/SGOT) 17 15-37 U/L Alanine Aminotransferase (ALT/SGPT) 29 12-78 U/L Alkaline Phosphatase 89 45-117 U/L Troponin I < 0.015 0-0.045 ng/ml Pro-B-Type Natriuretic Peptide 2411 0-1800 pg/ml Total Protein 8.2 6.4-8.2 gm/dl Albumin 3.2 3.4-5.0 gm/dl Venous Blood pH 7.45 7.36-7.41 Venous Blood Partial Pressure CO2 37 38.0-50.0 mmHg Venous Blood Partial Pressure O2 36 mmHg Venous Blood HCO3 25 mmol/L Venous Blood Oxygen Saturation 69.4 % Venous Blood Base Excess 1.1 mEq/L Microbiology Results 04/17/17 Blood Culture, Received Pending 04/17/17 Blood Culture, Received Pending Diagnostic Radiology CXR (04/17/17): IMPRESSION: Mild cardiomegaly with evidence for a small left effusion. Mild superimposed infiltrative change left mid to lower lung. EKG Atrial flutter with variable A-V block Nonspecific T wave abnormality No changes from previous ECG Impression Assessment and Plan This is an 81yo F with PMH of asthma, A Fib, h/o PE (s/p IVC filter in 10/31), dementia, HTN who presents with worsening SOB and was found to have PNA on XR. Health Care Acquired PNA: -senior living resident with multiple admissions in the last year -CXR shows infiltrative change left mid to lower lung -Has had worsening SOB, producive cough over past 12 days -Does not meet sepsis criteria: afebrile, no leukocytosis, not tachycardic/ tachypneic -H/o positive MRSA swab on past admission -Received Vanc, Cefepime and Azithromycin in the ED -Will continue those therapies for now -Blood culture and sputum cultures pending -Repeat CBC in AM Asthma Exacerbation: -Worsening wheezing and SOB over past 12 days -Likely caused by PNA -Completed 10 days of a prednisone taper, daily Xopenex nebs -Started on Solumedrol, round the clock nebs treatment -Supplemental O2 as needed. Currently on 4L NC and satting in the 90s Elevated Creatinine: -Currently 1.1 up from baseline of 0.8 -Received a liter of IVF -Will repeat BMP in AM -Consulted pharm for Vanc dosing Shingles: -Rash discovered on R buttocks during exam this AM at assisted -Denies any pain, itching -Started on Valtrex 1,000 TID x 7 days H/o A Fib: -Continue Diltiazem -Not anticoagulated due to hx of SAH Dementia: -Oriented to self at baseline H/o PE: -S/p IVC filter back on 10/31 HTN: stable -Continue diltiazem Hypothyroidism: -Not on medication -Normal TSH in January 2017 Depression/Anxiety: -Continue home meds DVT Ppx: Lovenox Code status: DNR as discussed with patient and chart review PCP: [facility] Dispo: Plan to return to [facility] on discharge. SW consulted. ATTENDING ADDENDUM: Agree with the above H&P; please refer to above for more detail. Patient is an 81 year old female who resides at [facility], who was brought to the ER today for complaints of SOB and wheezing as well as hypoxia. The patient has been treated for asthma exacerbation and was also on levaquin over the last 1 week. All information was obtained from the medical records and [facility] staff as the patient does have dementia and does not recall details. The patient denies any complaints other than abdominal pain. She has audible wheezing appreciated from the bedside. Cardiac: RR, S1 and S2 auscultated Resp: diffuse wheezing GI: soft, ND, + BS, tenderness in lower quadrant ASTHMA EXACERBATION: -likely related to pneumonia -CXR left mid to lower lung infiltrate -will begin IV steroids, nebs, abx, and oxygen therapy -if breathing worsens may require BiPap Level of Care Med/Surg Resuscitation Status DO NOT RESUSCITATE VTE Prophylaxis VTE Risk Assessment Done? Y/N: Yes Risk Level: High Given or contraindicated: Unfractionated heparin SQ Social Service Consult Lives in Intermediate
[2017-04-17 17:41] LABS: INR 1.1 (0.9-1.1); PARTIAL THROMBOPLASTIN RATIO 1.1; PROTHROMBIN TIME (PATIENT) 11.3 SECONDS (9.0-12.0)
[2017-04-17] MEDS: FERROUS SULFATE 325 MG TAB PO SCH (17:41)
[2017-04-17] MEDS: METHYLPREDNISOLONE IV 40 MG in SYRINGE 0 ML IV SCH (17:42)
[2017-04-17] MEDS ORDERED: CEFEPIME CONSULT ACTIVE PRN ×2 (17:45)
--- NOTE | 2017-04-17 18:22 | Pharmacy Progress Note ---
Pharmacy Abx Initial Consult Date of Service Apr 17, 2017. Pharmacy Dosing Scope Date of Consult: 04/17/17 Consultation requested by: Digna Cantu PA-C Pharmacy is consulted to initiate Vancomycin/Cefepime IV dosing therapy, order appropriate labs and adjust drug dose/frequency. Subjective The patient is a 81 year old female admitted on Apr 17, 2017 at 15:55 with SOB. Objective Weight (Kilograms): 57.300 Vital Signs (Past 12Hrs) Vital Signs Past 12 Hours Date Time Temp Pulse Resp B/P (MAP) Pulse Ox O2 Delivery O2 Flow Rate FiO2 04/17/17 16:41 36.4 88 18 122/79 (93) 93 Nasal Cannula 4.0 04/17/17 16:15 103/50 04/17/17 16:05 94 22 98 04/17/17 16:00 100/50 04/17/17 15:50 79 25 96 04/17/17 15:46 104/52 04/17/17 15:35 94 21 96 04/17/17 15:20 85 31 98 04/17/17 15:15 122/63 04/17/17 15:05 84 18 98 04/17/17 15:00 125/56 04/17/17 14:50 84 19 98 04/17/17 14:45 96/52 04/17/17 14:35 75 29 98 04/17/17 14:30 97/50 04/17/17 14:20 84 27 99 04/17/17 14:15 93/49 04/17/17 14:08 80 22 98 04/17/17 14:00 86/48 04/17/17 14:00 80 24 101/63 98 BiPAP 04/17/17 13:53 85 17 99 04/17/17 13:45 101/53 04/17/17 13:38 95 22 100 04/17/17 13:30 101/52 04/17/17 13:23 80 18 99 04/17/17 13:15 97/49 04/17/17 13:08 81 23 98 04/17/17 13:00 101/61 04/17/17 12:59 99 26 148/63 93 BiPAP 04/17/17 12:53 88 24 96 04/17/17 12:48 111/51 04/17/17 12:40 98 19 97 BiPAP/CPAP 40 04/17/17 12:38 92 21 97 04/17/17 12:23 90 04/17/17 12:23 95 28 98 04/17/17 12:22 98 96 40 04/17/17 11:56 95 Nasal Cannula 2.0 04/17/17 11:49 36.8 109 36 127/58 94 Nasal Cannula 3.0 04/17/17 11:49 93 Room Air 04/17/17 11:42 127/58 Lab Results (24Hrs) Laboratory Tests (24 Hours) Test 04/17/17 12:47 White Blood Count 10.21 K/uL (4.8-10.8) Red Blood Count 4.14 M/uL (4.2-5.4) L Hemoglobin 12.4 g/dL (12.0-16.0) Hematocrit 37.3 % (37-47) Mean Corpuscular Volume 90.1 fL (80-100) Mean Corpuscular Hemoglobin 30.0 pg (25-34) Mean Corpuscular Hemoglobin Concent 33.2 g/dl (32-36) Platelet Count 223 K/uL (130-400) Mean Platelet Volume 9.1 fL (7.4-10.4) Neutrophils (%) (Auto) 93.2 % Lymphocytes (%) (Auto) 5.4 % Monocytes (%) (Auto) 1.0 % Eosinophils (%) (Auto) 0.0 % Basophils (%) (Auto) 0.1 % Neutrophils # (Auto) 9.52 K/uL (1.4-6.5) H Lymphocytes # (Auto) 0.55 K/uL (1.2-3.4) L Monocytes # (Auto) 0.10 K/uL (0.11-0.59) L Eosinophils # (Auto) 0.00 K/uL (0-0.5) Basophils # (Auto) 0.01 K/uL (0-0.2) Micro Results Date/Time Source Procedure Growth Status 04/17/17 12:55 Blood Blood Culture Pending Received 04/17/17 12:47 Blood Blood Culture Pending Received Risk Factors for Resistance * Resident in a custodial or extended-care facility * Antimicrobial use within the last 90 days: Levaquin Assessment & Plan Assessment 81 year old female admitted from [facility] with pneumonia. Blood cultures pending. MRSA swab added for this admission. Hx of MRSA positive on previous admission. Plan Vancomycin IV * Loading dose: 1250 mg (22 mg/kg) * Maintenance dose: 1000 mg IV (16 mg/kg) every 16 hours * Note: This is NOT based on population kinetics. This dose is based on prior admission data which suggests that even with renal dysfunction, patient requires more aggressive regimen then estimated. * If patient's renal function improves back towards baseline, she may need every 12 hour dosing based on prior admission data. * Goal trough level for lung source: 15 to 20 mcg/mL * Trough level ordered for 04/19/17 prior to the 0930 dose. Cefepime * 2000 mg IV X 1 * Continue 2000 mg IV every 12 hours (adjusted for CrCl 30-60 ml/min) Pharmacy will continue to follow and will adjust dose/frequency as necessary. Thank you.
[2017-04-17 18:45] VITALS: BP 122/79; PULSE 88; TEMP 36.4; O2SAT 93; Ht 149.9 cm; Wt 57.3 kg
[2017-04-17] MEDS: IPRATROPIUM BROMIDE NEB SOLN 0.02% 2.5 ML VIAL INH SCH (19:59)
[2017-04-17] MEDS: LEVALBUTEROL 1.25MG/0.5ML NEB INH SCH (20:02)
[2017-04-17 20:06] VITALS: PULSE 78; O2SAT 97
[2017-04-17] MEDS: BUDESONIDE 0.5 MG/2 ML VIAL (PULMICORT) INH SCH (20:06)
[2017-04-17] MEDS: SERTRALINE HCL 100 MG TAB PO SCH (20:25)
[2017-04-17] MEDS: LORAZEPAM 0.5 MG TAB PO SCH (20:26)
[2017-04-17] MEDS: MONTELUKAST SOD 10 MG TAB PO SCH (20:26)
[2017-04-17] MEDS: HEPARIN SOD 5000 UNIT/0.5 ML CARP SQ SCH (20:27)
[2017-04-17] MEDS ORDERED: LEVALBUTEROL/IPRATROPIUM NEB INH SCH (21:00)
[2017-04-17] MEDS ORDERED: ENOXAPARIN 30 MG/0.3 ML SYR SQ SCH (21:00)
[2017-04-17 21:53] LABS: MANUAL MICROSCOPIC REQUIRED? NO; URINE APPEARANCE CLEAR (CLEAR); URINE BILIRUBIN NEG (NEG); URINE COLOR YELLOW; URINE NITRITE NEG (NEG); URINE PH 5.5 (4.5-7.5); UROBILINOGEN NEG (NEG)
[2017-04-17 21:54] LABS: REVIEW REQ? NO
[2017-04-17 21:55] LABS: ZZUR CULT IF INDIC CLEAN CATCH NO
[2017-04-17 23:15] VITALS: BP 136/67; PULSE 86; TEMP 36.5; O2SAT 98
[2017-04-18] MEDS: METHYLPREDNISOLONE IV 40 MG in SYRINGE 0 ML IV SCH ×3 (02:12→17:43)
[2017-04-18] MEDS: VANCOMYCIN INJ 1,000 MG in SODIUM CHLORIDE 0.9% 250ML 250 ML IV SCH ×2 (02:12→18:34)
[2017-04-18 02:56] VITALS: PULSE 81; O2SAT 92
[2017-04-18] MEDS: LEVALBUTEROL 1.25MG/0.5ML NEB INH SCH ×4 (02:56→18:58)
[2017-04-18] MEDS: IPRATROPIUM BROMIDE NEB SOLN 0.02% 2.5 ML VIAL INH SCH ×4 (02:56→18:57)
[2017-04-18 06:05] LABS: HEMATOCRIT 34.4 % (37-47); MEAN CELL VOLUME 90.3 fL (80-100); MEAN CORPUSCULAR HEMOGLOBIN 29.9 pg (25-34); MEAN CORPUSCULAR HGB CONC 33.1 g/dl (32-36); MEAN PLATELET VOLUME 9.4 fL (7.4-10.4); PLATELET COUNT 231 K/uL (130-400); RED BLOOD COUNT 3.81 M/uL (4.2-5.4); WHITE BLOOD COUNT 11.36 K/uL (4.8-10.8)
[2017-04-18] MEDS: CEFEPIME IV 2,000 MG in DEXTROSE 5% 100ML 100 ML IV SCH ×2 (06:09→17:43)
[2017-04-18 06:39] LABS: BUN/CREATININE RATIO 35.8 (10-20); CALCIUM 8.5 mg/dl (8.5-10.1); CREATININE 1.2 mg/dl (0.60-1.20); POTASSIUM 3.3 mmol/L (3.5-5.1)
[2017-04-18 07:07] VITALS: PULSE 93; O2SAT 98
[2017-04-18] MEDS: BUDESONIDE 0.5 MG/2 ML VIAL (PULMICORT) INH SCH ×2 (07:07→18:58)
[2017-04-18 07:24] VITALS: BP 126/73; PULSE 93; TEMP 36.7; O2SAT 98
[2017-04-18] MEDS: LORAZEPAM 0.5 MG TAB PO SCH ×2 (07:58→19:44)
[2017-04-18] MEDS: VERAPAMIL HCL 240 MG TABCR PO SCH (07:59)
[2017-04-18] MEDS: DILTIAZEM HCL 180 MG CAPCR PO SCH (07:59)
[2017-04-18] MEDS: CEROVITE ADV FORMULA TAB PO SCH (08:00)
[2017-04-18] MEDS: FERROUS SULFATE 325 MG TAB PO SCH ×3 (08:00→17:39)
[2017-04-18] MEDS: ASPIRIN 81 MG ECTAB PO SCH (08:00)
[2017-04-18] MEDS: POLYETHYLENE (MIRALAX) 17 GM PACK PO SCH (08:03)
[2017-04-18] MEDS: HEPARIN SOD 5000 UNIT/0.5 ML CARP SQ SCH ×2 (09:31→19:46)
--- NOTE | 2017-04-18 10:31 | Progress Note ---
Subjective Date of Service: Apr 18, 2017. Problem List Medical Problems: (1) Asthma exacerbation Status: Acute (2) Bronchitis Status: Acute (3) Bronchospasm Status: Acute (4) Closed head injury Status: Acute (5) COPD exacerbation Status: Acute (6) Dizziness Status: Chronic (7) Dyspnea Status: Acute (8) Fall Status: Acute (9) Hypoxia Status: Acute (10) Influenza-like illness Status: Acute (11) Left lower quadrant pain Status: Acute (12) PNA (pneumonia) Status: Acute (13) Pneumonia Status: Acute (14) Pneumonia Status: Acute (15) Rapid atrial fibrillation Status: Acute (16) Respiratory distress Status: Acute (17) Respiratory distress Status: Acute Objective Vital Signs Date Time Temp Pulse Resp B/P (MAP) Pulse Ox O2 Delivery O2 Flow Rate FiO2 04/18/17 07:24 36.7 93 20 126/73 (90) 98 Nasal Cannula 4.0 04/18/17 07:07 93 20 98 Nasal Cannula 4.0 04/18/17 02:56 81 18 92 Nasal Cannula 4.0 04/18/17 00:00 Nasal Cannula 4.0 04/17/17 23:15 36.5 86 20 136/67 (90) 98 Nasal Cannula 4.0 04/17/17 20:06 78 20 97 Nasal Cannula 4.0 04/17/17 18:45 36.4 88 18 122/79 93 Nasal Cannula 4.0 04/17/17 16:41 36.4 88 18 122/79 (93) 93 Nasal Cannula 4.0 04/17/17 16:15 103/50 04/17/17 16:05 94 22 98 04/17/17 16:00 100/50 04/17/17 15:50 79 25 96 04/17/17 15:46 104/52 04/17/17 15:35 94 21 96 04/17/17 15:20 85 31 98 04/17/17 15:15 122/63 04/17/17 15:05 84 18 98 04/17/17 15:00 125/56 04/17/17 14:50 84 19 98 04/17/17 14:45 96/52 04/17/17 14:35 75 29 98 04/17/17 14:30 97/50 04/17/17 14:20 84 27 99 04/17/17 14:15 93/49 8/4/17 14:08 80 22 98 04/17/17 14:00 86/48 04/17/17 14:00 80 24 101/63 98 BiPAP 04/17/17 13:53 85 17 99 04/17/17 13:45 101/53 04/17/17 13:38 95 22 100 04/17/17 13:30 101/52 04/17/17 13:23 80 18 99 04/17/17 13:15 97/49 04/17/17 13:08 81 23 98 04/17/17 13:00 101/61 04/17/17 12:59 99 26 148/63 93 BiPAP 04/17/17 12:53 88 24 96 04/17/17 12:48 111/51 04/17/17 12:40 98 19 97 BiPAP/CPAP 40 04/17/17 12:38 92 21 97 04/17/17 12:23 90 04/17/17 12:23 95 28 98 04/17/17 12:22 98 96 40 04/17/17 11:56 95 Nasal Cannula 2.0 04/17/17 11:49 36.8 109 36 127/58 94 Nasal Cannula 3.0 04/17/17 11:49 93 Room Air 04/17/17 11:42 127/58 Laboratory Results Last 24 Hours Test 04/17/17 12:47 04/17/17 13:38 04/17/17 17:17 04/17/17 21:25 White Blood Count 10.21 K/uL Red Blood Count 4.14 M/uL Hemoglobin 12.4 g/dL Hematocrit 37.3 % Mean Corpuscular Volume 90.1 fL Mean Corpuscular Hemoglobin 30.0 pg Mean Corpuscular Hemoglobin Concent 33.2 g/dl Platelet Count 223 K/uL Mean Platelet Volume 9.1 fL Neutrophils (%) (Auto) 93.2 % Lymphocytes (%) (Auto) 5.4 % Monocytes (%) (Auto) 1.0 % Eosinophils (%) (Auto) 0.0 % Basophils (%) (Auto) 0.1 % Neutrophils # (Auto) 9.52 K/uL Lymphocytes # (Auto) 0.55 K/uL Monocytes # (Auto) 0.10 K/uL Eosinophils # (Auto) 0.00 K/uL Basophils # (Auto) 0.01 K/uL RDW Standard Deviation 47.8 fL RDW Coefficient of Variation 14.5 % Immature Granulocyte % (Auto) 0.3 % Immature Granulocyte # (Auto) 0.03 K/uL Sodium Level 136 mmol/L Potassium Level 3.7 mmol/L Chloride Level 100 mmol/L Carbon Dioxide Level 26 mmol/L Anion Gap 10.0 mmol/L Blood Urea Nitrogen 34 mg/dl Creatinine 1.10 mg/dl Estimated GFR () 54.1 Estimated GFR (Non- 46.7 BUN/Creatinine Ratio 31.2 Random Glucose 175 mg/dl Calcium Level 9.5 mg/dl Total Bilirubin 0.7 mg/dl Direct Bilirubin 0.1 mg/dl Aspartate Amino Transf (AST/SGOT) 17 U/L Alanine Aminotransferase (ALT/SGPT) 29 U/L Alkaline Phosphatase 89 U/L Troponin I < 0.015 ng/ml Pro-B-Type Natriuretic Peptide 2411 pg/ml Total Protein 8.2 gm/dl Albumin 3.2 gm/dl Venous Blood pH 7.45 Venous Blood Partial Pressure CO2 37 mmHg Venous Blood Partial Pressure O2 36 mmHg Venous Blood HCO3 25 mmol/L Venous Blood Oxygen Saturation 69.4 % Venous Blood Base Excess 1.1 mEq/L Prothrombin Time 11.3 SECONDS Prothromb Time International Ratio 1.1 Activated Partial Thromboplast Time 29.7 SECONDS Partial Thromboplastin Ratio 1.1 Urine Color YELLOW Urine Appearance CLEAR Urine pH 5.5 Urine Specific [place] 1.020 Urine Protein NEG Urine Glucose (UA) NEG Urine Ketones TRACE Urine Occult Blood NEG Urine Nitrite NEG Urine Bilirubin NEG Urine Urobilinogen NEG Urine Leukocyte Esterase NEG Test 04/18/17 05:12 White Blood Count 11.36 K/uL Red Blood Count 3.81 M/uL Hemoglobin 11.4 g/dL Hematocrit 34.4 % Mean Corpuscular Volume 90.3 fL Mean Corpuscular Hemoglobin 29.9 pg Mean Corpuscular Hemoglobin Concent 33.1 g/dl RDW Standard Deviation 48.6 fL RDW Coefficient of Variation 14.6 % Platelet Count 231 K/uL Mean Platelet Volume 9.4 fL Sodium Level 137 mmol/L Potassium Level 3.3 mmol/L Chloride Level 104 mmol/L Carbon Dioxide Level 25 mmol/L Anion Gap 8.0 mmol/L Blood Urea Nitrogen 43 mg/dl Creatinine 1.20 mg/dl Est Creatinine Clear Calc Drug Dose 27.9 ml/min Estimated GFR () 48.7 Estimated GFR (Non- 42.1 BUN/Creatinine Ratio 35.8 Random Glucose 182 mg/dl Calcium Level 8.5 mg/dl
[2017-04-18] MEDS: AZITHROMYCIN 250 MG / D5W 250 ML IV SCH ×2 (12:37)
[2017-04-18 14:06] VITALS: PULSE 68; O2SAT 96
[2017-04-18 15:30] VITALS: BP 96/59; PULSE 87; TEMP 36.6; O2SAT 93
--- NOTE | 2017-04-18 16:55 | Progress Note ---
Subjective Date of Service: Apr 18, 2017. Subjective Pt evaluation today including: conversation w/ patient, physical exam, chart review, lab review, review of inpatient medication list feeling shaky. anxious. but at the same time, on directed questioning notes that she's breathing better than when she first came in and does feel like she can get enough air Problem List Medical Problems: (1) Asthma exacerbation Status: Acute (2) Bronchitis Status: Acute (3) Bronchospasm Status: Acute (4) Closed head injury Status: Acute (5) COPD exacerbation Status: Acute (6) Dizziness Status: Chronic (7) Dyspnea Status: Acute (8) Fall Status: Acute (9) Hypoxia Status: Acute (10) Influenza-like illness Status: Acute (11) Left lower quadrant pain Status: Acute (12) PNA (pneumonia) Status: Acute (13) Pneumonia Status: Acute (14) Pneumonia Status: Acute (15) Rapid atrial fibrillation Status: Acute (16) Respiratory distress Status: Acute (17) Respiratory distress Status: Acute Review of Systems all other ROS otherwise negative except for as above Objective Vital Signs Date Time Temp Pulse Resp B/P (MAP) Pulse Ox O2 Delivery O2 Flow Rate FiO2 04/18/17 16:00 Nasal Cannula 2.0 04/18/17 15:30 36.6 87 20 96/59 (71) 93 Nasal Cannula 2.0 04/18/17 14:06 68 18 96 Nasal Cannula 2.0 04/18/17 08:00 Nasal Cannula 4.0 04/18/17 07:24 36.7 93 20 126/73 (90) 98 Nasal Cannula 4.0 04/18/17 07:07 93 20 98 Nasal Cannula 4.0 04/18/17 02:56 81 18 92 Nasal Cannula 4.0 04/18/17 00:00 Nasal Cannula 4.0 04/17/17 23:15 36.5 86 20 136/67 (90) 98 Nasal Cannula 4.0 04/17/17 20:06 78 20 97 Nasal Cannula 4.0 04/17/17 18:45 36.4 88 18 122/79 93 Nasal Cannula 4.0 Physical Exam General Appearance: + pertinent finding (mildly shaky, anxious but no respiratory distress) Eyes: EOMI ENT: hearing grossly normal Neck: trachea midline Respiratory/Chest: no respiratory distress, no accessory muscle use, + pertinent finding (faint expiratory rhonchi reasonable air entry good effort) Cardiovascular: regular rate, rhythm Abdomen: normal bowel sounds Extremities: normal range of motion 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, alert Laboratory Results Last 24 Hours Test 04/17/17 17:17 04/17/17 21:25 04/18/17 05:12 Prothrombin Time 11.3 SECONDS Prothromb Time International Ratio 1.1 Activated Partial Thromboplast Time 29.7 SECONDS Partial Thromboplastin Ratio 1.1 Urine Color YELLOW Urine Appearance CLEAR Urine pH 5.5 Urine Specific Wylie 1.020 Urine Protein NEG Urine Glucose (UA) NEG Urine Ketones TRACE Urine Occult Blood NEG Urine Nitrite NEG Urine Bilirubin NEG Urine Urobilinogen NEG Urine Leukocyte Esterase NEG White Blood Count 11.36 K/uL Red Blood Count 3.81 M/uL Hemoglobin 11.4 g/dL Hematocrit 34.4 % Mean Corpuscular Volume 90.3 fL Mean Corpuscular Hemoglobin 29.9 pg Mean Corpuscular Hemoglobin Concent 33.1 g/dl RDW Standard Deviation 48.6 fL RDW Coefficient of Variation 14.6 % Platelet Count 231 K/uL Mean Platelet Volume 9.4 fL Sodium Level 137 mmol/L Potassium Level 3.3 mmol/L Chloride Level 104 mmol/L Carbon Dioxide Level 25 mmol/L Anion Gap 8.0 mmol/L Blood Urea Nitrogen 43 mg/dl Creatinine 1.20 mg/dl Est Creatinine Clear Calc Drug Dose 27.9 ml/min Estimated GFR () 48.7 Estimated GFR (Non- 42.1 BUN/Creatinine Ratio 35.8 Random Glucose 182 mg/dl Calcium Level 8.5 mg/dl Assessment and Plan Health Care Acquired PNA: --continue cefepime and vanco; zithromax to cover atypicals reasonable to continue --continue supportive care --anticipate slow but steady improvement Asthma Exacerbation: -Likely caused by PNA -Completed 10 days of a prednisone taper, daily Xopenex nebs -Started on Solumedrol, round the clock nebs treatment -Supplemental O2 as needed -appearing stable, no respiratory distress, as above anticipate slow but steady improvement Elevated Creatinine: -Currently 1.2 up from baseline of 0.8 -no sepsis or hemodynamic instability, and risks/benefits favor avoiding aggressive IV fluids given this (rather than risking creating pulmonary edema to treat creatinine) -likely represents mild acute renal insufficiency - for clarification purposes unclear w baseline creatinine of 0.8 in regards to any CKD given accuracy of cockroft gault fades with age >70 Shingles: -continue valtrex x 7 days total H/o A Fib: -Continue Diltiazem - rate controlled -Not anticoagulated due to hx of SAH Dementia: -Oriented to self at baseline H/o PE: -S/p IVC filter back on 10/31 HTN: stable -Continue diltiazem, readings reasonable Hypothyroidism: -Not on medication -Normal TSH in January 2017, outpt fu/ Depression/Anxiety: -Continue home meds, reassurance in regards to medical condition offered DVT Ppx: Lovenox Dispo: Plan to return to [facility] on discharge. SW consulted.
[2017-04-18 19:45] VITALS: PULSE 75; O2SAT 95
[2017-04-18] MEDS: SERTRALINE HCL 100 MG TAB PO SCH (19:45)
[2017-04-18] MEDS: MONTELUKAST SOD 10 MG TAB PO SCH (19:45)
[2017-04-19] VITALS (8 sets, daily range): BP systolic 118–169; BP diastolic 70–78; PULSE 75–108; TEMP 36.7–36.8; O2SAT 93–97
[2017-04-19] MEDS: LEVALBUTEROL 1.25MG/0.5ML NEB INH SCH ×4 (01:45→19:15)
[2017-04-19] MEDS: IPRATROPIUM BROMIDE NEB SOLN 0.02% 2.5 ML VIAL INH SCH ×4 (01:45→19:15)
[2017-04-19] MEDS: METHYLPREDNISOLONE IV 40 MG in SYRINGE 0 ML IV SCH ×3 (02:11→18:16)
[2017-04-19] MEDS: CEFEPIME IV 2,000 MG in DEXTROSE 5% 100ML 100 ML IV SCH ×2 (06:07→18:15)
[2017-04-19] MEDS: BUDESONIDE 0.5 MG/2 ML VIAL (PULMICORT) INH SCH ×2 (07:30→19:16)
[2017-04-19] MEDS: POLYETHYLENE (MIRALAX) 17 GM PACK PO SCH (08:22)
[2017-04-19] MEDS: LORAZEPAM 0.5 MG TAB PO SCH ×2 (08:37→20:05)
[2017-04-19] MEDS: VERAPAMIL HCL 240 MG TABCR PO SCH (08:37)
[2017-04-19] MEDS: FERROUS SULFATE 325 MG TAB PO SCH ×3 (08:38→17:36)
[2017-04-19] MEDS: ASPIRIN 81 MG ECTAB PO SCH (08:38)
[2017-04-19] MEDS: DILTIAZEM HCL 180 MG CAPCR PO SCH (08:38)
[2017-04-19] MEDS: CEROVITE ADV FORMULA TAB PO SCH (08:39)
[2017-04-19] MEDS ORDERED: VANCOMYCIN TROUGH SCH (09:30)
[2017-04-19] MEDS: HEPARIN SOD 5000 UNIT/0.5 ML CARP SQ SCH ×2 (09:32→20:18)
[2017-04-19] MEDS ORDERED: NURSING VERBAL MED ORDER ONE (10:15)
[2017-04-19] MEDS ORDERED: ALBUTEROL 0.5% NEB SOLN 2.5 MG/0.5 ML VIAL INH ONE (10:15)
[2017-04-19] MEDS: AZITHROMYCIN 250 MG / D5W 250 ML IV SCH ×2 (12:41)
--- NOTE | 2017-04-19 16:52 | Progress Note ---
Subjective Date of Service: Apr 19, 2017. Subjective Pt evaluation today including: conversation w/ patient, physical exam, chart review, lab review, review of inpatient medication list sleeping comfortably. awakens and notes that she's feeling about the same, sob not better but not worse. no f/c/s. cough more loose and mucousy. nursing notes that she's doing a little better. Problem List Medical Problems: (1) Asthma exacerbation Status: Acute (2) Bronchitis Status: Acute (3) Bronchospasm Status: Acute (4) Closed head injury Status: Acute (5) COPD exacerbation Status: Acute (6) Dizziness Status: Chronic (7) Dyspnea Status: Acute (8) Fall Status: Acute (9) Hypoxia Status: Acute (10) Influenza-like illness Status: Acute (11) Left lower quadrant pain Status: Acute (12) PNA (pneumonia) Status: Acute (13) Pneumonia Status: Acute (14) Pneumonia Status: Acute (15) Rapid atrial fibrillation Status: Acute (16) Respiratory distress Status: Acute (17) Respiratory distress Status: Acute Review of Systems all other ROS otherwise negative except for as above Objective Vital Signs Date Time Temp Pulse Resp B/P (MAP) Pulse Ox O2 Delivery O2 Flow Rate FiO2 04/19/17 16:14 36.7 77 22 118/70 (86) 97 Nasal Cannula 2.0 04/19/17 16:00 Nasal Cannula 2.0 04/19/17 14:50 75 16 96 Nasal Cannula 2.0 04/19/17 10:24 87 14 94 Nasal Cannula 2.0 04/19/17 08:00 Nasal Cannula 2.0 04/19/17 07:30 87 14 94 Nasal Cannula 2.0 04/19/17 07:25 36.7 96 20 122/73 (89) 95 2.0 04/19/17 01:59 36.8 108 22 169/78 (108) 93 Nasal Cannula 2.0 04/19/17 01:45 82 18 94 Nasal Cannula 2.0 04/19/17 00:00 Nasal Cannula 2.0 04/18/17 20:00 Nasal Cannula 2.0 04/18/17 19:45 75 20 95 Nasal Cannula 2.0 Physical Exam General Appearance: no apparent distress (sleeping comfortably, after lung exam she does have a significant coughing fit, but still no significant distress or accessory muscles use) Eyes: EOMI ENT: hearing grossly normal Neck: trachea midline Respiratory/Chest: + pertinent finding (diffuse expiratory rhonchi no wheeze good air entry good effort. 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, alert, normal mood/affect Skin: normal color, warm/dry Assessment and Plan Health Care Acquired PNA: --continue cefepime ok to stop vanco since MRSA nares negative; zithromax to cover atypicals reasonable to continue --continue supportive care --anticipate slow but steady improvement, showing this with change in cough today Asthma Exacerbation: -Likely caused by PNA -Completed 10 days of a prednisone taper, daily Xopenex nebs -Started on Solumedrol, round the clock nebs treatment -Supplemental O2 as needed -appearing stable, no respiratory distress, as above anticipate slow but steady improvement -probably can start to wean steroids tomorrow thoracic and ribcage somatic dysfunction -OMT as above -evidence suggests such treatment hastens resolution of pneumonia, shortens hospital stay Elevated Creatinine: -Currently 1.2 up from baseline of 0.8 -no sepsis or hemodynamic instability, and risks/benefits favor avoiding aggressive IV fluids given this (rather than risking creating pulmonary edema to treat creatinine) -likely represents mild acute renal insufficiency - for clarification purposes unclear w baseline creatinine of 0.8 in regards to any CKD given accuracy of cockroft gault fades with age >70 -clinically stable; repeat tomorrow Shingles: -continue valtrex x 7 days total, doing well H/o A Fib: -Continue Diltiazem - rate controlled -Not anticoagulated due to hx of SAH Dementia: -Oriented to self at baseline H/o PE: -S/p IVC filter back on 10/31 HTN: stable -Continue diltiazem, readings reasonable Hypothyroidism: -Not on medication -Normal TSH in January 2017, outpt fu/ Depression/Anxiety: -Continue home meds, reassurance in regards to medical condition offered DVT Ppx: Lovenox Dispo: Plan to return to [facility] on discharge. SW consulted.
[2017-04-19] MEDS: MONTELUKAST SOD 10 MG TAB PO SCH (20:10)
[2017-04-19] MEDS: SERTRALINE HCL 100 MG TAB PO SCH (20:11)
[2017-04-20] VITALS (8 sets, daily range): BP systolic 117–130; BP diastolic 56–69; PULSE 71–81; TEMP 36.5–36.7; O2SAT 95–97
[2017-04-20] MEDS: METHYLPREDNISOLONE IV 40 MG in SYRINGE 0 ML IV SCH ×2 (01:45→14:01)
[2017-04-20] MEDS: LEVALBUTEROL 1.25MG/0.5ML NEB INH SCH ×3 (02:12→14:17)
[2017-04-20] MEDS: IPRATROPIUM BROMIDE NEB SOLN 0.02% 2.5 ML VIAL INH SCH ×3 (02:12→14:17)
[2017-04-20] MEDS: CEFEPIME IV 2,000 MG in DEXTROSE 5% 100ML 100 ML IV SCH ×2 (05:53→17:36)
[2017-04-20 06:07] LABS: HEMATOCRIT 29.8 % (37-47); MEAN CELL VOLUME 89.5 fL (80-100); MEAN CORPUSCULAR HEMOGLOBIN 29.4 pg (25-34); MEAN CORPUSCULAR HGB CONC 32.9 g/dl (32-36); PLATELET COUNT 178 K/uL (130-400); RED BLOOD COUNT 3.33 M/uL (4.2-5.4); WHITE BLOOD COUNT 7.38 K/uL (4.8-10.8)
[2017-04-20 06:48] LABS: CREATININE 1.1 mg/dl (0.60-1.20)
[2017-04-20] MEDS: BUDESONIDE 0.5 MG/2 ML VIAL (PULMICORT) INH SCH ×2 (07:07→20:22)
[2017-04-20] MEDS: POLYETHYLENE (MIRALAX) 17 GM PACK PO SCH (08:19)
[2017-04-20] MEDS: LORAZEPAM 0.5 MG TAB PO SCH ×2 (08:23→20:30)
[2017-04-20] MEDS: VERAPAMIL HCL 240 MG TABCR PO SCH (08:23)
[2017-04-20] MEDS: ASPIRIN 81 MG ECTAB PO SCH (08:24)
[2017-04-20] MEDS: FERROUS SULFATE 325 MG TAB PO SCH ×3 (08:24→17:36)
[2017-04-20] MEDS: CEROVITE ADV FORMULA TAB PO SCH (08:24)
[2017-04-20] MEDS: DILTIAZEM HCL 180 MG CAPCR PO SCH (08:24)
--- NOTE | 2017-04-20 08:29 | Progress Note ---
Subjective Date of Service: Apr 20, 2017. Subjective pt states that she feels no better, still with wheezing and coughing, still markedly esteves, cough is variable with productive sputum of clear to cloudy consistency Problem List Medical Problems: (1) Asthma exacerbation Status: Acute (2) Bronchitis Status: Acute (3) Bronchospasm Status: Acute (4) Closed head injury Status: Acute (5) COPD exacerbation Status: Acute (6) Dizziness Status: Chronic (7) Dyspnea Status: Acute (8) Fall Status: Acute (9) Hypoxia Status: Acute (10) Influenza-like illness Status: Acute (11) Left lower quadrant pain Status: Acute (12) PNA (pneumonia) Status: Acute (13) Pneumonia Status: Acute (14) Pneumonia Status: Acute (15) Rapid atrial fibrillation Status: Acute (16) Respiratory distress Status: Acute (17) Respiratory distress Status: Acute Review of Systems Constitutional: + weakness, + fatigue, No fever, No chills ENT: No unusual epistaxis, No sore throat Respiratory: + cough, + sputum, + wheezing, + shortness of breath, + dyspnea on exertion Cardiac: No chest pain, No orthopnea, No edema Abdomen: No pain, No nausea, No vomiting, No diarrhea Musculoskeletal: No joint pain, No muscle pain Psychiatric: + depression symptoms, No anhedonism Objective Vital Signs Date Time Temp Pulse Resp B/P (MAP) Pulse Ox O2 Delivery O2 Flow Rate FiO2 04/20/17 07:20 36.7 72 20 122/69 (86) 96 Nasal Cannula 2.0 04/20/17 07:07 81 16 95 Nasal Cannula 2.0 04/20/17 02:12 74 16 96 Nasal Cannula 2.0 04/20/17 01:49 36.5 78 22 130/68 (88) 96 Nasal Cannula 2.0 04/20/17 00:00 Nasal Cannula 2.0 04/19/17 20:00 Nasal Cannula 2.0 04/19/17 19:16 76 18 94 Nasal Cannula 2.0 04/19/17 16:14 36.7 77 22 118/70 (86) 97 Nasal Cannula 2.0 04/19/17 16:00 Nasal Cannula 2.0 04/19/17 14:50 75 16 96 Nasal Cannula 2.0 04/19/17 10:24 87 14 94 Nasal Cannula 2.0 Physical Exam General Appearance: WD/WN, + moderate distress Eyes: PERRL, EOMI Neck: supple, no adenopathy Respiratory/Chest: + decreased breath sounds, + accessory muscle use, + rhonchi , + wheezing Cardiovascular: regular rate, rhythm, no murmur Abdomen: normal bowel sounds, non tender, soft Extremities: no pedal edema, no calf tenderness Neurologic/Psychiatric: alert, + pertinent finding (oriented x 2) Laboratory Results Last 24 Hours Test 04/20/17 05:31 White Blood Count 7.38 K/uL Red Blood Count 3.33 M/uL Hemoglobin 9.8 g/dL Hematocrit 29.8 % Mean Corpuscular Volume 89.5 fL Mean Corpuscular Hemoglobin 29.4 pg Mean Corpuscular Hemoglobin Concent 32.9 g/dl RDW Standard Deviation 48.1 fL RDW Coefficient of Variation 14.6 % Platelet Count 178 K/uL Mean Platelet Volume 9.0 fL Creatinine 1.10 mg/dl Est Creatinine Clear Calc Drug Dose 30.4 ml/min Estimated GFR () 54.1 Estimated GFR (Non- 46.7 Assessment and Plan 81 F from snf with Health care associated pneumonia. Health Care Acquired PNA: MRSA nares negative; Cefepime and zithromax Asthma Exacerbation- not much better, Solumedrol taper as able, duoneb plus formoterol, adding mucinex and flutter valve 04/20, Supplemental O2 as needed, if no improvement by 04/21 will have pulmonary consult Acute on Chronic Renal failure stage 3 IVF hydrate and follow Shingles: valtrex x 7 days total H/o A Fib: Diltiazem - rate controlled, Not anticoagulated due to hx of SAH H/o PE:-S/p IVC filter back on 10/31 Hypothyroidism in history-Normal TSH in January 2017, outpt fu, currently not on medicine DVT Ppx: Lovenox Dispo: Plan to return to [facility] on discharge.
[2017-04-20] MEDS: HEPARIN SOD 5000 UNIT/0.5 ML CARP SQ SCH ×2 (09:46→20:34)
[2017-04-20] MEDS: PANTOprazole SOD 40 MG TAB PO SCH (09:49)
[2017-04-20] MEDS: AZITHROMYCIN 250 MG TAB PO SCH (11:58)
[2017-04-20] MEDS ORDERED: ALBUT/IPRATROP 3MG/0.5MG NEB 3 ML VIAL INH PRN (15:30)
[2017-04-20] MEDS: ALBUT/IPRATROP 3MG/0.5MG NEB 3 ML VIAL INH SCH ×2 (20:00→23:29)
[2017-04-20] MEDS: FORMOTEROL FUMA NEBULIZER SOLN 20 MCG/2 ML VIAL INH SCH (20:22)
[2017-04-20] MEDS: SERTRALINE HCL 100 MG TAB PO SCH (20:32)
[2017-04-20] MEDS: GUAIFENESIN 600 MG TABCR PO SCH (20:32)
[2017-04-20] MEDS: MONTELUKAST SOD 10 MG TAB PO SCH (20:32)
[2017-04-21] VITALS (10 sets, daily range): BP systolic 134–145; BP diastolic 69–74; PULSE 75–96; TEMP 36.5–36.8; O2SAT 93–99
[2017-04-21] MEDS: METHYLPREDNISOLONE IV 40 MG in SYRINGE 0 ML IV SCH ×2 (02:14→14:34)
[2017-04-21] MEDS: ALBUT/IPRATROP 3MG/0.5MG NEB 3 ML VIAL INH SCH ×6 (03:29→23:09)
[2017-04-21] MEDS: CEFEPIME IV 2,000 MG in DEXTROSE 5% 100ML 100 ML IV SCH ×2 (06:04→17:44)
[2017-04-21] MEDS: FORMOTEROL FUMA NEBULIZER SOLN 20 MCG/2 ML VIAL INH SCH ×2 (07:25→19:56)
[2017-04-21] MEDS: BUDESONIDE 0.5 MG/2 ML VIAL (PULMICORT) INH SCH (07:25)
[2017-04-21] MEDS: PANTOprazole SOD 40 MG TAB PO SCH (07:49)
[2017-04-21] MEDS: FERROUS SULFATE 325 MG TAB PO SCH ×3 (07:49→17:41)
[2017-04-21] MEDS: VERAPAMIL HCL 240 MG TABCR PO SCH (07:50)
[2017-04-21] MEDS: POLYETHYLENE (MIRALAX) 17 GM PACK PO SCH (07:50)
[2017-04-21] MEDS: CEROVITE ADV FORMULA TAB PO SCH (07:51)
[2017-04-21] MEDS: DILTIAZEM HCL 180 MG CAPCR PO SCH (07:51)
[2017-04-21] MEDS: GUAIFENESIN 600 MG TABCR PO SCH ×2 (07:51→20:19)
[2017-04-21] MEDS: ASPIRIN 81 MG ECTAB PO SCH (07:52)
[2017-04-21] MEDS: HEPARIN SOD 5000 UNIT/0.5 ML CARP SQ SCH ×2 (07:53→20:41)
[2017-04-21] MEDS: LORAZEPAM 0.5 MG TAB PO SCH ×2 (08:04→20:18)
[2017-04-21] MEDS: AZITHROMYCIN 250 MG TAB PO SCH (12:29)
--- NOTE | 2017-04-21 16:56 | PULMONARY CONSULTATION ---
DATE OF CONSULTATION: 04/21/2017 DATE OF CONSULTATION: 04/21/2017 TIME: 4:10 p.m. HISTORY OF PRESENT ILLNESS: The patient was seen in room 403. She is a pleasantly confused 81-year-old female who was admitted on 04/17/2017 because of asthma. She had cough and increasing shortness of breath and wheezing. She resides at [facility]. She reportedly had had symptoms beginning 10 days before admission. She was started on Xopenex treatments and steroids. In spite of this, she did not improve. She was started on Levaquin. Another course of prednisone was started. On the morning of admission, she had increased wheezing and shortness of breath. The patient is not much better. She states she does not feel any better. She is very difficult to get a history from however because she is confused. She has had numerous hospital stays this year. In September on the she went for Emergency Room visit for an asthma exacerbation. She was hospitalized with respiratory distress from 09/27/2016 until the . In October, she was admitted from the until the with an asthma exacerbation. During that hospital stay, she was found to have acute pulmonary emboli. She was felt to not be a candidate for anticoagulation due to a prior history of subarachnoid hemorrhage as well as recurring falls. An IVC filter was inserted. She was admitted from December 30 through January 01 with what reportedly was pneumonia. She was hospitalized now starting April 17. She remains very congested. The patient does not expectorate any significant phlegm. She denies having chills, fevers or sweats. She has really not gotten any better; however. This is despite being on numerous breathing medications. She has been on formoterol treatments b.i.d. She has DuoNebs every 4 hours. She is on methylprednisolone currently 40 mg IV q. 12 hours. She is on azithromycin as well as pantoprazole. She is on cefepime 2000 mg q. 12 hours. She is on montelukast. She is on prophylactic subQ heparin. She is getting budesonide by nebulizer b.i.d. In spite of all this, the patient is still very congested. It appears from her prior records that she has had slow improvements other times as well. PAST SURGICAL HISTORY: 1. Left shoulder or arm surgery. 2. Tubal ligation. 3. Appendectomy. 4. Hysterectomy. 5. IVC filter. PAST MEDICAL HISTORY: 1. Hypertension. 2. Subarachnoid hemorrhage. 3. Dementia. 4. Atrial fibrillation. 5. Hypothyroidism. 6. Polymyalgia rheumatica. ALLERGIES: LISTED ALLERGIES TO PENICILLIN, BACTRIM, ERYTHROMYCIN, AND CODEINE. FAMILY HISTORY: The patient's mother had asthma all of her lifetime. The old records suggest she did not know the medical history of her father, but she told me that her father also had breathing problems. 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 REVIEW OF SYSTEMS: The patient is a poor historian. I could not obtain further symptoms of significance other than as noted above. GENERAL: The patient is very hard of hearing which made communications also difficult. She was also tearful at the time of this exam. This had been noted in the past as well. I was wondering if this might be a side effect she has from steroids. PHYSICAL EXAMINATION: GENERAL: The patient is a pleasant but confused 81-year-old female who was cooperative. She could not tell me her age. She could not tell me the date of her . She could not tell me what year it is or what month it is. HEAD, EYES, EARS, NOSE, AND THROAT: Pupils were reactive to light. Mouth exam showed prominent oral candidiasis. NECK: Palpation of the neck reveals no lymph nodes or masses. VITAL SIGNS: Temperature is 36.5. She has not had any significant fevers during the course of this hospital stay. HEART: Heart rate was 75 per minute. The rhythm was irregular. The blood pressure is 140/74. LUNGS: Auscultation reveals diffuse wheeze and rhonchi bilaterally. This is mainly on expiration. Her respiratory rate was 20 breaths per minute. In spite of her numerous adventitious sounds. Her saturations were 99% on 2 liters. ABDOMEN: Soft. It was nontender. Bowel sounds were normal. No masses were palpable. EXTREMITIES: Showed no cyanosis, clubbing or edema. Chest x-ray on admission showed an infiltrative density in the left mid and lower lung field. This was improved compared with her prior x-ray done December 31. She has an appliance in the area of the left shoulder from prior surgery. LABORATORY DATA: Admission white count was 10.21. Most recent white count was yesterday when it was 7.38. Admission hemoglobin was 12.4 and it is down to 9.8 as of yesterday. Platelets are 178,000. Urinalysis on admission was unremarkable. Creatinine today is 1.1. Electrolytes as of April 18 showed a sodium of 137, potassium 3.3, chloride 104, bicarb 25. Blood sugar was 182. Sputum reported normal chun. Blood cultures were negative. IMPRESSIONS: 1. Asthma with exacerbation. 2. Mild left lung infiltrates -- possibly pneumonia versus fluid in the pleural space. 3. Oral candidiasis. 4. Dementia. COMMENTS AND RECOMMENDATIONS: I reviewed a CAT scan of the chest done back on 07/06/2015. This suggested a ground-glass mass in the right upper lobe that was suspicious for malignancy. I do not believe this has been repeated. I believe this should be rechecked during this hospital stay. The patient did have essentially negative echo in October of this year and her BNP level was mildly elevated at 2411. It is possible she has mild CHF, although I would not think this would be the major issue in light of her long history of asthma. She does have oral candidiasis. We should treat this with Nystatin and I believe we probably should hold the budesonide as the candidiasis looked very prominent. Her other hospital stays have suggested it did take her quite some time to improve clinically and thus this is not totally an outlier. Thank you for asking me to assist in her care.
--- NOTE | 2017-04-21 17:09 | DIAGNOSTIC IMAGING REPORT ---
CHEST ONE VIEW PORTABLE HISTORY: 81 years-old Female persistent shortness of breath COMPARISON: 04/17/2017 chest radiograph TECHNIQUE: Portable upright AP view of the chest FINDINGS: Cardiac silhouette is again enlarged. There is moderate to extensive atherosclerosis of the thoracic aorta. There is no pneumothorax. Small left pleural effusion is redemonstrated with interval development of a small right pleural effusion as well. There is pulmonary vascular congestion. There are progressive left basilar opacities present. IVC filter is noted at the level of L1-L2.] Technique limits are seen. There is AVN of the right humeral head with high riding humerus compatible with underlying rotator cuff disease. Left shoulder arthroplasty is noted. IMPRESSION: 1. Cardiomegaly with pulmonary vascular congestion and small bilateral pleural effusions. 2. Progressive left lower opacities suggest atelectasis or pneumonia. The above report was generated using voice recognition software. It may contain grammatical, syntax or spelling errors. Electronically signed by: Aramis Tovar M.D. 04/21/2017 5:07 PM Dictated Date/Time: 04/21/2017 5:05 PM
[2017-04-21] MEDS: NYSTATIN SUSP 500,000 U/5 ML UDC PO SCH ×2 (17:45→20:19)
--- NOTE | 2017-04-21 17:59 | Progress Note ---
Subjective Date of Service: Apr 21, 2017. Subjective this pt still apears breathless, some raspy upper airway sounds also Problem List Medical Problems: (1) Asthma exacerbation Status: Acute (2) Bronchitis Status: Acute (3) Bronchospasm Status: Acute (4) Closed head injury Status: Acute (5) COPD exacerbation Status: Acute (6) Dizziness Status: Chronic (7) Dyspnea Status: Acute (8) Fall Status: Acute (9) Hypoxia Status: Acute (10) Influenza-like illness Status: Acute (11) Left lower quadrant pain Status: Acute (12) PNA (pneumonia) Status: Acute (13) Pneumonia Status: Acute (14) Pneumonia Status: Acute (15) Rapid atrial fibrillation Status: Acute (16) Respiratory distress Status: Acute (17) Respiratory distress Status: Acute Review of Systems Constitutional: + weakness, + fatigue, No fever, No chills Respiratory: + cough, + sputum, + shortness of breath, + dyspnea on exertion Cardiac: No chest pain, No orthopnea, No PND, No edema Abdomen: No pain, No nausea, No vomiting, No diarrhea Female : No dysuria, No urinary frequency, No hematuria, No incontinence Psychiatric: No depression symptoms, No anhedonism Objective Vital Signs Date Time Temp Pulse Resp B/P (MAP) Pulse Ox O2 Delivery O2 Flow Rate FiO2 04/21/17 16:03 36.5 75 20 140/74 (96) 99 Nasal Cannula 2.0 04/21/17 16:00 Nasal Cannula 3.0 04/21/17 15:03 81 18 95 Nasal Cannula 2.0 04/21/17 11:28 75 18 96 Nasal Cannula 2.0 04/21/17 08:00 Nasal Cannula 3.0 04/21/17 07:25 83 18 96 Nasal Cannula 2.0 04/21/17 07:17 36.5 96 20 134/69 (90) 95 Nasal Cannula 2.0 04/21/17 03:29 78 16 96 Nasal Cannula 2.0 04/21/17 00:04 36.5 79 18 145/72 (96) 98 Oxymask 3.0 04/21/17 00:00 Nasal Cannula 3.0 04/20/17 23:30 75 16 96 Nasal Cannula 2.0 04/20/17 20:25 76 16 96 Nasal Cannula 2.0 Physical Exam General Appearance: WD/WN, + moderate distress Neck: supple, no JVD Respiratory/Chest: + decreased breath sounds, + accessory muscle use, + rales, + rhonchi Cardiovascular: regular rate, rhythm, no murmur Abdomen: normal bowel sounds, non tender, soft Extremities: no pedal edema, no calf tenderness Neurologic/Psychiatric: alert, oriented x 3 Assessment and Plan 81 F from snf with Health care associated pneumonia. Health Care Acquired PNA: MRSA nares negative; Cefepime and zithromax continue will complete one week Asthma Exacerbation- continues to not imrpove iv steroids,, duoneb plus formoterol, mucinex and flutter valve 04/20, Supplemental O2 as needed, no improvement pulmonary consult did see 04/[address] chest did have suspicious mass in past regarding possible pe, she does have IVC filter as history of VTE but cannot be AC due to sah Acute on Chronic Renal failure stage 3 improved Shingles: valtrex x 7 days total, asymptomatic at this time H/o A Fib: Diltiazem -contnues to be rate controlled, Not anticoagulated due to hx of SAH H/o PE:-S/p IVC filter back on 10/31 DVT Ppx: Lovenox
[2017-04-21] MEDS: MONTELUKAST SOD 10 MG TAB PO SCH (20:20)
[2017-04-21] MEDS: SERTRALINE HCL 100 MG TAB PO SCH (20:21)
[2017-04-22] VITALS (12 sets, daily range): BP systolic 122–191; BP diastolic 57–76; PULSE 73–110; TEMP 36.5–36.8; O2SAT 94–98
[2017-04-22] MEDS: METHYLPREDNISOLONE IV 40 MG in SYRINGE 0 ML IV SCH ×2 (02:14→14:30)
[2017-04-22] MEDS: ALBUT/IPRATROP 3MG/0.5MG NEB 3 ML VIAL INH SCH ×6 (03:31→23:19)
[2017-04-22] MEDS: CEFEPIME IV 2,000 MG in DEXTROSE 5% 100ML 100 ML IV SCH ×2 (05:56→17:35)
[2017-04-22] MEDS: FORMOTEROL FUMA NEBULIZER SOLN 20 MCG/2 ML VIAL INH SCH ×2 (07:06→18:52)
[2017-04-22] MEDS: NYSTATIN SUSP 500,000 U/5 ML UDC PO SCH ×4 (07:53→19:46)
[2017-04-22] MEDS: FERROUS SULFATE 325 MG TAB PO SCH ×3 (07:53→17:35)
[2017-04-22] MEDS: DILTIAZEM HCL 180 MG CAPCR PO SCH (07:53)
[2017-04-22] MEDS: GUAIFENESIN 600 MG TABCR PO SCH ×2 (07:53→20:58)
[2017-04-22] MEDS: ASPIRIN 81 MG ECTAB PO SCH (07:54)
[2017-04-22] MEDS: POLYETHYLENE (MIRALAX) 17 GM PACK PO SCH (07:54)
[2017-04-22] MEDS: PANTOprazole SOD 40 MG TAB PO SCH (07:54)
[2017-04-22] MEDS: CEROVITE ADV FORMULA TAB PO SCH (07:54)
[2017-04-22] MEDS: VERAPAMIL HCL 240 MG TABCR PO SCH (07:54)
[2017-04-22] MEDS: LORAZEPAM 0.5 MG TAB PO SCH ×2 (07:59→19:49)
--- NOTE | 2017-04-22 08:18 | DIAGNOSTIC IMAGING REPORT ---
(CHEST) THORAX WITHOUT CT DOSE: 270.54 mGy.cm HISTORY: Pulmonary nodule hx of 2.4 cm ground glass nodules RUL TECHNIQUE: Multiaxial CT images of the chest were performed without contrast. A dose lowering technique was utilized adhering to the principles of ALARA. COMPARISON: 07/06/2015 FINDINGS: Slight increase in volume of the right upper lung nodule. Current dimensions are 13 x 19 mm. This is slightly increased in volume from the prior study. Minimal localized thickening of the superior extent of the right major fissure. Left upper lobe parenchymal nodularity is slightly variable compared to the prior exam. Interval pleural-based nodule left upper lobe transaxial image 24 measuring 4 mm. Interval development of what is potentially a left infrahilar masslike process. This measures 2.5 cm maximum dimension with evidence for atelectatic change of the left lower lobe. There is a small left effusion. Right middle lobe pulmonary nodularity currently measures 8 mm increase in the prior examination of 5 mm. The left infrahilar masslike process compromises the lumen of the left lower lobe associated bronchus. Minimal scattered parenchymal nodularity is essentially unchanged in the prior study. Stable atherosclerotic change thoracic aorta. IMPRESSION: 1. Interval development of a left infrahilar nodule/mass like process measuring 2.5 cm. 2. Probable post obstructive atelectatic change as well as a small left effusion. 3. Slight progression of the right upper lobe nodular density. 4. Generally stable additional nodularity with a slight increase in volume of a right middle lobe nodule. 5. A neoplastic process must the diagnosis of exclusion primarily of the left infrahilar region, as well as in the right upper lung region.. The above report was generated using voice recognition software. It may contain grammatical, syntax or spelling errors. Electronically signed by: Didier Eldridge M.D. 04/22/2017 8:17 AM Dictated Date/Time: 04/22/2017 8:09 AM
[2017-04-22] MEDS: HEPARIN SOD 5000 UNIT/0.5 ML CARP SQ SCH ×2 (09:01→21:01)
--- NOTE | 2017-04-22 11:35 | PROGRESS NOTE ---
DATE: 04/22/2017 DATE: 04/22/2017 PROBLEM LIST: Includes: 1. Asthma exacerbation. 2. Left lung infiltrate. 3. Oral candidiasis. 4. Dementia. SUBJECTIVE: The patient is a pleasantly demented female who is seen in room 403. She was admitted on 04/17/2017 because of exacerbation of her breathing. Currently, she resides at [facility]. The patient reports today that her breathing is about the same. At rest she does not seem to be too bad, however when she does start talking she does get wheezy and has significant coughing. She states that she "has had asthma since the day she was born." She states that she has had coughing with production at times. She states that there has been some blood in the mucus at times. She states that she has not had any other concerns or problems. She then started discussing her previous work history and focuses on that, it was hard to redirect her. Unable really to get much more of a history from her at this time and discussing with nursing the patient is pleasantly confused. She does have a lot of wheezing. No other concerns from nursing at this time. OBJECTIVE: GENERAL: The patient is an 81-year-old female sitting at bedside. She is interactive and cooperative. VITAL SIGNS: Temp 36.7, pulse 110, respirations 20, blood pressure was 91/65, pulse ox 94% on 2 liters. HEAD, EYES, EARS, NOSE, AND THROAT: Normocephalic, atraumatic. Pupils equal, round react to light and accommodation. Extraocular movements are intact. [place] moist gingival and buccal mucosa. NECK: Supple, short. No mass. No adenopathy. No bruit. CHEST: The patient has diffuse scattered wheezing throughout, this is primarily on exhalation. No rale or rhonchi. CARDIOVASCULAR: Irregularly irregular. No murmurs, gallops or rubs appreciated. ABDOMEN: Bowel sounds are present. Abdomen soft, nontender. No guarding, rigidity or organomegaly. EXTREMITIES: No erythema, no edema. No cyanosis or clubbing. LABORATORY DATA: No new lab data. The patient did have a CAT scan done which is showing increased size. The right upper lobe nodular density which dates back to 2014, also development of a 2.5 cm mass-like process in the left infrahilar area. There does appear to be some postobstructive changes beyond this. This is concerning for malignancy. IMPRESSION: The patient is an 81-year-old with a history of asthma, but also history of this right upper lobe lung nodule which has progressed. In reviewing her chart and [employer] the patient had a discussion with Dr. Bentley in June of 2015 regarding this where he recommended further treatment and workup for this. Because of concern for malignancy; however, she declined. She refused any type of treatment at the time. She refused any diagnostic testing. She wanted no further workup done. Unfortunately, when I evaluated the patient today at this point she does appear to have some relatively moderate dementia and does not recall this. At this point, I have reviewed her chart. She is getting Preformist twice a day as well as DuoNeb every 4 hours while awake. She is also on Solu-Medrol 40 mg q. 12. In light of possibility of postobstructive pneumonia recommend continue antibiotics. She may require a longer course. At this point, we will continue the Solu-Medrol at current dose. In regards to the mass the patient had expressed her wishes previously, although currently I do not feel that she can make any appropriate decisions. Will discuss this further with Dr. Gill. For now, will continue to follow the patient through hospitalization.
[2017-04-22] MEDS: AZITHROMYCIN 250 MG TAB PO SCH (12:28)
--- NOTE | 2017-04-22 18:40 | Progress Note ---
Subjective Date of Service: Apr 22, 2017. Subjective this pt still feels short of breath, still with cough Problem List Medical Problems: (1) Asthma exacerbation Status: Acute (2) Bronchitis Status: Acute (3) Bronchospasm Status: Acute (4) Closed head injury Status: Acute (5) COPD exacerbation Status: Acute (6) Dizziness Status: Chronic (7) Dyspnea Status: Acute (8) Fall Status: Acute (9) Hypoxia Status: Acute (10) Influenza-like illness Status: Acute (11) Left lower quadrant pain Status: Acute (12) PNA (pneumonia) Status: Acute (13) Pneumonia Status: Acute (14) Pneumonia Status: Acute (15) Rapid atrial fibrillation Status: Acute (16) Respiratory distress Status: Acute (17) Respiratory distress Status: Acute Objective Vital Signs Date Time Temp Pulse Resp B/P (MAP) Pulse Ox O2 Delivery O2 Flow Rate FiO2 04/22/17 16:00 98 Nasal Cannula 2.0 04/22/17 15:45 36.5 73 20 123/57 (79) 98 Nasal Cannula 2.0 04/22/17 15:08 86 18 95 Nasal Cannula 2.0 04/22/17 12:00 122/65 (84) 04/22/17 11:15 79 16 96 Nasal Cannula 2.0 04/22/17 08:30 94 Nasal Cannula 2.0 40 04/22/17 07:17 36.7 110 20 191/65 (107) 94 Nasal Cannula 2.0 04/22/17 07:09 93 18 95 Nasal Cannula 2.0 04/22/17 03:31 78 16 96 Nasal Cannula 2.0 04/22/17 00:00 Nasal Cannula 3.0 04/21/17 23:57 36.8 93 20 139/72 (94) 93 2.0 04/21/17 23:09 84 16 96 Nasal Cannula 1.0 04/21/17 20:00 Nasal Cannula 3.0 04/21/17 19:57 77 18 96 Nasal Cannula 2.0 Assessment and Plan 81 F from snf with Health care associated pneumonia., unfortunately progress of lung mass suspicious for cancer Lung mass, will discuss with family as concern pt may not make informed consent and also may not be appropriate for intervention, did call contact finger assembler and was recommended to call daughter Health Care Acquired PNA: MRSA nares negative; Cefepime and zithromax continue will complete one week, complete 04/24 Asthma Exacerbation- c iv steroids,, duoneb plus formoterol, mucinex and flutter valve 04/20, Supplemental O2 as needed, no improvement pulmonary consult did see 04/[address] chestdid have progression of suspicious mass, she does have IVC filter as history of VTE but cannot be AC due to sah Acute on Chronic Renal failure stage 3 improved Shingles: valtrex x 7 days resolving H/o A Fib: Diltiazem -continues to be rate controlled, Not anticoagulated due to hx of SAH H/o PE:-S/p IVC filter back on 10/31 DVT Ppx: Lovenox
[2017-04-22] MEDS: MONTELUKAST SOD 10 MG TAB PO SCH (20:58)
[2017-04-22] MEDS: SERTRALINE HCL 100 MG TAB PO SCH (20:59)
[2017-04-23] VITALS (11 sets, daily range): BP systolic 127–173; BP diastolic 68–91; PULSE 76–98; TEMP 36.3–36.6; O2SAT 97–99
[2017-04-23] MEDS: METHYLPREDNISOLONE IV 40 MG in SYRINGE 0 ML IV SCH ×2 (01:44→13:57)
[2017-04-23] MEDS: ALBUT/IPRATROP 3MG/0.5MG NEB 3 ML VIAL INH SCH ×6 (03:06→23:15)
[2017-04-23] MEDS: CEFEPIME IV 2,000 MG in DEXTROSE 5% 100ML 100 ML IV SCH ×2 (05:32→18:04)
[2017-04-23 06:05] LABS: HEMATOCRIT 31.8 % (37-47); MEAN CELL VOLUME 89.8 fL (80-100); MEAN CORPUSCULAR HEMOGLOBIN 29.4 pg (25-34); MEAN CORPUSCULAR HGB CONC 32.7 g/dl (32-36); MEAN PLATELET VOLUME 9.2 fL (7.4-10.4); PLATELET COUNT 179 K/uL (130-400); RED BLOOD COUNT 3.54 M/uL (4.2-5.4); WHITE BLOOD COUNT 7.79 K/uL (4.8-10.8)
[2017-04-23 06:41] LABS: CREATININE 1.1 mg/dl (0.60-1.20)
[2017-04-23] MEDS: FORMOTEROL FUMA NEBULIZER SOLN 20 MCG/2 ML VIAL INH SCH ×2 (06:58→19:28)
[2017-04-23] MEDS: HEPARIN SOD 5000 UNIT/0.5 ML CARP SQ SCH ×2 (07:41→20:51)
[2017-04-23] MEDS: LORAZEPAM 0.5 MG TAB PO SCH ×2 (07:42→19:20)
[2017-04-23] MEDS: ASPIRIN 81 MG ECTAB PO SCH (07:42)
[2017-04-23] MEDS: PANTOprazole SOD 40 MG TAB PO SCH (07:43)
[2017-04-23] MEDS: GUAIFENESIN 600 MG TABCR PO SCH ×2 (07:43→20:51)
[2017-04-23] MEDS: NYSTATIN SUSP 500,000 U/5 ML UDC PO SCH ×4 (07:43→20:49)
[2017-04-23] MEDS: CEROVITE ADV FORMULA TAB PO SCH (07:43)
[2017-04-23] MEDS: POLYETHYLENE (MIRALAX) 17 GM PACK PO SCH (07:43)
[2017-04-23] MEDS: VERAPAMIL HCL 240 MG TABCR PO SCH (07:44)
[2017-04-23] MEDS: DILTIAZEM HCL 180 MG CAPCR PO SCH (07:44)
[2017-04-23] MEDS: FERROUS SULFATE 325 MG TAB PO SCH ×3 (07:44→16:22)
[2017-04-23] MEDS: AZITHROMYCIN 250 MG TAB PO SCH (12:01)
--- NOTE | 2017-04-23 13:16 | PROGRESS NOTE ---
DATE: 04/23/2017 PROBLEM LIST: Includes: 1. Asthma exacerbation. 2. Left lung infiltrate. 3. Oral candidiasis. 4. Dementia. 5. Right upper lobe ground-glass process. SUBJECTIVE: The patient reports no problems today. States that her breathing may be a little bit better, but she is not completely certain. Still is having a little bit of cough, still has some wheezing. Does not feel quite as short of breath as she did previously. States that her appetite is so-so. She has good days and bad days. Denies any other concerns or problems at this time. The patient was seen by Dr. Gill, at the time I tried to discuss the fact that the patient has had CAT scans for this right upper lobe process in the past, but she is very vague on this. OBJECTIVE: GENERAL: The patient is an 81-year-old female, sitting at bedside. She is interactive and cooperative. She is alert, oriented to person. VITAL SIGNS: Temp 36.6, pulse 78, respirations 20, blood pressure 127/72, pulse ox 97% on 2 liters. HEENT: Normocephalic, atraumatic. Pupils equal, round and reactive to light and accommodation. Extraocular movements are intact. NECK: Supple. No mass, no adenopathy, no bruit. CHEST: The patient does have some end-expiratory wheeze. No rales or rhonchi appreciated. Air movement is better than it was previously. CARDIOVASCULAR: Regular rate and rhythm. No murmurs, gallops or rubs. ABDOMEN: Soft, nontender. EXTREMITIES: No erythema or edema. LABORATORY DATA: Shows a white count of 7000, H&H 10.4 and 31.8, platelet count of 179,000. Creatinine 1.1. Sputum cultures showing scant normal chun. No new imaging data. IMPRESSION: This is an 81-year-old female who presents with asthma exacerbation as well as left lung infiltrate. At this time, the patient does seem to be showing signs of improvement. The case was discussed with Dr. Gill and again in reviewing the chart, the patient had this right upper lobe process in 2015, which at the time she discussed with Dr. Bentley and did not want any further workup done about it. At this point, I do not feel that she can appropriately make decisions regarding this. She also has a left hilar area process as well which reviewing the images with Dr. Gill there may or may not be a mass present, it is too difficult to ascertain based on current CT imaging. At this point in time the patient is not stable enough to undergo bronchoscopic evaluation. Therefore, after discussion ____ Dr. Gill, it was elected to just continue to treat the patient for infection and this is something that Dr. Bentley can follow up with CT imaging in short order to see if there is any improvement or change in this area on the left. For now, continue pulmonary toilet, continue Solu-Medrol at current dose due to the wheezing, continue antibiotic. We will continue to follow the patient through hospitalization. I would also encourage her to continue using her flutter valve.
--- NOTE | 2017-04-23 13:58 | Palliative Care Consultation ---
Consultation Date of Consultation: Apr 23, 2017. Requesting Physician: Dr. Arias Attending Physician: Dr. Arias Reason for Consultation: Goals of care History of Present Illness This 81 year old female patient presented to the ED six days ago from [facility] with complaints of increased SOB and wheezing. 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 She completed the steroid taper, then developed productive cough and chills. Was started on PO Levaquin with no improvement, came to hospital. CXR showed mall left pleural effusion, mild superimposed infiltrative change in left mid to lower lung. She was admitted and treated for possible HCAP. Also was noted to have shingles of the right buttocks, valtrex course completing today. Patient was not getting better, pulmonology consulted and ordered a repeat CT of the chest as they noted that back in [address] which showed ground-glass mass of RUL. Patient at the time refused any further workup or treatment. Repeat CT shows worsening of the RUL mass and now has several spots/masses including left infrahilar. Given the patient's advanced dementia and according to her wishes, patient's daughter has decided not to pursue any further diagnostic testing or procedures. Palliative care consulted to discuss goals of care. I met with the patient in room 403. She is pleasantly confused, thought it was 1972. She had basically no knowledge of her hospital stay but did recall the lung mass found a couple years ago and said that she didn't want anything done about it. Patient mostly wanted to talk about her prior life experience and was very tearful while talking about her late who in a car accident. She reports feeling sad and lonely. Patient does state that her SOB is improved , still wheezing and has productive cough with white sputum. She has no pain or other complaints. Patient says her goal is to "just keep going and be comfortable." Her lunch tray was in front of her and she ate 100% of meal. I am meeting with patient's daughter at 3pm. 1530: Met with patient's daughter, Letha Sandra, patient's brother and sister-in -law, Jose Elias and Lizbet Baum. We discussed patient's condition and goals of care. Letha is aware of the new findings on CT of lungs and is aware it may be cancer. The family is quite realistic and know that the patient would not want any invasive testing/procedures and they do not wish to go any further with diagnosis. they are okay with other treatment such as for the pneumonia. We discussed what to expect in the future such as worsening respiratory illness/ symptoms. The goal is for the patient to get back to [place] when medically cleared. POLST form completed as follows: DNR, limited addition interventions with addition order "Avoid invasive testing or procedures," Abx if life can be prolonged, and trial of artificial hydration but no feeding tube. Family was all in agreement that if/when disease progresses and patient is declining/not getting better when she comes to the hospital, they will make her comfort measures only at that time and change POLST form to reflect this. Past Medical/Surgical History Medical History: Afib Alzheimer's disease Anxiety Asthma Ataxia Benign essential hypertension Depression Dizziness History of subarachnoid hemorrhage Permanent Comment: August 2014 per records Hypothyroidism, unspecified Polymyalgia rheumatica Syncopal episodes Surgical Problems: H/O tubal ligation S/P appendectomy S/P hysterectomy Social History Smoking Status: Never Smoker History of Alcohol Use: No Marital Status: Housing Status: other Occupation Status: retired Review of Systems Constitutional: No weakness ENT: No trouble swallowing Respiratory: + cough, + sputum, + wheezing, + dyspnea on exertion, No dyspnea at rest Cardiac: No chest pain, No edema Abdomen: No pain, No nausea, No vomiting Neurologic: + memory loss Psychiatric: + problem reported (feeling sad and lonely) Allergies Coded Allergies: Adhesives (Verified Allergy, Severe, RED/SWOLLEN, 12/30/16) Codeine (Verified Allergy, Unknown, TOLERATED MORPHINE, 12/30/16) Erythromycin (Verified Allergy, Unknown, `, 12/30/16) Penicillins (Verified Allergy, Unknown, 12/30/16) Sulfamethoxazole (Verified Allergy, Unknown, 12/30/16) Medications Current Inpatient Medications Medications (Trade) Dose Ordered Sig/Ally Route Start Time Stop Time Status Last Admin Dose Admin Cefepime HCl 2000 mg/Dextrose 112.5 ml @ 200 mls/hr Q12H IV 04/18/17 06:00 04/24/17 08:00 04/23/17 05:32 200 MLS/HR Valacyclovir HCl (Valtrex Tab) 1,000 mg TID PO 04/17/17 20:00 04/24/17 20:59 04/23/17 07:43 1,000 MG Acetaminophen (Tylenol Tab) 650 mg Q4H PRN PO 04/17/17 16:15 05/17/17 16:14 04/22/17 03:53 650 MG Ondansetron HCl (Zofran Inj) 4 mg Q6H PRN IV 04/17/17 16:15 05/17/17 16:14 Aspirin (Ecotrin Tab) 81 mg DAILY PO 04/18/17 08:00 05/18/17 08:59 04/23/17 07:42 81 MG Diltiazem HCl (Cardizem Cd Cap) 180 mg QAM PO 04/18/17 08:00 05/18/17 08:59 04/23/17 07:44 180 MG Ferrous Sulfate (Feosol Tab) 325 mg TIDM PO 04/17/17 17:00 05/17/17 17:59 04/23/17 12:02 325 MG Lorazepam (Ativan Tab) 0.25 mg BID PO 04/17/17 20:00 05/17/17 20:59 04/23/17 07:42 0.25 MG Montelukast Sodium (Singulair Tab) 10 mg HS PO 04/17/17 21:00 05/17/17 20:59 04/22/17 20:58 10 MG Multivitamins/ Minerals (Multivitamin W/ Minerals Tab) 1 tab DAILY PO 04/18/17 08:00 05/18/17 08:59 04/23/17 07:43 1 TAB Sertraline HCl (Zoloft Tab) 100 mg HS PO 04/17/17 21:00 05/17/17 20:59 04/22/17 20:59 100 MG Verapamil HCl (Calan-Sr Tab) 240 mg QAM PO 04/18/17 08:00 05/18/17 08:59 04/23/17 07:44 240 MG Miscellaneous Information (Order Awaiting Action) 1 ea QS N/A 04/18/17 00:00 05/18/17 00:00 Polyethylene (Miralax Powder Packet) 17 gm DAILY PO 04/18/17 08:00 05/18/17 08:59 04/23/17 07:43 17 GM Cefepime HCl (Consult) 1 ea UD PRN N/A 04/17/17 17:45 04/24/17 08:00 Heparin Sodium (Porcine) (Heparin Sq 5000 Unit/0.5ml) 5,000 unit Q12 SQ 04/17/17 21:00 05/17/17 20:59 04/23/17 07:41 5,000 UNIT Methylprednisolone Sodium Succinate 40 mg/Syringe 0.64 ml @ 1.5 mls/min Q12H IV 04/20/17 14:00 05/17/17 15:59 04/23/17 01:44 1.5 MLS/MIN Pantoprazole Sodium (Protonix Tab) 40 mg QAM PO 04/20/17 10:00 05/20/17 09:59 04/23/17 07:43 40 MG Azithromycin (Zithromax Tab) 250 mg DAILY@1200 PO 04/20/17 12:00 04/23/17 14:00 04/23/17 12:01 250 MG Formoterol Fumarate (Perforomist 20MCG/2ML Neb Soln) 20 mcg BIDR INH 04/20/17 20:00 05/20/17 19:59 04/23/17 06:58 20 MCG Albuterol/ Ipratropium (Duoneb) 3 ml Q4R INH 04/20/17 16:00 05/20/17 15:59 04/23/17 11:21 3 ML Albuterol/ Ipratropium (Duoneb) 3 ml Q2H PRN INH 04/20/17 15:30 05/20/17 15:29 Guaifenesin (Mucinex Contr Rel Tab) 600 mg Q12 PO 04/20/17 21:00 05/20/17 20:59 04/23/17 07:43 600 MG Nystatin (Mycostatin Susp) 5 ml QID PO 04/21/17 17:00 04/28/17 16:59 04/23/17 12:01 5 ML Physical Exam Date Time Temp Pulse Resp B/P (MAP) Pulse Ox O2 Delivery O2 Flow Rate FiO2 04/23/17 11:26 78 127/72 (90) 04/23/17 11:24 86 20 97 Nasal Cannula 2.0 04/23/17 08:00 Nasal Cannula 2.0 04/23/17 07:26 36.6 98 20 173/91 (118) 97 04/23/17 07:10 98 16 97 Nasal Cannula 2.0 04/23/17 03:06 85 16 97 Nasal Cannula 2.0 04/22/17 23:53 36.8 94 20 155/76 (102) 97 Nasal Cannula 2.0 04/22/17 23:34 Nasal Cannula 2.0 04/22/17 23:19 90 20 96 Nasal Cannula 2.0 04/22/17 18:52 89 20 96 Nasal Cannula 2.0 04/22/17 16:00 98 Nasal Cannula 2.0 04/22/17 15:45 36.5 73 20 123/57 (79) 98 Nasal Cannula 2.0 04/22/17 15:08 86 18 95 Nasal Cannula 2.0 General Appearance: no apparent distress ENT: hearing grossly normal, + pertinent finding (has her own teeth with some missing, gums are receiting) Neck: supple, no JVD Respiratory: no respiratory distress, no accessory muscle use, + wheezing ( throughout) Cardiovascular: regular rate, rhythm, no edema, + normal peripheral pulses Abdomen: normal bowel sounds, non tender, soft Neurologic/Psychiatric: alert, normal mood/affect, + pertinent finding ( pleasantly confused/disoriented) Laboratory Results Last 24 Hours Test 04/23/17 05:33 White Blood Count 7.79 K/uL Red Blood Count 3.54 M/uL Hemoglobin 10.4 g/dL Hematocrit 31.8 % Mean Corpuscular Volume 89.8 fL Mean Corpuscular Hemoglobin 29.4 pg Mean Corpuscular Hemoglobin Concent 32.7 g/dl RDW Standard Deviation 47.2 fL RDW Coefficient of Variation 14.3 % Platelet Count 179 K/uL Mean Platelet Volume 9.2 fL Creatinine 1.10 mg/dl Est Creatinine Clear Calc Drug Dose 30.4 ml/min Estimated GFR () 54.1 Estimated GFR (Non- 46.7 Assessment & Plan Problem list: SOB Wheezing Dementia, advanced Asthma exacerbation Shingles Goals of care (Z51.5) Palliative care recommendations: discussed with patient's daughter/POA Letha Flores, and brother and [id number] Jose Elias and Lizbet Baum. -No further testing for the lung masses. -Goal is for comfort and quality of life. -POLST form completed as follows: DNR, limited addition interventions with addition order "Avoid invasive testing or procedures," Abx if life can be prolonged, and trial of artificial hydration but no feeding tube. -Family was all in agreement that if/when disease progresses and patient is declining/not getting better when she comes to the hospital, they will make her comfort measures only at that time and change POLST form to reflect this. -Living will is in or system from previous admission which indicates patient would not want any life-prolonging measures when she is end-stage. -Patient to return to [facility] when medically cleared. -Continue current treatment for now. She is still on IV abx and solu-medrol. Thank you kindly for this consult. I will follow as needed.
--- NOTE | 2017-04-23 18:07 | Progress Note ---
Subjective Date of Service: Apr 23, 2017. Subjective this pt remains short of breath, variable coughing, lung mass idenitifed, family opts for minimal approach, pt is demented and cannot make decision. Problem List Medical Problems: (1) Asthma exacerbation Status: Acute (2) Bronchitis Status: Acute (3) Bronchospasm Status: Acute (4) Closed head injury Status: Acute (5) COPD exacerbation Status: Acute (6) Dizziness Status: Chronic (7) Dyspnea Status: Acute (8) Fall Status: Acute (9) Hypoxia Status: Acute (10) Influenza-like illness Status: Acute (11) Left lower quadrant pain Status: Acute (12) PNA (pneumonia) Status: Acute (13) Pneumonia Status: Acute (14) Pneumonia Status: Acute (15) Rapid atrial fibrillation Status: Acute (16) Respiratory distress Status: Acute (17) Respiratory distress Status: Acute Review of Systems Constitutional: No fever, No chills Respiratory: + cough, + sputum, + wheezing, + shortness of breath Cardiac: + chest pain, No edema Abdomen: No pain, No nausea, No vomiting, No diarrhea Female : No dysuria, No urinary frequency Neurologic: + weakness, No memory loss, No paralysis Psychiatric: No depression symptoms, No anhedonism Objective Vital Signs Date Time Temp Pulse Resp B/P (MAP) Pulse Ox O2 Delivery O2 Flow Rate FiO2 04/23/17 15:30 79 18 98 Nasal Cannula 2.0 04/23/17 14:49 36.6 76 20 131/68 (89) 98 04/23/17 11:26 78 127/72 (90) 04/23/17 11:24 86 20 97 Nasal Cannula 2.0 04/23/17 08:00 Nasal Cannula 2.0 04/23/17 07:26 36.6 98 20 173/91 (118) 97 04/23/17 07:10 98 16 97 Nasal Cannula 2.0 04/23/17 03:06 85 16 97 Nasal Cannula 2.0 04/22/17 23:53 36.8 94 20 155/76 (102) 97 Nasal Cannula 2.0 04/22/17 23:34 Nasal Cannula 2.0 04/22/17 23:19 90 20 96 Nasal Cannula 2.0 04/22/17 18:52 89 20 96 Nasal Cannula 2.0 Physical Exam General Appearance: WD/WN, + mild distress Neck: supple, no JVD Respiratory/Chest: + respiratory distress (mild), + accessory muscle use, + rhonchi Cardiovascular: regular rate, rhythm, no murmur Abdomen: normal bowel sounds, non tender, soft Skin: normal color, warm/dry Laboratory Results Last 24 Hours Test 04/23/17 05:33 White Blood Count 7.79 K/uL Red Blood Count 3.54 M/uL Hemoglobin 10.4 g/dL Hematocrit 31.8 % Mean Corpuscular Volume 89.8 fL Mean Corpuscular Hemoglobin 29.4 pg Mean Corpuscular Hemoglobin Concent 32.7 g/dl RDW Standard Deviation 47.2 fL RDW Coefficient of Variation 14.3 % Platelet Count 179 K/uL Mean Platelet Volume 9.2 fL Creatinine 1.10 mg/dl Est Creatinine Clear Calc Drug Dose 30.4 ml/min Estimated GFR () 54.1 Estimated GFR (Non- 46.7 Assessment and Plan 81 F from snf with Health care associated pneumonia., unfortunately progress of lung mass suspicious for cancer Lung mass, will discuss with family as concern pt may not make informed consent and also may not be appropriate for intervention, daughter met with palliative care nurse, will employ minimal approach with non invasive treatment Health Care Acquired PNA: MRSA nares negative; Cefepime and zithromax continue will complete one week, complete 04/24 Asthma Exacerbation- c iv steroids,, duoneb plus formoterol, mucinex and flutter valve 04/20, c/o mucus congestion, try pulmozyme for 24 hours Supplemental O2 as needed, no improvement pulmonary consult did see 04/[address] chestdid have progression of suspicious mass, 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
[2017-04-23] MEDS: DORNASE ALFA (2500U) 2.5MG/2.5ML INH SCH (20:11)
[2017-04-23] MEDS: MONTELUKAST SOD 10 MG TAB PO SCH (20:51)
[2017-04-23] MEDS: SERTRALINE HCL 100 MG TAB PO SCH (20:51)
[2017-04-24] VITALS (7 sets, daily range): BP systolic 166; BP diastolic 97; PULSE 87–104; TEMP 36.8; O2SAT 98–100
[2017-04-24] MEDS: METHYLPREDNISOLONE IV 40 MG in SYRINGE 0 ML IV SCH ×2 (02:37→13:57)
[2017-04-24] MEDS: ALBUT/IPRATROP 3MG/0.5MG NEB 3 ML VIAL INH SCH ×3 (03:29→11:06)
[2017-04-24] MEDS: CEFEPIME IV 2,000 MG in DEXTROSE 5% 100ML 100 ML IV SCH (06:21)
[2017-04-24] MEDS: DORNASE ALFA (2500U) 2.5MG/2.5ML INH SCH (07:03)
[2017-04-24] MEDS: FORMOTEROL FUMA NEBULIZER SOLN 20 MCG/2 ML VIAL INH SCH (07:24)
[2017-04-24] MEDS: FERROUS SULFATE 325 MG TAB PO SCH ×2 (07:34→12:48)
[2017-04-24] MEDS: PANTOprazole SOD 40 MG TAB PO SCH (07:35)
[2017-04-24] MEDS: NYSTATIN SUSP 500,000 U/5 ML UDC PO SCH ×2 (07:35→12:48)
[2017-04-24] MEDS: POLYETHYLENE (MIRALAX) 17 GM PACK PO SCH (07:36)
[2017-04-24] MEDS: CEROVITE ADV FORMULA TAB PO SCH (07:36)
[2017-04-24] MEDS: GUAIFENESIN 600 MG TABCR PO SCH (07:36)
[2017-04-24] MEDS: DILTIAZEM HCL 180 MG CAPCR PO SCH (07:36)
[2017-04-24] MEDS: ASPIRIN 81 MG ECTAB PO SCH (07:36)
[2017-04-24] MEDS: VERAPAMIL HCL 240 MG TABCR PO SCH (07:37)
[2017-04-24] MEDS: HEPARIN SOD 5000 UNIT/0.5 ML CARP SQ SCH (07:42)
[2017-04-24] MEDS: LORAZEPAM 0.5 MG TAB PO SCH (07:48)
--- NOTE | 2017-04-24 11:43 | PROGRESS NOTE ---
DATE: 04/24/2017 DATE: 04/24/2017 PROBLEM LIST: Includes: 1. Asthma exacerbation. 2. Left lung infiltrate. 3. Oral candidiasis. 4. Dementia. 5. Right upper lobe ground-glass process. SUBJECTIVE: The patient reports that she had a little bit of a bad day today. She states that just everything is going wrong. She states that includes her breathing. However, she denies any coughing or congestion. She really does not go into specifics in regards to her breathing. She just feels that she is breathing a little bit worse. Denies any discomfort in her chest. She states her appetite is doing okay. No other concerns or problems voiced. The patient is unfortunately not a good historian due to her dementia. OBJECTIVE: GENERAL: The patient is an 81-year-old female sitting at bedside. She is interactive and cooperative. She is oriented to person. VITAL SIGNS: Temp 36.8, pulse 100, respiratory rate 20, blood pressure earlier in the day was 166/97, pulse ox 98% on 2 liters. HEAD, EYES, EARS, NOSE, AND THROAT: Normocephalic, atraumatic. Pupils equal, round and reactive to light and accommodation. Extraocular movements are intact. NECK: Short, thick, supple. No mass. No adenopathy. No bruit. CHEST: She does have a few expiratory wheeze. No rales or rhonchi noted. She is moving air fairly well. CARDIOVASCULAR: Regular rate and rhythm. No murmurs, gallops or rubs. ABDOMEN: Soft, nontender. No guarding, rigidity or organomegaly. EXTREMITIES: No erythema or edema. No new lab data. No new radiologic data. IMPRESSION: This is an 81-year-old female who presented with a longstanding history of asthma as well as a right upper lobe ground-glass process that has progressed since 2015 and a left lower lobe infiltrate with possible mass present. In reviewing the chart, family has been contacted about potential with the possibility of this being a malignant process, although we ae uncertain without getting biopsy. Family does not want anything aggressive done in the form of diagnostic measures and would prefer the patient just be comfortable. The patient also has a living will which requests the same which we agree with. Therefore we will not pursue any further diagnostic processes regarding this ground-glass opacity. At this point from a breathing standpoint, the patient appears to continue to slowly be showing some sign of improvement. For now, I would recommend that continue her medications as they are. If she continues to do well possibly transition over to oral prednisone tomorrow.
[2017-04-24] MEDS ORDERED: GFNSR600 PO (12:12)
[2017-04-24] MEDS ORDERED: PRFINS INH (12:12)
[2017-04-24] MEDS ORDERED: NYSS5 PO (12:12)
[2017-04-24] MEDS ORDERED: IPRASOL4 INH (12:12)
[2017-04-24] MEDS ORDERED: PRED10TA PO (12:12)
--- NOTE | 2017-04-24 12:19 | Discharge Instructions ---
Discharge Instructions Date of Service Apr 24, 2017. Admission Reason for Admission: Asthma Exacerbation Discharge Discharge Diagnosis / Problem: reactive airway disease, enlarging lung mass Discharge Goals Goal(s): Diagnostic testing, Therapeutic intervention Activity Recommendations Activity Level: Assistance Required . Additional Information Patient informed of condition: Yes Advance Directives: Yes DNR: Yes Level of Care: Skilled Communicable Disease: Yes Prognosis: Deteriorating [place] Catheter: No Instructions / Follow-Up Instructions / Follow-Up 81 F from snf with Health care associated pneumonia., unfortunately progress of lung mass suspicious for cancer Lung mass, will discuss with family as concern pt may not make informed consent and also may not be appropriate for intervention, daughter met with palliative care nurse, will employ minimal approach with non invasive treatment, POLST filled out. 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 she did tolerate this combination in hospital will have PCP review if appropriate-continues to be rate controlled, Not anticoagulated due to hx of SAH H/o PE:-S/p IVC filter back on 10/31 Current Hospital Diet Patient's current hospital diet: Regular Diet Discharge Diet Recommended Diet: Regular Diet Pending Studies Studies pending at discharge: no Physician Orders On Transfer POLST Discussion: with POLST completion Medical Emergencies . Who to Call and When: Medical Emergencies: If at any time you feel your situation is an emergency, please call 911 immediately. . Non-Emergent Contact Non-Emergency issues call your: Primary Care Provider Call Non-Emergent contact if: temperature is above 101, your pain is unusual for you . . "Provider Documentation" section prepared by Wilder Arias. . Core Measure Problem Core Measures: None
--- NOTE | 2017-04-24 12:23 | Discharge Summary ---
Discharge Summary Date of Service Apr 24, 2017. Discharge Summary Admission Date: Apr 17, 2017 at 15:55 Discharge Date: Apr 24, 2017 Discharge Disposition: snf facility Principal Diagnosis: asthma exacerbation, lung mass suspicious for cancer Problems/Secondary Diagnoses: (1) Dizziness Status: Chronic Immunizations: Have You Had Influenza Vaccine: No History of Tetanus Vaccine?: Yes Tetanus Immunization Date: Dec 13, 1988 History of Pneumococcal: Unknown Pneumococcal Date: Dec 14, 1991 History of Hepatitis B Vaccine: Unknown Medication Reconciliation New Medications: Formoterol Fumarate (Perforomist) 20 Mcg/2 Ml Nebu 20 MCG INH BIDR, #60 DOSE 5 Refills Guaifenesin Ext Rel (Mucinex Ext Rel) 600 Mg Tabcr 1200 MG PO Q12, #120 DOSE Ipratropium-Albuterol (Duoneb) 3 Ml Nebu 3 ML INH Q4R, #120 DOSE Nystatin (Nystatin) 5 Ml Susp 5 ML PO QID, #20 DOSE Changed Medications: Prednisone (Prednisone) 10 Mg Tab 0 PO UD, #1 PKT (Changed from: STERAPRED 10MG 12 DAY) 4 pills a day x 4 d then taper each 4 day, may need chronically Continued Medications: Acetaminophen (Mapap) 325 Mg Tab 650 MG PO Q6 PRN for Pain NOT TO EXCEED 3GM APAP/24HR Aspirin (Ecotrin Low Strength) 81 Mg Tab 81 MG PO DAILY, 3 Refills Diltiazem HCl (Diltiazem HCl ER) 180 Mg Capcr 180 MG PO QAM for 30 Days, #30 CAP Ferrous Sulfate (Ferrous Sulfate) 325 Mg Tab 325 MG PO TID Foods (Protein Fortifier) 1 Gm/6 Ml Liq 30 ML PO BID MIX IN APPLE JUICE Lorazepam (Lorazepam) 0.5 Mg Tab 0.25 MG PO BID for 30 Days, #30 TAB Montelukast Sod (Montelukast Sodium) 10 Mg Tab 10 MG PO HS for 30 Days, TAB Multivitamins/Minerals (Mvi With Minerals) Tab 1 TAB PO DAILY Polyethylene Glycol 3350 (Miralax) 1 Pow Pow 17 GM PO DAILY Sertraline (Zoloft) 100 Mg Tab 100 MG PO HS Verapamil Sust Rel (Calan Sr Ext Rel) 240 Mg Tabcr 240 MG PO QAM, TAB Discontinued Medications: Budesonide (Budesonide) 0.5 Mg/2 Ml Nebu 1 VIAL NEB BID, 11 Refills Levalbuterol (Levalbuterol HCl) 0.63 Mg/3 Ml Nebu 3 ML NEB Q4 PRN for SOB/Wheezing Levofloxacin (Levaquin) 500 Mg Tab 500 MG PO DAILY for 10 Days, #10 TAB Discharge Exam Review of Systems: Constitutional: No fever, No chills Respiratory: No cough Cardiovascular: No chest pain, No orthopnea Genitourinary - Male: No hematuria, No dysuria, No urinary frequency Psychiatric: No depression symptoms, No anhedonism Physical Exam: General Appearance: WD/WN, + mild distress Neck: supple, no JVD Respiratory/Chest: chest non-tender, + accessory muscle use, + rhonchi Cardiovascular: regular rate, rhythm, no murmur Abdomen / GI: normal bowel sounds, non tender, soft Hospital Course 81 F from snf with Health care associated pneumonia., unfortunately progress of lung mass suspicious for cancer Lung mass, will discuss with family as concern pt may not make informed consent and also may not be appropriate for intervention, daughter met with palliative care nurse, will employ minimal approach with non invasive treatment, POLST filled out. 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 she did tolerate this combination in hospital will have PCP review if appropriate-continues to be rate controlled, Not anticoagulated due to hx of SAH H/o PE:-S/p IVC filter back on 10/31 Total Time Spent: Greater than 30 minutes This includes examination of the patient, discharge planning, medication reconciliation, and communication with other providers. Discharge Instructions Please refer to the electronic Patient Visit Report (Discharge Instructions) for additional information.
== END 2017-04-24 14:23 | DRG 194 ==
LOC: EDBD 11:38 → C.EDC 11:40 → C.4E 15:55 → ENRESERV 16:05
PROVIDERS: ADMIT Internal Medicine; ATTEND Internal Medicine
DX: J18.9 Pneumonia, unspecified organism (principal); J45.901 Unspecified asthma with (acute) exacerbation; C34.90 Malignant neoplasm of unspecified part of unspecified bronchus or lung; N17.9 Acute kidney failure, unspecified; C34.11 Malignant neoplasm of upper lobe, right bronchus or lung; I48.91 Unspecified atrial fibrillation; G30.9 Alzheimer's disease, unspecified; F02.80 Dementia in other diseases classified elsewhere, unspecified severity, without behavioral disturbance, psychotic disturbance, mood disturbance, and anxiety; I12.9 Hypertensive chronic kidney disease with stage 1 through stage 4 chronic kidney disease, or unspecified chronic kidney disease; E03.9 Hypothyroidism, unspecified; Z79.82 Long term (current) use of aspirin; Z88.0 Allergy status to penicillin; Z88.2 Allergy status to sulfonamides; N18.3 Chronic kidney disease, stage 3 (moderate); B37.9 Candidiasis, unspecified; B02.9 Zoster without complications; F41.8 Other specified anxiety disorders

== ENCOUNTER → 2017-04-28 | Outpatient (CLI) | payer BC ==
[~2017-04-28] MED LIST changes: -ASCO-63 PO; +GFNSR600 PO; +IPRASOL4 INH; +NYSS5 PO; -PLMINS NEB; +PRED10TA PO; +PRFINS INH; +VERA240T20 PO; -XPNINS NEB
[2017-04-28 08:17] LABS: HEMATOCRIT 34.7 % (37-47); MEAN CELL VOLUME 91.8 fL (80-100); MEAN CORPUSCULAR HEMOGLOBIN 30.2 pg (25-34); MEAN CORPUSCULAR HGB CONC 32.9 g/dl (32-36); MEAN PLATELET VOLUME 8.8 fL (7.4-10.4); PLATELET COUNT 182 K/uL (130-400); RED BLOOD COUNT 3.78 M/uL (4.2-5.4); WHITE BLOOD COUNT 14.63 K/uL (4.8-10.8)
== END ==
LOC: C.LABCC 07:56
PROVIDERS: ATTEND Internal Medicine
DX: K92.1 Melena (principal)

== ENCOUNTER 2017-08-11 17:26 | Emergency (ER) | payer BC ==
[~2017-08-11] VITALS: Ht 165.1 cm; Wt 60.2 kg
[2017-08-11 17:31] VITALS: TEMP 36.7; Ht 165.1 cm; Wt 60.2 kg
[2017-08-11 18:05] LABS: BASO % 0.1 %; BASO ABS # 0.01 K/uL (0-0.2); COMPLETE YES; EOS % 0.1 %; IG% 0.2 %; LYMPH % 7.8 %; LYMPH ABS # 0.72 K/uL (1.2-3.4); MEAN CELL VOLUME 95.2 fL (80-100); MEAN CORPUSCULAR HEMOGLOBIN 31.4 pg (25-34); MEAN CORPUSCULAR HGB CONC 32.9 g/dl (32-36); MEAN PLATELET VOLUME 9.1 fL (7.4-10.4); MONO % 6.9 %; NEUT % 84.9 %; PLATELET COUNT 148 K/uL (130-400); RED BLOOD COUNT 3.57 M/uL (4.2-5.4); WHITE BLOOD COUNT 9.22 K/uL (4.8-10.8)
[2017-08-11 18:18] LABS: BUN/CREATININE RATIO 38.3 (10-20); CALCIUM 8.9 mg/dl (8.5-10.1); CREATININE 1.15 mg/dl (0.60-1.20); POTASSIUM 4.2 mmol/L (3.5-5.1)
[2017-08-11] MEDS ORDERED: INSU100I SC (18:28)
[2017-08-11] MEDS ORDERED: FORM1NEB INH (18:28)
[2017-08-11] MEDS ORDERED: MOML PO (18:28)
[2017-08-11] MEDS ORDERED: MULTTAB63 PO (18:28)
[2017-08-11] MEDS ORDERED: SODI1ENE RE (18:28)
[2017-08-11] MEDS ORDERED: BISA10SU3 PR (18:28)
[2017-08-11] MEDS ORDERED: PRED10TA PO (18:28)
[2017-08-11] MEDS ORDERED: ONDANSETRON INJ 2 MG/ML 2 ML VIAL ONE (19:29)
[2017-08-11] MEDS ORDERED: OPTIRAY 320 IV PRN (19:30)
--- NOTE | 2017-08-11 20:38 | DIAGNOSTIC IMAGING REPORT ---
ABD/PELVIS IV AND ORAL CONT CT DOSE: 266.65 mGy.cm HISTORY: Pain LLQ pain TECHNIQUE: Multiaxial CT images of the abdomen and pelvis were performed following the use of intravenous and oral contrast. A dose lowering technique was utilized adhering to the principles of ALARA. COMPARISON STUDY: 11/24/2016 FINDINGS: Improved aeration of the lung bases. Mild residual pleural thickening and parenchymal scarring left and to lesser extent right base. This is improved from the prior exam. Left pleural effusion is shown near complete resolution. Mild outer cortical scarring of the liver. Biliary ductal prominence post cholecystectomy slightly improved. Mild partial fatty replacement of the pancreas. Kidneys negative for hydronephrosis. An inferior vena cava filter is stable and unchanged in location from the prior study. Atherosclerotic change of the abdominal aorta as well as iliac vasculature with no evidence for aneurysm. Bowel pattern overall is nonobstructive. No significant abdominal or inguinal adenopathy. Findings of chronic sigmoid diverticulosis. Trace pericolonic infiltrative change at the juncture of the descending and sigmoid colonic regions raising the possibility of a minimal component of superimposed acute diverticulitis. No evidence for abscess collection or obstruction. Bladder is midline. IMPRESSION: 1. Chronic sigmoid diverticulosis with minimal superimposed acute diverticulitis juncture of the descending and proximal sigmoid regions. 2. No evidence for abscess collection or obstruction. 3. Improved aeration left lung base with near complete resolution of the previously described pleural effusion. 4. Biliary ductal prominence slightly improved as compared to the prior study post cholecystectomy. The above report was generated using voice recognition software. It may contain grammatical, syntax or spelling errors. Electronically signed by: Didier Eldridge M.D. 08/11/2017 8:37 PM Dictated Date/Time: 08/11/2017 8:32 PM
[2017-08-11] MEDS ORDERED: CIPROFLOXACIN 500 MG TAB PO STA (21:20)
[2017-08-11] MEDS ORDERED: METRONIDAZOLE 250 MG TAB PO STA (21:20)
[2017-08-11] MEDS ORDERED: CIPR250T3 PO (21:33)
[2017-08-11] MEDS ORDERED: METR-162 PO (21:33)
--- NOTE | 2017-08-11 21:37 | EMERGENCY ROOM VISIT NOTE ---
History First contact with patient: 17:28 Chief Complaint: ABDOMINAL PAIN Stated Complaint: AB PAIN Nursing Triage Summary: patient with abdominal pain that was brought to the attention of nursing staff at [facility] this afternoon at 1500. patient has been trying to have bowel movement and unable to do so. was sent to rule out diveritculis History of Present Illness The patient is a 81 year old female resident at [facility] who presents to the Emergency Room with complaints of LLQ pain x 2 days, stating she has been trying to have BM without success for "a few days now." Patient has known dementia with numerous falls. Poor historian. States her pain is constant and severe, however, appears to be resting comfortably in bed. 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 She also reports nausea but no vomiting. Otherwise feeling well. Review of Systems Constitutional: + weakness, No fever, No chills, No sweats, No weight loss, No fatigue, No problem reported Respiratory: + shortness of breath, No cough, No sputum, No wheezing, No dyspnea on exertion, No dyspnea at rest, No hemoptysis, No problem reported Cardiovascular: No chest pain, No orthopnea, No PND, No edema, No claudication, No palpitations, No problem reported Abdomen: + pain (LLQ), + nausea (which has subsided), No vomiting, No diarrhea, No constipation, No GI bleeding, No problem reported Genitourinary - Female: No dysuria, No urinary frequency, No urinary urgency Integumentary: No rash Past Medical/Surgical History Medical Problems: (1) Afib (2) Alzheimer's disease, unspecified (3) Anxiety (4) Ataxia (5) Benign essential hypertension (6) Depression (7) Dizziness (8) History of subarachnoid hemorrhage (9) Hypothyroidism, unspecified (10) Polymyalgia rheumatica (11) SAH (subarachnoid hemorrhage) (12) Syncopal episodes (13) Unspecified asthma Surgical Problems: (1) H/O tubal ligation (2) S/P appendectomy (3) S/P hysterectomy Family History Patient reports no known family medical history. Social History Smoking Status: Never Smoker Alcohol Use: none Marital Status: Housing Status: lives alone Occupation Status: retired Current/Historical Medications Scheduled Aspirin (Ecotrin Low Strength), 81 MG PO DAILY Ciprofloxacin (Cipro), 1 TAB PO BID Ferrous Sulfate (Ferrous Sulfate), 325 MG PO TID Formoterol Fumarate (Perforomist), 1 UNIT INH BID Guaifenesin Ext Rel (Mucinex Ext Rel), 1,200 MG PO Q12 Ipratropium-Albuterol (Duoneb), 3 ML INH Q4R Lorazepam (Lorazepam), 0.25 MG PO BID Metronidazole (Flagyl), 1 TAB PO TID Montelukast Sod (Montelukast Sodium), 10 MG PO HS Multiple Vitamins W/ Minerals (Therems M), 1 TAB PO DAILY Polyethylene Glycol 3350 (Miralax), 17 GM PO DAILY Prednisone (Prednisone), 10 MG PO DAILY Sertraline (Zoloft), 100 MG PO HS Verapamil Sust Rel (Calan Sr Ext Rel), 240 MG PO QAM Scheduled PRN Acetaminophen (Mapap), 650 MG PO Q6 PRN for Pain Insulin Lispro (Human) (Humalog), Unknown Dose SC for Elevated BS Magnesium Hydroxide (Milk Of Magnesia), 30 ML PO for Constipation Sodium Phosphates (Fleet Enema Six Pack), 1 DOSE RE for Constipation Miscellaneous Medications Bisacodyl (Dulcolax), 1 SUPP CA Physical Exam Vital Signs Date Time Temp Pulse Resp B/P (MAP) Pulse Ox O2 Delivery O2 Flow Rate FiO2 08/11/17 22:47 88 135/88 98 08/11/17 21:33 86 20 140/63 96 Room Air 08/11/17 20:38 78 20 142/58 97 Room Air 08/11/17 19:22 68 20 108/65 97 Room Air 08/11/17 17:31 36.7 93 20 131/60 96 Room Air Physical Exam General Appearance: WD/WN, no apparent distress Head: normocephalic, atraumatic Eyes: normal inspection, PERRL, EOMI ENT: normal ENT inspection, hearing grossly normal Neck: supple, no JVD Respiratory/Chest: chest non-tender, no respiratory distress, + crackles ( LLL) Cardiovascular: regular rate, rhythm, no edema, no gallop, no JVD, no murmur , normal peripheral pulses Abdomen / GI: normal bowel sounds, soft, no organomegaly, + tenderness (LLQ) Back: normal inspection, no CVA tenderness Extremities: normal inspection, no calf tenderness, + pedal edema (trace, bilateral) 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 A dose lowering technique was utilized adhering to the principles of ALARA. COMPARISON STUDY: 11/24/2016 FINDINGS: Improved aeration of the lung bases. Mild residual pleural thickening and parenchymal scarring left and to lesser extent right base. This is improved from the prior exam. Left pleural effusion is shown near complete resolution. Mild outer cortical scarring of the liver. Biliary ductal prominence post cholecystectomy slightly improved. Mild partial fatty replacement of the pancreas. Kidneys negative for hydronephrosis. An inferior vena cava filter is stable and unchanged in location from the prior study. Atherosclerotic change of the abdominal aorta as well as iliac vasculature with no evidence for aneurysm. Bowel pattern overall is nonobstructive. No significant abdominal or inguinal adenopathy. Findings of chronic sigmoid diverticulosis. Trace pericolonic infiltrative change at the juncture of the descending and sigmoid colonic regions raising the possibility of a minimal component of superimposed acute diverticulitis. No evidence for abscess collection or obstruction. Bladder is midline. IMPRESSION: 1. Chronic sigmoid diverticulosis with minimal superimposed acute diverticulitis juncture of the descending and proximal sigmoid regions. 2. No evidence for abscess collection or obstruction. 3. Improved aeration left lung base with near complete resolution of the previously described pleural effusion. 4. Biliary ductal prominence slightly improved as compared to the prior study post cholecystectomy. Laboratory Results 08/11/17 17:55 Red Blood Count 3.57, Mean Corpuscular Volume 95.2, Mean Corpuscular Hemoglobin 31.4, Mean Corpuscular Hemoglobin Concent 32.9, Mean Platelet Volume 9.1, Neutrophils (%) (Auto) 84.9, Lymphocytes (%) (Auto) 7.8, Monocytes (%) (Auto) 6.9, Eosinophils (%) (Auto) 0.1, Basophils (%) (Auto) 0.1, Neutrophils # (Auto) 7.82, Lymphocytes # (Auto) 0.72, Monocytes # (Auto) 0.64, Eosinophils # (Auto) 0.01, Basophils # (Auto) 0.01 08/11/17 17:55 Test 08/11/17 17:55 White Blood Count 9.22 K/uL (4.8-10.8) Red Blood Count 3.57 M/uL (4.2-5.4) Hemoglobin 11.2 g/dL (12.0-16.0) Hematocrit 34.0 % (37-47) Mean Corpuscular Volume 95.2 fL (80-100) Mean Corpuscular Hemoglobin 31.4 pg (25-34) Mean Corpuscular Hemoglobin Concent 32.9 g/dl (32-36) Platelet Count 148 K/uL (130-400) Mean Platelet Volume 9.1 fL (7.4-10.4) Neutrophils (%) (Auto) 84.9 % Lymphocytes (%) (Auto) 7.8 % Monocytes (%) (Auto) 6.9 % Eosinophils (%) (Auto) 0.1 % Basophils (%) (Auto) 0.1 % Neutrophils # (Auto) 7.82 K/uL (1.4-6.5) Lymphocytes # (Auto) 0.72 K/uL (1.2-3.4) Monocytes # (Auto) 0.64 K/uL (0.11-0.59) Eosinophils # (Auto) 0.01 K/uL (0-0.5) Basophils # (Auto) 0.01 K/uL (0-0.2) RDW Standard Deviation 46.4 fL (36.4-46.3) RDW Coefficient of Variation 13.3 % (11.5-14.5) Immature Granulocyte % (Auto) 0.2 % Immature Granulocyte # (Auto) 0.02 K/uL (0.00-0.02) Anion Gap 10.0 mmol/L (3-11) Est Creatinine Clear Calc Drug Dose 33.9 ml/min Estimated GFR () 51.3 Estimated GFR (Non- 44.3 BUN/Creatinine Ratio 38.3 (10-20) Calcium Level 8.9 mg/dl (8.5-10.1) Total Bilirubin 0.3 mg/dl (0.2-1) Aspartate Amino Transf (AST/SGOT) 17 U/L (15-37) Alanine Aminotransferase (ALT/SGPT) 21 U/L (12-78) Alkaline Phosphatase 78 U/L (45-117) Total Protein 7.2 gm/dl (6.4-8.2) Albumin 3.6 gm/dl (3.4-5.0) Globulin 3.6 gm/dl (2.5-4.0) Albumin/Globulin Ratio 1.0 (0.9-2) Medications Administered Medications (Trade) Dose Ordered Sig/Ally Route Start Time Stop Time Status Last Admin Dose Admin Ondansetron HCl (Zofran Inj) 4 mg STK-MED ONCE .ROUTE 08/11/17 19:29 08/11/17 19:30 DC 08/11/17 19:32 4 MG Ciprofloxacin (Cipro Tab) 250 mg NOW STAT PO 08/11/17 21:20 08/11/17 21:24 DC 08/11/17 21:32 250 MG Metronidazole (Flagyl Tab) 500 mg NOW STAT PO 08/11/17 21:20 08/11/17 21:24 DC 08/11/17 21:32 500 MG ED Course 1730: Full h&p obtained from patient in room B11B 1745: Discussed case with Dr. Diaz, ordered CT A/P with oral/IV contrast 1930: Reassessed patient; she is feeling nauseated and cannot finish her oral contrast mixture. Ordered 4 mg zofran 2030: Reassessed patient prior to CT scan; she is sleeping, resting comfortably 2146: Discussed findings with patient, explained therapy that will be undertaken. Patient amenable. Discharged back to [facility]. Medical Decision Prior records/ancillary studies reviewed. Triage Nursing notes reviewed. Additional history obtained from patient and EMS report. The patient's history was concerning for abdominal pain. Differential diagnosis: Etiologies such as appendicitis, diverticulitis, PUD, biliary pathology, UTI, pancreatitis, obstruction, mesenteric ischemia, aortic pathology, infections, inflammatory bowel disease, renal colic, as well as others were entertained. Physical examination findings: As above. ER treatment provided: 4 mg zofran, 1x 250mg cipro, 1x 500 mg flagyl On reassessment the patient felt better. Diagnostics interpreted by me: The labs revealed normal WBC, BUN 44 Imaging studies: as above By the evaluation outlined above emergent etiologies such as appendicitis, PUD , biliary pathology, UTI, pancreatitis, obstruction, mesenteric ischemia, aortic pathology, infections, inflammatory bowel disease, renal colic, as well as others were deemed relatively unlikely. The patient was informed about the findings as listed above. All questions were answered and she was pleased with the treatment. Return instructions were outlined and the patient was discharged in stable condition. Outpatient prescription management: Flagyl 500 mg TID x 7 days Cipro 250mg BIDx 7 days Referral: The patient was referred back to their primary care physician for follow-up in 2 to 3 days for a recheck of the current condition. Impression Primary Impression: Diverticulitis Departure Information Dispostion Transfer Acute Care Facility Condition GOOD Prescriptions Metronidazole (FLAGYL) 500 Mg Tab 1 TAB PO TID for 7 Days, #20 TAB Prov: Heather Knxo M.D. 08/11/17 Ciprofloxacin (CIPRO) 250 Mg Tab 1 TAB PO BID for 7 Days, #13 TAB Prov: Heather Knox M.D. 08/11/17 Referrals OktibbehaJustyn (PCP) Patient Instructions Diverticulosis Diverticulitis, My [facility] Additional Instructions DIVERTICULITIS INSTRUCTIONS: DO NOT drive, drink alcohol, operate machinery, or perform dangerous activities today. You were given medications in the ER that can affect your ability to safely function or operate a vehicle. Ciprofloxacin(Cipro) 250mg: Take one pill twice daily for 7 days for your bowel infection. All antibiotics can cause diarrhea. If this occurs and you feel worse or it does not resolve in 1-2 days follow up with your doctor or return to the Emergency Department as this could be signs of serious underlying problems. If you experience any pain in your tendons/joints or any tendon injury return to the ER for re-evaluation. Any medication can cause an allergic reaction, stop the pills immediately and return to the ER for rash, hives, breathing difficulties, or swelling. Metronidazole(Flagyl) 500mg: Take one pill three times daily for 7 days for your bowel infection. DO NOT drink alcohol or take alcohol containing products with this medication. Any medication can cause an allergic reaction, stop the pills immediately and return to the ER for rash, hives, breathing difficulties, or swelling. Ibuprofen(Motrin, Advil) may be used for fever or pain. Use 600mg every six hours as needed. Take with food. Avoid using more than 2400mg in a 24 hour period. Do not use 2400mg per day for more than three consecutive days without physician direction. Prolonged inappropriate use can lead to stomach upset or ulcers. This is available over the counter and typically comes in 200mg tablets. (AND/OR) Acetaminophen(Tylenol) may be used for fever or pain. Use 1000mg every eight hours as needed. Avoid using more than 3000mg in a 24 hour period. This is available over the counter. Read all the package inserts or medication information paperwork provided. If you have any questions or concerns call your primary provider, pharmacist or the ER for assistance. Rest and drink plenty of fluids as tolerated. Slow sips of water or sports drinks are recommended instead of large amounts all at once. Continue current medications. Once your stomach is settled start with a clear liquid diet (jello, soup broth, etc.) and then advance as tolerated. You should avoid full, heavy meals for about 24 hrs from the time your symptoms resolved. Return to the ER immediately for worsening or persistent abdominal pain, vomiting, fevers, chest pains, difficulty breathing, black or bloody stools, worsening of your condition, or as needed. Follow up with your primary physician in 2-3 days for a recheck of your current condition. Resident Tracking Resident Involvement: Resident Care Provided Care Provided: Adult ED
[2017-08-11 22:47] VITALS: BP 135/88; PULSE 88; O2SAT 98
--- NOTE | 2017-08-13 01:10 | EMERGENCY ROOM VISIT NOTE ---
ED Visit Note First contact with patient: 17:22 Resident Physician Supervision Note: I interviewed and examined the patient. Discussed with Dr. Knox and agree with findings and plan as documented in the note. Any exceptions or clarifications are listed here: The patient is afebrile with a normal white blood cell count. There is no evidence of perforation or abscess. I believe the patient is stable for discharge on oral medications. Due to her decreased renal function, the patient will be placed on Cipro 250 mg twice a day as well as Flagyl 500 mg 3 times a day. First doses were given in the emergency department. Please refer to Dr. Knox's notes for further details. Diagnosis: Acute diverticulitis Documented By: Monalisa Diaz
== END 2017-08-11 22:49 ==
LOC: EDBD 17:26 → C.EDB 17:28
DX: K57.32 Diverticulitis of large intestine without perforation or abscess without bleeding (principal); K57.30 Diverticulosis of large intestine without perforation or abscess without bleeding; G30.9 Alzheimer's disease, unspecified; F02.80 Dementia in other diseases classified elsewhere, unspecified severity, without behavioral disturbance, psychotic disturbance, mood disturbance, and anxiety; R29.6 Repeated falls; I48.91 Unspecified atrial fibrillation; R91.1 Solitary pulmonary nodule; F41.9 Anxiety disorder, unspecified; I10 Essential (primary) hypertension; F32.9 Major depressive disorder, single episode, unspecified; E03.9 Hypothyroidism, unspecified; M35.3 Polymyalgia rheumatica; J45.909 Unspecified asthma, uncomplicated; Z79.82 Long term (current) use of aspirin; Z79.52 Long term (current) use of systemic steroids; Z86.711 Personal history of pulmonary embolism; Z90.89 Acquired absence of other organs; Z90.710 Acquired absence of both cervix and uterus

== ENCOUNTER → 2017-08-19 | Outpatient (CLI) | payer BC ==
[~2017-08-19] MED LIST changes: +BISA10SU3 PR; +CIPR250T3 PO; -CRDCD180 PO; +FORM1NEB INH; -INFA1LIQ PO; +INSU100I SC; +METR-162 PO; +MOML PO; -MULT-513 PO; +MULTTAB63 PO; -NYSS5 PO; -PRFINS INH; +SODI1ENE RE
[2017-08-19 08:51] LABS: HEMATOCRIT 36.4 % (37-47); MEAN CELL VOLUME 95.5 fL (80-100); MEAN CORPUSCULAR HEMOGLOBIN 31.5 pg (25-34); MEAN PLATELET VOLUME 9.6 fL (7.4-10.4); PLATELET COUNT 203 K/uL (130-400); RED BLOOD COUNT 3.81 M/uL (4.2-5.4); WHITE BLOOD COUNT 6.36 K/uL (4.8-10.8)
[2017-08-19 09:51] LABS: BLOOD UREA NITROGEN 21 mg/dl (7-18); CALCIUM 8.6 mg/dl (8.5-10.1); CARBON DIOXIDE 26 mmol/L (21-32); CHLORIDE 105 mmol/L (98-107); CREATININE 0.83 mg/dl (0.60-1.20); GLUCOSE 104 mg/dl (70-99); POTASSIUM 4.3 mmol/L (3.5-5.1); SODIUM 138 mmol/L (136-145)
== END | disposition home or self-care (01) ==
LOC: C.LABCC 08:13
PROVIDERS: ATTEND Internal Medicine
DX: R10.9 Unspecified abdominal pain (principal)

== ENCOUNTER → 2017-08-19 | Outpatient (CLI) | payer BC ==
[2017-08-19 09:55] LABS: URINE APPEARANCE CLEAR (CLEAR); URINE BILIRUBIN NEG (NEG); URINE COLOR YELLOW; URINE NITRITE NEG (NEG); URINE SPECIFIC GRAVITY 1.015 (1.000-1.030); UROBILINOGEN NEG (NEG)
[2017-08-19 10:00] LABS: MANUAL MICROSCOPIC REQUIRED? NO; REVIEW REQ? NO
== END ==
LOC: C.LABCC 09:14
PROVIDERS: ATTEND Internal Medicine
DX: R10.9 Unspecified abdominal pain (principal)

== ENCOUNTER → 2017-09-17 | Outpatient (CLI) | payer BC ==
[~2017-09-17] MED LIST changes: +ASCO250T5 PO; +CHOL20009 PO; -CIPR250T3 PO; +IPRA-64 INH; -IPRASOL4 INH; -METR-162 PO; +VENL75CA73 PO
[2017-09-17 08:37] LABS: BASO % 0.5 %; BASO ABS # 0.03 K/uL (0-0.2); EOS % 4.1 %; EOS ABS # 0.23 K/uL (0-0.5); HEMATOCRIT 36.3 % (37-47); HEMOGLOBIN 11.7 g/dL (12.0-16.0); IG# 0.07 K/uL (0.00-0.02); LYMPH % 19.2 %; LYMPH ABS # 1.07 K/uL (1.2-3.4); MEAN CELL VOLUME 95.8 fL (80-100); MEAN CORPUSCULAR HEMOGLOBIN 30.9 pg (25-34); MEAN CORPUSCULAR HGB CONC 32.2 g/dl (32-36); MONO % 11.6 %; MONO ABS # 0.65 K/uL (0.11-0.59); NEUT % 63.3 %; NEUT ABS # 3.53 K/uL (1.4-6.5); PLATELET COUNT 250 K/uL (130-400); RED CELL DISTRIBUTION WIDTH CV 13.8 % (11.5-14.5); RED CELL DISTRIBUTION WIDTH SD 47.4 fL (36.4-46.3); WHITE BLOOD COUNT 5.58 K/uL (4.8-10.8)
[2017-09-17 10:41] LABS: BLOOD UREA NITROGEN 23 mg/dl (7-18); CALCIUM 8.7 mg/dl (8.5-10.1); CARBON DIOXIDE 27 mmol/L (21-32); CREATININE 1.07 mg/dl (0.60-1.20); GLUCOSE 101 mg/dl (70-99); POTASSIUM 4.3 mmol/L (3.5-5.1); SODIUM 139 mmol/L (136-145)
--- NOTE | 2017-09-22 09:29 | CODING QUERY MEDICAL NECESSITY ---
CQSUPPORTING DIAGNOSIS NEEDED A supporting diagnosis is required for the test/procedure performed on this patient in order for us to be reimbursed by the patient's insurance. Please provide a supporting diagnosis for the following test/procedure listed below next to the test name along with your signature. *If there is no additional diagnosis for this patient that would support the following test/procedure please document that below next to the test/procedure. Test(s)/Procedure(s) that require a supporting diagnosis: DOS 09/17/17 VITAMIN D TEST TEST ORDERED BY DR NIÑO FROM [facility] Provider Signature: Date: Thank you Marlene Bae Health Information Management Once completed, please kindly fax back to [phone] For questions please call [phone]
== END ==
LOC: C.LABCC 08:11
PROVIDERS: ATTEND Internal Medicine
DX: J45.909 Unspecified asthma, uncomplicated (principal); I48.91 Unspecified atrial fibrillation; E03.9 Hypothyroidism, unspecified; I10 Essential (primary) hypertension; F32.9 Major depressive disorder, single episode, unspecified; M19.90 Unspecified osteoarthritis, unspecified site; E55.9 Vitamin D deficiency, unspecified

== ENCOUNTER → 2017-11-29 | Outpatient (CLI) | payer BC ==
[~2017-11-29] MED LIST changes: -ASCO250T5 PO; -CHOL20009 PO; -IPRA-64 INH; +IPRASOL4 INH; -VENL75CA73 PO
[2017-11-29 08:19] LABS: BASO % 0.4 %; BASO ABS # 0.02 K/uL (0-0.2); EOS % 3.2 %; EOS ABS # 0.16 K/uL (0-0.5); HEMATOCRIT 38.3 % (37-47); HEMOGLOBIN 12.9 g/dL (12.0-16.0); IG# 0.01 K/uL (0.00-0.02); LYMPH % 30.1 %; MEAN CELL VOLUME 95.3 fL (80-100); MEAN CORPUSCULAR HEMOGLOBIN 32.1 pg (25-34); MEAN CORPUSCULAR HGB CONC 33.7 g/dl (32-36); MONO % 6.6 %; MONO ABS # 0.33 K/uL (0.11-0.59); NEUT % 59.5 %; NEUT ABS # 2.96 K/uL (1.4-6.5); PLATELET COUNT 145 K/uL (130-400); RED CELL DISTRIBUTION WIDTH CV 14.2 % (11.5-14.5); RED CELL DISTRIBUTION WIDTH SD 48.9 fL (36.4-46.3); WHITE BLOOD COUNT 4.98 K/uL (4.8-10.8)
[2017-11-29 08:26] LABS: BLOOD UREA NITROGEN 25 mg/dl (7-18); CARBON DIOXIDE 28 mmol/L (21-32); CREATININE 1.05 mg/dl (0.60-1.20); GLUCOSE 103 mg/dl (70-99); POTASSIUM 3.8 mmol/L (3.5-5.1); SODIUM 136 mmol/L (136-145)
== END | disposition home or self-care (01) ==
LOC: C.LABCC 09:52
PROVIDERS: ATTEND Internal Medicine
DX: R50.9 Fever, unspecified (principal); R05 Cough; R06.2 Wheezing

== ENCOUNTER → 2017-12-17 | Outpatient (CLI) | payer BC | LOC: C.LABCC 07:47 | PROVIDERS: ATTEND Internal Medicine | DX: E55.9 Vitamin D deficiency, unspecified (principal) ==

== ENCOUNTER → 2018-01-06 | Outpatient (CLI) | payer BC ==
[2018-01-06 09:37] LABS: BASO % 0.7 %; BASO ABS # 0.03 K/uL (0-0.2); EOS % 3.2 %; EOS ABS # 0.13 K/uL (0-0.5); HEMATOCRIT 30.6 % (37-47); HEMOGLOBIN 10.2 g/dL (12.0-16.0); IG# 0.03 K/uL (0.00-0.02); LYMPH % 32.8 %; LYMPH ABS # 1.34 K/uL (1.2-3.4); MEAN CELL VOLUME 95.6 fL (80-100); MEAN CORPUSCULAR HEMOGLOBIN 31.9 pg (25-34); MEAN CORPUSCULAR HGB CONC 33.3 g/dl (32-36); MEAN PLATELET VOLUME 9.5 fL (7.4-10.4); MONO % 12.5 %; MONO ABS # 0.51 K/uL (0.11-0.59); NEUT % 50.1 %; NEUT ABS # 2.04 K/uL (1.4-6.5); PLATELET COUNT 170 K/uL (130-400); RED CELL DISTRIBUTION WIDTH CV 14.5 % (11.5-14.5); RED CELL DISTRIBUTION WIDTH SD 50.4 fL (36.4-46.3); WHITE BLOOD COUNT 4.08 K/uL (4.8-10.8)
[2018-01-06 09:49] LABS: BLOOD UREA NITROGEN 25 mg/dl (7-18); CALCIUM 8.8 mg/dl (8.5-10.1); CARBON DIOXIDE 28 mmol/L (21-32); GLUCOSE 90 mg/dl (70-99); POTASSIUM 3.7 mmol/L (3.5-5.1); SODIUM 142 mmol/L (136-145)
== END ==
LOC: C.LABCC 08:44
PROVIDERS: ATTEND Internal Medicine
DX: R60.9 Edema, unspecified (principal); R63.5 Abnormal weight gain

== ENCOUNTER → 2018-01-14 | Outpatient (CLI) | payer BC ==
[2018-01-14 08:45] LABS: HEMATOCRIT 32.2 % (37-47); HEMOGLOBIN 10.7 g/dL (12.0-16.0); MEAN CELL VOLUME 97.3 fL (80-100); MEAN CORPUSCULAR HEMOGLOBIN 32.3 pg (25-34); MEAN CORPUSCULAR HGB CONC 33.2 g/dl (32-36); MEAN PLATELET VOLUME 9.6 fL (7.4-10.4); PLATELET COUNT 161 K/uL (130-400); RED CELL DISTRIBUTION WIDTH CV 14.5 % (11.5-14.5); WHITE BLOOD COUNT 4.73 K/uL (4.8-10.8)
[2018-01-14 08:51] LABS: BLOOD UREA NITROGEN 31 mg/dl (7-18); CALCIUM 8.4 mg/dl (8.5-10.1); CARBON DIOXIDE 29 mmol/L (21-32); CREATININE 1.26 mg/dl (0.60-1.20); GLUCOSE 89 mg/dl (70-99); POTASSIUM 4.1 mmol/L (3.5-5.1); SODIUM 141 mmol/L (136-145)
== END | disposition home or self-care (01) ==
LOC: C.LABCC 08:06
PROVIDERS: ATTEND Internal Medicine
DX: D64.9 Anemia, unspecified (principal)

== ENCOUNTER → 2018-01-28 | Outpatient (CLI) | payer BC ==
[2018-01-28 08:26] LABS: HEMOGLOBIN 10.7 g/dL (12.0-16.0); MEAN CELL VOLUME 97.6 fL (80-100); MEAN CORPUSCULAR HEMOGLOBIN 32.6 pg (25-34); MEAN CORPUSCULAR HGB CONC 33.4 g/dl (32-36); MEAN PLATELET VOLUME 9.9 fL (7.4-10.4); PLATELET COUNT 152 K/uL (130-400); RED CELL DISTRIBUTION WIDTH CV 14.1 % (11.5-14.5); RED CELL DISTRIBUTION WIDTH SD 50.5 fL (36.4-46.3)
== END ==
LOC: C.LABCC 07:48
PROVIDERS: ATTEND Internal Medicine
DX: D64.9 Anemia, unspecified (principal)

== ENCOUNTER 2018-04-18 13:52 | Emergency (ER) | payer BC ==
[~2018-04-18] VITALS: Ht 157.5 cm; Wt 53.3 kg
[~2018-04-18 13:52] MED LIST changes: +IPRA-64 INH; -IPRASOL4 INH
[2018-04-18 13:59] VITALS: TEMP 36.7; Ht 157.5 cm; Wt 53.3 kg
--- NOTE | 2018-04-18 14:17 | EMERGENCY ROOM VISIT NOTE ---
History Report prepared by Ulises: Jeanette Nava Under the Supervision of: Dr. Lety Serrano D.O. First contact with patient: 13:54 Chief Complaint: ABDOMINAL PAIN Stated Complaint: ABD PAIN History of Present Illness The patient is an 82 year old female who presents to the Emergency Room with complaints of resolved abdominal pain that occurred 2 hours ago. The patient was sent from [facility] and she has a history of dementia and diverticulitis. She was having abdominal pain at [facility] and was given Toradol and Tylenol. She states she is now pain free. She did not have any nausea, vomiting, or diarrhea. She is unsure when her last bowel movement was. This HPI is limited secondary to patient's dementia. Source of History: patient History Limited By: dementia Onset: 2 hours HEALTH SERVICE COORDINATOR Position: abdomen Timing: resolved Associated Symptoms: No nausea, No vomiting, No diarrhea Review of Systems ROS limited secondary to patient's dementia. Past Medical & Surgical Medical Problems: (1) Afib (2) Alzheimer's disease, unspecified (3) Anxiety (4) Ataxia (5) Benign essential hypertension (6) Depression (7) Dizziness (8) History of subarachnoid hemorrhage (9) Hypothyroidism, unspecified (10) Polymyalgia rheumatica (11) SAH (subarachnoid hemorrhage) (12) Syncopal episodes (13) Unspecified asthma Surgical Problems: (1) H/O tubal ligation (2) S/P appendectomy (3) S/P hysterectomy Family History Patient reports no known family medical history. Social History Smoking Status: Never Smoker Alcohol Use: none Marital Status: Housing Status: lives alone Occupation Status: retired Current/Historical Medications Scheduled Ascorbic Acid (Ascorbic Acid), 1 TAB PO DAILY Aspirin (Ecotrin Low Strength), 81 MG PO DAILY Cholecalciferol (Vitamin D), 1 TAB PO DAILY Ferrous Sulfate (Ferrous Sulfate), 325 MG PO TID Formoterol Fumarate (Perforomist), 1 UNIT INH BID Ipratropium-Albuterol (Duoneb), 3 ML INH Q4R Lorazepam (Lorazepam), 0.25 MG PO BID Montelukast Sod (Montelukast Sodium), 10 MG PO HS Polyethylene Glycol 3350 (Miralax), 17 GM PO DAILY Venlafaxine Hcl (Venlafaxine Extended Rel), 75 MG PO DAILY Verapamil Sust Rel (Calan Sr Ext Rel), 240 MG PO QAM Scheduled PRN Acetaminophen (Mapap), 650 MG PO Q6 PRN for Pain Magnesium Hydroxide (Milk Of Magnesia), 30 ML PO for Constipation Miscellaneous Medications Bisacodyl (Dulcolax), 1 SUPP GA Allergies Coded Allergies: Adhesives (Verified Allergy, Severe, RED/SWOLLEN, 04/18/18) Codeine (Verified Allergy, Unknown, TOLERATED MORPHINE, 04/18/18) Erythromycin (Verified Allergy, Unknown, `, 04/18/18) Penicillins (Verified Allergy, Unknown, 04/18/18) Sulfamethoxazole (Verified Allergy, Unknown, 04/18/18) Physical Exam Vital Signs Date Time Temp Pulse Resp B/P (MAP) Pulse Ox O2 Delivery O2 Flow Rate FiO2 04/18/18 18:04 83 20 141/70 94 Room Air 04/18/18 16:26 82 20 105/64 94 Room Air 04/18/18 14:58 62 20 121/50 93 Room Air 04/18/18 13:59 36.7 64 20 122/62 95 Room Air Physical Exam GENERAL: alert, well appearing, well nourished, non-toxic. Tearful, confused. EYE EXAM: normal conjunctiva, PERRL and EOM's grossly intact OROPHARYNX: no exudate, no erythema, lips, buccal mucosa, and tongue normal and mucous membranes are moist NECK: supple, no nuchal rigidity, no adenopathy, non-tender LUNGS: Clear to auscultation. Normal chest wall mechanics, no w/r/r HEART: soft systolic ejection murmur, S1 normal and S2 normal ABDOMEN: abdomen soft, non-tender, normo-active bowel sounds, no masses, no rebound or guarding. No pulsatile mass. BACK: Back is symmetrical on inspection and there is no deformity, no midline tenderness, no CVA tenderness. SKIN: no rashes and no bruising UPPER EXTREMITIES: upper extremities are grossly normal. Normal pulses, normal sensation. LOWER EXTREMITIES: No pitting edema. Normal pulses, normal sensation. NEURO EXAM: Normal sensorium, cranial nerves II-XII grossly intact, normal speech, no gross weakness of arms, no gross weakness of legs. Medical Decision & Procedures ER Provider Diagnostic Interpretation: Radiology results have been interpreted by the radiologist and reviewed by me. ABDOMEN 2VIEW W/PA CHEST RTN CLINICAL HISTORY: abd pain pain COMPARISON STUDY: 04/21/2017 FINDINGS: Mild stable cardiomegaly. Chronic parenchymal prominence left lung base. No focal infiltrate. Operative changes consistent with a left shoulder arthroplasty. Nonobstructive bowel pattern. Increased fecal load within the colon consistent with fecal stasis. No obstructive characteristics. Inferior vena cava filter in position. IMPRESSION: 1. Moderate increase in fecal load throughout the colon consistent with mild to moderate fecal stasis. 2. Chronic changes as described within the chest. 3. No acute process. The above report was generated using voice recognition software. It may contain grammatical, syntax or spelling errors. Electronically signed by: Didier Eldridge M.D. 04/18/2018 3:05 PM Dictated Date/Time: 04/18/2018 3:03 PM Laboratory Results Test 04/18/18 17:16 Urine Color YELLOW Urine Appearance CLEAR (CLEAR) Urine pH 5.0 (4.5-7.5) Urine Specific [place] 1.021 (1.000-1.030) Urine Protein NEG (NEG) Urine Glucose (UA) NEG (NEG) Urine Ketones TRACE (NEG) Urine Occult Blood NEG (NEG) Urine Nitrite NEG (NEG) Urine Bilirubin NEG (NEG) Urine Urobilinogen NEG (NEG) Urine Leukocyte Esterase NEG (NEG) Laboratory results per my review. ED Course 1410: The patient was evaluated in room B12B. A complete history and physical exam was performed. 1630: I spoke with Letha, daughter and POA, and she states she does not want a CT scan or labs but would like me to check her urine. 1755: Upon reevaluation, the patient is feeling better. I discussed the findings and the treatment plan with the patient. She verbalizes agreement and understanding. She was discharged home. Medical Decision Differential diagnosis: Etiologies such as appendicitis, diverticulitis, PUD, biliary pathology, UTI, pancreatitis, obstruction, mesenteric ischemia, aortic pathology, infections, inflammatory bowel disease, renal colic, as well as others were entertained. Patient appears to be in her usual state given her history of ongoing dementia. Patient does reside in a dementia unit. Patient's CT shows constipation which may be the reason for her transient abdominal pain she complained of earlier. Patient rechecked her several times and has had no recurrent evidence of abdominal pain, does not seem to be in any distress. Patient did not have a fever, was hemodynamically stable. Patient's family wishes for a less aggressive and invasive approach which he feels appropriate given patient's age and cognitive status. I have a lower suspicion for occult infectious etiology, acute vascular pathology, ACS,, perforation, GI bleed. Patient monitored here for several hours and had no evolving or changing symptoms. Medication Reconcilliation Current Medication List: was personally reviewed by me Blood Pressure Screening Patient's blood pressure: Normal blood pressure Impression Primary Impression: Constipation Additional Impression: Dementia Scribe Attestation The scribe's documentation has been prepared under my direction and personally reviewed by me in its entirety. I confirm that the note above accurately reflects all work, treatment, procedures, and medical decision making performed by me. Departure Information Dispostion Home / Self-Care Referrals OllaJustyn (PCP) Patient Instructions My [facility] Additional Instructions Please continue your regular medications as prescribed. Please consider a stool softener or miralax daily to help prevent constipation. If you develop any worsening recurrent abdominal pain, black or bloody stools, diarrhea, dizziness, fevers or chills, vomiting, trouble breathing, you have any other new concerns, please return the emergency room. Problem Qualifiers Primary Impression: Constipation Constipation type: unspecified constipation type Qualified Codes: K59.00 - Constipation, unspecified Additional Impression: Dementia Dementia type: unspecified type Dementia behavioral disturbance: without behavioral disturbance Qualified Codes: F03.90 - Unspecified dementia without behavioral disturbance
--- NOTE | 2018-04-18 15:06 | DIAGNOSTIC IMAGING REPORT ---
ABDOMEN 2VIEW W/PA CHEST RTN CLINICAL HISTORY: abd pain pain COMPARISON STUDY: 04/21/2017 FINDINGS: Mild stable cardiomegaly. Chronic parenchymal prominence left lung base. No focal infiltrate. Operative changes consistent with a left shoulder arthroplasty. Nonobstructive bowel pattern. Increased fecal load within the colon consistent with fecal stasis. No obstructive characteristics. Inferior vena cava filter in position. IMPRESSION: 1. Moderate increase in fecal load throughout the colon consistent with mild to moderate fecal stasis. 2. Chronic changes as described within the chest. 3. No acute process. The above report was generated using voice recognition software. It may contain grammatical, syntax or spelling errors. Electronically signed by: Didier Eldridge M.D. 04/18/2018 3:05 PM Dictated Date/Time: 04/18/2018 3:03 PM
[2018-04-18] MEDS ORDERED: VENL75CA73 PO (16:42)
[2018-04-18] MEDS ORDERED: CHOL20009 PO (16:42)
[2018-04-18] MEDS ORDERED: ASCO250T5 PO (16:42)
[2018-04-18 18:04] VITALS: BP 141/70; PULSE 83; O2SAT 94
== END 2018-04-18 18:22 | disposition home or self-care (01) ==
LOC: EDBD 13:52 → C.EDB 13:54
DX: K59.00 Constipation, unspecified (principal); I48.91 Unspecified atrial fibrillation; G30.9 Alzheimer's disease, unspecified; F02.80 Dementia in other diseases classified elsewhere, unspecified severity, without behavioral disturbance, psychotic disturbance, mood disturbance, and anxiety; F41.9 Anxiety disorder, unspecified; I10 Essential (primary) hypertension; F32.9 Major depressive disorder, single episode, unspecified; E03.9 Hypothyroidism, unspecified; M35.3 Polymyalgia rheumatica; J45.909 Unspecified asthma, uncomplicated; Z98.51 Tubal ligation status; Z90.710 Acquired absence of both cervix and uterus; Z86.79 Personal history of other diseases of the circulatory system; Z79.82 Long term (current) use of aspirin; Z79.899 Other long term (current) drug therapy; Z91.048 Other nonmedicinal substance allergy status; Z88.5 Allergy status to narcotic agent; Z88.1 Allergy status to other antibiotic agents; Z88.0 Allergy status to penicillin; Z88.2 Allergy status to sulfonamides